=== PATIENT | female | born 1965 | race African-American/Black ===

== ENCOUNTER 2016-10-31 18:08 | Emergency (ER) | payer MEDICARE, MEDICAID ==
[~2016-10-31 18:08] MED LIST: ACET325 PO; AMLO5 PO; ATOR20TA42 PO; CLON.2 PO; COLA100C PO; DOXA4 PO; IPRAAER INH; LEVEMIR SQ; METO50TA PO; NOVOLOGSS SQ; OMEG100037 PO; PROM25TA5 PO; RENATAB5 PO; SENS30TA PO; SEVEL800 PO; VITA100018 PO; ZOLO100T PO; [UNRECOGNIZED DRUG - CODE] TOP
[2016-10-31 18:12] VITALS: BP 231/102; PULSE 105; RESP 22; TEMP 100.4; O2SAT 98
[2016-10-31] MEDS ORDERED: LEVEMIR SQ (19:00)
[2016-10-31] MEDS ORDERED: CLON0.2T PO (19:00)
[2016-10-31] MEDS ORDERED: DOCU240C PO (19:00)
[2016-10-31] MEDS ORDERED: LACT10SO27 PO (19:00)
[2016-10-31] MEDS ORDERED: SEVEL800 PO (19:00)
[2016-10-31] MEDS ORDERED: RENATAB5 PO (19:00)
[2016-10-31] MEDS ORDERED: DOXA1TAB34 PO (19:00)
[2016-10-31] MEDS ORDERED: [UNRECOGNIZED DRUG - OTHER] LEFT EYE (19:00)
[2016-10-31] MEDS ORDERED: NOVOLOGP2 SQ (19:00)
[2016-10-31] MEDS ORDERED: ATOR20TA15 PO (19:00)
[2016-10-31] MEDS ORDERED: SODIUM CHLORIDE 0.9% FLUSH 10 ML FLUSH IVF PRN (19:15)
--- NOTE | 2016-10-31 19:34 | PD ---
HPI Chief Complaint: Psychiatric Symptoms Time Seen by Provider: 18:56 Travel History International Travel<30 days: No Contact w/Intl Traveler<30days: No Traveled to known affect area: No History of Present Illness HPI The patient is 51 years old. She has end-stage renal disease and lives at [facility]. In summary she is here because she does not want stay at [facility]. At the time of interview she offers various complaints including swelling in her feet with the sensation of feeling titer. She states "I want any well-being check for the health of myself." She states when here because him unhappy with my facility." She states to have called the [address] [place] [address] hotline evidently with a grievance regarding the facility in which she lives. She undergoes dialysis Saturdays and was dialyzed yesterday as per normal. I was called back to the room by the nurse and the patient refused IV blood work. Initially she had agreed to undergo blood work as part of a "well-being check." Upon reassessment the patient explained that her reason for coming to the ER is to see the test case developer and to get placement in a different facility. We spoke with case management who will evaluate the patient and see about placement which we may not be able to do as since 7:30pm on a Wednesday night. Since the patient is tachycardic and febrile here we'll initiate blood work. Upon reassessing the patient at about 7:40 PM she agreed to undergo blood work and a chest x-ray and then refused. Ultimately after talking with her a third time she agreed to allow blood work to be performed however refused CXR when it arrived. PFSH Past Medical History Arthritis: No Asthma: No Autoimmune Disease: No Blood Disorders: No Anxiety: Yes Depression: Yes Heart Rhythm Problems: Yes Cancer: No Cardiac Catheterization: Yes (2008) Cardiovascular Problems: Yes High Cholesterol: Yes Chemotherapy: No Chest Pain: Yes Congestive Heart Failure: Yes COPD: No Cerebrovascular Accident: Yes (RIGHT SIDED WEAKNESS) Coronary Artery Disease: Yes Diabetes: Yes Patient Takes Glucophage: No Dialysis: Yes (WEDNESDAY,WEDNESDAY, WEDNESDAY) Diminished Hearing: No Endocrine: Yes Gastrointestinal Disorders: Yes GERD: No Glaucoma: No Genitourinary: Yes Headaches: No Hepatitis: No Hiatal Hernia: No Hypertension: Yes Immune Disorder: No Implanted Vascular Access Dvce: Yes Kidney Stones: No Medical other: Yes (RT SIDED WEAKNESS) Musculoskeletal: Yes Neurologic: Yes (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) Psychiatric: Yes Reproductive: No Respiratory: Yes (PNEUMONIA) Migraines: No Myocardial Infarction: No Radiation Therapy: No Renal Failure: Yes Seizures: No Sickle Cell Disease: No Thyroid Disease: No Ulcer: No Tetanus Vaccination: < 5 Years Influenza Vaccination: Yes ?: Not Menopausal: Yes : 3 Para: 3 Tubal Ligation: Yes (1991) Past Surgical History Abdominal Surgery: Yes (UMBILICAL HERNIA SURGERY) AICD: No Appendectomy: No Arteriovenous Shunt: No Body Medical Devices: AV FISTULA - LEFT upper inner ARM Cardiac Surgery: Yes (CABG X 4, CARDIAC CATHS) Section: Yes (X 3) Cholecystectomy: No Coronary Artery Bypass Graft: Yes (2009 4 VESSEL) Ear Surgery: No Endocrine Surgery: No Eye Surgery: Yes (RIGHT EYE TEAR DUCT) Genitourinary Surgery: No Gynecologic Surgery: Yes ( SECTION X 3) Insulin Pump: No Joint Replacement: No Oral Surgery: No Pacemaker: No Thoracic Surgery: No Other Surgery: Yes (LEFT ARM AV FISTLA) Social History Alcohol Use: No Tobacco Use: No Substance Use: No Allergies-Medications (Allergen,Severity, Reaction): Coded Allergies: *MDRO Multi-Drug Resistant Organism (Verified Allergy, Unknown, 10/31/16) MRSA PCR (nares) negative - 11/19/15 & 11/21/15 Cleared per Infection Control MRSA 2013 Reported Meds & Prescriptions Reported Meds & Active Scripts Active Azithromycin 250 Mg Tab 250 Mg PO DIRECTED Take 2 tabs (500 mg) on day 1 then 1 tab daily x 4 days. Reported Zymaxid Opth Drops (Gatifloxacin) 0.5% Soln 1 Drop LEFT EYE DIRECTED Day 1: 1 drop into affected eye(s) every 2 hours while awake (max: 8 times/day). Days 2-7: 1 drop into affected eye(s) 2 to 4 times/day while awake. Renvela (Sevelamer Carbonate) 800 Mg Tab 1,600 Mg PO TID Rhonda-Estefania (B-Complex W/ C & Folic Acid) 1 Tab 1 Tab PO DAILY Novolog Inj (Insulin Aspart) 1,000 Unit/10 Ml Vial 0 SQ BID Sliding Scale as directed. Levemir Inj (Insulin Detemir) 1,000 unit/ 10 ML Vial 15 Units SQ Do not mix with any other Insulin. Lactulose Liq (Lactulose (Encephalopathy) Liq) 19 Gm/15 Ml Soln 15 Ml PO DAILY Doxazosin (Doxazosin Mesylate) 4 Mg Tab 4 Mg PO DAILY Docusate Calcium 240 Mg Cap 240 Mg PO DAILY Clonidine (Clonidine HCl) 0.2 Mg Tab 0.2 Mg PO DAILY Atorvastatin (Atorvastatin Calcium) 20 Mg Tab 20 Mg PO HS Review of Systems Except as stated in HPI: all other systems reviewed are Neg General / Constitutional: Positive: Fever (pt denies) Physical Exam Narrative GENERAL: 51 yo F, NAD, speaking if he sentences without difficulty SKIN: Warm and dry. HEAD: Atraumatic. Normocephalic. EYES: Pupils equal and round. No scleral icterus. No injection or drainage. ENT: No nasal bleeding or discharge. Mucous membranes pink and moist. NECK: Trachea midline. No JVD. CARDIOVASCULAR: Regular rate and rhythm. RESPIRATORY: The lung sounds are clear. There is no accessory muscle use or tachypnea. GASTROINTESTINAL: Abdomen soft, non-tender, nondistended. Hepatic and splenic margins not palpable. MUSCULOSKELETAL: Extremities without clubbing, cyanosis, or edema. No obvious deformities. There is a left antecubital AV fistula. NEUROLOGICAL: Awake and alert. No obvious cranial nerve deficits. Motor grossly within normal limits. Some contraction deformities are present in the right arm and the right leg. She has right-sided hemiparesis. There is minimal edema on the right greater than left sides which the patient states is chronic. Normal speech. PSYCHIATRIC: Appropriate mood and affect; insight and judgment normal. Data Data Last Documented VS Vital Signs Date Time Temp Pulse Resp B/P Pulse Ox O2 Delivery O2 Flow Rate FiO2 10/31/16 18:12 100.4 105 22 231/102 98 Vital signs reviewed Orders Sodium Chloride 0.9% Flush (Ns Flush) (10/31/16 19:15) Basic Metabolic Panel (Bmp) (10/31/16 19:37) Complete Blood Count With Diff (10/31/16 19:37) Iv Access Insert/Monitor (10/31/16 19:37) Ecg Monitoring (10/31/16 19:37) Oximetry (10/31/16 19:37) Sodium Chloride 0.9% Flush (Ns Flush) (10/31/16 19:45) Chest, Single Ap (10/31/16 ) Azithromycin (Zithromax) (10/31/16 22:45) Labs Laboratory Tests Test 10/31/16 20:10 White Blood Count 8.9 TH/MM3 Red Blood Count 4.12 MIL/MM3 Hemoglobin 11.7 GM/DL Hematocrit 35.8 % Mean Corpuscular Volume 86.9 FL Mean Corpuscular Hemoglobin 28.4 PG Mean Corpuscular Hemoglobin 32.7 % Concent Red Cell Distribution Width 13.2 % Platelet Count 97 TH/MM3 Mean Platelet Volume 11.7 FL Neutrophils (%) (Auto) 76.7 % Lymphocytes (%) (Auto) 15.7 % Monocytes (%) (Auto) 6.9 % Eosinophils (%) (Auto) 0.3 % Basophils (%) (Auto) 0.4 % Neutrophils # (Auto) 6.8 TH/MM3 Lymphocytes # (Auto) 1.4 TH/MM3 Monocytes # (Auto) 0.6 TH/MM3 Eosinophils # (Auto) 0.0 TH/MM3 Basophils # (Auto) 0.0 TH/MM3 CBC Comment AUTO DIFF Differential Comment AUTO DIFF CONFIRMED Platelet Estimate LOW Platelet Morphology Comment NORMAL Sodium Level 142 MEQ/L Potassium Level 3.5 MEQ/L Chloride Level 98 MEQ/L Carbon Dioxide Level 31.7 MEQ/L Anion Gap 12 MEQ/L Blood Urea Nitrogen 26 MG/DL Creatinine 7.12 MG/DL Estimat Glomerular Filtration 7 ML/MIN Rate Random Glucose 150 MG/DL Calcium Level 9.8 MG/DL MDM Medical Decision Making Medical Screen Exam Complete: Yes Emergency Medical Condition: Yes Medical Record Reviewed: Yes Differential Diagnosis Infection, electrolyte imbalance, anemia, HTN Narrative Course The patient's and 51 years old. She came to the ER because she wants to be placed in a different care facility. It so happens that she is slightly febrile and tachycardic and may have an infection. As part of the workup routine blood work will be drawn. After several minutes of discussion the patient refused blood work and stated that she was only here to get placement to a different facility. Repeat temperature was in the normal range. Repeat blood pressure was about 180/90. The pulse 94 with an O2 sat of 99 to her percent on room air. Workup reveals the following: CBC & BMP Diagram 10/31/16 20:10 The abdomen was reexamined at about 9:45 PM and there is no tenderness. It was soft. The patient denied any abdominal pain. She also denies pulmonary symptoms as well as a subjective fever. Plain film of the chest was added on the patient agreed to do so. Case management consultation appreciated. We'll prescribe Azithromycin for LLL consolidation. Last 24 hours Impressions Chest X-Ray 10/31/16 0000 Signed Impressions: Service Date/Time: Monday, October 31, 2016 21:59 - CONCLUSION: Left lower lobe consolidation with air bronchograms. Aditya Caba MD Diagnosis Primary Impression: Social problem Additional Impression: Pneumonia Qualified Code: J18.1 - Pneumonia of left lower lobe due to infectious organism Referrals: Trino Abdullahi DO [address] LEDESMA 2 days Additional Instructions: You have a choice when it comes to health care, and we are glad that you chose [facility]. Hopefully, we have met your expectations on today's visit. You are welcome to return to [facility] at any time, as we are committed to meeting the health care needs of our community. Med/Other Pt SpecificInfo: Prescription(s) given Scripts Azithromycin 250 Mg [id number] Mg PO DIRECTED #6 TAB Ref 0 Take 2 tabs (500 mg) on day 1 then 1 tab daily x 4 days. Prov:Surjit Ramos MD 10/31/16 Disposition: 07 AGAINST MEDICAL ADVICE Condition: Stable Surijt Ramos MD Oct 31, 2016 19:33 Surjit Ramos MD Oct 31, 2016 19:33
[2016-10-31] MEDS ORDERED: SODIUM CHLORIDE 0.9% FLUSH 10 ML FLUSH IV FLUSH PRN (19:45)
[2016-10-31 20:53] LABS: AUTOMATED NEUTROPHIL # 6.8 TH/MM3 (1.8-7.7); BASOPHIL % 0.4 % (0.0-2.0); EOSINOPHIL % 0.3 % (0.0-4.0); HEMATOCRIT 35.8 % (35.0-46.0); LYMPH % 15.7 % (9.0-44.0); LYMPHOCYTE # 1.4 TH/MM3 (1.0-4.8); MEAN CELL VOLUME 86.9 FL (80.0-100.0); MEAN CORPUSCULAR HEMOGLOBIN 28.4 PG (27.0-34.0); MEAN CORPUSCULAR HGB CONC 32.7 % (32.0-36.0); MONO % 6.9 % (0.0-8.0); NEUT % 76.7 % (16.0-70.0); PLATELET COUNT 97 TH/MM3 (150-450); RED BLOOD COUNT 4.12 MIL/MM3 (4.00-5.30); RED CELL DISTRIBUTION WIDTH 13.2 % (11.6-17.2); WHITE BLOOD COUNT 8.9 TH/MM3 (4.0-11.0)
[2016-10-31 20:59] LABS: HEMO FLAGS AUTO DIFF
[2016-10-31 21:12] LABS: BICARBONATE 31.7 MEQ/L (21.0-32.0); POTASSIUM 3.5 MEQ/L (3.5-5.1)
[2016-10-31 21:33] LABS: PLATELET ESTIMATE SMEAR LOW (NORMAL); PLATELET MORPHOLOGY NORMAL (NORMAL); SCAN/DIFF AUTO DIFF CONFIRMED
--- NOTE | 2016-10-31 22:23 | RADRPT ---
EXAM DATE/TIME: 10/31/2016 21:59 [facility] COMPARISON: CHEST PA & LAT, November 22, 2015, 13:43. CHEST SINGLE AP, April 26, 2016, 15:55. INDICATIONS : Shortness of breath and fever. MEDICAL HISTORY : Hypercholesterolemia. Congestive heart failure. Hypertension. Coronary artery disease. Diabetes. Depr ession. Anxiety. SURGICAL HISTORY : section. Umbilical hernia repair. CABG. Left arm AV fistula. ENCOUNTER: Initial ACUITY: 1 day PAIN SCORE: 0/10 LOCATION: Bilateral chest FINDINGS: Frontal view of the chest demonstrates a triangular-shaped opacity with some air bronchograms in the retrocardiac region and loss of delineation of the midportion of the left hemidiaphragm. The right l sheng is clear. No evidence of mediastinal shift. The heart is normal size. Evidence of prior median sternotomy with 4 intact sternal wire sutures. CONCLUSION: Left lower lobe consolidation with air bronchograms. Aditya Caba MD on October 31, 2016 at 22:20 Board Certified Radiologist. This report was verified electronically.
[2016-10-31] MEDS ORDERED: AZIT250T3 PO (22:44)
[2016-10-31] MEDS ORDERED: AZITHROMYCIN 250 MG TAB PO ONE (22:45)
== END 2016-11-01 01:50 | disposition left against medical advice (07) ==
LOC: NEPC 18:08
DX: J18.1 Lobar pneumonia, unspecified organism (principal); I12.0 Hypertensive chronic kidney disease with stage 5 chronic kidney disease or end stage renal disease; N18.6 End stage renal disease; R00.0 Tachycardia, unspecified; R50.9 Fever, unspecified; E78.00 Pure hypercholesterolemia, unspecified; I50.9 Heart failure, unspecified; I25.10 Atherosclerotic heart disease of native coronary artery without angina pectoris; E11.9 Type 2 diabetes mellitus without complications; I69.359 Hemiplegia and hemiparesis following cerebral infarction affecting unspecified side; Z99.2 Dependence on renal dialysis; Z95.1 Presence of aortocoronary bypass graft
CPT/HCPCS: 71010; 80048; 85025; 99283

== ENCOUNTER 2016-11-03 16:33 | Observation (INO) | payer MEDICARE, MEDICAID ==
[~2016-11-03] VITALS: Ht 167.6 cm; Wt 117.7 kg
[~2016-11-03 16:33] MED LIST changes: -ACET325 PO; -AMLO5 PO; +ATOR20TA15 PO; -ATOR20TA42 PO; +AZIT250T3 PO; -CLON.2 PO; +CLON0.2T PO; -COLA100C PO; +DOCU240C PO; +DOXA1TAB34 PO; -DOXA4 PO; -IPRAAER INH; +LACT10SO27 PO; -METO50TA PO; +NOVOLOGP2 SQ; -NOVOLOGSS SQ; -OMEG100037 PO; -PROM25TA5 PO; -SENS30TA PO; -VITA100018 PO; -ZOLO100T PO; -[UNRECOGNIZED DRUG - CODE] TOP; +[UNRECOGNIZED DRUG - OTHER] LEFT EYE
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
[2016-11-03 16:49] VITALS: BP 204/107; PULSE 102; RESP 16; TEMP 98.2; O2SAT 99
[2016-11-03] MEDS ORDERED: cloNIDine HCL 0.1 MG TAB PO ONE (17:30)
--- NOTE | 2016-11-03 18:07 | PD ---
HPI Chief Complaint: Medical Clearance Time Seen by Provider: 18:07 Travel History International Travel<30 days: No Contact w/Intl Traveler<30days: No Traveled to known affect area: No History of Present Illness HPI 51 year-old female history of end-stage renal disease, dialysis dependent on Wednesday, , Wednesday, hypertension, diabetes, currently residing at [facility] following a CVA with right sided deficit, presents to the emergency department today stating that she does not like the care at [facility] and wants case management to help her get out of there. She states that their documents are all fake and nothing they do there is real. She states they do not let her make her own decisions. She was seen and evaluated here in the emergency department 3 days ago for similar complaint, diagnosed with pneumonia, and left back to [facility]. She was seen and evaluated 2 days ago at [facility] and was diagnosed with a UTI. She was discharged from there back to [facility]. Patient states today that she does not believe either of her workups were real. Her daughter accompanies her and states that she has been having very bizarre behavior worsening of the last 2-3 days. She has skipped her last 2 dialysis treatments. Patient states that she has not been dialysis this week because she does not trust the place that she attends. She is concerned that something else may be seriously wrong with her mother. The patient states that she does not need anything. She is stating that she can make her own decisions and "nothing that is going on here is real." He was discharged from [facility] with a peripheral IV left in her right forearm. The patient states that this "has a tube that goes into her heart and if we let it out, her spirit will escape." PFSH Past Medical History Arthritis: No Asthma: No Autoimmune Disease: No Blood Disorders: No Anxiety: Yes Depression: Yes Heart Rhythm Problems: Yes Cancer: No Cardiac Catheterization: Yes (2008) Cardiovascular Problems: Yes (CHF) High Cholesterol: Yes Chemotherapy: No Chest Pain: Yes Congestive Heart Failure: Yes COPD: No Cerebrovascular Accident: Yes (RIGHT SIDED WEAKNESS) Coronary Artery Disease: Yes Diabetes: Yes Dialysis: Yes (WEDNESDAY,WEDNESDAY, WEDNESDAY) Diminished Hearing: No Endocrine: Yes Gastrointestinal Disorders: Yes GERD: No Glaucoma: No Genitourinary: Yes Headaches: No Hepatitis: No Hiatal Hernia: No Hypertension: Yes Immune Disorder: No Implanted Vascular Access Dvce: Yes Kidney Stones: No Musculoskeletal: Yes Neurologic: Yes (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) Psychiatric: Yes Reproductive: No Respiratory: Yes (PNEUMONIA) Migraines: No Myocardial Infarction: No Radiation Therapy: No Renal Failure: Yes Seizures: No Sickle Cell Disease: No Thyroid Disease: No Ulcer: No ?: Unknown Menopausal: Yes : 3 Para: 3 Tubal Ligation: Yes (1991) Past Surgical History Abdominal Surgery: Yes (UMBILICAL HERNIA SURGERY) AICD: No Appendectomy: No Arteriovenous Shunt: No Body Medical Devices: AV FISTULA - LEFT upper inner ARM Cardiac Surgery: Yes (CABG X 4, CARDIAC CATHS) Section: Yes (X 3) Cholecystectomy: No Coronary Artery Bypass Graft: Yes (2009 4 VESSEL) Ear Surgery: No Endocrine Surgery: No Eye Surgery: Yes (RIGHT EYE TEAR DUCT) Genitourinary Surgery: No Gynecologic Surgery: Yes ( SECTION X 3) Insulin Pump: No Joint Replacement: No Oral Surgery: No Pacemaker: No Thoracic Surgery: No Other Surgery: Yes (LEFT ARM AV FISTLA) Social History Alcohol Use: No Tobacco Use: No Substance Use: No Allergies-Medications (Allergen,Severity, Reaction): Coded Allergies: *MDRO Multi-Drug Resistant Organism (Verified Allergy, Unknown, 11/03/16) MRSA PCR (nares) negative - 11/19/15 & 11/21/15 Cleared per Infection Control MRSA 2013 Reported Meds & Prescriptions Reported Meds & Active Scripts Active Azithromycin 250 Mg Tab 250 Mg PO DIRECTED Take 2 tabs (500 mg) on day 1 then 1 tab daily x 4 days. Reported Zymaxid Opth Drops (Gatifloxacin) 0.5% Soln 1 Drop LEFT EYE DIRECTED Day 1: 1 drop into affected eye(s) every 2 hours while awake (max: 8 times/day). Days 2-7: 1 drop into affected eye(s) 2 to 4 times/day while awake. Renvela (Sevelamer Carbonate) 800 Mg Tab 1,600 Mg PO TID Rhonda-Estefania (B-Complex W/ C & Folic Acid) 1 Tab 1 Tab PO DAILY Novolog Inj (Insulin Aspart) 1,000 Unit/10 Ml Vial 0 SQ BID Sliding Scale as directed. Levemir Inj (Insulin Detemir) 1,000 unit/ 10 ML Vial 15 Units SQ Do not mix with any other Insulin. Lactulose Liq (Lactulose (Encephalopathy) Liq) 19 Gm/15 Ml Soln 15 Ml PO DAILY Doxazosin (Doxazosin Mesylate) 4 Mg Tab 4 Mg PO DAILY Docusate Calcium 240 Mg Cap 240 Mg PO DAILY Clonidine (Clonidine HCl) 0.2 Mg Tab 0.2 Mg PO DAILY Atorvastatin (Atorvastatin Calcium) 20 Mg Tab 20 Mg PO HS Review of Systems ROS Limitations: Altered Mental Status, Poor Historian Except as stated in HPI: all other systems reviewed are Neg Physical Exam Exam Limitations: Altered Mental Status Narrative GENERAL: Well-nourished female patient, sitting up in a chair in no acute distress SKIN: Focused skin assessment warm/dry. HEAD: Atraumatic. Normocephalic. EYES: Pupils equal and round. No scleral icterus. No injection or drainage. ENT: No nasal bleeding or discharge. Mucous membranes pink and moist. NECK: Trachea midline. No JVD. CARDIOVASCULAR: Regular rate and rhythm. RESPIRATORY: No accessory muscle use. Clear to auscultation. Diminished sounds equal bilaterally. GASTROINTESTINAL: Abdomen soft, non-tender, nondistended. Hepatic and splenic margins not palpable. MUSCULOSKELETAL: No obvious deformities. No clubbing. No cyanosis. No edema. Right upper extremity paralysis with mild contracture of the right hand. Distal pulses are palpable. Cap refills within normal limits. Left upper extremity fistula. Positive bruit and thrill. NEUROLOGICAL: Awake and alert. No obvious cranial nerve deficits. Motor grossly within normal limits. Normal speech. PSYCHIATRIC: Her affect. Poor judgment. Data Data Last Documented VS Vital Signs Date Time Temp Pulse Resp B/P Pulse Ox O2 Delivery O2 Flow Rate FiO2 11/03/16 18:46 90 16 174/96 99 Room Air 11/03/16 16:49 98.2 Orders Clonidine (Catapres) (11/03/16 17:30) Complete Blood Count With Diff (11/03/16 17:39) Comprehensive Metabolic Panel (11/03/16 17:39) Urinalysis - C+S If Indicated (11/03/16 17:39) Electrocardiogram (11/03/16 17:39) Iv Access Insert/Monitor (11/03/16 17:39) Drug Screen, Random Urine (11/03/16 17:39) Alcohol (Ethanol) (4/25/17 17:39) Ct Brain W/O Iv Contrast(Rout) (11/03/16 ) Cath For Specimen (11/03/16 18:06) Consult Psychiatry (11/03/16 ) (Hub Use Only)Inp Phy Cons/Ref (11/03/16 ) Hydralazine Inj (Apresoline Inj) (11/03/16 19:30) Hydralazine Inj (Apresoline Inj) (11/03/16 20:30) Labs Laboratory Tests Test 11/03/16 18:00 White Blood Count 10.3 TH/MM3 Red Blood Count 4.16 MIL/MM3 Hemoglobin 11.3 GM/DL Hematocrit 36.4 % Mean Corpuscular Volume 87.5 FL Mean Corpuscular Hemoglobin 27.2 PG Mean Corpuscular Hemoglobin 31.1 % Concent Red Cell Distribution Width 13.3 % Platelet Count 108 TH/MM3 Mean Platelet Volume 11.2 FL Neutrophils (%) (Auto) 68.1 % Lymphocytes (%) (Auto) 21.2 % Monocytes (%) (Auto) 8.6 % Eosinophils (%) (Auto) 1.6 % Basophils (%) (Auto) 0.5 % Neutrophils # (Auto) 7.0 TH/MM3 Lymphocytes # (Auto) 2.2 TH/MM3 Monocytes # (Auto) 0.9 TH/MM3 Eosinophils # (Auto) 0.2 TH/MM3 Basophils # (Auto) 0.1 TH/MM3 CBC Comment DIFF FINAL Differential Comment Sodium Level 142 MEQ/L Potassium Level 3.8 MEQ/L Chloride Level 99 MEQ/L Carbon Dioxide Level 32.2 MEQ/L Anion Gap 11 MEQ/L Blood Urea Nitrogen 63 MG/DL Creatinine 13.54 MG/DL Estimat Glomerular Filtration 4 ML/MIN Rate Random Glucose 162 MG/DL Calcium Level 10.0 MG/DL Total Bilirubin 0.5 MG/DL Aspartate Amino Transf 13 U/L (AST/SGOT) Alanine Aminotransferase 16 U/L (ALT/SGPT) Alkaline Phosphatase 296 U/L Total Protein 7.9 GM/DL Albumin 3.8 GM/DL Ethyl Alcohol Level LESS THAN 3 MG/DL MDM Medical Decision Making Medical Screen Exam Complete: Yes Emergency Medical Condition: Yes Medical Record Reviewed: Yes Differential Diagnosis Uremia versus acute psychosis versus lymphoid abnormality versus mood disorder versus personality disorder Narrative Course 51 year-old female presents to emergency department for evaluation. Patient has had a very bizarre behavior and is not making any sense with what she is talking about. Without care the patient is likely to refuse to care for herself and this could result in substantial self harm. She is placed under BA. She does have previous CVA with right sided deficit. She is hypertensive which she does have a history of. She is currently under treatment for pneumonia after being diagnosed here 3 days ago. She has voluntarily skipped her last 2 dialysis treatments. Gutters very concerned. CT imaging of the brain is without acute intracranial normality. CBC is without leukocytosis. CMP is with BUN is 63 and a creatinine of 13.54. . This is doubled since her visit 3 days ago. Potassium is 3.8. Discussed the patient with my attending physician Dr. Pavon. [facility] consult has been placed. Nephrology will also be placed. Pt is followed by Dr. Ward 2039 spoke with Trino Flores. Patient will be admitted observation to [facility] Diagnosis Primary Impression: Altered mental status, unspecified Additional Impressions: Hypertension Qualified Code: I15.1 - Hypertension secondary to other renal disorders Uremia due to inadequate renal perfusion ESRD (end stage renal disease) on dialysis Hx of psychosis History of CVA with residual deficit Admitting Information Admitting Physician Requests: Observation Condition: Stable Paulina Cortes Nov 03, 2016 18:07
[2016-11-03 18:18] LABS: BASOPHIL # 0.1 TH/MM3 (0-0.2); BASOPHIL % 0.5 % (0.0-2.0); EOSINOPHIL # 0.2 TH/MM3 (0-0.4); EOSINOPHIL % 1.6 % (0.0-4.0); HEMATOCRIT 36.4 % (35.0-46.0); HEMO FLAGS DIFF FINAL; LYMPH % 21.2 % (9.0-44.0); LYMPHOCYTE # 2.2 TH/MM3 (1.0-4.8); MEAN CELL VOLUME 87.5 FL (80.0-100.0); MEAN CORPUSCULAR HEMOGLOBIN 27.2 PG (27.0-34.0); MEAN CORPUSCULAR HGB CONC 31.1 % (32.0-36.0); MONO % 8.6 % (0.0-8.0); NEUT % 68.1 % (16.0-70.0); PLATELET COUNT 108 TH/MM3 (150-450); RED BLOOD COUNT 4.16 MIL/MM3 (4.00-5.30); RED CELL DISTRIBUTION WIDTH 13.3 % (11.6-17.2); WHITE BLOOD COUNT 10.3 TH/MM3 (4.0-11.0)
--- NOTE | 2016-11-03 18:24 | RADRPT ---
EXAM DATE/TIME: 11/03/2016 18:13 [facility] COMPARISON: CT BRAIN W/O CONTRAST, November 17, 2015, 18:44. INDICATIONS : Altered mental status. RADIATION DOSE: 47.07 CTDIvol (mGy) MEDICAL HISTORY : Cerebrovascular disease. Cardiovascular disease Hypertension.Diabetes Renal failure SURGICAL HISTORY : CABG Umbilical hernia repair.Tubal ligation. ENCOUNTER: Initial ACUITY: 1 day PAIN SCALE: 0/10 LOCATION: cranial TECHNIQUE: Multiple contiguous axial images were obtained of the head. Using automated exposure control and adj ustment of the mA and/or kV according to patient size, radiation dose was kept as low as reasonably a chievable to obtain optimal diagnostic quality images. FINDINGS: CEREBRUM: The ventricles are normal for age. No evidence of midline shift, mass lesion, hemorrhage or acute in farction. No extra-axial fluid collections are seen. POSTERIOR FOSSA: The cerebellum and brainstem are intact. The 4th ventricle is midline. The cerebellopontine angle i s unremarkable. EXTRACRANIAL: The visualized portion of the orbits is intact. SKULL: The calvaria is intact. No evidence of skull fracture. CONCLUSION: No acute intracranial disease. Jason Gill MD on November 03, 2016 at 18:21 Board Certified Radiologist. This report was verified electronically.
[2016-11-03 18:45] LABS: ALKALINE PHOSPHATASE 296 U/L (45-117); ALT (GPT) 16 U/L (10-53); ANION GAP 11 MEQ/L (5-15); AST (GOT) 13 U/L (15-37); BICARBONATE 32.2 MEQ/L (21.0-32.0); BLOOD UREA NITROGEN 63 MG/DL (7-18); CHLORIDE 99 MEQ/L (98-107); GLOMERULAR FILTRATION RATE 4 ML/MIN (>89); POTASSIUM 3.8 MEQ/L (3.5-5.1); SODIUM (NA) 142 MEQ/L (136-145); TOTAL BILIRUBIN ADULT 0.5 MG/DL (0.2-1.0)
[2016-11-03 18:46] VITALS: BP 174/96; PULSE 90; RESP 16; O2SAT 99
[2016-11-03] MEDS ORDERED: hydrALAZINE HCL 20 MG/ML VIAL IV PUSH ONE ×2 (19:30→20:30)
[2016-11-03] MEDS ORDERED: AZITHROMYCIN INJ 500 MG in SODIUM CHLOR 0.9% 250 ML INJ 250 ML IV ONE (20:45)
[2016-11-03 21:00] VITALS: BP 176/83; PULSE 87; RESP 19; O2SAT 100
--- NOTE | 2016-11-03 21:06 | RADRPT ---
EXAM DATE/TIME: 11/03/2016 20:52 [facility] COMPARISON: CHEST SINGLE AP, October 31, 2016, 21:59. INDICATIONS : Chest pain. MEDICAL HISTORY : None. SURGICAL HISTORY : None. ENCOUNTER: Initial ACUITY: 1 day PAIN SCORE: 0/10 LOCATION: Bilateral chest FINDINGS: A single view of the chest demonstrates cardiomegaly and previous CABG. Left basilar density again se en. Right lung is clear. Osseous structures are intact. CONCLUSION: Left basilar density again noted could be combination of atelectasis, infiltrate and/or effusion. Jason Gill MD on November 03, 2016 at 21:03 Board Certified Radiologist. This report was verified electronically.
[2016-11-03] MEDS ORDERED: LORazepam 2 MG/ML VIAL IV PUSH ONE (21:15)
[2016-11-03] MEDS ORDERED: ACETAMINOPHEN 325 MG TAB PO PRN (23:00)
[2016-11-03] MEDS ORDERED: SODIUM CHLORIDE 0.9% FLUSH 10 ML FLUSH IV FLUSH PRN (23:00)
[2016-11-03] MEDS ORDERED: SENNOSIDES 8.6 MG TAB PO PRN (23:00)
[2016-11-03] MEDS ORDERED: NALOXONE HCL 0.4 MG/ML AMP IV PRN (23:00)
[2016-11-03] MEDS ORDERED: ONDANSETRON HCL 4 MG/2 ML VIAL IVP PRN (23:00)
[2016-11-03] MEDS ORDERED: BISACODYL 10 MG SUPP RECTAL PRN (23:00)
[2016-11-04] VITALS (8 sets, daily range): BP systolic 137–182; BP diastolic 73–100; PULSE 95–105; RESP 18–20; TEMP 98–98.3; O2SAT 97–100
[2016-11-04] MEDS ORDERED: cloNIDine HCL 0.1 MG TAB PO PRN ×2 (00:45→11:30)
[2016-11-04] MEDS: cefTRIAXone INJ 1,000 MG in SODIUM CHLORIDE 0.9% INJ 100 ML IV SCH ×3 (01:00→07:06)
[2016-11-04] MEDS ORDERED: DEXTROSE 50% IN WATER 50 ML VIAL(D50) IV PUSH PRN (01:00)
[2016-11-04] MEDS ORDERED: GLUCAGON 1 MG/ML VIAL OTHER PRN (01:00)
[2016-11-04] MEDS: INSULIN NovoLIN REGULAR SUPPLEMENTAL SCALE SQ SCH ×4 (07:00→22:00)
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
--- NOTE | 2016-11-04 07:53 | MH ---
cc: PORFIRIO OTT MD DATE OF ADMISSION 11/03/2016 ADDENDUM PAST SURGICAL HISTORY Laparoscopic cholecystectomy in 2015 MD AIDAN Patel/JESSICA /1:47 AM /7:47 AM
[2016-11-04] MEDS: SODIUM CHLORIDE 0.9% FLUSH 10 ML FLUSH IV FLUSH SCH ×2 (09:00→14:53)
[2016-11-04] MEDS: HEPARIN SODIUM - SQ 10,000 UNITS/ML VIAL SQ SCH ×2 (09:00→21:59)
[2016-11-04] MEDS: FAMOTIDINE 20 MG TAB PO SCH ×2 (09:00→22:02)
--- NOTE | 2016-11-04 11:05 | EKG ---
Date Performed: 11/03/2016 Time Performed: 18:37:01 PTAGE: 51 years EKG: SINUS TACHYCARDIA LEFT ATRIAL ENLARGEMENT POSSIBLE INFERIOR MYOCARDIAL INFARCTION ABNORMAL ECG PREVIOUS TRACING : 04/26/2016 16.19 Compared to prior tracing no significant change DOCTOR: Carol Bates Interpretating Date/Time 11/04/2016 11:04:31
[2016-11-04] MEDS ORDERED: SODIUM CHLOR 0.9% 1000 ML INJ 1,000 ML IV PRN ×3 (11:23)
[2016-11-04] MEDS ORDERED: diphenhydrAMINE HCL 25 MG CAP PO PRN (11:30)
[2016-11-04] MEDS ORDERED: GENTAMICIN SULFATE (DIALYSIS USE ONLY) 20 MG/2 ML VIAL IV PRN (11:30)
[2016-11-04] MEDS ORDERED: GELATIN 12 MM/7 MM FOAM TOP PRN (11:30)
[2016-11-04] MEDS ORDERED: ONDANSETRON HCL 4 MG/2 ML VIAL IV PRN (11:30)
[2016-11-04] MEDS ORDERED: MANNITOL 12.5 GM/50 ML VIAL IV PRN (11:30)
[2016-11-04] MEDS ORDERED: ALBUMIN HUMAN 25% 25 GM/100 ML BAGP IV PRN (11:30)
[2016-11-04] MEDS ORDERED: HEPARIN SODIUM - IV 10,000 UNITS/10 ML VIAL IVF PRN (11:30)
[2016-11-04] MEDS ORDERED: HEPARIN SODIUM - IV 10,000 UNITS/10 ML VIAL PRN (11:30)
[2016-11-04] MEDS ORDERED: NITROGLYCERIN 0.4 MG SL 25 TABS/BTL SL PRN (11:30)
[2016-11-04] MEDS ORDERED: ACETAMINOPHEN 325 MG TAB PO PRN (11:30)
[2016-11-04] MEDS ORDERED: SODIUM CHLORIDE 0.9% FLUSH 10 ML FLUSH IV FLUSH PRN (11:30)
--- NOTE | 2016-11-04 12:27 | MB ---
cc: JOSH SANTOS MD DATE OF CONSULTATION: 11/04/2016 REASON FOR CONSULTATION End-stage renal disease on hemodialysis for management. HISTORY OF PRESENT ILLNESS This is a 51-year-old female with a past medical history of diabetes mellitus, hypertension, anxiety, depression, ischemic heart disease, congestive heart failure, hyperlipidemia, history of cerebrovascular accident, end-stage renal disease on hemodialysis, who was admitted because of altered mental status. I was called to see the patient for management of hemodialysis. She has been on hemodialysis Wednesday, and Wednesday. She went for her hemodialysis during last week Wednesday at [facility] and after one hour of dialysis she started having some behavior problem and she started accusing the nurses of not treating her well and she wanted to get off the machine. I was there and I talked to her and she was complaining about the helicopter technician and the nurses and she said that she did not want to get dialysis on that day, she wanted to go back to her nursing place. She was saying that she will file some complaint about the helicopter technician and the nurses. She went for dialysis yesterday to [facility] and I was called from there that the patient was refusing to go on dialysis and she wanted to go to the hospital and she ended up coming here. Here it was found that she has been complaining about the way she was treated in the emergency department and she is thinking that nobody is treating her the right way. She was Schulte Act'd here after she was given Ativan to help her relax more. She is more awake and alert now. She is on dialysis and there is a sudden change in her mentation and her mood as compared to what she has been in the last 5-6 years that I have known her. She denies any headache or dizziness. There is no nausea or vomiting. She is saying that she was told that she has pneumonia and UTI and she thinks she does not have pneumonia and a UTI. She is currently getting ceftriaxone possibly for urinary tract infection. PAST MEDICAL HISTORY 1. Hypertension. 2. Ischemic heart disease. 3. Congestive heart failure. 4. Cerebrovascular accident. 5. Diabetes mellitus. 6. End-stage renal disease on hemodialysis. 7. Hyperlipidemia. 8. Chronic anemia. PAST SURGICAL HISTORY 1. Left arm AV fistula surgery. 2. Coronary artery bypass grafting. 3. Cardiac catheterization. 4. . 5. Recent history of cholecystectomy. 6. Umbilical hernia repair. REVIEW OF SYSTEMS The patient has generalized weakness, feeling tired, still complaining and she has not been getting the right treatment, wants to get out of here soon, and asking me to change her dialysis unit and send her somewhere else. Denies any nausea or vomiting. No shortness of breath. No chest pain. No palpitations. No abdominal pain. SOCIAL HISTORY The patient is single. She lives in a nursing facility. There is no history of smoking or alcoholism. FAMILY HISTORY Noncontributory. ALLERGIES She has no known drug allergies. MEDICATIONS Currently she is on: 1. Pepcid 10 mg b.i.d. 2. Ceftriaxone one gram q.24h. PHYSICAL EXAMINATION GENERAL: On examination the patient is awake and alert, not in acute distress. VITAL SIGNS: Last blood pressure 146/87, temperature 98.2, oxygen saturation 97-98%. HEENT: Pupils equally reacting to light. Non-icteric sclera. Conjunctiva normal. NECK: Supple. JVD is not elevated. LUNGS: The patient has bilateral good air entry with occasional wheezing. HEART: S1, S2, regular rhythm. ABDOMEN: Soft, lax. There is no tenderness. Bowel sounds positive. EXTREMITIES: There is mild edema in the legs. INVESTIGATIONS WBC count 10.3, hemoglobin 11.3, platelet count 108. Sodium 142, potassium 3.8, chloride 99, bicarb 32.2, BUN 63, creatinine 13.5, glucose 162, AST 13, ALT 16, alkaline phosphatase 296. Ethyl alcohol level was less than 3. Chest x-ray was done and showed that she has left basilar atelectasis with possible infiltrate or effusion. CT scan of the brain was done without IV contrast and it shows no acute intracranial disease. ASSESSMENT 1. Altered mental status with possible schizophrenia. 2. Hypertension uncontrolled. 3. End-stage renal disease on hemodialysis. 4. Diabetes mellitus. 5. History of CVA. 6. Possibility of uremia with high creatinine. PLAN The patient has been on dialysis for the last five or six years. Her creatinine is higher today but it could be just because she missed her full dialysis. Will follow the creatinine level and if there is an indication of uremia will try to investigate this further. At present psychiatry has been consulted and she is Schulte Act'd. She is getting ceftriaxone for possible UTI and she is not able to give any urine. Blood pressure is better with hemodialysis and will continue hemodialysis Wednesday, and Wednesday by putting her back on her dialysis tomorrow. Thank you for the consultation and I will follow the patient while she is in the hospital. Josh Santos MD AQJ/BT /11:21 AM /12:01 PM
--- NOTE | 2016-11-04 13:00 | PD.CONS ---
Provisional Diagnosis Admission Date Nov 03, 2016 at 20:43 History of Present Illness Service Psychiatry Consult Requested By Primary Care Physician No Primary Care Physician Past Family Social History Coded Allergies: *MDRO Multi-Drug Resistant Organism (Verified Allergy, Unknown, 11/03/16) MRSA PCR (nares) negative - 11/19/15 & 11/21/15 Cleared per Infection Control MRSA 2013 Active Scripts Azithromycin 250 Mg [id number] Mg PO DIRECTED #6 TAB Ref 0 Take 2 tabs (500 mg) on day 1 then 1 tab daily x 4 days. Prov:Surjit Ramos MD 10/31/16 Reported Medications Gatifloxacin Opth Drops (Zymaxid Opth Drops)0.5% Soln1 Drop LEFT EYE DIRECTED #1 BOTTLE Ref 0 Day 1: 1 drop into affected eye(s) every 2 hours while awake (max: 8 times/day). Days 2-7: 1 drop into affected eye(s) 2 to 4 times/day while awake. 10/31/16 Sevelamer Carbonate (Renvela)800 Mg Tab1,600 Mg PO TID #180 TAB Ref 0 10/31/16 B-Complex W/ C & Folic Acid (Rhonda-Estefania)1 Tab1 Tab PO DAILY 10/31/16 Insulin Aspart Inj (Novolog Inj)1,000 Unit/10 Ml Vial SQ BID #10 ML Ref 0 Sliding Scale as directed. 10/31/16 Insulin Detemir Inj (Levemir Inj)1,000 unit/ 10 ML Vial15 Units SQ Ref 0 Do not mix with any other Insulin. 10/31/16 Lactulose (Encephalopathy) Liq (Lactulose Liq)19 Gm/15 Ml Soln15 Ml PO DAILY 10/31/16 Doxazosin 4 Mg Tab4 Mg PO DAILY #30 TAB Ref 0 10/31/16 Docusate Calcium 240 Mg Kmh487 Mg PO DAILY #30 CAP Ref 0 10/31/16 Clonidine 0.2 Mg Tab0.2 Mg PO DAILY #60 TAB Ref 0 10/31/16 Atorvastatin 20 Mg Tab20 Mg PO HS #30 TAB Ref 0 10/31/16 Current Medications Medications (Trade) Dose Ordered Sig/Afshan Route Start Time Stop Time Status Last Admin (NS Flush) 2 ml UNSCH PRN IV FLUSH 11/03/16 23:00 (NS Flush) 2 ml BID IV FLUSH 11/04/16 09:00 (Tylenol) 650 mg Q4H PRN PO 11/03/16 23:00 (Zofran Inj) 4 mg Q6H PRN IVP 11/03/16 23:00 (Dulcolax Supp) 10 mg DAILY PRN RECTAL 11/03/16 23:00 (Senokot) 17.2 mg Q12H PRN PO 11/03/16 23:00 (Heparin Inj) 5,000 units Q12H SQ 11/04/16 09:00 (Narcan Inj) 0.4 mg UNSCH PRN IV 11/03/16 23:00 (Catapres) 0.1 mg Q6H PRN PO 11/04/16 00:45 Famotidine 10 mg 10 mg BID PO 11/04/16 09:00 (Rocephin Inj/NS Inj) 100 ml @ 200 mls/hr Q24H IV 11/04/16 01:00 11/04/16 07:06 (D50w (Vial) Inj) 25 ml UNSCH PRN IV PUSH 11/04/16 01:00 Glucagon 1 mg 1 mg UNSCH PRN OTHER 11/04/16 01:00 (NS 1000 ml Inj) 1,000 ml @ 0 mls/hr Q0M PRN IV 11/04/16 11:23 Heparin Sodium (Porcine) 8000 units 8,000 units UNSCH PRN IVF 11/04/16 11:30 Sodium Chloride 1,000 ml @ 200 mls/hr Q5H PRN IV 11/04/16 11:23 (NS 1000 ml Inj) 1,000 ml @ 0 mls/hr Q0M PRN IV 11/04/16 11:23 (Mannitol Inj) 12.5 gm UNSCH PRN IV 11/04/16 11:30 (Albumin 25% Inj) 25 gm UNSCH PRN IV 11/04/16 11:30 (NS Flush) 5 ml UNSCH PRN IV FLUSH 11/04/16 11:30 (Heparin Inj) UNSCH PRN .XX 11/04/16 11:30 (Gentamicin (Dialysis) Inj) 20 mg UNSCH PRN IV 11/04/16 11:30 (Zofran Inj) 4 mg UNSCH PRN IV 11/04/16 11:30 (Tylenol) 650 mg UNSCH PRN PO 11/04/16 11:30 (Benadryl) 25 mg UNSCH PRN PO 11/04/16 11:30 (Nitrostat Sl) 0.4 mg UNSCH PRN SL 11/04/16 11:30 (Catapres) 0.1 mg UNSCH PRN PO 11/04/16 11:30 (Gelfoam 12 Mm/7 Mm Top) 1 foam UNSCH PRN TOP 11/04/16 11:30 Physical Exam Vital Signs Vital Signs Date Time Temp Pulse Resp B/P Pulse Ox O2 Delivery O2 Flow Rate FiO2 11/04/16 12:28 98.2 105 18 182/98 99 Room Air 11/04/16 01:51 21 Assessment & Plan Problem List: (1) ESRD (end stage renal disease) on dialysis Assessment & Plan: Patient was visited for psychiatric evaluation, but she was absent of her room in the ER having hemodialysis. We'll see the patient once admitted in the medical floor. ICD Code: N18.6 Assessment & Plan Estimated LOS: days Marc Ward MD Nov 04, 2016 13:00
--- NOTE | 2016-11-04 16:24 | HHI.PR ---
Objective Objective Results - Vital Signs Date Time Temp Pulse Resp B/P Pulse Ox O2 Delivery O2 Flow Rate FiO2 11/04/16 16:11 98.2 95 20 137/77 99 Room Air 11/04/16 13:10 98.3 99 18 174/100 98 11/04/16 12:28 98.2 105 18 182/98 99 Room Air 11/04/16 08:00 105 18 146/87 97 Room Air 11/04/16 01:51 98 21 11/03/16 21:00 87 19 176/83 100 Room Air 11/03/16 18:46 90 16 174/96 99 Room Air 11/03/16 16:49 98.2 102 16 204/107 99 I/O 11/03/16 11/03/16 11/03/16 11/04/16 11/04/16 11/04/16 07:00 15:00 23:00 07:00 15:00 23:00 Output Total 3000 ml Balance -3000 ml Output Hemodialysis 3000 ml Result Diagram: 11/03/16 1800 11/03/16 1800 Other Results Laboratory Tests Test 11/03/16 11/04/16 18:00 03:55 White Blood Count 10.3 Red Blood Count 4.16 Hemoglobin 11.3 Hematocrit 36.4 Mean Corpuscular Volume 87.5 Mean Corpuscular Hemoglobin 27.2 Mean Corpuscular Hemoglobin 31.1 Concent Red Cell Distribution Width 13.3 Platelet Count 108 Mean Platelet Volume 11.2 Neutrophils (%) (Auto) 68.1 Lymphocytes (%) (Auto) 21.2 Monocytes (%) (Auto) 8.6 Eosinophils (%) (Auto) 1.6 Basophils (%) (Auto) 0.5 Neutrophils # (Auto) 7.0 Lymphocytes # (Auto) 2.2 Monocytes # (Auto) 0.9 Eosinophils # (Auto) 0.2 Basophils # (Auto) 0.1 CBC Comment DIFF FINAL Differential Comment Sodium Level 142 Potassium Level 3.8 Chloride Level 99 Carbon Dioxide Level 32.2 Anion Gap 11 Blood Urea Nitrogen 63 Creatinine 13.54 Estimat Glomerular Filtration 4 Rate Random Glucose 162 Calcium Level 10.0 Total Bilirubin 0.5 Aspartate Amino Transf 13 (AST/SGOT) Alanine Aminotransferase 16 (ALT/SGPT) Alkaline Phosphatase 296 Total Protein 7.9 Albumin 3.8 Ethyl Alcohol Level LESS THAN 3 Procalcitonin 0.40 Physical Exam Physical Exam pt IS SEEN & EXAMINED D/W PT D/W YVES SEE H&P SEE ORDERS WILL F/U Estrella Antony MD Nov 04, 2016 16:24
[2016-11-05] MEDS: INSULIN NovoLIN REGULAR SUPPLEMENTAL SCALE SQ SCH (06:20)
[2016-11-05 07:12] VITALS: BP 183/88; PULSE 112; RESP 18; TEMP 97.7; O2SAT 99
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
[2016-11-05] MEDS: HEPARIN SODIUM - SQ 10,000 UNITS/ML VIAL SQ SCH (09:00)
[2016-11-05] MEDS: FAMOTIDINE 20 MG TAB PO SCH (09:00)
[2016-11-05] MEDS: SODIUM CHLORIDE 0.9% FLUSH 10 ML FLUSH IV FLUSH SCH (09:00)
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
--- NOTE | 2016-11-05 15:52 | HHI.NPPN ---
Subjective History of Present Illness 51-year-old female with a past medical history of diabetes mellitus, hypertension, anxiety, depression, ischemic heart disease, congestive heart failure, hyperlipidemia, history of cerebrovascular accident, end-stage renal disease on hemodialysis, who was admitted because of altered mental status. I was called to see the patient for management of hemodialysis. She has been on hemodialysis Wednesday, and Wednesday. Objective Data Data 11/04/16 11/05/16 19:00 07:00 Output Total 3000 ml Balance -3000 ml Output Hemodialysis 3000 ml Vital Signs Date Time Temp Pulse Resp B/P Pulse Ox O2 Delivery O2 Flow Rate FiO2 11/05/16 07:12 97.7 112 18 183/88 99 11/04/16 23:40 98.0 100 18 148/85 100 11/04/16 20:13 98.0 98 18 137/73 99 11/04/16 17:22 98.2 95 20 140/80 99 Room Air 11/04/16 16:11 98.2 95 20 137/77 99 Room Air -: 11/03/16 1800 11/03/16 1800 Physical Exam General Appearance: Well Developed, No Acute Distress, Anxious Eyes Eye Exam: Pupils Equal, Pupils Reactive Ears & Nose Ears & Nose Exam: Nasal Mucosa Whiteface Throat Throat Exam: Oral Mucosa Whiteface & Moist Neck Neck Exam: Neck Supple, Trachea Midline Pulmonary Resp Exam: Clear Bilaterally Cardiology CV Exam: Regular Gastrointestinal/Abdomen GI Exam: Soft, Non-Tender, Bowel Sounds Present, Non-Distended Musculoskeletal MS Exam: Joints Intact, Atrophy Integumentary Skin Exam: Warm, Intact Extremeties Extremities Exam: Pedal Pulses Palpable, Trace Edema Neurologic Neuro Exam: Alert, Awake, Speech Clear VTE Prophylaxis Device: Ivonne Caba MD Nov 05, 2016 15:52
[2016-11-05] MEDS ORDERED: METO25TA3 PO (16:11)
== END 2016-11-05 18:07 | disposition short-term general hospital (02) ==
LOC: NEPD 16:33 → NEDA 20:43 → NEDH 11-04 11:59 → NEPGCP 11-04 19:35
PROVIDERS: ADMIT Specialist; ATTEND Specialist
DX: N18.6 End stage renal disease (principal); F43.20 Adjustment disorder, unspecified; I15.1 Hypertension secondary to other renal disorders; D64.9 Anemia, unspecified; J18.9 Pneumonia, unspecified organism; N39.0 Urinary tract infection, site not specified; I69.351 Hemiplegia and hemiparesis following cerebral infarction affecting right dominant side; E11.22 Type 2 diabetes mellitus with diabetic chronic kidney disease; E78.5 Hyperlipidemia, unspecified; I25.10 Atherosclerotic heart disease of native coronary artery without angina pectoris; D69.6 Thrombocytopenia, unspecified; E78.00 Pure hypercholesterolemia, unspecified; Z87.01 Personal history of pneumonia (recurrent); Z95.1 Presence of aortocoronary bypass graft; Z99.2 Dependence on renal dialysis; Z90.49 Acquired absence of other specified parts of digestive tract
CPT/HCPCS: 70450; 71010; 80053; 80307; 82948; 84145; 85025; 90935; 93005; 96374; 99285; G0378; J0360; J0456; J0696; J1644; J2060; J7050; G0257

== ENCOUNTER 2017-09-22 13:50 | Inpatient (IN) | payer MEDICARE, MEDICAID ==
[~2017-09-22] VITALS: Ht 167.6 cm; Wt 106.1 kg
[~2017-09-22 13:50] MED LIST changes: -AZIT250T3 PO; +METO25TA3 PO
[2017-09-22 14:27] VITALS: BP 134/67; PULSE 73; RESP 17; TEMP 98.3; O2SAT 99
--- NOTE | 2017-09-22 14:56 | PD ---
HPI Chief Complaint: Wound/Suture/Staple Re-Check Time Seen by Provider: 14:33 Travel History International Travel<30 days: No Contact w/Intl Traveler<30days: No Traveled to known affect area: No History of Present Illness HPI 52-year-old female complaints of painful ulcer on her left heel. Patient states that she started having left heel ulcer for the past 2 months. Patient has been seen by personal physician and emergency vehicle operations instructor. Patient has been taking antibiotics. The latest was Bactrim DS. Patient was last seen by emergency vehicle operations instructor a week ago. Patient is doing local wound care. Patient states that she has increasing pain and increasing foul odor from the left heel ulcer. Patient denies any fever chills. Patient states the pain is sharp pain localized to left heel. Patient denies any pain radiation. On a scale of 1-10 the pain is a 3. Patient has history of diabetes, hypertension, anxiety, depression, CHF, ischemic heart disease, hyperlipidemia, status post CVA, end-stage renal disease on dialysis. Patient has dialysis Wednesday and Wednesday weekly. PFSH Past Medical History Hx Anticoagulant Therapy: Yes (ASA) Arthritis: No Asthma: No Autoimmune Disease: No Blood Disorders: No Anxiety: No Depression: No Heart Rhythm Problems: Yes Cancer: No Cardiac Catheterization: Yes (2008) Cardiovascular Problems: Yes (CHF) High Cholesterol: Yes Chemotherapy: No Chest Pain: Yes Congestive Heart Failure: Yes COPD: No Cerebrovascular Accident: Yes (RIGHT SIDED WEAKNESS) Coronary Artery Disease: Yes Diabetes: Yes Dialysis: Yes (WEDNESDAY,WEDNESDAY, WEDNESDAY) Diminished Hearing: No Endocrine: Yes Gastrointestinal Disorders: Yes GERD: No Glaucoma: No Genitourinary: Yes Headaches: No Hepatitis: No Hiatal Hernia: No Hypertension: Yes Immune Disorder: No Implanted Vascular Access Dvce: Yes Kidney Stones: No Musculoskeletal: Yes Neurologic: Yes (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) Psychiatric: No Reproductive: No Respiratory: Yes (PNEUMONIA) Migraines: No Myocardial Infarction: No Radiation Therapy: No Renal Failure: Yes Seizures: No Sickle Cell Disease: No Thyroid Disease: No Ulcer: No Menopausal: Yes : 3 Para: 3 Tubal Ligation: Yes (1991) Past Surgical History Abdominal Surgery: Yes (UMBILICAL HERNIA SURGERY) AICD: No Appendectomy: No Arteriovenous Shunt: No Body Medical Devices: AV FISTULA - LEFT upper inner ARM Cardiac Surgery: Yes (CABG X 4, CARDIAC CATHS) Section: Yes (X 3) Cholecystectomy: No Coronary Artery Bypass Graft: Yes (2009 4 VESSEL) Ear Surgery: No Endocrine Surgery: No Eye Surgery: Yes (RIGHT EYE TEAR DUCT) Genitourinary Surgery: No Gynecologic Surgery: Yes ( SECTION X 3) Insulin Pump: No Joint Replacement: No Oral Surgery: No Pacemaker: No Thoracic Surgery: No Other Surgery: Yes (LEFT ARM AV FISTLA) Social History Alcohol Use: No Tobacco Use: No Substance Use: No Allergies-Medications (Allergen,Severity, Reaction): Coded Allergies: *MDRO Multi-Drug Resistant Organism (Verified Allergy, Unknown, 09/22/17) MRSA PCR (nares) negative - 11/19/15 & 11/21/15 Cleared per Infection Control MRSA 2013 Reported Meds & Prescriptions Reported Meds & Active Scripts Active Metoprolol Tartrate 25 Mg Tab 25 Mg PO BID Reported Renvela (Sevelamer Carbonate) 800 Mg Tab 1,600 Mg PO TID Rhonda-Estefania (B-Complex W/ C & Folic Acid) 1 Tab 1 Tab PO DAILY Novolog Inj (Insulin Aspart) 1,000 Unit/10 Ml Vial 0 SQ BID Sliding Scale as directed. Levemir Inj (Insulin Detemir) 1,000 unit/ 10 ML Vial 15 Units SQ BID Do not mix with any other Insulin. Clonidine (Clonidine HCl) 0.2 Mg Tab 0.2 Mg PO BID Atorvastatin (Atorvastatin Calcium) 20 Mg Tab 20 Mg PO HS Review of Systems General / Constitutional: No: Fever Eyes: No: Visual changes HENT: No: Headaches Cardiovascular: No: Chest Pain or Discomfort Respiratory: No: Shortness of Breath Gastrointestinal: No: Abdominal Pain Genitourinary: No: Dysuria Musculoskeletal: Positive: Pain Skin: No Rash Neurologic: No: Weakness Psychiatric: No: Depression Endocrine: No: Polydipsia Hematologic/Lymphatic: No: Easy Bruising Physical Exam Narrative GENERAL: Well-nourished, well-developed patient. SKIN: Focused skin assessment warm/dry. HEAD: Normocephalic. EYES: No scleral icterus. No injection or drainage. NECK: Supple, trachea midline. No JVD or lymphadenopathy. CARDIOVASCULAR: Regular rate and rhythm without murmurs, gallops, or rubs. RESPIRATORY: Breath sounds equal bilaterally. No accessory muscle use. GASTROINTESTINAL: Abdomen soft, non-tender, nondistended. MUSCULOSKELETAL: No cyanosis, or edema. BACK: Nontender without obvious deformity. No CVA tenderness. Patient has a large ulcer lesion on the left heel with macerated soft tissue surrounding the ulcer. Minimal discharge noted. Foul-smelling noted. Data Data Last Documented VS Vital Signs Date Time Temp Pulse Resp B/P (MAP) Pulse Ox O2 Delivery O2 Flow Rate FiO2 09/22/17 14:27 98.3 73 17 134/67 (89) 99 Orders Orders Complete Blood Count With Diff (09/22/17 14:44) Comprehensive Metabolic Panel (09/22/17 14:44) Prothrombin Time / Inr (Pt) (09/22/17 14:44) Act Partial Throm Time (Ptt) (09/22/17 14:44) Blood Culture (09/22/17 14:44) Magnesium (Mg) (09/22/17 14:44) Wound Culture And Gram Stain (09/22/17 14:44) Phosphorus (Po4) (09/22/17 14:44) Iv Access Insert/Monitor (09/22/17 14:44) Ecg Monitoring (09/22/17 14:44) Oximetry (09/22/17 14:44) Foot, Complete ([id number]) (09/22/17 14:44) Admit Order (Ed Use Only) (09/22/17 16:36) Piperacil-Tazo 2.25 Gm Premix (Zosyn 2.2 (09/22/17 16:45) Labs Laboratory Tests Test 09/22/17 15:10 White Blood Count 12.3 TH/MM3 Red Blood Count 3.68 MIL/MM3 Hemoglobin 10.3 GM/DL Hematocrit 32.8 % Mean Corpuscular Volume 89.2 FL Mean Corpuscular Hemoglobin 28.0 PG Mean Corpuscular Hemoglobin Concent 31.4 % Red Cell Distribution Width 14.6 % Platelet Count 206 TH/MM3 Mean Platelet Volume 10.7 FL Neutrophils (%) (Auto) 65.6 % Lymphocytes (%) (Auto) 21.2 % Monocytes (%) (Auto) 9.9 % Eosinophils (%) (Auto) 2.3 % Basophils (%) (Auto) 1.0 % Neutrophils # (Auto) 8.1 TH/MM3 Lymphocytes # (Auto) 2.6 TH/MM3 Monocytes # (Auto) 1.2 TH/MM3 Eosinophils # (Auto) 0.3 TH/MM3 Basophils # (Auto) 0.1 TH/MM3 CBC Comment DIFF FINAL Differential Comment Prothrombin Time 11.2 SEC Prothromb Time International Ratio 1.1 RATIO Activated Partial Thromboplast Time 26.6 SEC Blood Urea Nitrogen 51 MG/DL Creatinine 9.24 MG/DL Random Glucose 346 MG/DL Total Protein 8.2 GM/DL Albumin 3.3 GM/DL Calcium Level 7.7 MG/DL Phosphorus Level 3.6 MG/DL Magnesium Level 2.3 MG/DL Alkaline Phosphatase 191 U/L Aspartate Amino Transf (AST/SGOT) 25 U/L Alanine Aminotransferase (ALT/SGPT) 17 U/L Total Bilirubin 0.3 MG/DL Sodium Level 132 MEQ/L Potassium Level 5.2 MEQ/L Chloride Level 90 MEQ/L Carbon Dioxide Level 28.7 MEQ/L Anion Gap 13 MEQ/L Estimat Glomerular Filtration Rate 5 ML/MIN MDM Medical Decision Making Medical Screen Exam Complete: Yes Emergency Medical Condition: Yes Interpretation(s) Last Impressions Foot X-Ray 09/22/17 1444 Signed Impressions: Service Date/Time: Friday, September 22, 2017 15:14 - CONCLUSION: 1. Soft tissue ulceration in the left heel without associated erosive bony change to suggest osteomyelitis. Hugo Nova MD 1619 p.m. CBC WBC 12.3. Hemoglobin 10.3 hematocrit 32.8. Normal differential. Sodium 132. Potassium 5.2. Chloride 90. Bicarb 28.7. BUN 51. Creatinine 9.24. GFR 5. Glucose 3246. Alkaline phosphatase 191. Differential Diagnosis Differential diagnosis including ulcer, cellulitis, osteomyelitis. Narrative Course 52-year-old female with increasing pain and discharge from left heel ulcer. The ulcer started 2 months ago. Patient has been seen by emergency vehicle operations instructor. Patient is on Bactrim DS. Patient has history of diabetes and end-stage renal disease on dialysis. Zosyn 2.25 g IV given. Diagnosis Primary Impression: Diabetic foot ulcer Qualified Codes: E13.621 - Other specified diabetes mellitus with foot ulcer; L97.422 - Non-pressure chronic ulcer of left heel and midfoot with fat layer exposed Additional Impression: End stage renal disease on dialysis Tommie Wallace MD Sep 22, 2017 14:56
[2017-09-22 15:28] LABS: AUTOMATED NEUTROPHIL # 8.1 TH/MM3 (1.8-7.7); BASOPHIL # 0.1 TH/MM3 (0-0.2); EOSINOPHIL # 0.3 TH/MM3 (0-0.4); EOSINOPHIL % 2.3 % (0.0-4.0); HEMATOCRIT 32.8 % (35.0-46.0); HEMOGLOBIN 10.3 GM/DL (11.6-15.3); LYMPH % 21.2 % (9.0-44.0); LYMPHOCYTE # 2.6 TH/MM3 (1.0-4.8); MEAN CELL VOLUME 89.2 FL (80.0-100.0); MEAN CORPUSCULAR HGB CONC 31.4 % (32.0-36.0); MEAN PLATELET VOLUME 10.7 FL (7.0-11.0); MONO % 9.9 % (0.0-8.0); MONOCYTE # 1.2 TH/MM3 (0-0.9); NEUT % 65.6 % (16.0-70.0); PLATELET COUNT 206 TH/MM3 (150-450); RED BLOOD COUNT 3.68 MIL/MM3 (4.00-5.30); RED CELL DISTRIBUTION WIDTH 14.6 % (11.6-17.2); WHITE BLOOD COUNT 12.3 TH/MM3 (4.0-11.0)
[2017-09-22 15:39] LABS: INTERNATIONAL NORMALIZED RATIO 1.1 RATIO; PROTHROMBIN TIME - PATIENT 11.2 SEC (9.8-11.6)
--- NOTE | 2017-09-22 15:54 | RADRPT ---
EXAM DATE/TIME: 09/22/2017 15:14 [facility] COMPARISON: No previous studies available for comparison. INDICATIONS : Left foot pain. Sore on bottom of left heel. MEDICAL HISTORY : None. SURGICAL HISTORY : None. ENCOUNTER: Initial ACUITY: 1 day PAIN SCORE: 2/10 LOCATION: Left foot. FINDINGS: Three view examination of the left foot demonstrates soft tissue defect in the heel of the foot. Over lying osseous structures appear intact without evidence of significant bony erosion or acute fracture . Specifically, the calcaneus appears intact. The tarsal bones appear intact. The interphalangeal an d metatarsophalangeal joints are intact. Bony mineralization is normal. CONCLUSION: 1. Soft tissue ulceration in the left heel without associated erosive bony change to suggest osteomye litis. Hugo Nova MD on September 22, 2017 at 15:51 Board Certified Radiologist. This report was verified electronically.
[2017-09-22 16:03] LABS: ALKALINE PHOSPHATASE 191 U/L (45-117); ALT (GPT) 17 U/L (10-53); PHOSPHORUS 3.6 MG/DL (2.5-4.9); TOTAL BILIRUBIN ADULT 0.3 MG/DL (0.2-1.0); TOTAL PROTEIN 8.2 GM/DL (6.4-8.2)
[2017-09-22 16:08] LABS: ALBUMIN 3.3 GM/DL (3.4-5.0); AST (GOT) 25 U/L (15-37); BICARBONATE 28.7 MEQ/L (21.0-32.0); BLOOD UREA NITROGEN 51 MG/DL (7-18); CALCIUM 7.7 MG/DL (8.5-10.1); CHLORIDE 90 MEQ/L (98-107); CREATININE 9.24 MG/DL (0.50-1.00); GLOMERULAR FILTRATION RATE 5 ML/MIN (>89); GLUCOSE,RANDOM 346 MG/DL (74-106); MAGNESIUM 2.3 MG/DL (1.5-2.5); SODIUM (NA) 132 MEQ/L (136-145)
[2017-09-22] MEDS ORDERED: PIPERACIL-TAZO 2.25 GM PREMIX 50 ML IV ONE (16:45)
[2017-09-22] MEDS ORDERED: ACETAMINOPHEN 325 MG TAB PO PRN (17:30)
[2017-09-22] MEDS ORDERED: ONDANSETRON HCL 4 MG/2 ML VIAL IVP PRN (17:30)
[2017-09-22] MEDS ORDERED: SODIUM CHLORIDE 0.9% FLUSH 10 ML FLUSH IV FLUSH PRN (17:30)
[2017-09-22] MEDS ORDERED: ACETAMINOPHEN/HYDROcodone 325 MG/5 MG TAB PO PRN (17:30)
[2017-09-22] MEDS ORDERED: DEXTROSE 50% IN WATER 50 ML VIAL(D50) IV PUSH PRN (17:30)
[2017-09-22] MEDS ORDERED: GLUCAGON 1 MG/ML VIAL OTHER PRN (17:30)
--- NOTE | 2017-09-22 17:39 | HHI.HP ---
[facility] [place] [facility] Unknown Admission Diagnosis Diabetic foot ulcer. End-stage renal disease on dialysis. Diagnoses: (1) Diabetic foot ulcer (2) End stage renal disease on dialysis (3) History of CVA with residual deficit Chief Complaint: Painful left heel ulcer Travel History International Travel<30 Days: No Contact w/Intl Traveler <30 Da: No Traveled to Known Affected Are: No History of Present Illness 52 year-old -[place] female with a history of diabetes type 2, CVA with residual deficit presented to the ED from a local nursing facility [facility], for evaluation of a painful and bad smelling left heel ulcer over the past several days duration. patient states she noticed a skin abrasion/tear few weeks ago and then over the past few day she has noted increasing foul smell from the wound. She reports being treated at the local SNf with concentrated silver along with dressing. Denies any febrile episode and reported the pain to be aching 3 out of 10 in intensity. Review of Systems Except as stated in HPI: all other systems reviewed are Neg Past Family Social History Past Medical History Cardiovascular Problems: Yes (CHF) High Cholesterol: Yes Chemotherapy: No Chest Pain: Yes Congestive Heart Failure: Yes COPD: No Cerebrovascular Accident: Yes (RIGHT SIDED WEAKNESS) Coronary Artery Disease: Yes Diabetes: Yes Dialysis: Yes (WEDNESDAY,WEDNESDAY, WEDNESDAY) Diminished Hearing: No Endocrine: Yes Gastrointestinal Disorders: Yes GERD: No Glaucoma: No Genitourinary: Yes Headaches: No Hepatitis: No Hiatal Hernia: No Hypertension: Yes Implanted Vascular Access Dvce: Yes Musculoskeletal: Yes Neurologic: Yes (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) Respiratory: Yes (PNEUMONIA) Renal Failure: Yes Tubal Ligation: Yes (1991) Past Surgical History Abdominal Surgery: Yes (UMBILICAL HERNIA SURGERY)o Body Medical Devices: AV FISTULA - LEFT upper inner ARM Cardiac Surgery: Yes (CABG X 4, CARDIAC CATHS) Section: Yes (X 3) Coronary Artery Bypass Graft: Yes (2008 4 VESSEL) Eye Surgery: Yes (RIGHT EYE TEAR DUCT) Gynecologic Surgery: Yes ( SECTION X 3) Other Surgery: Yes (LEFT ARM AV FISTLA) Reported Medications Metoprolol Tartrate 25 Mg Tab 25 Mg PO BID Reported Renvela (Sevelamer Carbonate) 800 Mg Tab 1,600 Mg PO TID Rhonda-Estefania (B-Complex W/ C & Folic Acid) 1 Tab 1 Tab PO DAILY Novolog Inj (Insulin Aspart) 1,000 Unit/10 Ml Vial 0 SQ BID Sliding Scale as directed. Levemir Inj (Insulin Detemir) 1,000 unit/ 10 ML Vial 15 Units SQ BID Do not mix with any other Insulin. Clonidine (Clonidine HCl) 0.2 Mg Tab 0.2 Mg PO BID Atorvastatin (Atorvastatin Calcium) 20 Mg Tab 20 Mg PO HS Allergies: Coded Allergies: *MDRO Multi-Drug Resistant Organism (Verified Allergy, Unknown, 09/22/17) MRSA PCR (nares) negative - 11/19/15 & 11/21/15 Cleared per Infection Control MRSA 2013 Family History Positive for diabetes type 2 Social History Alcohol Use: No Tobacco Use: No Substance Use: No Physical Exam Vital Signs Vital Signs Date Time Temp Pulse Resp B/P (MAP) Pulse Ox O2 Delivery O2 Flow Rate FiO2 09/22/17 14:27 98.3 73 17 134/67 (89) 99 Physical Exam GENERAL: This is a well-nourished, well-developed patient, in no apparent distress. SKIN: Left heel ulcer with a bad smell HEAD: Atraumatic. Normocephalic. No temporal or scalp tenderness. EYES: Pupils equal round and reactive. Extraocular motions intact. No scleral icterus. No injection or drainage. ENT: Nose without bleeding, purulent drainage or septal hematoma. Throat without erythema, tonsillar hypertrophy or exudate. Uvula midline. Airway patent. NECK: Trachea midline. No JVD or lymphadenopathy. Supple, nontender, no meningeal signs. CARDIOVASCULAR: Regular rate and rhythm without murmurs, gallops, or rubs. RESPIRATORY: Clear to auscultation. Breath sounds equal bilaterally. No wheezes , rales, or rhonchi. GASTROINTESTINAL: Abdomen soft, non-tender, nondistended. No hepato-splenomegaly , or palpable masses. No guarding. MUSCULOSKELETAL: Extremities without clubbing, cyanosis, or edema. No joint tenderness, effusion, or edema noted. No calf tenderness. Negative Homans sign bilaterally. NEUROLOGICAL: Awake and alert. Cranial nerves II through XII intact. Motor and sensory grossly within normal limits. Five out of 5 muscle strength in all muscle groups. Normal speech. Laboratory Laboratory Tests Test 09/22/17 15:10 White Blood Count 12.3 Red Blood Count 3.68 Hemoglobin 10.3 Hematocrit 32.8 Mean Corpuscular Volume 89.2 Mean Corpuscular Hemoglobin 28.0 Mean Corpuscular Hemoglobin Concent 31.4 Red Cell Distribution Width 14.6 Platelet Count 206 Mean Platelet Volume 10.7 Neutrophils (%) (Auto) 65.6 Lymphocytes (%) (Auto) 21.2 Monocytes (%) (Auto) 9.9 Eosinophils (%) (Auto) 2.3 Basophils (%) (Auto) 1.0 Neutrophils # (Auto) 8.1 Lymphocytes # (Auto) 2.6 Monocytes # (Auto) 1.2 Eosinophils # (Auto) 0.3 Basophils # (Auto) 0.1 CBC Comment DIFF FINAL Differential Comment Prothrombin Time 11.2 Prothromb Time International Ratio 1.1 Activated Partial Thromboplast Time 26.6 Blood Urea Nitrogen 51 Creatinine 9.24 Random Glucose 346 Total Protein 8.2 Albumin 3.3 Calcium Level 7.7 Phosphorus Level 3.6 Magnesium Level 2.3 Alkaline Phosphatase 191 Aspartate Amino Transf (AST/SGOT) 25 Alanine Aminotransferase (ALT/SGPT) 17 Total Bilirubin 0.3 Sodium Level 132 Potassium Level 5.2 Chloride Level 90 Carbon Dioxide Level 28.7 Anion Gap 13 Estimat Glomerular Filtration Rate 5 Date/Time Source Procedure Growth Status 09/22/17 15:10 Blood Peripheral Aerobic Blood Culture Pending Received 09/22/17 15:10 Blood Peripheral Anaerobic Blood Culture Pending Received 09/22/17 15:05 Wound Heel Gram Stain Pending Received 09/22/17 15:05 Wound Heel Wound Culture Pending Received Result Diagram: 09/22/17 1510 09/22/17 1510 Imaging Last Impressions Foot X-Ray 09/22/17 1444 Signed Impressions: Service Date/Time: Friday, September 22, 2017 15:14 - CONCLUSION: 1. Soft tissue ulceration in the left heel without associated erosive bony change to suggest osteomyelitis. Hugo Nova MD Septic Shock Reassessment Septic shock perfusion: reassessment completed Caprini VTE Risk Assessment Caprini VTE Risk Assessment: No/Low Risk (score <= 1) Caprini Risk Assessment Model Point Value = 1 Point Value = 2 Point Value = 3 Point Value = 5 Age 41-60 Minor surgery BMI > 25 kg/m2 Swollen legs Varicose veins or History of unexplained or recurrent spontaneous Oral contraceptives or hormone replacement Sepsis (< 1 month) Serious lung disease, including pneumonia (< 1 month) Abnormal pulmonary function Acute myocardial infarction Congestive heart failure (< 1 month) History of inflammatory bowel disease Medical patient at bed rest Age 61-74 Arthroscopic surgery Major open surgery (> 45 min) Laparoscopic surgery (> 45 min) Malignancy Confined to bed (> 72 hours) Immobilizing plaster cast Central venous access Age >= 75 History of VTE Family history of VTE Factor V Leiden Prothrombin [id number] Lupus anticoagulant Anticardiolipin antibodies Elevated serum homocysteine Heparin-induced thrombocytopenia Other congenital or acquired thrombophilia Stroke (< 1 month) Elective arthroplasty Hip, pelvis, or leg fracture Acute spinal cord injury (< 1 month) Prophylaxis Regimen Total Risk Factor Score Risk Level Prophylaxis Regimen 0-1 Low Early ambulation 2 Moderate Order ONE of the following: *Sequential Compression Device (SCD) *Heparin 5000 units SQ BID 3-4 Higher Order ONE of the following medications: *Heparin 5000 units SQ TID *Enoxaparin/Lovenox 40 mg SQ daily (WT < 150 kg, CrCl > 30 mL/min) *Enoxaparin/Lovenox 30 mg SQ daily (WT < 150 kg, CrCl > 10-29 mL/min) *Enoxaparin/Lovenox 30 mg SQ BID (WT < 150 kg, CrCl > 30 mL/min) AND/OR *Sequential Compression Device (SCD) 5 or more Highest Order ONE of the following medications: *Heparin 5000 units SQ TID (Preferred with Epidurals) *Enoxaparin/Lovenox 40 mg SQ daily (WT < 150 kg, CrCl > 30 mL/min) *Enoxaparin/Lovenox 30 mg SQ daily (WT < 150 kg, CrCl > 10-29 mL/min) *Enoxaparin/Lovenox 30 mg SQ BID (WT < 150 kg, CrCl > 30 mL/min) AND *Sequential Compression Device (SCD) Assessment and Plan Problem List: (1) Diabetic foot ulcer ICD Code: E11.621 - Type 2 diabetes mellitus with foot ulcer; L97.509 - Non- pressure chronic ulcer of other part of unspecified foot with unspecified severity Status: Acute (2) End stage renal disease on dialysis ICD Code: N18.6 - End stage renal disease; Z99.2 - Dependence on renal dialysis Status: Acute (3) History of CVA with residual deficit ICD Code: I69.30 - Unspecified sequelae of cerebral infarction Status: Acute Assessment and Plan 52-year-old female with Diabetic foot infection Left heel ulcer X-ray noted without any evidence of osteomyelitis Will check for MRI of foot to rule out osteomyelitis Check DICK and consider CTA runoff Status post Zosyn IV 1, in ED and continue with antibiotics pending culture report Consult ID, podiatry, wound care Monitor for sign of infection End-stage renal disease on hemodialysis Consult nephrology for in-house HD Wednesday Resume Renvela Diabetes type 2 Labile blood glucose Check hemoglobin A1c Start medium insulin sliding scale and resume basal insulin, adjust accordingly Anemia of chronic disease Check iron study and treat accordingly Other chronic Medical conditions Stable, resume outpatient medications DVT prophylaxis: Bilateral SCDs Code Status Full code Discussed Condition With Patient Physician Certification 2 Midnight Certification Type: Admission for Inpatient Services Order for Inpatient Services The services are ordered in accordance with Medicare regulations or non- Medicare payer requirements, as applicable. In the case of services not specified as inpatient-only, they are appropriately provided as inpatient services in accordance with the 2-midnight benchmark. Estimated LOS (days): 2 days is the estimated time the patient will need to remain in the hospital, assuming treatment plan goals are met and no additional complications. Post-Hospital Plan: Not yet determined Problem Qualifiers (1) Diabetic foot ulcer: Qualified Codes: E13.621 - Other specified diabetes mellitus with foot ulcer; L97.422 - Non-pressure chronic ulcer of left heel and midfoot with fat layer exposed Jason Valero MD Sep 22, 2017 17:39
[2017-09-22 17:57] VITALS: O2SAT 100
[2017-09-22 17:58] VITALS: BP 150/72; PULSE 77; RESP 14; O2SAT 100
[2017-09-22] MEDS: SEVELAMER CARBONATE 800 MG TAB PO SCH (19:08)
[2017-09-22 19:10] VITALS: BP 156/91; PULSE 80; RESP 18; O2SAT 100
[2017-09-22] MEDS ORDERED: SENS60TA PO (19:17)
[2017-09-22] MEDS ORDERED: CIPR250T2 PO (19:17)
[2017-09-22] MEDS ORDERED: ASPI81CH6 CHEW (19:17)
[2017-09-22] MEDS ORDERED: GABA100C4 PO (19:17)
[2017-09-22] MEDS ORDERED: BISC10SU RECTAL (19:17)
[2017-09-22] MEDS ORDERED: CLON0.1T PO (19:17)
[2017-09-22] MEDS ORDERED: MILKSUS PO (19:17)
[2017-09-22] MEDS ORDERED: TYLE325T PO (19:17)
[2017-09-22] MEDS ORDERED: COLA100C5 PO (19:17)
[2017-09-22] MEDS ORDERED: VITA100018 PO (19:17)
[2017-09-22 20:00] VITALS: BP 143/81; PULSE 82; RESP 20; TEMP 96.9; O2SAT 100
[2017-09-22 20:09] LABS: % SATURATION IRON PROFILE 25.2 % (20-50); TOTAL IRON BINDING CAPACITY 234 MCG/DL (250-450)
[2017-09-22 20:12] LABS: IRON (FE) 59 MCG/DL (50-170)
--- NOTE | 2017-09-22 20:50 | MB ---
cc: Felix Tolliver DPMFelix Cadena DPM DATE OF CONSULT: 09/22/2017 REASON FOR CONSULTATION: Left heel ulcer, likely infection. HISTORY OF PRESENT ILLNESS: This is a 52-year-old female with a worsening left heel ulcer over the past 3-4 days. Apparently, she has been treated at a half-way facility with silver dressing. There has been a slight increase in pain and an odor coming from the left heel. The patient is not the best historian. She has a history of a stroke with a right side deficit. In short, her left good foot is being compromised at this point. She denies much feeling to her foot. She mainly gets around in a wheelchair. I believe she can transfer. PAST MEDICAL HISTORY: Positive for type 2 diabetes, history of CVA with residual deficit, history of CHF, coronary artery disease, dialysis Wednesday, and Wednesday, 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 She has a history of a multidrug resistant organism. PAST SURGICAL HISTORY: Umbilical hernia repair; AV fistula, left arm ;cardiac surgery CABG x4; cardiac catheterizations; history of section x3; coronary artery bypass 2008, 4-vessel; eye surgery, right tear duct. MEDICATIONS: Outpatient medications reviewed. No mention of antibiotics. Inpatient medications reviewed. She is receiving Zosyn. PHYSICAL EXAMINATION VITAL SIGNS: Temperature 98.3, respiratory rate 18, pulse rate is 80, temperature is 98.3, blood pressure 156/91. She is satting 100% on room air. This is an alert and oriented female seen bedside. She is pleasant. She has an obvious right-sided deficit. Left lower extremity is examined. There is a boggy miramontes fibrotic posterior heel wound without any signs of soft tissue emphysema. There is mild swelling of the foot. The wound encompasses the posterolateral portion of the calcaneus. No bone is exposed, but there is an odor. Pulses are hard to palpate, but the foot is warm. Sensation is significantly decreased to light touch. There appears to be a mild equinus contracture. LABORATORY DATA: White blood cells 12.3, hemoglobin and hematocrit 10 and 32, platelet count is 206. Chem 7 is 132, potassium 5.2, chloride 90, CO2 of 28.7, BUN 51, creatinine 9.24, random glucose 346. Coagulation profile - PT 11.2, INR 1.1. Microbial findings - Gram stain ordered and pending. Blood culture ordered and pending. IMAGING STUDIES: Foot x-ray appears to be negative for any obvious signs of bony erosive process, osteomyelitis or foreign body. MRI ordered at the time of consultation. ASSESSMENT AND PLAN: Left heel ulceration, rule out abscess versus early osteomyelitis. Erythrocyte sedimentation rate also ordered. Recommendation is to offload the left heel. My recommendation is also to dry out the area with a Betadine wet to dry segmental arterial Doppler order. The patient will likely need soft tissue debridement with application of wound VAC, possible bone biopsy is indicated as well. I am recommending admission. The patient will be followed per Dr. Wells who I will sign out to. Anticipate surgery in the next 1 to 2 days. BÁRBARA Emmanuel//regis , 08:07 PM , 08:40 PM
--- NOTE | 2017-09-22 23:03 | RADRPT ---
EXAM DATE/TIME: 09/22/2017 21:55 [facility] COMPARISON: No previous studies available for comparison. INDICATIONS : Osteomyelitis. Left heel pain for two months. MEDICAL HISTORY : Renal failure, chronic. Hypertension. Diabetes mellitus type 2. Stroke in 2011 SURGICAL HISTORY : CABG Cholecystectomy. section. Hernia repair, AV Fistula, Knee sx. ENCOUNTER: Initial ACUITY: 2 months PAIN SCORE: 2/10 LOCATION: Left heel TECHNIQUE: Multiplanar, multisequence MRI examination was performed without contrast. FINDINGS: Deep soft tissue ulceration seen overlying the posterior/plantar aspect of the calcaneus and not invo lving the distal Achilles where the plantar fascia. There is an associated approximately 2.4 x 2.0 cm area of cortical indistinctness and marrow edema of the calcaneus. There is associated faint T1 sign al abnormality extending into the medullary space to a depth of approximately 7 mm. No soft tissue or bone abscess. Mild inferiorly generalized subcutaneous edema. No ligamentous or tendon tear. No fracture or subluxa tion. CONCLUSION: Focal soft tissue ulceration of the heel pad and with associated localized cortical and subcortical o steomyelitis of the posterior calcaneus. The region of osteomyelitis is estimated at approximately 24 x 20 x 7 mm. No abscess. Trino Sam MD on September 22, 2017 at 22:57 Board Certified Radiologist. This report was verified electronically.
[2017-09-22] MEDS: METOPROLOL TARTRATE 25 MG TAB PO SCH (23:12)
[2017-09-22] MEDS: LACTOBACILLUS ACIDOPHILUS TAB PO SCH (23:12)
[2017-09-22] MEDS: ATORVASTATIN 20 MG TAB PO SCH (23:12)
[2017-09-22] MEDS: cloNIDine HCL 0.2 MG TAB PO SCH (23:12)
[2017-09-22] MEDS: SODIUM CHLORIDE 0.9% FLUSH 10 ML FLUSH IV FLUSH SCH (23:13)
[2017-09-22] MEDS: INSULIN DETEMIR 100 UNITS/ML VIAL SQ SCH (23:13)
[2017-09-22] MEDS: INSULIN ASPART SUPPLEMENTAL SCALE SQ SCH (23:13)
[2017-09-23] VITALS: BP 133/59; PULSE 84; RESP 20; TEMP 97; O2SAT 100
[2017-09-23] MEDS: PIPERACIL-TAZO 2.25 GM PREMIX 50 ML IV SCH ×3 (01:47→17:00)
[2017-09-23 02:19] VITALS: BP 133/59; PULSE 84; RESP 20; TEMP 97; O2SAT 100
[2017-09-23 07:04] LABS: AUTOMATED NEUTROPHIL # 7.6 TH/MM3 (1.8-7.7); BASOPHIL # 0.1 TH/MM3 (0-0.2); BASOPHIL % 0.8 % (0.0-2.0); EOSINOPHIL # 0.4 TH/MM3 (0-0.4); EOSINOPHIL % 3.3 % (0.0-4.0); HEMATOCRIT 30.6 % (35.0-46.0); HEMOGLOBIN 9.9 GM/DL (11.6-15.3); LYMPH % 20.1 % (9.0-44.0); LYMPHOCYTE # 2.3 TH/MM3 (1.0-4.8); MEAN CORPUSCULAR HEMOGLOBIN 28.1 PG (27.0-34.0); MEAN CORPUSCULAR HGB CONC 32.3 % (32.0-36.0); MONO % 9.2 % (0.0-8.0); MONOCYTE # 1.1 TH/MM3 (0-0.9); NEUT % 66.6 % (16.0-70.0); PLATELET COUNT 183 TH/MM3 (150-450); RED BLOOD COUNT 3.52 MIL/MM3 (4.00-5.30); RED CELL DISTRIBUTION WIDTH 14.5 % (11.6-17.2); WHITE BLOOD COUNT 11.5 TH/MM3 (4.0-11.0)
[2017-09-23 07:48] LABS: ALBUMIN 2.9 GM/DL (3.4-5.0); ALKALINE PHOSPHATASE 161 U/L (45-117); ALT (GPT) 12 U/L (10-53); AST (GOT) 6 U/L (15-37); BICARBONATE 27.3 MEQ/L (21.0-32.0); BLOOD UREA NITROGEN 65 MG/DL (7-18); CALCIUM 7.6 MG/DL (8.5-10.1); CHLORIDE 96 MEQ/L (98-107); GLOMERULAR FILTRATION RATE 5 ML/MIN (>89); GLUCOSE,RANDOM 155 MG/DL (74-106); SODIUM (NA) 136 MEQ/L (136-145); TOTAL BILIRUBIN ADULT 0.3 MG/DL (0.2-1.0); TOTAL PROTEIN 7.2 GM/DL (6.4-8.2)
[2017-09-23 08:00] VITALS: BP 115/58; PULSE 74; RESP 20; TEMP 97.2; O2SAT 98
[2017-09-23] MEDS: INSULIN ASPART SUPPLEMENTAL SCALE SQ SCH ×4 (08:00→21:00)
[2017-09-23] MEDS: SODIUM CHLORIDE 0.9% FLUSH 10 ML FLUSH IV FLUSH SCH ×2 (08:20→21:00)
[2017-09-23] MEDS: ASPIRIN 81 MG CHEW TAB CHEW SCH (08:20)
[2017-09-23] MEDS: cloNIDine HCL 0.2 MG TAB PO SCH ×3 (08:20→21:58)
[2017-09-23] MEDS: LACTOBACILLUS ACIDOPHILUS TAB PO SCH ×2 (08:21→21:58)
[2017-09-23] MEDS: VITAMIN B CMPLX/VITC/FOLIC AC CAP PO SCH (08:21)
[2017-09-23] MEDS: METOPROLOL TARTRATE 25 MG TAB PO SCH ×3 (08:21→21:58)
[2017-09-23] MEDS: INSULIN DETEMIR 100 UNITS/ML VIAL SQ SCH ×2 (08:23→21:59)
[2017-09-23] MEDS: SEVELAMER CARBONATE 800 MG TAB PO SCH ×3 (08:23→17:20)
[2017-09-23] MEDS ORDERED: SODIUM CHLOR 0.9% 1000 ML INJ 1,000 ML IV PRN (08:59)
[2017-09-23] MEDS ORDERED: SODIUM CHLOR 0.9% 1000 ML INJ 1,000 ML OTHER PRN ×2 (08:59)
[2017-09-23] MEDS ORDERED: SODIUM CHLORIDE 0.9% FLUSH 10 ML FLUSH IV FLUSH PRN (09:00)
[2017-09-23] MEDS ORDERED: ACETAMINOPHEN 325 MG TAB PO PRN (09:00)
[2017-09-23] MEDS ORDERED: MANNITOL 12.5 GM/50 ML VIAL IV PRN (09:00)
[2017-09-23] MEDS ORDERED: GELATIN 12 MM/7 MM FOAM TOP PRN (09:00)
[2017-09-23] MEDS ORDERED: ALBUMIN 25% INJ 100 ML IV PRN (09:00)
[2017-09-23] MEDS ORDERED: HEPARIN SODIUM - IV 10,000 UNITS/10 ML VIAL IV FLUSH PRN (09:00)
[2017-09-23] MEDS ORDERED: diphenhydrAMINE HCL 25 MG CAP PO PRN (09:00)
[2017-09-23] MEDS ORDERED: HEPARIN SODIUM - IV 10,000 UNITS/10 ML VIAL PRN (09:00)
[2017-09-23] MEDS ORDERED: ONDANSETRON HCL 4 MG/2 ML VIAL IV PUSH PRN (09:00)
[2017-09-23] MEDS ORDERED: NITROGLYCERIN 0.4 MG SL 25 TABS/BTL SL PRN (09:00)
[2017-09-23] MEDS ORDERED: GENTAMICIN SULFATE 20 MG/2 ML VIAL OTHER PRN (09:00)
[2017-09-23] MEDS ORDERED: EPOETIN ALFA 10,000 UNITS/ML VIAL IV PUSH PRN (09:00)
[2017-09-23] MEDS ORDERED: cloNIDine HCL 0.1 MG TAB PO PRN (09:00)
--- NOTE | 2017-09-23 09:51 | PD.CONS ---
HPI Service Nephrology Consult Requested By Dr. Valero Reason for Consult ESRD and management of HD Primary Care Physician Unknown History of Present Illness Patient is a 52 year-old -[place] female with a history of diabetes type 2, CVA with residual deficit, CAD, ESRD on HD /, and history of CHF. Presented to the ED from a local nursing facility [facility], for evaluation of a painful and bad smelling left heel ulcer over the past several days duration. patient states she noticed a skin abrasion/tear few weeks ago and then over the past few day she has noted increasing foul smell from the wound. Nephrology is consulted for management of ESRD and HD. Patient is known to Dr. Coffey however currently is receiving dialysis in [facility] with Dr. Khanna. (Felicitas Galo) Review of Systems Respiratory: DENIES: Cough, Sputum production, Shortness of breath Cardiovascular: DENIES: Chest pain, Palpitations, Lower Extremity Edema Gastrointestinal: DENIES: Abdominal pain, Constipation, Diarrhea, Nausea, Vomiting (Felicitas Galo) Past Family Social History Allergies: Coded Allergies: *MDRO Multi-Drug Resistant Organism (Verified Allergy, Unknown, 09/22/17) MRSA PCR (nares) negative - 11/19/15 & 11/21/15 Cleared per Infection Control MRSA 2013 Past Medical History Positive for type 2 diabetes, history of CVA with residual deficit, history of CHF, coronary artery disease, dialysis Wednesday, and Wednesday, 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 She has a history of a multidrug resistant organism. Past Surgical History Umbilical hernia repair; AV fistula, left arm ;cardiac surgery CABG x4; cardiac catheterizations; history of section x3; coronary artery bypass 2009, 4-vessel; eye surgery, right tear duct. Active Ordered Medications Current Medications Medications (Trade) Dose Ordered Sig/Afshan Route Start Time Stop Time Status Last Admin (Lipitor) 20 mg HS PO 09/22/17 21:00 09/22/17 23:12 (Catapres) 0.2 mg BID PO 09/22/17 21:00 09/23/17 08:20 (Levemir Inj) 15 units BID SQ 09/22/17 21:00 09/23/17 08:23 (Lopressor) 25 mg BID PO 09/22/17 21:00 09/23/17 08:21 (Renvela) 1,600 mg TID PO 09/22/17 18:00 09/23/17 08:23 (Nephrocaps) 1 cap DAILY PO 09/23/17 09:00 09/23/17 08:21 (NS Flush) 2 ml UNSCH PRN IV FLUSH 09/22/17 17:30 (NS Flush) 2 ml BID IV FLUSH 09/22/17 21:00 09/23/17 08:20 (Tylenol) 650 mg Q4H PRN PO 09/22/17 17:30 (Zofran Inj) 4 mg Q6H PRN IVP 09/22/17 17:30 (Restoril) 15 mg HS PRN PO 09/22/17 17:30 ([place]injock 5-325 Mg) 1 tab Q4H PRN PO 09/22/17 17:30 (Milk Of Magnesia Liq) 30 ml Q12H PRN PO 09/22/17 17:30 (D50w (Vial) Inj) 50 ml UNSCH PRN IV PUSH 09/22/17 17:30 (Glucagon Inj) 1 mg UNSCH PRN OTHER 09/22/17 17:30 (NovoLOG SUPPLEMENTAL SCALE) 1 ACHS SLIDING SCALE SQ 09/22/17 21:00 09/23/17 08:00 (Lactinex) 1 tab Q12HR PO 09/22/17 21:00 09/23/17 08:21 Piperacillin Sod/ Tazobactam Sod 50 ml @ 100 mls/hr Q8H IV 09/23/17 01:00 09/23/17 01:47 (Aspirin Chew) 81 mg DAILY CHEW 09/23/17 09:00 09/23/17 08:20 Sodium Chloride 1,000 ml @ 0 mls/hr Q0M PRN OTHER 09/23/17 08:59 (Heparin Inj) 8,000 units UNSCH PRN IV FLUSH 09/23/17 09:00 Sodium Chloride 1,000 ml @ 200 mls/hr Q5H PRN IV 09/23/17 08:59 Sodium Chloride 1,000 ml @ 0 mls/hr Q0M PRN OTHER 09/23/17 08:59 (Mannitol Inj) 12.5 gm UNSCH PRN IV 09/23/17 09:00 Albumin Human 100 ml @ 60 mls/hr UNSCH PRN IV 09/23/17 09:00 (NS Flush) 5 ml UNSCH PRN IV FLUSH 09/23/17 09:00 (Heparin Inj) UNSCH PRN .XX 09/23/17 09:00 (Gentamicin Inj) 20 mg UNSCH PRN OTHER 09/23/17 09:00 (Zofran Inj) 4 mg UNSCH PRN IV PUSH 09/23/17 09:00 (Tylenol) 650 mg UNSCH PRN PO 09/23/17 09:00 (Benadryl) 25 mg UNSCH PRN PO 09/23/17 09:00 (Nitrostat Sl) 0.4 mg UNSCH PRN SL 09/23/17 09:00 (Catapres) 0.1 mg UNSCH PRN PO 09/23/17 09:00 (Gelfoam 12 Mm/7 Mm Top) 1 foam UNSCH PRN TOP 09/23/17 09:00 (Epogen Inj) 2,000 units UNSCH PRN IV PUSH 09/23/17 09:30 (Epogen Inj) 4,000 units UNSCH PRN IV PUSH 09/23/17 09:30 Family History diabetes Social History Residing at [facility] Denies any tobacco, ETOH, or illicit drug use (Felicitas Galo) Physical Exam Vital Signs Vital Signs Date Time Temp Pulse Resp B/P (MAP) Pulse Ox O2 Delivery O2 Flow Rate FiO2 09/23/17 08:00 97.2 74 20 115/58 (77) 98 09/23/17 00:00 97.0 84 20 133/59 (83) 100 09/22/17 20:37 09/22/17 20:00 96.9 82 20 143/81 (101) 100 09/22/17 19:10 80 18 156/91 (112) 100 Room Air 09/22/17 17:58 77 14 150/72 (98) 100 Room Air 09/22/17 17:57 100 Room Air 09/22/17 14:27 98.3 73 17 134/67 (89) 99 Physical Exam GENERAL: Alert, oriented, and pleasant SKIN: Warm and dry. Dressing on left foot HEAD: Normocephalic. EYES: No scleral icterus. No injection or drainage. NECK: Supple, trachea midline. No JVD or lymphadenopathy. CARDIOVASCULAR: Regular rate and rhythm without murmurs, gallops, or rubs. RESPIRATORY: Breath sounds equal bilaterally. No accessory muscle use. GASTROINTESTINAL: Abdomen soft, non-tender, nondistended. MUSCULOSKELETAL: No cyanosis, or edema. Right sided weakness BACK: Nontender without obvious deformity. No CVA tenderness. Laboratory Laboratory Tests Test 09/22/17 15:10 09/23/17 06:15 White Blood Count 12.3 11.5 Red Blood Count 3.68 3.52 Hemoglobin 10.3 9.9 Hematocrit 32.8 30.6 Mean Corpuscular Volume 89.2 87.0 Mean Corpuscular Hemoglobin 28.0 28.1 Mean Corpuscular Hemoglobin Concent 31.4 32.3 Red Cell Distribution Width 14.6 14.5 Platelet Count 206 183 Mean Platelet Volume 10.7 10.0 Neutrophils (%) (Auto) 65.6 66.6 Lymphocytes (%) (Auto) 21.2 20.1 Monocytes (%) (Auto) 9.9 9.2 Eosinophils (%) (Auto) 2.3 3.3 Basophils (%) (Auto) 1.0 0.8 Neutrophils # (Auto) 8.1 7.6 Lymphocytes # (Auto) 2.6 2.3 Monocytes # (Auto) 1.2 1.1 Eosinophils # (Auto) 0.3 0.4 Basophils # (Auto) 0.1 0.1 CBC Comment DIFF FINAL DIFF FINAL Differential Comment Erythrocyte Sedimentation Rate 65 Prothrombin Time 11.2 Prothromb Time International Ratio 1.1 Activated Partial Thromboplast Time 26.6 Blood Urea Nitrogen 51 65 Creatinine 9.24 10.70 Random Glucose 346 155 Total Protein 8.2 7.2 Albumin 3.3 2.9 Calcium Level 7.7 7.6 Phosphorus Level 3.6 Magnesium Level 2.3 Alkaline Phosphatase 191 161 Aspartate Amino Transf (AST/SGOT) 25 6 Alanine Aminotransferase (ALT/SGPT) 17 12 Total Bilirubin 0.3 0.3 Sodium Level 132 136 Potassium Level 5.2 4.5 Chloride Level 90 96 Carbon Dioxide Level 28.7 27.3 Anion Gap 13 13 Estimat Glomerular Filtration Rate 5 5 Iron Level 59 Total Iron Binding Capacity 234 Percent Iron Saturation 25.2 Date/Time Source Procedure Growth Status 09/22/17 15:10 Blood Peripheral Aerobic Blood Culture Pending Received 09/22/17 15:10 Blood Peripheral Anaerobic Blood Culture Pending Received 09/22/17 15:05 Wound Heel Gram Stain - Final Resulted 09/22/17 15:05 Wound Heel Wound Culture Pending Resulted (Felicitas Galo) Result Diagram: 09/23/17 0615 09/23/17 0615 Imaging Last Impressions Foot X-Ray 09/22/17 1444 Signed Impressions: Service Date/Time: Friday, September 22, 2017 15:14 - CONCLUSION: 1. Soft tissue ulceration in the left heel without associated erosive bony change to suggest osteomyelitis. Hugo Nova MD Foot MRI 09/22/17 0000 Signed Impressions: Service Date/Time: Friday, September 22, 2017 21:55 - CONCLUSION: Focal soft tissue ulceration of the heel pad and with associated localized cortical and subcortical osteomyelitis of the posterior calcaneus. The region of osteomyelitis is estimated at approximately 24 x 20 x 7 mm. No abscess. Trino Sam MD (Felicitas Galo) Assessment and Plan Problem List: (1) End stage renal disease on dialysis ICD Codes: N18.6 - End stage renal disease; Z99.2 - Dependence on renal dialysis Status: Acute Plan: ESRD done T//WED Continue Renvela Potassium and PO4 WNL Epogen with dialysis for anemia Left upper arm AVF with positive thrill and bruit Dialysis scheduled for today. (2) Diabetic foot ulcer ICD Codes: E11.621 - Type 2 diabetes mellitus with foot ulcer; L97.509 - Non- pressure chronic ulcer of other part of unspecified foot with unspecified severity Status: Acute Plan: Podiatry and wound care consulted. Expect surgery in next 1-2 days (3) Diabetes 1.5, managed as type 2 ICD Codes: E13.9 - Other specified diabetes mellitus without complications Status: Acute Plan: BS is elevated continue insulin. Adjust according. (4) Hypertension ICD Codes: I10 - Essential (primary) hypertension Status: Acute Plan: Well controlled. Continue current treatment (Felicitas Galo) Problem List: (1) End stage renal disease on dialysis ICD Codes: N18.6 - End stage renal disease; Z99.2 - Dependence on renal dialysis Status: Acute Plan: ESRD done T//WED Continue Renvela Potassium and PO4 WNL Epogen with dialysis for anemia Left upper arm AVF with positive thrill and bruit Dialysis scheduled for today. Patient seen and examined, agree with above. Continue antibiotics, podiatry and ID consulted. (2) Diabetic foot ulcer ICD Codes: E11.621 - Type 2 diabetes mellitus with foot ulcer; L97.509 - Non- pressure chronic ulcer of other part of unspecified foot with unspecified severity Status: Acute Plan: Podiatry and wound care consulted. Expect surgery in next 1-2 days (3) Diabetes 1.5, managed as type 2 ICD Codes: E13.9 - Other specified diabetes mellitus without complications Status: Acute Plan: BS is elevated continue insulin. Adjust according. (4) Hypertension ICD Codes: I10 - Essential (primary) hypertension Status: Acute Plan: Well controlled. Continue current treatment (Ivonne Coffey MD) Problem Qualifiers (1) Diabetic foot ulcer: Qualified Codes: E13.621 - Other specified diabetes mellitus with foot ulcer; L97.422 - Non-pressure chronic ulcer of left heel and midfoot with fat layer exposed Felicitas Galo Sep 23, 2017 09:51 Ivonne Coffey MD Sep 23, 2017 14:09
[2017-09-23 12:00] VITALS: BP 133/68; PULSE 69; RESP 17; TEMP 98; O2SAT 96
--- NOTE | 2017-09-23 12:12 | RADRPT ---
EXAM DATE/TIME: 09/22/2017 00:00 [place] COMPARISON: No previous studies available for comparison. INDICATIONS : Diabetic foot ulcer, end stage renal disease TECHNIQUE: Five-station segmental examination of the lower extremities was performed. Pulsed-cuff waveform tracings and pressures were recorded. Ankle-brachial indices and toe-brachial indices were calculated. PRESSURES (mmHg): Brachial (arm): Right 105 Left No stick/BP Lower Thigh: Right 167 Left 140 Calf: Right 95 Left 96 Ankle: Right 81 Left 84 Toe: Right 44 Left 50 DICK: Right 0.77 Left 0.80 TBI: Right 0.42 Left 0.48 PULSED CUFF WAVEFORMS: Decreased amplitude bilaterally most prominently in the right ankle and toe. CONCLUSION: 1. Findings consistent with bilateral SFA and runoff disease, right greater then left. Consider CTA e xamination for better evaluation. Hugo Nova MD on September 23, 2017 at 11:32 Board Certified Radiologist. This report was verified electronically.
[2017-09-23 16:07] LABS: HEMOGLOBIN A1C 8.1 % (4.3-6.0)
--- NOTE | 2017-09-23 17:04 | HHI.PR ---
Subjective Remarks Patient denied pain in his foot he stated the discomfort eased up, she is an obese patient afebrile overnight Objective Vitals Vital Signs Date Time Temp Pulse Resp B/P (MAP) Pulse Ox O2 Delivery O2 Flow Rate FiO2 09/23/17 12:00 98.0 69 17 133/68 (89) 96 09/23/17 08:00 97.2 74 20 115/58 (77) 98 09/23/17 00:00 97.0 84 20 133/59 (83) 100 09/22/17 20:37 09/22/17 20:00 96.9 82 20 143/81 (101) 100 09/22/17 19:10 80 18 156/91 (112) 100 Room Air 09/22/17 17:58 77 14 150/72 (98) 100 Room Air 09/22/17 17:57 100 Room Air I/O 09/22/17 09/22/17 09/22/17 09/23/17 09/23/17 09/23/17 07:00 15:00 23:00 07:00 15:00 23:00 Intake Total 50 ml 0 ml Balance 50 ml 0 ml Intake IV Total 50 ml 0 ml # Voids 0 Result Diagram: 09/23/17 0615 09/23/17 0615 Objective Remarks GENERAL: This is a obese female well-developed patient, in no apparent distress. SKIN: No rashes, warm and dry HEAD: Atraumatic. Normocephalic. EYES: Pupils equal round and reactive. Extraocular motions intact. No scleral icterus. ENT: Nose without bleeding, or drainage, Airway patent. NECK: Trachea midline. Supple CARDIOVASCULAR: Regular rate and rhythm without murmurs, gallops, or rubs. RESPIRATORY: Fair air entry bilaterally. No wheezes, rales, or rhonchi. GASTROINTESTINAL: Abdomen soft, non-tender, nondistended. Positive bowel sounds , left foot in gauze MUSCULOSKELETAL: Extremities without clubbing, cyanosis, or edema. Pedal pulses appreciated NEUROLOGICAL: Awake and alert. Moves all extremity. Normal speech.no focal neurological deficit A/P Problem List: (1) Diabetic foot ulcer ICD Code: E11.621 - Type 2 diabetes mellitus with foot ulcer; L97.509 - Non- pressure chronic ulcer of other part of unspecified foot with unspecified severity Status: Acute (2) End stage renal disease on dialysis ICD Code: N18.6 - End stage renal disease; Z99.2 - Dependence on renal dialysis Status: Acute (3) History of CVA with residual deficit ICD Code: I69.30 - Unspecified sequelae of cerebral infarction Status: Acute Assessment and Plan 09/23: Appreciate podiatry and nephrology consultation, plan for dressing management and possible soft tissue debridement by podiatry later on, DICK consistent with bilateral SFA and runoff disease, right greater then left. Consider CTA examination for better evaluation, A1c pending 09/23: 52-year-old female with Diabetic foot infection Left heel ulcer X-ray noted without any evidence of osteomyelitis Will check for MRI of foot to rule out osteomyelitis DICK and consider CTA runoff Status post Zosyn IV 1, in ED and continue with antibiotics pending culture report Appreciate ID, podiatry, wound care consultation End-stage renal disease on hemodialysis Consult nephrology for in-house HD Wednesday Resume Renvela Diabetes type 2 Labile blood glucose hemoglobin A1c pending Start medium insulin sliding scale and resume basal insulin, adjust accordingly Anemia of chronic disease iron study and treat accordingly Other chronic Medical conditions Stable, resume outpatient medications Problem Qualifiers (1) Diabetic foot ulcer: Qualified Codes: E13.621 - Other specified diabetes mellitus with foot ulcer; L97.422 - Non-pressure chronic ulcer of left heel and midfoot with fat layer exposed James Tuttle MD Sep 23, 2017 17:04
[2017-09-23] MEDS: EPOETIN ALFA 4,000 UNITS/ML VIAL IV PUSH PRN (17:24)
[2017-09-23] MEDS: EPOETIN ALFA 2,000 UNITS/ML VIAL IV PUSH PRN (17:24)
[2017-09-23 20:00] VITALS: BP 123/59; PULSE 93; RESP 18; TEMP 98.3; O2SAT 98
--- NOTE | 2017-09-23 20:36 | HHI.PR ---
Addendum to Inpatient Note Additional Information Pt examined full note to follow 52 yo F with DM, stroke ESRD Few mos of L heel wound, pain , drainage Presented with worsening smx, odor X 3 wks + chills non contrasted MRI with calcaneous osteo BC neg, wound clx P Arterial study consistent with bilateral SFA and runoff disease, right greater then left. Consider CTA examination for better evaluation. On exam: obese NAD Dense R sided hemiplegia BLE edema L heel wound with gangrenous changes and strong anaerobic odor + ipsilateral inguinal LN PLAN: vascular w/u debridement eric guzman Alexandra A. MD Sep 23, 2017 20:36
--- NOTE | 2017-09-23 20:38 | PD.ID.CON ---
History of Present Illness Service ID Consult Requested By Dr Valero Reason for Consult L heel DFI Primary Care Physician Unknown Diagnoses: History of Present Illness 52 yo female with DM, stroke ESRD presents with few mos of L heel wound, pain , drainage Presented with worsening smx, abnd developped odor X 3 wks She endorses chills She had non contrasted MRI which shows h calcaneous osteo BC neg, wound clx P Podiatry flllows, plans for surgery tomorrow Arterial study consistent with bilateral SFA and runoff disease, right greater then left. Consider CTA examination for better evaluation. Pt is afebrile, mildly elevated WBC 11-12 K, ESR 65 Review of Systems Constitutional: COMPLAINS OF: Chills Neurologic: COMPLAINS OF: Abnormal gait, Localized weakness, Paresthesias Except as stated in HPI: all other systems reviewed are Neg Past Family Social History Allergies: Coded Allergies: *MDRO Multi-Drug Resistant Organism (Verified Allergy, Unknown, 09/22/17) MRSA PCR (nares) negative - 11/19/15 & 11/21/15 Cleared per Infection Control MRSA 2013 Past Medical History type 2 diabetes, history of CVA with residual deficit, history of CHF, coronary artery disease, ESRD, dialysis Wednesday, and Wednesday, Past Surgical History Umbilical hernia repair; AV fistula, left arm ;cardiac surgery CABG x4; cardiac catheterizations; history of section x3; coronary artery bypass 2009, 4-vessel; eye surgery, right tear duct. Active Ordered Medications Medications where reviewed in EMR Antibiotics Include: zosyn Family History reviewed Non-Contributory. Social History No Tobacco. No ETOH. No Illicit Drugs. Physical Exam Vital Signs Vital Signs Date Time Temp Pulse Resp B/P (MAP) Pulse Ox O2 Delivery O2 Flow Rate FiO2 09/23/17 12:00 98.0 69 17 133/68 (89) 96 09/23/17 08:00 97.2 74 20 115/58 (77) 98 09/23/17 00:00 97.0 84 20 133/59 (83) 100 Physical Exam CONSTITUTIONAL/GENERAL: This is an obese d patient, in no apparent distress. TUBES/LINES/DRAINS: SKIN: No jaundice, rashes, or lesions. Ecchymoses on upper extremities. No wounds seen anteriorly. Skin temperature appropriate. Not diaphoretic. HEAD: Atraumatic. Normocephalic. EYES: Pupils equal and round and reactive. Extraocular motions intact. No scleral icterus. No injection or drainage. Fundi not examined. ENT: Hearing grossly normal. Nose without bleeding or purulent drainage. Throat without visible erythema, exudates, masses, or lesions. NECK: Trachea midline. Supple, nontender. No palpable thyroid enlargement or nodularity. CARDIOVASCULAR: Regular rate and rhythm without murmurs, gallops, or rubs. No JVD. Peripheral pulses symmetric. RESPIRATORY/CHEST: Symmetric, unlabored respirations. Clear to auscultation. Breath sounds equal bilaterally. No wheezes, rales, or rhonchi. GASTROINTESTINAL: Abdomen soft, non-tender, nondistended. No hepato-splenomegaly , or palpable masses. No guarding. Bowel sounds present. GENITOURINARY: Without palpable bladder distension. MUSCULOSKELETAL: Extremities without clubbing, cyanosis, or edema. No joint tenderness or effusion noted. No calf tenderness. No mottling or clubbing. BLE edema L heel wound with gangrenous changes and strong anaerobic odor + ipsilateral inguinal LN LYMPHATICS: No palpable cervical or supraclavicular adenopathy . + L inguinale enlarged lymph node. NEUROLOGICAL: Awake and alert. Dense R sided hemiplegia Follows commands with R side . Clear speech. PSYCHIATRIC: No obvious anxiety/depression. no apparent hallucinations or other psychotic thought process. Laboratory Laboratory Tests Test 09/23/17 06:15 White Blood Count 11.5 Red Blood Count 3.52 Hemoglobin 9.9 Hematocrit 30.6 Mean Corpuscular Volume 87.0 Mean Corpuscular Hemoglobin 28.1 Mean Corpuscular Hemoglobin Concent 32.3 Red Cell Distribution Width 14.5 Platelet Count 183 Mean Platelet Volume 10.0 Neutrophils (%) (Auto) 66.6 Lymphocytes (%) (Auto) 20.1 Monocytes (%) (Auto) 9.2 Eosinophils (%) (Auto) 3.3 Basophils (%) (Auto) 0.8 Neutrophils # (Auto) 7.6 Lymphocytes # (Auto) 2.3 Monocytes # (Auto) 1.1 Eosinophils # (Auto) 0.4 Basophils # (Auto) 0.1 CBC Comment DIFF FINAL Differential Comment Blood Urea Nitrogen 65 Creatinine 10.70 Random Glucose 155 Total Protein 7.2 Albumin 2.9 Calcium Level 7.6 Alkaline Phosphatase 161 Aspartate Amino Transf (AST/SGOT) 6 Alanine Aminotransferase (ALT/SGPT) 12 Total Bilirubin 0.3 Sodium Level 136 Potassium Level 4.5 Chloride Level 96 Carbon Dioxide Level 27.3 Anion Gap 13 Estimat Glomerular Filtration Rate 5 Hemoglobin A1c 8.1 Date/Time Source Procedure Growth Status 09/22/17 15:10 Blood Peripheral Aerobic Blood Culture - Preliminary NO GROWTH IN 1 DAY Resulted 09/22/17 15:10 Blood Peripheral Anaerobic Blood Culture - Preliminary NO GROWTH IN 1 DAY Resulted 09/22/17 15:05 Wound Heel Gram Stain - Final Resulted 09/22/17 15:05 Wound Heel Wound Culture - Preliminary Resulted Result Diagram: 09/23/17 0615 09/23/17 0615 Imaging Last Impressions Foot X-Ray 09/22/17 1444 Signed Impressions: Service Date/Time: Friday, September 22, 2017 15:14 - CONCLUSION: 1. Soft tissue ulceration in the left heel without associated erosive bony change to suggest osteomyelitis. Hugo Nova MD Foot MRI 09/22/17 0000 Signed Impressions: Service Date/Time: Friday, September 22, 2017 21:55 - CONCLUSION: Focal soft tissue ulceration of the heel pad and with associated localized cortical and subcortical osteomyelitis of the posterior calcaneus. The region of osteomyelitis is estimated at approximately 24 x 20 x 7 mm. No abscess. Trino Sam MD Assessment and Plan Assessment and Plan DFI L heel, L calcaneous osteo [place] mixed aerobic/anaerobic infection DM ESRD, on HD Multiple med problems PLAN: vascular w/u debridement cont zosyn, add Marzena Gr MD Sep 23, 2017 20:38
[2017-09-23] MEDS ORDERED: Vancomycin Consult Pharmacy 1 EA IV SCH (20:45)
[2017-09-23] MEDS ORDERED: VANCOMYCIN INJ 1,000 MG in SODIUM CHLOR 0.9% 250 ML INJ 250 ML IV SCH (20:45)
[2017-09-23] MEDS ORDERED: VANCOMYCIN INJ 1,000 MG in SODIUM CHLOR 0.9% 250 ML INJ 250 ML IV ONE (20:45)
--- NOTE | 2017-09-23 21:36 | PD.POD ---
Subjective Podiatric Problems Osteomyelitis left calcaneus Past Med/Surg/Social History Social History Smoking Status: Never Smoker Objective Vital Signs Vital Signs Date Time Temp Pulse Resp B/P (MAP) Pulse Ox O2 Delivery O2 Flow Rate FiO2 09/23/17 12:00 98.0 69 17 133/68 (89) 96 09/23/17 08:00 97.2 74 20 115/58 (77) 98 09/23/17 00:00 97.0 84 20 133/59 (83) 100 Coded Allergies: *MDRO Multi-Drug Resistant Organism (Verified Allergy, Unknown, 09/22/17) MRSA PCR (nares) negative - 11/19/15 & 11/21/15 Cleared per Infection Control MRSA 2013 Other Results Last 72 hours Impressions Foot X-Ray 09/22/17 1444 Signed Impressions: Service Date/Time: Friday, September 22, 2017 15:14 - CONCLUSION: 1. Soft tissue ulceration in the left heel without associated erosive bony change to suggest osteomyelitis. Hugo Nova MD Foot MRI 09/22/17 0000 Signed Impressions: Service Date/Time: Friday, September 22, 2017 21:55 - CONCLUSION: Focal soft tissue ulceration of the heel pad and with associated localized cortical and subcortical osteomyelitis of the posterior calcaneus. The region of osteomyelitis is estimated at approximately 24 x 20 x 7 mm. No abscess. Trino Sam MD Assessment & Plan A/P Osteomyelitis left calcaneus To OR tomorrow for debridement of ulcer with possible partial calcanectomy with bone biopsy left calcaneus and possible wound vac NPO after breakfast tomorrow Elizabeth Wells DPM Sep 23, 2017 21:36
[2017-09-23] MEDS: ATORVASTATIN 20 MG TAB PO SCH (21:58)
[2017-09-23] MEDS: MAGNESIUM HYDROXIDE SUSP 30 ML CUP PO PRN (22:06)
[2017-09-23] MEDS ORDERED: SODIUM CHLORID 0.9% 500 ML IV PRN (23:15)
[2017-09-23] MEDS ORDERED: CHLORHEXIDINE GLUCONATE 2 % 1 PACK (2 CLOTHS) TOPICAL PRN (23:15)
[2017-09-23] MEDS ORDERED: LACTATED RINGER'S 1000 ML IV PRN (23:15)
[2017-09-23] MEDS ORDERED: POVIDONE IODINE 5% (ANTISEPSIS KIT) 4 APPLICATIONS EACH NARE PRN (23:15)
[2017-09-24] VITALS: BP 114/55; PULSE 85; RESP 18; TEMP 99.3; O2SAT 97
[2017-09-24] MEDS: PIPERACIL-TAZO 2.25 GM PREMIX 50 ML IV SCH ×3 (01:04→17:09)
[2017-09-24 04:35] VITALS: BP 142/65; PULSE 80; RESP 18; TEMP 99.5; O2SAT 100
[2017-09-24 08:00] VITALS: BP 129/60; PULSE 71; RESP 19; TEMP 98.8; O2SAT 98
[2017-09-24] MEDS: SODIUM CHLORIDE 0.9% FLUSH 10 ML FLUSH IV FLUSH SCH ×2 (08:10→21:29)
[2017-09-24] MEDS: SEVELAMER CARBONATE 800 MG TAB PO SCH ×4 (08:12→18:00)
[2017-09-24] MEDS: ASPIRIN 81 MG CHEW TAB CHEW SCH (08:13)
[2017-09-24] MEDS: cloNIDine HCL 0.2 MG TAB PO SCH (08:13)
[2017-09-24] MEDS: METOPROLOL TARTRATE 25 MG TAB PO SCH ×2 (08:13→21:00)
[2017-09-24] MEDS: LACTOBACILLUS ACIDOPHILUS TAB PO SCH ×2 (08:13→21:29)
[2017-09-24] MEDS: VITAMIN B CMPLX/VITC/FOLIC AC CAP PO SCH (08:13)
[2017-09-24] MEDS: INSULIN DETEMIR 100 UNITS/ML VIAL SQ SCH ×2 (08:55→21:51)
[2017-09-24] MEDS: INSULIN ASPART SUPPLEMENTAL SCALE SQ SCH ×4 (08:55→21:00)
--- NOTE | 2017-09-24 11:15 | HHI.PR ---
Subjective Remarks no pain , no cp afebrile Objective Vitals Vital Signs Date Time Temp Pulse Resp B/P (MAP) Pulse Ox O2 Delivery O2 Flow Rate FiO2 09/24/17 08:00 98.8 71 19 129/60 (83) 98 09/24/17 04:35 99.5 80 18 142/65 (90) 100 09/24/17 00:00 99.3 85 18 114/55 (74) 97 09/23/17 20:00 98.3 93 18 123/59 (80) 98 09/23/17 12:00 98.0 69 17 133/68 (89) 96 I/O 09/23/17 09/23/17 09/23/17 09/24/17 09/24/17 09/24/17 07:00 15:00 23:00 07:00 15:00 23:00 Intake Total 50 ml 0 ml 490 ml 50 ml 0 ml Output Total 3000 ml Balance 50 ml 0 ml -2510 ml 50 ml 0 ml Intake Oral 240 ml 0 ml IV Total 50 ml 0 ml 250 ml 50 ml Output Urine Total 0 ml Hemodialysis 3000 ml # Voids 0 0 # Bowel Movements 0 1 Result Diagram: 09/23/1715 09/23/17 0615 Objective Remarks GENERAL: This is a obese female well-developed patient, in no apparent distress. SKIN: No rashes, warm and dry HEAD: Atraumatic. Normocephalic. EYES: Pupils equal round and reactive. Extraocular motions intact. No scleral icterus. ENT: Nose without bleeding, or drainage, Airway patent. NECK: Trachea midline. Supple CARDIOVASCULAR: Regular rate and rhythm without murmurs, gallops, or rubs. RESPIRATORY: Fair air entry bilaterally. No wheezes, rales, or rhonchi. GASTROINTESTINAL: Abdomen soft, non-tender, nondistended. Positive bowel sounds , left foot in gauze MUSCULOSKELETAL: Extremities without clubbing, cyanosis, or edema. Pedal pulses appreciated NEUROLOGICAL: Awake and alert. Moves all extremity. Normal speech.no focal neurological deficit A/P Problem List: (1) Diabetic foot ulcer ICD Code: E11.621 - Type 2 diabetes mellitus with foot ulcer; L97.509 - Non- pressure chronic ulcer of other part of unspecified foot with unspecified severity Status: Acute (2) End stage renal disease on dialysis ICD Code: N18.6 - End stage renal disease; Z99.2 - Dependence on renal dialysis Status: Acute (3) History of CVA with residual deficit ICD Code: I69.30 - Unspecified sequelae of cerebral infarction Status: Acute Assessment and Plan 09/23: 09/23: 52-year-old female with Diabetic foot infection Left heel ulcer X-ray noted without any evidence of osteomyelitis Will check for MRI of foot to rule out osteomyelitis DICK and consider CTA runoff Status post Zosyn IV 1, in ED and continue with antibiotics pending culture report Appreciate ID, wound care consultation Appreciate podiatry and nephrology consultation, plan for dressing management and possible soft tissue debridement by podiatry later on, DICK consistent with bilateral SFA and runoff disease, right greater then left. Consider CTA examination for better evaluation consider CVS consult once foot lesion is addressed End-stage renal disease on hemodialysis Consult nephrology for in-house HD Wednesday Resume Renvela Diabetes type 2 Labile blood glucose hemoglobin A1c 8.1 Start medium insulin sliding scale and resume basal insulin, adjust accordingly Anemia of chronic disease iron study and treat accordingly Other chronic Medical conditions Stable, resume outpatient medications Problem Qualifiers (1) Diabetic foot ulcer: Qualified Codes: E13.621 - Other specified diabetes mellitus with foot ulcer; L97.422 - Non-pressure chronic ulcer of left heel and midfoot with fat layer exposed James Tuttle MD Sep 24, 2017 11:15
[2017-09-24 11:59] VITALS: BP 92/64
[2017-09-24 12:00] VITALS: BP 92/64; PULSE 64; RESP 19; TEMP 97.8; O2SAT 99
[2017-09-24] MEDS ORDERED: ePHEDrine/NS 25 MG/5 ML SYRINGE IV ONE (12:00)
[2017-09-24] MEDS ORDERED: PHENYLEPH/NS 1000 MCG/10 ML SYR IV ONE (12:00)
[2017-09-24] MEDS ORDERED: LIDOCAINE HCL 1% PF 5 ML SYRINGE OTHER ONE (12:00)
[2017-09-24] MEDS ORDERED: NEOSTIGMINE 5 MG/5 ML SYRINGE IV PUSH ONE (12:00)
[2017-09-24] MEDS ORDERED: GLYCOPYRROLATE 1 MG/5 ML SYRINGE IV PUSH ONE (12:00)
[2017-09-24] MEDS ORDERED: ROCURONIUM INJ 50 MG/5 ML SYRINGE IV PUSH ONE (12:00)
[2017-09-24] MEDS ORDERED: PROPOFOL 200 MG/20 ML AMP IV ONE (12:00)
[2017-09-24] MEDS ORDERED: SUCCINYLCHOLINE CHLORIDE 200 MG/10 ML VIAL IV ONE (12:00)
[2017-09-24 15:02] LABS: BICARBONATE 31.7 MEQ/L (21.0-32.0); CALCIUM 8.4 MG/DL (8.5-10.1); CREATININE 8.47 MG/DL (0.50-1.00)
--- NOTE | 2017-09-24 15:51 | HHI.NPPN ---
Subjective General Problems: Anemia, Diabetes, Edema, Hypertension Renal Failure: End Stage Renal Disease History of Present Illness 52 year-old -Chinese female with a history of diabetes type 2, CVA with residual deficit, CAD, ESRD on HD //WED, and history of CHF. Presented to the ED from a local nursing facility [facility], [place], for evaluation of a painful and bad smelling left heel ulcer over the past several days duration. patient states she noticed a skin abrasion/tear few weeks ago and then over the past few day she has noted increasing foul smell from the wound. Nephrology is consulted for management of ESRD and HD. Patient is known to me, was moved 1 year ago, and currently is receiving dialysis in [facility] with Dr. Khanna. Additional Remarks Patient is alert, no SOB, no leg pain, now NPO for the surgery. Review of Systems General Constitutional: Fatigue Cardiovascular Cardiac: Edema, MITTAL Objective Data Data 09/24/17 09/25/17 18:59 06:59 Intake Total 0 ml Balance 0 ml Intake Oral 0 ml # Bowel Movements 1 Vital Signs Date Time Temp Pulse Resp B/P (MAP) Pulse Ox O2 Delivery O2 Flow Rate FiO2 09/24/17 12:00 97.8 64 19 92/64 (73) 99 09/24/17 11:59 92/64 (73) 09/24/17 08:00 98.8 71 19 129/60 (83) 98 09/24/17 04:35 99.5 80 18 142/65 (90) 100 09/24/17 00:00 99.3 85 18 114/55 (74) 97 09/23/17 20:00 98.3 93 18 123/59 (80) 98 -: 09/23/17 0615 09/24/17 1411 Physical Exam General Appearance: Well Nourished, No Acute Distress, Comfortable Eyes Eye Exam: Pupils Equal Throat Throat Exam: Oral Mucosa [place] & Moist Neck Neck Exam: Neck Supple Pulmonary Resp Exam: Clear Bilaterally, Breath Sounds Equal, No Distress, Decreased Bases Cardiology CV Exam: Regular, Normal Sinus Rhythm Gastrointestinal/Abdomen GI Exam: Soft, Non-Tender, Bowel Sounds Present, Distended Extremeties Extremities Exam: Trace Edema (Left heel with dressing.) Assessment/Plan Problem List: (1) End stage renal disease on dialysis ICD Codes: N18.6 - End stage renal disease; Z99.2 - Dependence on renal dialysis Status: Acute Plan: ESRD done T//WED Continue Renvela Potassium and PO4 WNL Epogen with dialysis for anemia Left upper arm AVF with positive thrill and bruit Dialysis done yesterday and tolerated well. Continue antibiotics, podiatry and ID following. For Calcanectomy and bone Biopsy. HD will be in AM. (2) Diabetic foot ulcer ICD Codes: E11.621 - Type 2 diabetes mellitus with foot ulcer; L97.509 - Non- pressure chronic ulcer of other part of unspecified foot with unspecified severity Status: Acute Plan: Podiatry and wound care consulted. Expect surgery in next 1-2 days (3) Diabetes 1.5, managed as type 2 ICD Codes: E13.9 - Other specified diabetes mellitus without complications Status: Acute Plan: BS is elevated continue insulin. Adjust according. (4) Hypertension ICD Codes: I10 - Essential (primary) hypertension Status: Acute Plan: Well controlled. Continue current treatment Problem Qualifiers (1) Diabetic foot ulcer: Qualified Codes: E13.621 - Other specified diabetes mellitus with foot ulcer; L97.422 - Non-pressure chronic ulcer of left heel and midfoot with fat layer exposed Ivonne Coffey MD Sep 24, 2017 15:51
[2017-09-24] MEDS ORDERED: ACETAMINOPHEN 1000 MG/100 ML 100 ML IV ONE (17:29)
[2017-09-24] MEDS ORDERED: CISATRACURIUM BESYLATE 20 MG/10 ML VIAL ONE (17:59)
[2017-09-24] MEDS ORDERED: BUPIVACAINE HCL PF 0.5% 30 ML VIAL ONE (18:04)
[2017-09-24] MEDS ORDERED: VANCOMYCIN HCL 1000 MG VIAL ONE (18:20)
--- NOTE | 2017-09-24 19:24 | HHI.PR ---
Immediate Post Op Note Procedure Date: Sep 24, 2017 Pre Op Diagnosis: Left heel chronic decubitus ulceration, possible osteomyelitis left calcaneus Post Op Diagnosis: Same Surgeon: Elizabeth Wells DPM [employer] Teacher(s): Staff Procedure: 1. Debridement of heel ulcer left 2. Bone biopsy left calcaneus Findings: Consistent with diagnosis. Foul odor with significant necrotic tissue to plantar left heel measuring approximately 4cm x 3cm x 2cm depth with liquefactive necrosis of fat pad noted. Culture taken left heel. All necrotic tissue excisionally debrided with #15 blade and rongeur, followed by irrigation with 3L normal saline. Bone was not visible in base of wound and healthy bleeding tissue noted in wound base down to level of plantar fascia. Separate Incision made just proximal to wound and jamshidi needle utilized to extract bone biopsy from calcaneus and sent to pathology. Incision closure with 3-0 nylon, followed by dressing with xeroform, 4x4, abd, cast padding, trini left foot. Nonweightbearing left foot Await culture and bone biopsy Plan to apply wound vac on floor tomorrow and orders to follow. Float left heel at all times Complications: None Specimen(s) removed: 1. bone biopsy left calcaneus 2. culture left heel Estimated blood loss: 20mL Anesthesia: General Drains: None Tourniquet time (min at mmHg) n/a Patient to: PACU Patient Condition: Good Date/Time of Procedure: SEE SURGICAL CARE RECORD Elizabeth Wells DPM Sep 24, 2017 19:24
[2017-09-24] MEDS ORDERED: DO NOT ADM ANY ANTICOAGULANT DRUGS PRN (19:30)
[2017-09-24 20:00] VITALS: BP 90/55; PULSE 78; RESP 19; TEMP 97.6; O2SAT 97
[2017-09-24] MEDS: cloNIDine HCL 0.1 MG TAB PO SCH (21:00)
[2017-09-24] MEDS: ATORVASTATIN 20 MG TAB PO SCH (21:29)
[2017-09-25 00:28] VITALS: BP 115/56; PULSE 79; RESP 19; TEMP 97.5; O2SAT 96
[2017-09-25] MEDS: PIPERACIL-TAZO 2.25 GM PREMIX 50 ML IV SCH ×3 (00:41→18:28)
[2017-09-25 02:34] VITALS: O2SAT 97
[2017-09-25 08:00] VITALS: BP 124/60; PULSE 85; RESP 17; TEMP 99.1; O2SAT 94
[2017-09-25] MEDS: INSULIN ASPART SUPPLEMENTAL SCALE SQ SCH ×4 (08:00→20:57)
[2017-09-25] MEDS: INSULIN DETEMIR 100 UNITS/ML VIAL SQ SCH ×2 (08:24→20:57)
[2017-09-25] MEDS: LACTOBACILLUS ACIDOPHILUS TAB PO SCH ×2 (08:25→20:57)
[2017-09-25] MEDS: ASPIRIN 81 MG CHEW TAB CHEW SCH (08:25)
[2017-09-25] MEDS: SEVELAMER CARBONATE 800 MG TAB PO SCH ×3 (08:25→18:28)
[2017-09-25] MEDS: VITAMIN B CMPLX/VITC/FOLIC AC CAP PO SCH (08:26)
[2017-09-25] MEDS: cloNIDine HCL 0.1 MG TAB PO SCH ×2 (08:26→20:56)
[2017-09-25] MEDS: METOPROLOL TARTRATE 25 MG TAB PO SCH ×2 (08:27→20:57)
[2017-09-25] MEDS: SODIUM CHLORIDE 0.9% FLUSH 10 ML FLUSH IV FLUSH SCH ×2 (08:27→20:58)
[2017-09-25 12:00] VITALS: BP 141/62; PULSE 87; RESP 18; TEMP 100.2; O2SAT 93
--- NOTE | 2017-09-25 14:39 | HHI.PR ---
Subjective Remarks Follow-up diabetic foot infection. Patient requesting Sensipar and vitamin D. Discussed with nursing, need to touch base with podiatry regarding DVT prophylaxis and vascular workup. Objective Vitals Vital Signs Date Time Temp Pulse Resp B/P (MAP) Pulse Ox O2 Delivery O2 Flow Rate FiO2 09/25/17 12:00 100.2 87 18 141/62 (88) 93 09/25/17 08:00 99.1 85 17 124/60 (81) 94 09/25/17 02:34 97 09/25/17 00:28 97.5 79 19 115/56 (75) 96 09/24/17 20:00 97.6 78 19 90/55 (67) 97 09/24/17 19:45 73 16 91/57 (68) 100 Room Air 09/24/17 19:30 79 16 92/55 (67) 96 Room Air 09/24/17 19:20 98.8 88 16 101/65 (77) 100 Room Air I/O 09/24/17 09/24/17 09/24/17 09/25/17 09/25/17 09/25/17 07:00 15:00 23:00 07:00 15:00 23:00 Intake Total 50 ml 0 ml 350 ml 530 ml Output Total 20 ml 0 ml Balance 50 ml 0 ml 330 ml 530 ml Intake Oral 0 ml 0 ml 480 ml IV Total 50 ml 350 ml 50 ml Output Urine Total 0 ml 0 ml Estimated Blood Loss 20 ml # Voids 0 # Bowel Movements 1 2 Result Diagram: 09/23/17 0615 09/24/17 1411 Imaging Last Impressions Foot X-Ray 09/22/17 1444 Signed Impressions: Service Date/Time: Friday, September 22, 2017 15:14 - CONCLUSION: 1. Soft tissue ulceration in the left heel without associated erosive bony change to suggest osteomyelitis. Hugo Nova MD Foot MRI 09/22/17 0000 Signed Impressions: Service Date/Time: Friday, September 22, 2017 21:55 - CONCLUSION: Focal soft tissue ulceration of the heel pad and with associated localized cortical and subcortical osteomyelitis of the posterior calcaneus. The region of osteomyelitis is estimated at approximately 24 x 20 x 7 mm. No abscess. Trino Sam MD Objective Remarks GENERAL: This is a obese female well-developed patient, in no apparent distress. SKIN: No rashes, warm and dry CARDIOVASCULAR: Regular rate and rhythm without murmurs, gallops, or rubs. RESPIRATORY: Fair air entry bilaterally. No wheezes, rales, or rhonchi. GASTROINTESTINAL: Abdomen soft, non-tender, nondistended. Positive bowel sounds , left foot with dry dressing MUSCULOSKELETAL: Extremities without clubbing, cyanosis, or edema. Pedal pulses appreciated NEUROLOGICAL: Awake and alert. Moves all extremity. Normal speech.no focal neurological deficit Procedures Debridement of left heel ulcer A/P Problem List: (1) Diabetic foot ulcer ICD Code: E11.621 - Type 2 diabetes mellitus with foot ulcer; L97.509 - Non- pressure chronic ulcer of other part of unspecified foot with unspecified severity Status: Acute (2) End stage renal disease on dialysis ICD Code: N18.6 - End stage renal disease; Z99.2 - Dependence on renal dialysis Status: Acute (3) History of CVA with residual deficit ICD Code: I69.30 - Unspecified sequelae of cerebral infarction Status: Acute Assessment and Plan 52-year-old female with Diabetic foot infection, calcaneal osteomyelitis. Continue IV vancomycin and Zosyn follow cultures. Pain management with Lortab counseled regarding narcotics Left heel ulcer status post debridement. Podiatry to place wound VAC PAD. Consider CTA will discuss with podiatry likely will need vascular consult End-stage renal disease on hemodialysis Consult nephrology for in-house HD Wednesday Resume Renvela, Sensipar and vitamin D Diabetes type 2 Labile blood glucose hemoglobin A1c 8.1 Continue medium insulin sliding scale and resume basal insulin, adjust accordingly Anemia of chronic disease Other chronic Medical conditions Stable, resume outpatient medications Problem Qualifiers (1) Diabetic foot ulcer: Qualified Codes: E13.621 - Other specified diabetes mellitus with foot ulcer; L97.422 - Non-pressure chronic ulcer of left heel and midfoot with fat layer exposed Travis Montero MD Sep 25, 2017 14:39
[2017-09-25] MEDS: CHOLECALCIFEROL (VIT D3) 1000 UNIT TAB PO SCH (14:45)
--- NOTE | 2017-09-25 14:52 | HHI.NPPN ---
Subjective General Problems: Anemia, Diabetes, Edema, Hypertension Renal Failure: End Stage Renal Disease History of Present Illness 52 year-old -E[place]ian female with a history of diabetes type 2, CVA with residual deficit, CAD, ESRD on HD //WED, and history of CHF. Presented to the ED from a local nursing facility [facility], [place], for evaluation of a painful and bad smelling left heel ulcer over the past several days duration. patient states she noticed a skin abrasion/tear few weeks ago and then over the past few day she has noted increasing foul smell from the wound. Nephrology is consulted for management of ESRD and HD. Patient is known to me, was moved 1 year ago, and currently is receiving dialysis in [facility] with Dr. Khanna. Additional Remarks No acute complaints, tolerating HD today. Review of Systems General Constitutional: Fatigue Cardiovascular Cardiac: Edema, MITTAL Objective Data Data Vital Signs Date Time Temp Pulse Resp B/P (MAP) Pulse Ox O2 Delivery O2 Flow Rate FiO2 09/25/17 12:00 100.2 87 18 141/62 (88) 93 09/25/17 08:00 99.1 85 17 124/60 (81) 94 09/25/17 02:34 97 09/25/17 00:28 97.5 79 19 115/56 (75) 96 09/24/17 20:00 97.6 78 19 90/55 (67) 97 09/24/17 19:45 73 16 91/57 (68) 100 Room Air 09/24/17 19:30 79 16 92/55 (67) 96 Room Air 09/24/17 19:20 98.8 88 16 101/65 (77) 100 Room Air -: 09/23/17 0615 09/24/17 1411 Microbiology 09/24/17 Fungal Smear - Final, Resulted NO FUNGAL ELEMENTS SEEN. 09/24/17 Fungal Culture, Resulted Pending 09/24/17 Acid Fast Stain, Received Pending 09/24/17 Mycobacterial Culture, Received Pending 09/24/17 Gram Stain - Final, Resulted 09/24/17 Wound Culture - Preliminary, Resulted No growth. Physical Exam General Appearance: Well Nourished, No Acute Distress, Comfortable Eyes Eye Exam: Pupils Equal Throat Throat Exam: Oral Mucosa [place] & Moist Neck Neck Exam: Neck Supple Pulmonary Resp Exam: Clear Bilaterally, Breath Sounds Equal, No Distress, Decreased Bases Cardiology CV Exam: Regular, Normal Sinus Rhythm Gastrointestinal/Abdomen GI Exam: Soft, Non-Tender, Bowel Sounds Present, Distended Extremeties Extremities Exam: Trace Edema (Left heel with dressing.) Assessment/Plan Problem List: (1) End stage renal disease on dialysis ICD Codes: N18.6 - End stage renal disease; Z99.2 - Dependence on renal dialysis Status: Acute Plan: ESRD done T//WED Continue Renvela Potassium and PO4 WNL Epogen with dialysis for anemia Left upper arm AVF with positive thrill and bruit Post calcenectomy - continue to monitor. HD today, next HD Wednesday. (2) Diabetic foot ulcer ICD Codes: E11.621 - Type 2 diabetes mellitus with foot ulcer; L97.509 - Non- pressure chronic ulcer of other part of unspecified foot with unspecified severity Status: Acute Plan: Podiatry and wound care consulted. Post surgery yesterday. (3) Diabetes 1.5, managed as type 2 ICD Codes: E13.9 - Other specified diabetes mellitus without complications Status: Acute Plan: Continue insulin (4) Hypertension ICD Codes: I10 - Essential (primary) hypertension Status: Acute Plan: Well controlled. Continue current treatment Problem Qualifiers (1) Diabetic foot ulcer: Qualified Codes: E13.621 - Other specified diabetes mellitus with foot ulcer; L97.422 - Non-pressure chronic ulcer of left heel and midfoot with fat layer exposed Surjit Phlilip MD Sep 25, 2017 14:52
--- NOTE | 2017-09-25 14:53 | HHI.IDPN ---
Subjective Subjective Remarks sp calcanectomy yday Having low grade fevers today no new c/o Antibiotics zosyn vanco Allergies: Coded Allergies: *MDRO Multi-Drug Resistant Organism (Verified Allergy, Unknown, 09/22/17) MRSA PCR (nares) negative - 11/19/15 & 11/21/15 Cleared per Infection Control MRSA 2013 Objective . Vital Signs Date Time Temp Pulse Resp B/P (MAP) Pulse Ox O2 Delivery O2 Flow Rate FiO2 09/25/17 12:00 100.2 87 18 141/62 (88) 93 09/25/17 08:00 99.1 85 17 124/60 (81) 94 09/25/17 02:34 97 09/25/17 00:28 97.5 79 19 115/56 (75) 96 09/24/17 20:00 97.6 78 19 90/55 (67) 97 09/24/17 19:45 73 16 91/57 (68) 100 Room Air 09/24/17 19:30 79 16 92/55 (67) 96 Room Air 09/24/17 19:20 98.8 88 16 101/65 (77) 100 Room Air . Laboratory Tests Test 09/24/17 14:11 Blood Urea Nitrogen 46 MG/DL Creatinine 8.47 MG/DL Random Glucose 146 MG/DL Calcium Level 8.4 MG/DL Sodium Level 139 MEQ/L Potassium Level 5.1 MEQ/L Chloride Level 97 MEQ/L Carbon Dioxide Level 31.7 MEQ/L Anion Gap 10 MEQ/L Estimat Glomerular Filtration Rate 6 ML/MIN Microbiology Date/Time Source Procedure Growth Status 09/22/17 15:10 Blood Peripheral Aerobic Blood Culture - Preliminary NO GROWTH IN 3 DAYS Resulted 09/22/17 15:10 Blood Peripheral Anaerobic Blood Culture - Preliminary NO GROWTH IN 3 DAYS Resulted 09/22/17 15:05 Blood Peripheral Aerobic Blood Culture - Preliminary NO GROWTH IN 3 DAYS Resulted 09/22/17 15:05 Blood Peripheral Anaerobic Blood Culture - Preliminary NO GROWTH IN 3 DAYS Resulted 09/24/17 19:07 Wound Heel Fungal Smear - Final NO FUNGAL ELEMENTS SEEN. Resulted 09/24/17 19:07 Wound Heel Fungal Culture Pending Resulted 09/24/17 19:07 Wound Heel Acid Fast Stain Pending Received 09/24/17 19:07 Wound Heel Mycobacterial Culture Pending Received 09/24/17 19:07 Wound Heel Gram Stain - Final Resulted 09/24/17 19:07 Wound Heel Wound Culture - Preliminary No growth. Resulted 09/22/17 15:05 Wound Heel Gram Stain - Final Resulted 09/22/17 15:05 Wound Heel Wound Culture - Preliminary Resulted Imaging Last Impressions Foot X-Ray 09/22/17 1444 Signed Impressions: Service Date/Time: Friday, September 22, 2017 15:14 - CONCLUSION: 1. Soft tissue ulceration in the left heel without associated erosive bony change to suggest osteomyelitis. Hugo Nova MD Foot MRI 09/22/17 0000 Signed Impressions: Service Date/Time: Friday, September 22, 2017 21:55 - CONCLUSION: Focal soft tissue ulceration of the heel pad and with associated localized cortical and subcortical osteomyelitis of the posterior calcaneus. The region of osteomyelitis is estimated at approximately 24 x 20 x 7 mm. No abscess. Trino Sam MD Physical Exam CONSTITUTIONAL/GENERAL: This is an obese d patient, in no apparent distress. TUBES/LINES/DRAINS: SKIN: No jaundice, rashes, or lesions. CARDIOVASCULAR: Regular rate and rhythm without murmurs, gallops, or rubs. No JVD. Peripheral pulses symmetric. RESPIRATORY/CHEST: Symmetric, unlabored respirations. Clear to auscultation. Breath sounds equal bilaterally. No wheezes, rales, or rhonchi. GASTROINTESTINAL: Abdomen soft, non-tender, nondistended. No hepato-splenomegaly , or palpable masses. No guarding. Bowel sounds present. MUSCULOSKELETAL: BLE edema L heel wound with surg dressing in place NEUROLOGICAL: Awake and alert. Dense R sided hemiplegia Follows commands with R side . Clear speech. PSYCHIATRIC: No obvious anxiety/depression. no apparent hallucinations or other psychotic thought process. Assessment & Plan Remarks DFI L heel, L calcaneous osteo sp calcanectomy [place] mixed aerobic/anaerobic infection DM ESRD, on HD Multiple med problems New issue : low grade fever ? post -op PLAN: pt needs further vascular w/u based on arterial study finding cont zosyn, cont vanco w HD Marzena Moreau MD Sep 25, 2017 14:53
[2017-09-25] MEDS: EPOETIN ALFA 2,000 UNITS/ML VIAL IV PUSH PRN (15:14)
[2017-09-25] MEDS: EPOETIN ALFA 4,000 UNITS/ML VIAL IV PUSH PRN (15:17)
--- NOTE | 2017-09-25 15:52 | PD.POD ---
Subjective Podiatric Problems Osteomyelitis left calcaneus s/p bone biopsy left calcaneus with debridement of heel ulcer 09/24/17 Dr Wells Past Med/Surg/Social History Social History Smoking Status: Never Smoker Objective Vital Signs Vital Signs Date Time Temp Pulse Resp B/P (MAP) Pulse Ox O2 Delivery O2 Flow Rate FiO2 09/25/17 12:00 100.2 87 18 141/62 (88) 93 09/25/17 08:00 99.1 85 17 124/60 (81) 94 09/25/17 02:34 97 09/25/17 00:28 97.5 79 19 115/56 (75) 96 09/24/17 20:00 97.6 78 19 90/55 (67) 97 09/24/17 19:45 73 16 91/57 (68) 100 Room Air 09/24/17 19:30 79 16 92/55 (67) 96 Room Air 09/24/17 19:20 98.8 88 16 101/65 (77) 100 Room Air Coded Allergies: *MDRO Multi-Drug Resistant Organism (Verified Allergy, Unknown, 09/22/17) MRSA PCR (nares) negative - 11/19/15 & 11/21/15 Cleared per Infection Control MRSA 2013 Assessment & Plan A/P Osteomyelitis left calcaneus s/p bone biopsy left calcaneus with debridement of heel ulcer 09/24/17 Dr Wells Patient in dialysis. Plan to apply wound vac to left heel tomorrow Elizabeth Wells DPM Sep 25, 2017 15:52
[2017-09-25 20:00] VITALS: BP 173/79; PULSE 94; RESP 20; TEMP 100.4; O2SAT 98
[2017-09-25] MEDS: CINACALCET HYDROCHLORIDE 30 MG TAB PO SCH (20:55)
[2017-09-25] MEDS: ATORVASTATIN 20 MG TAB PO SCH (20:56)
[2017-09-25] MEDS: MAGNESIUM HYDROXIDE SUSP 30 ML CUP PO PRN (21:03)
[2017-09-26] VITALS: BP 132/60; PULSE 100; RESP 20; TEMP 100.3; O2SAT 99
[2017-09-26] MEDS: PIPERACIL-TAZO 2.25 GM PREMIX 50 ML IV SCH ×3 (00:11→17:23)
[2017-09-26 03:58] VITALS: BP 167/70; PULSE 75; RESP 20; TEMP 97.6; O2SAT 96
[2017-09-26] MEDS ORDERED: Vancomycin Consult Pharmacy 1 EA OTHER SCH (06:15)
[2017-09-26 08:00] VITALS: BP 111/59; PULSE 77; RESP 16; TEMP 97.4; O2SAT 93
[2017-09-26] MEDS ORDERED: VANCOMYCIN 0 MG/NS 500 ML IV SCH ×2 (08:00)
[2017-09-26] MEDS: INSULIN ASPART SUPPLEMENTAL SCALE SQ SCH ×4 (08:00→22:24)
[2017-09-26] MEDS: VITAMIN B CMPLX/VITC/FOLIC AC CAP PO SCH (08:25)
[2017-09-26] MEDS: INSULIN DETEMIR 100 UNITS/ML VIAL SQ SCH ×2 (08:26→22:24)
[2017-09-26] MEDS: ASPIRIN 81 MG CHEW TAB CHEW SCH (08:27)
[2017-09-26] MEDS: SEVELAMER CARBONATE 800 MG TAB PO SCH ×3 (08:27→17:21)
[2017-09-26] MEDS: CHOLECALCIFEROL (VIT D3) 1000 UNIT TAB PO SCH (08:27)
[2017-09-26] MEDS: LACTOBACILLUS ACIDOPHILUS TAB PO SCH ×2 (08:27→22:16)
[2017-09-26] MEDS: METOPROLOL TARTRATE 25 MG TAB PO SCH ×2 (08:28→22:16)
[2017-09-26] MEDS: cloNIDine HCL 0.1 MG TAB PO SCH ×2 (08:28→22:16)
--- NOTE | 2017-09-26 10:24 | PD.POD ---
Subjective Podiatric Problems Osteomyelitis left calcaneus s/p bone biopsy left calcaneus with debridement of heel ulcer 09/24/17 Dr Wells Past Med/Surg/Social History Social History Smoking Status: Never Smoker Objective Vital Signs Vital Signs Date Time Temp Pulse Resp B/P (MAP) Pulse Ox O2 Delivery O2 Flow Rate FiO2 09/26/17 08:00 97.4 77 16 111/59 (76) 93 09/26/17 03:58 97.6 75 20 167/70 (102) 96 09/26/17 00:00 100.3 100 20 132/60 (84) 99 09/25/17 20:00 100.4 94 20 173/79 (110) 98 09/25/17 12:00 100.2 87 18 141/62 (88) 93 Coded Allergies: *MDRO Multi-Drug Resistant Organism (Verified Allergy, Unknown, 09/22/17) MRSA PCR (nares) negative - 11/19/15 & 11/21/15 Cleared per Infection Control MRSA 2013 Assessment & Plan A/P Osteomyelitis left calcaneus s/p bone biopsy left calcaneus with debridement of heel ulcer 09/24/17 Dr Wells Wound vac applied today to L heel. Continue at 125mmHg medium continuous and begin Wednesday//Wednesday vac changes Await results of bone biopsy to determine if long-term antibiotics required. Elizabeth Wells DPM Sep 26, 2017 10:24
[2017-09-26] MEDS: SODIUM CHLORIDE 0.9% FLUSH 10 ML FLUSH IV FLUSH SCH ×2 (11:21→22:24)
[2017-09-26] MEDS: HEPARIN SODIUM - SQ 10,000 UNITS/ML VIAL SQ SCH (11:21)
--- NOTE | 2017-09-26 11:35 | PD.VS.CON ---
History of Present Illness Chief Complaint: L heel wound, PAD Consult Requested by: medical service History of Present Illness 52 yo female with several months of L heel wound, being treated as inpatient by podiatry and according to Dr. Wells this morning, on most recent debridement had decent intraop bleeding. The patient lives in a NH and doesn't want but does use her leg for transfers. She is nonambulatory because of a profound R sided deficit from a CVA. Past/Family/Social History Past Medical History HTN CVA ESRD DM XOL CHF CAD Past Surgical History CABG L UE AVF L heel debridement [facility] eye surgery Social History lives in a custodial Family History MS Home Medications Active Scripts Metoprolol Tartrate (Metoprolol Tartrate) 25 Mg Tab, 25 MG PO BID for htn, #60 TAB 0 Refills Prov:Estrella Antony MD 11/05/16 Reported Medications Cholecalciferol (Vitamin D3) 1,000 Unit Tab, 1000 UNITS PO DAILY for Nutritional Supplement, #1 BOTTLE 0 Refills 09/22/17 Acetaminophen (Tylenol) 325 Mg Tab, 325 MG PO Q6H Y for PAIN SCALE 1 TO 4, TAB 0 Refills 09/22/17 Cinacalcet (Sensipar) 60 Mg Tab, 60 MG PO HS, #30 TAB 0 Refills 09/22/17 Magnesium Hydroxide Liq (Milk of Magnesia Liq) 400 Mg/5 Ml Susp, 30 ML PO DAILY Y for INDIGESTION OR UPSET STOMACH, #1 BOTTLE 0 Refills 09/22/17 Gabapentin (Gabapentin) 100 Mg Cap, 100 MG PO BID, #60 CAP 0 Refills 09/22/17 Docusate Sodium (Colace) 100 Mg Capsule, 100 MG PO BID for Prevent Constipation , #60 CAP 0 Refills 09/22/17 Clonidine (Clonidine) 0.1 Mg Tab, 0.1 MG PO DAILY for Blood Pressure Management , #60 TAB 0 Refills 09/22/17 Ciprofloxacin (Ciprofloxacin) 250 Mg Tab, 250 MG PO BID for Infection, TAB 0 Refills 09/22/17 Bisacodyl Supp (Biscolax Supp) 10 Mg Supp, 10 MG RECTAL DAILY Y for CONSTIPATION , SUPP 0 Refills 09/22/17 Aspirin (Aspirin Low Dose) 81 Mg Chew, 81 MG CHEW DAILY, TAB 0 Refills 09/22/17 Sevelamer Carbonate (Renvela) 800 Mg Tab, 1600 MG PO TID for Control phosphorous levels, #180 TAB 0 Refills 10/31/16 B-Complex W/ C & Folic Acid (Rhonda-Estefania) 1 Tab, 1 TAB PO DAILY, TAB 10/31/16 Insulin Aspart Inj (Novolog Inj) 1,000 Unit/10 Ml Vial, 0 SQ BID for Blood Sugar Management, #10 ML 0 Refills Sliding Scale as directed. 10/31/16 Insulin Detemir Inj (Levemir Inj) 1,000 unit/ 10 ML Vial, 15 UNITS SQ BID for Blood Sugar Management, VIAL 0 Refills Do not mix with any other Insulin. 10/31/16 Clonidine (Clonidine) 0.2 Mg Tab, 0.2 MG PO BID for Blood Pressure Management, # 60 TAB 0 Refills 10/31/16 Atorvastatin (Atorvastatin) 20 Mg Tab, 20 MG PO HS for Cholesterol Management, # 30 TAB 0 Refills 10/31/16 Discontinued Reported Medications Gatifloxacin Opth Drops (Zymaxid Opth Drops) 0.5% Soln, 1 DROP LEFT EYE DIRECTED for Infection, #1 BOTTLE 0 Refills Day 1: 1 drop into affected eye(s) every 2 hours while awake (max: 8 times/day). Days 2-7: 1 drop into affected eye(s) 2 to 4 times/day while awake. 10/31/16 Lactulose (Encephalopathy) Liq (Lactulose Liq) 19 Gm/15 Ml Soln, 15 ML PO DAILY 10/31/16 Doxazosin (Doxazosin) 4 Mg Tab, 4 MG PO DAILY, #30 TAB 0 Refills 10/31/16 Coded Allergies: *MDRO Multi-Drug Resistant Organism (Verified Allergy, Unknown, 09/22/17) MRSA PCR (nares) negative - 11/19/15 & 11/21/15 Cleared per Infection Control MRSA 2013 Review of Systems Constitutional: DENIES: Fever, Chills Physical Exam Vitals/I&O Date Time Temp Pulse Resp B/P (MAP) Pulse Ox O2 Delivery O2 Flow Rate FiO2 09/26/17 08:00 97.4 77 16 111/59 (76) 93 09/26/17 03:58 97.6 75 20 167/70 (102) 96 3/18/18 00:00 100.3 100 20 132/60 (84) 99 09/25/17 20:00 100.4 94 20 173/79 (110) 98 09/25/17 12:00 100.2 87 18 141/62 (88) 93 09/26/17 09/26/17 09/26/17 07:00 15:00 23:00 Intake Total 50 ml Balance 50 ml Neuro: alert, conversant HEENT: NC/AT Neck: no JVD Heart: reg rate Lungs: clear B Vascular: nonpalpable pedal pulses L foot Extremities: L heel wound with surgical dressing in place, no streaking erythema around foot or calf R sided deficit Date/Time Source Procedure Growth Status 09/22/17 15:10 Blood Peripheral Aerobic Blood Culture - Preliminary NO GROWTH IN 4 DAYS Resulted 09/22/17 15:10 Blood Peripheral Anaerobic Blood Culture - Preliminary NO GROWTH IN 4 DAYS Resulted 09/24/17 19:07 Wound Heel Fungal Smear - Final NO FUNGAL ELEMENTS SEEN. Resulted 09/24/17 19:07 Wound Heel Fungal Culture Pending Resulted PVRs reviewed - pressures are mildly depressed in foot with likely fem-pop disease Assessment and Plan Plan PAD and L heel wound. No additional imaging required for diagnosis. 1. The next step would be a L LE angiogram. I will arrange this if the wound healing stalls. After discussion with Dr. Wells this morning, the wound bled nicely in the OR. Based on this and her noninvasive studies (specifically toe pressure of 50), she is likely to heal without intervention. At any point if the wound healing stalls or the wound regresses, I will schedule an angiogram. 2. In absence of clinical deterioration of the wound, I'll arrange f/u in my clinic for surveillance ABIs. Thank you for the consult. Prince Henao MD FACS RPVI supervisor record press [facility] - Heart and Vascular Surgery at [facility] [phone] Prince Henao MD Sep 26, 2017 11:35
[2017-09-26 12:00] VITALS: BP 133/61; PULSE 77; RESP 16; TEMP 98.2; O2SAT 95
--- NOTE | 2017-09-26 14:47 | HHI.PR ---
Subjective Remarks Follow-up calcaneal osteomyelitis. Patient has no complaints discussed with RN and podiatry Objective Vitals Vital Signs Date Time Temp Pulse Resp B/P (MAP) Pulse Ox O2 Delivery O2 Flow Rate FiO2 09/26/17 12:00 98.2 77 16 133/61 (85) 95 09/26/17 08:00 97.4 77 16 111/59 (76) 93 09/26/17 03:58 97.6 75 20 167/70 (102) 96 09/26/17 00:00 100.3 100 20 132/60 (84) 99 09/25/17 20:00 100.4 94 20 173/79 (110) 98 I/O 09/25/17 09/25/17 09/25/17 09/26/17 09/26/17 09/26/17 07:00 15:00 23:00 07:00 15:00 23:00 Intake Total 530 ml 720 ml 50 ml Output Total 0 ml 2500 ml Balance 530 ml -1780 ml 50 ml Intake Oral 480 ml 720 ml IV Total 50 ml 50 ml Output Urine Total 0 ml 0 ml Hemodialysis 2500 ml # Bowel Movements 0 1 Result Diagram: 09/23/17 0615 09/24/17 1411 Imaging Last Impressions Foot X-Ray 09/22/17 1444 Signed Impressions: Service Date/Time: Friday, September 22, 2017 15:14 - CONCLUSION: 1. Soft tissue ulceration in the left heel without associated erosive bony change to suggest osteomyelitis. Hugo Nova MD Foot MRI 09/22/17 0000 Signed Impressions: Service Date/Time: Friday, September 22, 2017 21:55 - CONCLUSION: Focal soft tissue ulceration of the heel pad and with associated localized cortical and subcortical osteomyelitis of the posterior calcaneus. The region of osteomyelitis is estimated at approximately 24 x 20 x 7 mm. No abscess. Trino Sam MD Objective Remarks GENERAL: This is a obese female well-developed patient, in no apparent distress. SKIN: No rashes, warm and dry CARDIOVASCULAR: Regular rate and rhythm without murmurs, gallops, or rubs. RESPIRATORY: Fair air entry bilaterally. No wheezes, rales, or rhonchi. GASTROINTESTINAL: Abdomen soft, non-tender, nondistended. Positive bowel sounds , left foot with dry dressing MUSCULOSKELETAL: Extremities without clubbing, cyanosis, or edema. Pedal pulses appreciated NEUROLOGICAL: Awake and alert. Moves all extremity. Normal speech.no focal neurological deficit Procedures Debridement of left heel ulcer A/P Problem List: (1) Diabetic foot ulcer ICD Code: E11.621 - Type 2 diabetes mellitus with foot ulcer; L97.509 - Non- pressure chronic ulcer of other part of unspecified foot with unspecified severity Status: Acute (2) End stage renal disease on dialysis ICD Code: N18.6 - End stage renal disease; Z99.2 - Dependence on renal dialysis Status: Acute (3) History of CVA with residual deficit ICD Code: I69.30 - Unspecified sequelae of cerebral infarction Status: Acute Assessment and Plan 52-year-old female with Diabetic foot infection, calcaneal osteomyelitis status post biopsy. Continue IV vancomycin and Zosyn follow cultures and pathology to determine need for long -term antibiotic. Infectious disease dosing vancomycin. Pain management with Lortab counseled regarding narcotics Left heel ulcer status post debridement. Continue wound VAC PAD. Vascular surgery will consider angiogram if wound healing stalls End-stage renal disease on hemodialysis Consult nephrology for in-house HD Wednesday Resume Renvela, Sensipar and vitamin D Diabetes type 2 Labile blood glucose hemoglobin A1c 8.1 Continue medium insulin sliding scale and resume basal insulin, adjust accordingly Anemia of chronic disease Discharge Planning Discharge when pathology is resulted Problem Qualifiers (1) Diabetic foot ulcer: Qualified Codes: E13.621 - Other specified diabetes mellitus with foot ulcer; L97.422 - Non-pressure chronic ulcer of left heel and midfoot with fat layer exposed Travis Montero MD Sep 26, 2017 14:47
--- NOTE | 2017-09-26 15:52 | HHI.NPPN ---
Subjective General Problems: Anemia, Diabetes, Edema, Hypertension Renal Failure: End Stage Renal Disease History of Present Illness 52 year-old -[place] female with a history of diabetes type 2, CVA with residual deficit, CAD, ESRD on HD T//WED, and history of CHF. Presented to the ED from a local nursing facility [facility], operated by [facility], for evaluation of a painful and bad smelling left heel ulcer over the past several days duration. patient states she noticed a skin abrasion/tear few weeks ago and then over the past few day she has noted increasing foul smell from the wound. Nephrology is consulted for management of ESRD and HD. Patient is known to me, was moved 1 year ago, and currently is receiving dialysis in [facility] with Dr. Khanna. Additional Remarks No acute complaints, had HD yesterday Review of Systems General Constitutional: Fatigue Cardiovascular Cardiac: Edema, MITTAL Objective Data Data Vital Signs Date Time Temp Pulse Resp B/P (MAP) Pulse Ox O2 Delivery O2 Flow Rate FiO2 09/26/17 12:00 98.2 77 16 133/61 (85) 95 09/26/17 08:00 97.4 77 16 111/59 (76) 93 09/26/17 03:58 97.6 75 20 167/70 (102) 96 09/26/17 00:00 100.3 100 20 132/60 (84) 99 09/25/17 20:00 100.4 94 20 173/79 (110) 98 -: 09/23/17 0615 09/24/17 1411 Physical Exam General Appearance: Well Nourished, No Acute Distress, Comfortable Eyes Eye Exam: Pupils Equal Throat Throat Exam: Oral Mucosa [place] & Moist Neck Neck Exam: Neck Supple Pulmonary Resp Exam: Clear Bilaterally, Breath Sounds Equal, No Distress, Decreased Bases Cardiology CV Exam: Regular, Normal Sinus Rhythm Gastrointestinal/Abdomen GI Exam: Soft, Non-Tender, Bowel Sounds Present, Distended Extremeties Extremities Exam: Trace Edema (Left heel with dressing.) Assessment/Plan Problem List: (1) End stage renal disease on dialysis ICD Codes: N18.6 - End stage renal disease; Z99.2 - Dependence on renal dialysis Status: Acute Plan: ESRD done T/TH/SAT Continue Renvela Potassium and PO4 WNL Epogen with dialysis for anemia Left upper arm AVF with positive thrill and bruit Post calcenectomy - continue to monitor. . HD done yesterday, next HD Wednesday. (2) Diabetic foot ulcer ICD Codes: E11.621 - Type 2 diabetes mellitus with foot ulcer; L97.509 - Non- pressure chronic ulcer of other part of unspecified foot with unspecified severity Status: Acute Plan: Podiatry and wound care consulted. Post surgery Wednesday. Seen with vascular - no plan for arteriogram at this point. Continue to monitor. (3) Diabetes 1.5, managed as type 2 ICD Codes: E13.9 - Other specified diabetes mellitus without complications Status: Acute Plan: Continue insulin (4) Hypertension ICD Codes: I10 - Essential (primary) hypertension Status: Acute Plan: Well controlled. Continue current treatment Problem Qualifiers (1) Diabetic foot ulcer: Qualified Codes: E13.621 - Other specified diabetes mellitus with foot ulcer; L97.422 - Non-pressure chronic ulcer of left heel and midfoot with fat layer exposed Surjit Phillip MD Sep 26, 2017 15:52
[2017-09-26 16:00] VITALS: BP 157/70; PULSE 84; RESP 17; TEMP 99.4; O2SAT 95
[2017-09-26 20:00] VITALS: BP 171/76; PULSE 85; RESP 18; TEMP 98.8; O2SAT 100
[2017-09-26] MEDS: ATORVASTATIN 20 MG TAB PO SCH (22:16)
[2017-09-26] MEDS: CINACALCET HYDROCHLORIDE 30 MG TAB PO SCH (22:16)
[2017-09-26] MEDS: GABAPENTIN 100 MG CAP PO SCH (22:23)
[2017-09-27] VITALS: BP_SYST 113; BP_SYST 148; BP_DIAS 57; BP_DIAS 66; PULSE 83; PULSE 98; RESP 18; TEMP 96.9; TEMP 98.8; O2SAT 94; O2SAT 95
[2017-09-27] MEDS: PIPERACIL-TAZO 2.25 GM PREMIX 50 ML IV SCH ×3 (02:02→17:28)
[2017-09-27 05:48] LABS: AUTOMATED NEUTROPHIL # 7.2 TH/MM3 (1.8-7.7); BASOPHIL # 0.2 TH/MM3 (0-0.2); BASOPHIL % 1.3 % (0.0-2.0); EOSINOPHIL # 0.4 TH/MM3 (0-0.4); EOSINOPHIL % 3.3 % (0.0-4.0); HEMATOCRIT 30.9 % (35.0-46.0); HEMOGLOBIN 9.7 GM/DL (11.6-15.3); LYMPH % 26.5 % (9.0-44.0); LYMPHOCYTE # 3.2 TH/MM3 (1.0-4.8); MEAN CELL VOLUME 88.3 FL (80.0-100.0); MEAN CORPUSCULAR HEMOGLOBIN 27.8 PG (27.0-34.0); MEAN CORPUSCULAR HGB CONC 31.5 % (32.0-36.0); MEAN PLATELET VOLUME 9.9 FL (7.0-11.0); MONO % 9.1 % (0.0-8.0); MONOCYTE # 1.1 TH/MM3 (0-0.9); NEUT % 59.8 % (16.0-70.0); PLATELET COUNT 194 TH/MM3 (150-450); RED BLOOD COUNT 3.49 MIL/MM3 (4.00-5.30); RED CELL DISTRIBUTION WIDTH 15.2 % (11.6-17.2)
[2017-09-27 06:31] LABS: BICARBONATE 28.9 MEQ/L (21.0-32.0); CREATININE 9.6 MG/DL (0.50-1.00)
[2017-09-27 08:00] VITALS: BP 106/64; PULSE 71; RESP 16; TEMP 97.1; O2SAT 95
[2017-09-27] MEDS: INSULIN ASPART SUPPLEMENTAL SCALE SQ SCH ×4 (08:00→21:00)
[2017-09-27] MEDS: GABAPENTIN 100 MG CAP PO SCH ×2 (08:53→21:28)
[2017-09-27] MEDS: CHOLECALCIFEROL (VIT D3) 1000 UNIT TAB PO SCH (08:53)
[2017-09-27] MEDS: LACTOBACILLUS ACIDOPHILUS TAB PO SCH ×2 (08:53→21:28)
[2017-09-27] MEDS: cloNIDine HCL 0.1 MG TAB PO SCH ×2 (08:53→21:28)
[2017-09-27] MEDS: VITAMIN B CMPLX/VITC/FOLIC AC CAP PO SCH (08:54)
[2017-09-27] MEDS: METOPROLOL TARTRATE 25 MG TAB PO SCH ×2 (08:54→21:28)
[2017-09-27] MEDS: ASPIRIN 81 MG CHEW TAB CHEW SCH (08:54)
[2017-09-27] MEDS: SEVELAMER CARBONATE 800 MG TAB PO SCH ×3 (08:59→17:24)
[2017-09-27] MEDS: SODIUM CHLORIDE 0.9% FLUSH 10 ML FLUSH IV FLUSH SCH ×2 (09:00→21:28)
[2017-09-27] MEDS: INSULIN DETEMIR 100 UNITS/ML VIAL SQ SCH ×2 (09:02→22:49)
--- NOTE | 2017-09-27 10:05 | HHI.NPPN ---
Subjective General Problems: Anemia, Diabetes, Edema, Hypertension Renal Failure: End Stage Renal Disease History of Present Illness 52 year-old -[place]ames[place] female with a history of diabetes type 2, CVA with residual deficit, CAD, ESRD on HD //WED, and history of CHF. Presented to the ED from a local nursing facility [facility], for evaluation of a painful and bad smelling left heel ulcer over the past several days duration. patient states she noticed a skin abrasion/tear few weeks ago and then over the past few day she has noted increasing foul smell from the wound. Nephrology is consulted for management of ESRD and HD. Patient is known to me, was moved 1 year ago, and currently is receiving dialysis in [facility] with Dr. Khanna. Additional Remarks No acute complaints, pain well controlled. No SOB (Felicitas Galo) Review of Systems General Constitutional: Fatigue (Felicitas Galo) Respiratory Respiratory Remarks Denies SOB (Felicitas Galo) Cardiovascular Cardiac: Edema Cardiac Remarks Denies CP (Felicitas Galo) Gastrointestinal GI Remarks Denies abdominal pain (Felicitas Galo) Objective Data Data Vital Signs Date Time Temp Pulse Resp B/P (MAP) Pulse Ox O2 Delivery O2 Flow Rate FiO2 09/27/17 08:00 97.1 71 16 106/64 (78) 95 09/27/17 00:00 98.8 83 18 148/66 (93) 95 09/26/17 20:00 98.8 85 18 171/76 (107) 100 09/26/17 16:00 99.4 84 17 157/70 (99) 95 09/26/17 12:00 98.2 77 16 133/61 (85) 95 (Felicitas Galo) -: 09/27/17 0415 09/27/17 0415 Physical Exam General Appearance: Well Nourished, No Acute Distress, Comfortable (Felicitas Galo) Eyes Eye Exam: Pupils Equal (Felicitas Galo) Throat Throat Exam: Oral Mucosa [place] & Moist (Felicitas Galo) Neck Neck Exam: Neck Supple (Felicitas Galo) Pulmonary Resp Exam: Clear Bilaterally, Breath Sounds Equal, No Distress, Decreased Bases (Felicitas Galo) Cardiology CV Exam: Regular, Normal Sinus Rhythm (Felicitas Galo) Gastrointestinal/Abdomen GI Exam: Soft, Non-Tender, Bowel Sounds Present GI Remarks large (Felicitas Galo) Extremeties Extremities Exam: Trace Edema (Left heel with dressing.) (Felicitas Galo) Assessment/Plan Problem List: (1) End stage renal disease on dialysis ICD Codes: N18.6 - End stage renal disease; Z99.2 - Dependence on renal dialysis Status: Acute Plan: ESRD done T/TH/SAT Continue Renvela Continue Sensipar Epogen with dialysis for anemia HGB 9.7 Left upper arm AVF with positive thrill and bruit Post calcanectomy - continue to monitor. . HD scheduled for tomorrow. (2) Diabetic foot ulcer ICD Codes: E11.621 - Type 2 diabetes mellitus with foot ulcer; L97.509 - Non- pressure chronic ulcer of other part of unspecified foot with unspecified severity Status: Acute Plan: Podiatry and wound care consulted. Post surgery Wednesday. Seen with vascular - no plan for arteriogram at this point. Continue to monitor. (3) Diabetes 1.5, managed as type 2 ICD Codes: E13.9 - Other specified diabetes mellitus without complications Status: Acute Plan: Continue insulin (4) Hypertension ICD Codes: I10 - Essential (primary) hypertension Status: Acute Plan: Well controlled. Continue current treatment (Felicitas Galo) Problem List: (1) End stage renal disease on dialysis ICD Codes: N18.6 - End stage renal disease; Z99.2 - Dependence on renal dialysis Status: Acute Plan: ESRD done T/TH/SAT Continue Renvela Continue Sensipar Epogen with dialysis for anemia HGB 9.7 Left upper arm AVF with positive thrill and bruit Post calcanectomy - continue to monitor. . HD scheduled for tomorrow. Patient seen and examined, agree with above. Hgb. is stable. (2) Diabetic foot ulcer ICD Codes: E11.621 - Type 2 diabetes mellitus with foot ulcer; L97.509 - Non- pressure chronic ulcer of other part of unspecified foot with unspecified severity Status: Acute Plan: Podiatry and wound care consulted. Post surgery Wednesday. Seen with vascular - no plan for arteriogram at this point. Continue to monitor. (3) Diabetes 1.5, managed as type 2 ICD Codes: E13.9 - Other specified diabetes mellitus without complications Status: Acute Plan: Continue insulin (4) Hypertension ICD Codes: I10 - Essential (primary) hypertension Status: Acute Plan: Well controlled. Continue current treatment (Ivonne Coffey MD) Problem Qualifiers (1) Diabetic foot ulcer: Qualified Codes: E13.621 - Other specified diabetes mellitus with foot ulcer; L97.422 - Non-pressure chronic ulcer of left heel and midfoot with fat layer exposed Felicitas Galo Sep 27, 2017 10:05 Ivonne Coffey MD Sep 27, 2017 19:02
--- NOTE | 2017-09-27 11:20 | HHI.PR ---
Subjective Remarks Follow-up foot osteomyelitis. She is doing okay no new complaints discussed with nursing Objective Vitals Vital Signs Date Time Temp Pulse Resp B/P (MAP) Pulse Ox O2 Delivery O2 Flow Rate FiO2 09/27/17 08:00 97.1 71 16 106/64 (78) 95 09/27/17 00:00 98.8 83 18 148/66 (93) 95 09/26/17 20:00 98.8 85 18 171/76 (107) 100 09/26/17 16:00 99.4 84 17 157/70 (99) 95 09/26/17 12:00 98.2 77 16 133/61 (85) 95 I/O 09/26/17 09/26/17 09/26/17 09/27/17 09/27/17 09/27/17 07:00 15:00 23:00 07:00 15:00 23:00 Intake Total 50 ml 570 ml 50 ml Output Total 0 ml Balance 50 ml 570 ml 50 ml Intake Oral 570 ml 0 ml IV Total 50 ml 50 ml Output Urine Total 0 ml # Voids 0 # Bowel Movements 1 1 1 Result Diagram: 09/27/17 0415 09/27/17 0415 Imaging Last Impressions Foot X-Ray 09/22/17 1444 Signed Impressions: Service Date/Time: Friday, September 22, 2017 15:14 - CONCLUSION: 1. Soft tissue ulceration in the left heel without associated erosive bony change to suggest osteomyelitis. Hugo Nova MD Foot MRI 09/22/17 0000 Signed Impressions: Service Date/Time: Friday, September 22, 2017 21:55 - CONCLUSION: Focal soft tissue ulceration of the heel pad and with associated localized cortical and subcortical osteomyelitis of the posterior calcaneus. The region of osteomyelitis is estimated at approximately 24 x 20 x 7 mm. No abscess. Trino Sam MD Objective Remarks GENERAL: This is a obese female well-developed patient, in no apparent distress. SKIN: No rashes, warm and dry CARDIOVASCULAR: Regular rate and rhythm without murmurs, gallops, or rubs. RESPIRATORY: Fair air entry bilaterally. No wheezes, rales, or rhonchi. GASTROINTESTINAL: Abdomen soft, non-tender, nondistended. Positive bowel sounds , left foot with wound VAC MUSCULOSKELETAL: Extremities without clubbing, cyanosis, or edema. Pedal pulses appreciated NEUROLOGICAL: Awake and alert. Moves all extremity. Normal speech.no focal neurological deficit Procedures Debridement of left heel ulcer A/P Problem List: (1) Diabetic foot ulcer ICD Code: E11.621 - Type 2 diabetes mellitus with foot ulcer; L97.509 - Non- pressure chronic ulcer of other part of unspecified foot with unspecified severity Status: Acute (2) End stage renal disease on dialysis ICD Code: N18.6 - End stage renal disease; Z99.2 - Dependence on renal dialysis Status: Acute (3) History of CVA with residual deficit ICD Code: I69.30 - Unspecified sequelae of cerebral infarction Status: Acute Assessment and Plan 52-year-old female with Diabetic foot infection, calcaneal osteomyelitis status post biopsy. Continue IV vancomycin and Zosyn follow cultures and pathology to determine need for long -term antibiotic. Infectious disease dosing vancomycin. Pain management with Lortab counseled regarding narcotics Left heel ulcer status post debridement. Continue wound VAC PAD. Vascular surgery will consider angiogram if wound healing stalls End-stage renal disease on hemodialysis Consult nephrology for in-house HD Wednesday Resume Renvela, Sensipar and vitamin D Diabetes type 2 Labile blood glucose hemoglobin A1c 8.1 Continue medium insulin sliding scale and resume basal insulin, adjust accordingly Anemia of chronic disease Discharge Planning Awaiting pathology Problem Qualifiers (1) Diabetic foot ulcer: Qualified Codes: E13.621 - Other specified diabetes mellitus with foot ulcer; L97.422 - Non-pressure chronic ulcer of left heel and midfoot with fat layer exposed Travis Montero MD Sep 27, 2017 11:20
[2017-09-27 12:00] VITALS: BP 133/64; PULSE 76; RESP 16; TEMP 98.3; O2SAT 98
--- NOTE | 2017-09-27 14:24 | HHI.IDPN ---
Subjective Subjective Remarks sp calcanectomy clx with nl skin jr no fevers no new c/o Antibiotics zosyn vanco Allergies: Coded Allergies: *MDRO Multi-Drug Resistant Organism (Verified Allergy, Unknown, 09/22/17) MRSA PCR (nares) negative - 11/19/15 & 11/21/15 Cleared per Infection Control MRSA 2013 Objective . Vital Signs Date Time Temp Pulse Resp B/P (MAP) Pulse Ox O2 Delivery O2 Flow Rate FiO2 09/27/17 12:00 98.3 76 16 133/64 (87) 98 09/27/17 08:00 97.1 71 16 106/64 (78) 95 09/27/17 00:00 98.8 83 18 148/66 (93) 95 09/26/17 20:00 98.8 85 18 171/76 (107) 100 09/26/17 16:00 99.4 84 17 157/70 (99) 95 . Laboratory Tests Test 09/27/17 04:15 White Blood Count 12.0 TH/MM3 Red Blood Count 3.49 MIL/MM3 Hemoglobin 9.7 GM/DL Hematocrit 30.9 % Mean Corpuscular Volume 88.3 FL Mean Corpuscular Hemoglobin 27.8 PG Mean Corpuscular Hemoglobin Concent 31.5 % Red Cell Distribution Width 15.2 % Platelet Count 194 TH/MM3 Mean Platelet Volume 9.9 FL Neutrophils (%) (Auto) 59.8 % Lymphocytes (%) (Auto) 26.5 % Monocytes (%) (Auto) 9.1 % Eosinophils (%) (Auto) 3.3 % Basophils (%) (Auto) 1.3 % Neutrophils # (Auto) 7.2 TH/MM3 Lymphocytes # (Auto) 3.2 TH/MM3 Monocytes # (Auto) 1.1 TH/MM3 Eosinophils # (Auto) 0.4 TH/MM3 Basophils # (Auto) 0.2 TH/MM3 CBC Comment DIFF FINAL Differential Comment Laboratory Tests Test 09/27/17 04:15 Blood Urea Nitrogen 52 MG/DL Creatinine 9.60 MG/DL Random Glucose 145 MG/DL Calcium Level 8.0 MG/DL Sodium Level 139 MEQ/L Potassium Level 4.2 MEQ/L Chloride Level 97 MEQ/L Carbon Dioxide Level 28.9 MEQ/L Anion Gap 13 MEQ/L Estimat Glomerular Filtration Rate 5 ML/MIN Microbiology Date/Time Source Procedure Growth Status 3/16/18 19:07 Wound Heel Fungal Smear - Final NO FUNGAL ELEMENTS SEEN. Resulted 09/24/17 19:07 Wound Heel Fungal Culture Pending Resulted 09/24/17 19:07 Wound Heel Acid Fast Stain - Final NO ACID FAST BACILLI SEEN Resulted 09/24/17 19:07 Wound Heel Mycobacterial Culture Pending Resulted 09/24/17 19:07 Wound Heel Gram Stain - Final Complete 09/24/17 19:07 Wound Heel Wound Culture - Final HEAVY GROWTH NORMAL SKIN JR... Complete Imaging Last Impressions Foot X-Ray 09/22/17 1444 Signed Impressions: Service Date/Time: Friday, September 22, 2017 15:14 - CONCLUSION: 1. Soft tissue ulceration in the left heel without associated erosive bony change to suggest osteomyelitis. Hugo Nova MD Foot MRI 09/22/17 0000 Signed Impressions: Service Date/Time: Friday, September 22, 2017 21:55 - CONCLUSION: Focal soft tissue ulceration of the heel pad and with associated localized cortical and subcortical osteomyelitis of the posterior calcaneus. The region of osteomyelitis is estimated at approximately 24 x 20 x 7 mm. No abscess. Trino Sam MD Physical Exam CONSTITUTIONAL/GENERAL: This is an obese d patient, in no apparent distress. TUBES/LINES/DRAINS: SKIN: No jaundice, rashes, or lesions. CARDIOVASCULAR: Regular rate and rhythm without murmurs, gallops, or rubs. No JVD. Peripheral pulses symmetric. RESPIRATORY/CHEST: Symmetric, unlabored respirations. Clear to auscultation. Breath sounds equal bilaterally. No wheezes, rales, or rhonchi. GASTROINTESTINAL: Abdomen soft, non-tender, nondistended. No hepato-splenomegaly , or palpable masses. No guarding. Bowel sounds present. MUSCULOSKELETAL: BLE edema L heel wound with VAV in place; edema , dusky discoloration around it noted + anaerobic odor NEUROLOGICAL: Awake and alert. Dense R sided hemiplegia Follows commands with R side . Clear speech. PSYCHIATRIC: No obvious anxiety/depression. no apparent hallucinations or other psychotic thought process. Assessment & Plan Remarks DFI L heel, L calcaneous osteo sp calcanectomy - concern for vascular insufficiency to allow healing Likelu mixed aerobic/anaerobic infection DM ESRD, on HD Multiple med problems Low grade fever ? post -op - resolved PLAN: pt needs further vascular w/u based on arterial study finding - healing is already a concern (dusiness, strong odor) cont megan, cont eric w HD will reeval pt again tomorrwo during VAC change Marzena Moreau MD Sep 27, 2017 14:24
[2017-09-27 15:00] VITALS: BP 110/52; PULSE 75; RESP 16; TEMP 97.5; O2SAT 97
[2017-09-27 20:00] VITALS: BP 131/60; PULSE 77; RESP 17; TEMP 98.1; O2SAT 100
[2017-09-27] MEDS: ATORVASTATIN 20 MG TAB PO SCH (21:28)
[2017-09-27] MEDS: CINACALCET HYDROCHLORIDE 30 MG TAB PO SCH (21:29)
[2017-09-28] VITALS: BP 128/60; PULSE 77; RESP 17; TEMP 97.8; O2SAT 97
[2017-09-28] MEDS: PIPERACIL-TAZO 2.25 GM PREMIX 50 ML IV SCH ×4 (00:32→23:32)
[2017-09-28] MEDS: TEMAZEPAM 15 MG CAP PO PRN ×2 (01:32→23:32)
[2017-09-28] MEDS: LACTOBACILLUS ACIDOPHILUS TAB PO SCH ×3 (07:57→20:50)
[2017-09-28] MEDS: cloNIDine HCL 0.1 MG TAB PO SCH ×3 (07:57→20:50)
[2017-09-28] MEDS: INSULIN ASPART SUPPLEMENTAL SCALE SQ SCH ×4 (07:57→20:51)
[2017-09-28] MEDS: CHOLECALCIFEROL (VIT D3) 1000 UNIT TAB PO SCH ×2 (07:57→15:29)
[2017-09-28] MEDS: METOPROLOL TARTRATE 25 MG TAB PO SCH ×3 (07:58→21:00)
[2017-09-28] MEDS: SODIUM CHLORIDE 0.9% FLUSH 10 ML FLUSH IV FLUSH SCH ×2 (07:58→20:50)
[2017-09-28] MEDS: SEVELAMER CARBONATE 800 MG TAB PO SCH ×3 (07:58→17:10)
[2017-09-28] MEDS: VITAMIN B CMPLX/VITC/FOLIC AC CAP PO SCH ×2 (07:58→15:29)
[2017-09-28] MEDS: INSULIN DETEMIR 100 UNITS/ML VIAL SQ SCH ×2 (07:58→23:32)
[2017-09-28] MEDS: GABAPENTIN 100 MG CAP PO SCH ×3 (07:58→20:50)
[2017-09-28] MEDS: ASPIRIN 81 MG CHEW TAB CHEW SCH ×3 (07:58→15:29)
[2017-09-28 08:00] VITALS: BP 132/70; PULSE 68; RESP 17; TEMP 96.5; O2SAT 97
[2017-09-28] MEDS: EPOETIN ALFA 4,000 UNITS/ML VIAL IV PUSH PRN (11:33)
--- NOTE | 2017-09-28 13:37 | HHI.NPPN ---
Subjective General Problems: Anemia, Diabetes, Edema, Hypertension Renal Failure: End Stage Renal Disease History of Present Illness 52 year-old -[place] female with a history of diabetes type 2, CVA with residual deficit, CAD, ESRD on HD //WED, and history of CHF. Presented to the ED from a local nursing facility [facility], for evaluation of a painful and bad smelling left heel ulcer over the past several days duration. patient states she noticed a skin abrasion/tear few weeks ago and then over the past few day she has noted increasing foul smell from the wound. Nephrology is consulted for management of ESRD and HD. Patient is known to me, was moved 1 year ago, and currently is receiving dialysis in [facility] with Dr. Khanna. Additional Remarks Patient seen during dialysis. No complaints reported in good spirits. (Felicitas Galo) Review of Systems General Constitutional: Fatigue (Felicitas Galo) Respiratory Respiratory Remarks Denies SOB (Felicitas Galo) Cardiovascular Cardiac: Edema Cardiac Remarks Denies CP (Felicitas Galo) Gastrointestinal GI Remarks Denies abdominal pain (Felicitas Galo) Objective Data Data 09/28/17 09/29/17 19:00 07:00 Intake Total 50 ml Output Total 2500 ml Balance -2450 ml IV Total 50 ml Hemodialysis 2500 ml Vital Signs Date Time Temp Pulse Resp B/P (MAP) Pulse Ox O2 Delivery O2 Flow Rate FiO2 09/28/17 08:00 96.5 68 17 132/70 (90) 97 09/28/17 00:00 97.8 77 17 128/60 (82) 97 09/27/17 21:00 21 09/27/17 20:00 98.1 77 17 131/60 (83) 100 09/27/17 15:00 97.5 75 16 110/52 (71) 97 (Felicitas Galo) -: 09/27/17 0415 09/27/17 0415 Physical Exam General Appearance: Well Nourished, No Acute Distress, Comfortable (Felicitas Galo) Eyes Eye Exam: Pupils Equal (Felicitas Galo) Throat Throat Exam: Oral Mucosa Sobieski & Moist (Felicitas Galo) Neck Neck Exam: Neck Supple (Felicitas Galo) Pulmonary Resp Exam: Clear Bilaterally, Breath Sounds Equal, No Distress, Decreased Bases (Felicitas Galo) Cardiology CV Exam: Regular, Normal Sinus Rhythm (Felicitas Galo) Gastrointestinal/Abdomen GI Exam: Soft, Non-Tender, Bowel Sounds Present GI Remarks large (Felicitas Galo) Extremeties Extremities Exam: Trace Edema (Left heel with dressing.) (Felicitas Galo) Assessment/Plan Problem List: (1) End stage renal disease on dialysis ICD Codes: N18.6 - End stage renal disease; Z99.2 - Dependence on renal dialysis Status: Acute Plan: ESRD done T/TH/SAT with AVF Left upper arm AVF with positive thrill and bruit Post calcanectomy - continue to monitor. Plan Antibiotics per ID, vancomycin with dialysis Continue Renvela Continue Sensipar Epogen with dialysis Seen during dialysis 2.5 liters removed tolerated well (2) Diabetic foot ulcer ICD Codes: E11.621 - Type 2 diabetes mellitus with foot ulcer; L97.509 - Non- pressure chronic ulcer of other part of unspecified foot with unspecified severity Status: Acute Plan: Podiatry and wound care consulted. Post surgery Wednesday. Seen with vascular - no plan for arteriogram at this point. Continue to monitor. (3) Diabetes 1.5, managed as type 2 ICD Codes: E13.9 - Other specified diabetes mellitus without complications Status: Acute Plan: Continue insulin (4) Hypertension ICD Codes: I10 - Essential (primary) hypertension Status: Acute Plan: Well controlled. Continue current treatment (Felicitas Galo) Problem List: (1) End stage renal disease on dialysis ICD Codes: N18.6 - End stage renal disease; Z99.2 - Dependence on renal dialysis Status: Acute Plan: ESRD done T/TH/SAT with AVF Left upper arm AVF with positive thrill and bruit Post calcanectomy - continue to monitor. Plan Antibiotics per ID, vancomycin with dialysis Continue Renvela Continue Sensipar Epogen with dialysis Seen during dialysis 2.5 liters removed tolerated well. Patient seen and examined, agree with above. Awaiting Bone Biopsy report. (2) Diabetic foot ulcer ICD Codes: E11.621 - Type 2 diabetes mellitus with foot ulcer; L97.509 - Non- pressure chronic ulcer of other part of unspecified foot with unspecified severity Status: Acute Plan: Podiatry and wound care consulted. Post surgery Wednesday. Seen with vascular - no plan for arteriogram at this point. Continue to monitor. (3) Diabetes 1.5, managed as type 2 ICD Codes: E13.9 - Other specified diabetes mellitus without complications Status: Acute Plan: Continue insulin (4) Hypertension ICD Codes: I10 - Essential (primary) hypertension Status: Acute Plan: Well controlled. Continue current treatment (Ivonne Coffey MD) Problem Qualifiers (1) Diabetic foot ulcer: Qualified Codes: E13.621 - Other specified diabetes mellitus with foot ulcer; L97.422 - Non-pressure chronic ulcer of left heel and midfoot with fat layer exposed Felicitas Gaol Sep 28, 2017 13:37 Ivonne Coffey MD Sep 28, 2017 18:15
--- NOTE | 2017-09-28 13:40 | HHI.PR ---
Subjective Remarks Follow-up diabetic foot infection. Patient just returned from hemodialysis. She has no new complaints. States she does not urinate anymore. Discussed with nursing Objective Vitals Vital Signs Date Time Temp Pulse Resp B/P (MAP) Pulse Ox O2 Delivery O2 Flow Rate FiO2 09/28/17 08:00 96.5 68 17 132/70 (90) 97 09/28/17 00:00 97.8 77 17 128/60 (82) 97 09/27/17 21:00 21 09/27/17 20:00 98.1 77 17 131/60 (83) 100 09/27/17 15:00 97.5 75 16 110/52 (71) 97 I/O 09/27/17 09/27/17 09/27/17 09/28/17 09/28/17 09/28/17 07:00 15:00 23:00 07:00 15:00 23:00 Intake Total 50 ml 800 ml 240 ml 50 ml Output Total 0 ml 0 ml 0 ml 2500 ml Balance 50 ml 800 ml 240 ml -2450 ml Intake Oral 0 ml 800 ml 240 ml IV Total 50 ml 50 ml Output Urine Total 0 ml Drainage Total 0 ml 0 ml Hemodialysis 2500 ml # Voids 1 1 # Bowel Movements 1 1 Result Diagram: 09/27/17 0415 09/27/17 0415 Imaging Last Impressions Foot X-Ray 09/22/17 1444 Signed Impressions: Service Date/Time: Friday, September 22, 2017 15:14 - CONCLUSION: 1. Soft tissue ulceration in the left heel without associated erosive bony change to suggest osteomyelitis. Hugo Nova MD Foot MRI 09/22/17 0000 Signed Impressions: Service Date/Time: Friday, September 22, 2017 21:55 - CONCLUSION: Focal soft tissue ulceration of the heel pad and with associated localized cortical and subcortical osteomyelitis of the posterior calcaneus. The region of osteomyelitis is estimated at approximately 24 x 20 x 7 mm. No abscess. Trino Sam MD Objective Remarks GENERAL: This is a obese female well-developed patient, in no apparent distress. SKIN: No rashes, warm and dry CARDIOVASCULAR: Regular rate and rhythm without murmurs, gallops, or rubs. RESPIRATORY: Fair air entry bilaterally. No wheezes, rales, or rhonchi. GASTROINTESTINAL: Abdomen soft, non-tender, nondistended. Positive bowel sounds , left foot with wound VAC MUSCULOSKELETAL: Extremities without clubbing, cyanosis, or edema. Pedal pulses appreciated NEUROLOGICAL: Awake and alert. Chronic right-sided weakness. Normal speech Procedures Debridement of left heel ulcer A/P Problem List: (1) Diabetic foot ulcer ICD Code: E11.621 - Type 2 diabetes mellitus with foot ulcer; L97.509 - Non- pressure chronic ulcer of other part of unspecified foot with unspecified severity Status: Acute (2) End stage renal disease on dialysis ICD Code: N18.6 - End stage renal disease; Z99.2 - Dependence on renal dialysis Status: Acute (3) History of CVA with residual deficit ICD Code: I69.30 - Unspecified sequelae of cerebral infarction Status: Acute Assessment and Plan 52-year-old female with Diabetic foot infection, calcaneal osteomyelitis status post biopsy. Continue IV vancomycin and Zosyn follow cultures and pathology to determine need for long -term antibiotic. Infectious disease dosing vancomycin. Pain management with Lortab counseled regarding narcotics Left heel ulcer status post debridement. Continue wound VAC PAD. Vascular surgery will consider angiogram if wound healing stalls End-stage renal disease on hemodialysis Consult nephrology for in-house HD Wednesday Resume Renvela, Sensipar and vitamin D Diabetes type 2 Labile blood glucose hemoglobin A1c 8.1 Continue medium insulin sliding scale and resume basal insulin, adjust accordingly Anemia of chronic disease Discharge Planning Awaiting pathology then [place] [facility] [place] [facility] Problem Qualifiers (1) Diabetic foot ulcer: Qualified Codes: E13.621 - Other specified diabetes mellitus with foot ulcer; L97.422 - Non-pressure chronic ulcer of left heel and midfoot with fat layer exposed Travis Montero MD Sep 28, 2017 13:40
[2017-09-28 16:00] VITALS: BP 181/83; PULSE 88; RESP 18; TEMP 98.5; O2SAT 97
--- NOTE | 2017-09-28 16:16 | HHI.IDPN ---
Subjective Subjective Remarks sp calcanectomy clx with nl skin jr no fevers no new c/o seen during VAC change Antibiotics zosyn vanco Allergies: Coded Allergies: *MDRO Multi-Drug Resistant Organism (Verified Allergy, Unknown, 09/22/17) MRSA PCR (nares) negative - 11/19/15 & 11/21/15 Cleared per Infection Control MRSA 2013 Objective . Vital Signs Date Time Temp Pulse Resp B/P (MAP) Pulse Ox O2 Delivery O2 Flow Rate FiO2 09/28/17 16:00 98.5 88 18 181/83 (115) 97 09/28/17 08:00 96.5 68 17 132/70 (90) 97 09/28/17 00:00 97.8 77 17 128/60 (82) 97 09/27/17 21:00 21 09/27/17 20:00 98.1 77 17 131/60 (83) 100 09/28/17 09/28/17 09/29/17 15:00 23:00 07:00 Intake Total 50 ml Output Total 2500 ml Balance -2450 ml IV Total 50 ml Hemodialysis 2500 ml . Laboratory Tests Test 09/27/17 04:15 White Blood Count 12.0 TH/MM3 Red Blood Count 3.49 MIL/MM3 Hemoglobin 9.7 GM/DL Hematocrit 30.9 % Mean Corpuscular Volume 88.3 FL Mean Corpuscular Hemoglobin 27.8 PG Mean Corpuscular Hemoglobin Concent 31.5 % Red Cell Distribution Width 15.2 % Platelet Count 194 TH/MM3 Mean Platelet Volume 9.9 FL Neutrophils (%) (Auto) 59.8 % Lymphocytes (%) (Auto) 26.5 % Monocytes (%) (Auto) 9.1 % Eosinophils (%) (Auto) 3.3 % Basophils (%) (Auto) 1.3 % Neutrophils # (Auto) 7.2 TH/MM3 Lymphocytes # (Auto) 3.2 TH/MM3 Monocytes # (Auto) 1.1 TH/MM3 Eosinophils # (Auto) 0.4 TH/MM3 Basophils # (Auto) 0.2 TH/MM3 CBC Comment DIFF FINAL Differential Comment Laboratory Tests Test 09/27/17 04:15 Blood Urea Nitrogen 52 MG/DL Creatinine 9.60 MG/DL Random Glucose 145 MG/DL Calcium Level 8.0 MG/DL Sodium Level 139 MEQ/L Potassium Level 4.2 MEQ/L Chloride Level 97 MEQ/L Carbon Dioxide Level 28.9 MEQ/L Anion Gap 13 MEQ/L Estimat Glomerular Filtration Rate 5 ML/MIN Imaging Last Impressions Foot X-Ray 09/22/17 1444 Signed Impressions: Service Date/Time: Friday, September 22, 2017 15:14 - CONCLUSION: 1. Soft tissue ulceration in the left heel without associated erosive bony change to suggest osteomyelitis. Hugo Nova MD Foot MRI 09/22/17 0000 Signed Impressions: Service Date/Time: Friday, September 22, 2017 21:55 - CONCLUSION: Focal soft tissue ulceration of the heel pad and with associated localized cortical and subcortical osteomyelitis of the posterior calcaneus. The region of osteomyelitis is estimated at approximately 24 x 20 x 7 mm. No abscess. Trino Sam MD Physical Exam CONSTITUTIONAL/GENERAL: This is an obese d patient, in no apparent distress. TUBES/LINES/DRAINS: SKIN: No jaundice, rashes, or lesions. MUSCULOSKELETAL: BLE edema L heel wound w/o any anaerobic odor minimal edema , fairly good red granulations about 50%, no purulence wound bed wlooks failrly healthy NEUROLOGICAL: Awake and alert. Dense R sided hemiplegia Follows commands with R side . Clear speech. PSYCHIATRIC: No obvious anxiety/depression. no apparent hallucinations or other psychotic thought process. Assessment & Plan Remarks DFI L heel, L calcaneous osteo sp calcanectomy - concern for vascular insufficiency to allow healing Likelu mixed aerobic/anaerobic infection DM ESRD, on HD Multiple med problems Low grade fever ? post -op - resolved PLAN: pt needs further vascular w/u based on arterial study finding - cont zosyn, cont vanco w HD Marzena Moreau MD Sep 28, 2017 16:16
[2017-09-28] MEDS ORDERED: CLON.1 PO (17:53)
[2017-09-28] MEDS ORDERED: LACT PO (17:53)
[2017-09-28] MEDS ORDERED: Heparin Inj SQ (17:53)
--- NOTE | 2017-09-28 17:54 | HHI.DCPOC ---
Discharge Care Plan Diagnosis: (1) Diabetic foot ulcer Your Health Problems Are: Difficulty with ADL Exercise Tolerance Goals to Promote Your Health * To prevent worsening of your condition and complications * To maintain your health at the optimal level Directions to Meet Your Goals Take your medications as prescribed Follow your dietary instruction Follow activity as directed Keep your appointments as scheduled Take your immunizations and boosters as scheduled If your symptoms worsen call your PCP, if no PCP go to Urgent Care Center or Emergency Room Smoking is Dangerous to Your Health. Avoid second hand smoke Call the 24-hour hour crisis hotline for domestic abuse at Travis Montero MD Sep 28, 2017 17:54
[2017-09-28 20:00] VITALS: BP 95/52; PULSE 84; RESP 16; TEMP 99.2; O2SAT 92
[2017-09-28] MEDS: ATORVASTATIN 20 MG TAB PO SCH (20:50)
[2017-09-28] MEDS: CINACALCET HYDROCHLORIDE 30 MG TAB PO SCH (20:51)
[2017-09-28] MEDS: HEPARIN SODIUM - SQ 10,000 UNITS/ML VIAL SQ SCH (21:00)
[2017-09-29] VITALS: BP 126/57; PULSE 89; RESP 16; TEMP 98.6; O2SAT 99
[2017-09-29 08:00] VITALS: BP 139/72; PULSE 84; RESP 15; TEMP 97; O2SAT 97
[2017-09-29] MEDS: INSULIN DETEMIR 100 UNITS/ML VIAL SQ SCH (09:55)
[2017-09-29] MEDS: INSULIN ASPART SUPPLEMENTAL SCALE SQ SCH ×3 (09:56→17:12)
[2017-09-29] MEDS: HEPARIN SODIUM - SQ 10,000 UNITS/ML VIAL SQ SCH (09:56)
[2017-09-29] MEDS: PIPERACIL-TAZO 2.25 GM PREMIX 50 ML IV SCH (09:57)
[2017-09-29] MEDS: METOPROLOL TARTRATE 25 MG TAB PO SCH (09:57)
[2017-09-29] MEDS: ASPIRIN 81 MG CHEW TAB CHEW SCH (09:57)
[2017-09-29] MEDS: cloNIDine HCL 0.1 MG TAB PO SCH (09:57)
[2017-09-29] MEDS: SEVELAMER CARBONATE 800 MG TAB PO SCH ×3 (09:57→17:09)
[2017-09-29] MEDS: GABAPENTIN 100 MG CAP PO SCH (09:57)
[2017-09-29] MEDS: CHOLECALCIFEROL (VIT D3) 1000 UNIT TAB PO SCH (09:57)
[2017-09-29] MEDS: LACTOBACILLUS ACIDOPHILUS TAB PO SCH (09:57)
[2017-09-29] MEDS: VITAMIN B CMPLX/VITC/FOLIC AC CAP PO SCH (09:58)
[2017-09-29] MEDS: SODIUM CHLORIDE 0.9% FLUSH 10 ML FLUSH IV FLUSH SCH (09:58)
--- NOTE | 2017-09-29 11:08 | HHI.PR ---
Subjective Remarks Follow-up calcaneal osteomyelitis. She is doing okay happy to hear that pathology negative for osteomyelitis. Discussed with infectious disease, will discharge patient on Augmentin for 4 weeks and IV vancomycin to be given during hemodialysis for 4 weeks Objective Vitals Vital Signs Date Time Temp Pulse Resp B/P (MAP) Pulse Ox O2 Delivery O2 Flow Rate FiO2 09/29/17 08:00 97.0 84 15 139/72 (94) 97 09/29/17 00:00 98.6 89 16 126/57 (80) 99 09/28/17 20:00 99.2 84 16 95/52 (66) 92 09/28/17 16:00 98.5 88 18 181/83 (115) 97 I/O 09/28/17 09/28/17 09/28/17 09/29/17 09/29/17 09/29/17 07:00 15:00 23:00 07:00 15:00 23:00 Intake Total 240 ml 50 ml 900 ml 120 ml Output Total 0 ml 2500 ml 0 ml 0 ml Balance 240 ml -2450 ml 900 ml 120 ml Intake Oral 240 ml 900 ml 120 ml IV Total 50 ml Output Urine Total 0 ml 0 ml Drainage Total 0 ml Hemodialysis 2500 ml # Voids 1 # Bowel Movements 0 Result Diagram: 09/27/17 0415 09/27/17 0415 Imaging Last Impressions Foot X-Ray 09/22/17 1444 Signed Impressions: Service Date/Time: Friday, September 22, 2017 15:14 - CONCLUSION: 1. Soft tissue ulceration in the left heel without associated erosive bony change to suggest osteomyelitis. Hugo Nova MD Foot MRI 09/22/17 0000 Signed Impressions: Service Date/Time: Friday, September 22, 2017 21:55 - CONCLUSION: Focal soft tissue ulceration of the heel pad and with associated localized cortical and subcortical osteomyelitis of the posterior calcaneus. The region of osteomyelitis is estimated at approximately 24 x 20 x 7 mm. No abscess. Trino Sam MD Objective Remarks GENERAL: This is a obese female well-developed patient, in no apparent distress. SKIN: No rashes, warm and dry CARDIOVASCULAR: Regular rate and rhythm without murmurs, gallops, or rubs. RESPIRATORY: Fair air entry bilaterally. No wheezes, rales, or rhonchi. GASTROINTESTINAL: Abdomen soft, non-tender, nondistended. Positive bowel sounds , left foot with wound VAC MUSCULOSKELETAL: Extremities without clubbing, cyanosis, or edema. Pedal pulses appreciated NEUROLOGICAL: Awake and alert. Chronic right-sided weakness. Normal speech Procedures Debridement of left heel ulcer A/P Problem List: (1) Diabetic foot ulcer ICD Code: E11.621 - Type 2 diabetes mellitus with foot ulcer; L97.509 - Non- pressure chronic ulcer of other part of unspecified foot with unspecified severity Status: Acute (2) End stage renal disease on dialysis ICD Code: N18.6 - End stage renal disease; Z99.2 - Dependence on renal dialysis Status: Acute (3) History of CVA with residual deficit ICD Code: I69.30 - Unspecified sequelae of cerebral infarction Status: Acute Assessment and Plan 52-year-old female with Diabetic foot infection, calcaneal osteomyelitis status post biopsy. Pathology negative for osteomyelitis however discussion with infectious disease will treat patient with IV vancomycin to be given during hemodialysis and p.o. Augmentin for a total of 4 weeks. Pain management with Lortab counseled regarding narcotics Left heel ulcer status post debridement. Continue wound VAC per podiatry PAD. Vascular surgery will consider angiogram if wound healing stalls End-stage renal disease on hemodialysis Consult nephrology for in-house HD Wednesday Resume Renvela, Sensipar and vitamin D Diabetes type 2 Labile blood glucose hemoglobin A1c 8.1 Continue medium insulin sliding scale and resume basal insulin, adjust accordingly Anemia of chronic disease and CVA with residual right-sided weakness. Continue to monitor Problem Qualifiers (1) Diabetic foot ulcer: Qualified Codes: E13.621 - Other specified diabetes mellitus with foot ulcer; L97.422 - Non-pressure chronic ulcer of left heel and midfoot with fat layer exposed Travis Montero MD Sep 29, 2017 11:08
--- NOTE | 2017-09-29 11:16 | HHI.NPPN ---
Subjective General Problems: Anemia, Diabetes, Edema, Hypertension Renal Failure: End Stage Renal Disease History of Present Illness 52 year-old -[place] female with a history of diabetes type 2, CVA with residual deficit, CAD, ESRD on HD //WED, and history of CHF. Presented to the ED from a local nursing facility [facility], for evaluation of a painful and bad smelling left heel ulcer over the past several days duration. patient states she noticed a skin abrasion/tear few weeks ago and then over the past few day she has noted increasing foul smell from the wound. Nephrology is consulted for management of ESRD and HD. Patient is known to me, was moved 1 year ago, and currently is receiving dialysis in [facility] with Dr. Khanna. Additional Remarks No complaints reported. (Felicitas Galo) Review of Systems Respiratory Respiratory Remarks Denies SOB (Felicitas Galo) Cardiovascular Cardiac: Edema Cardiac Remarks Denies CP (Felicitas Galo) Gastrointestinal GI Remarks Denies abdominal pain (Felicitas Galo) Objective Data Data Vital Signs Date Time Temp Pulse Resp B/P (MAP) Pulse Ox O2 Delivery O2 Flow Rate FiO2 09/29/17 08:00 97.0 84 15 139/72 (94) 97 09/29/17 00:00 98.6 89 16 126/57 (80) 99 09/28/17 20:00 99.2 84 16 95/52 (66) 92 09/28/17 16:00 98.5 88 18 181/83 (115) 97 (Felicitas Galo) -: 09/27/17 0415 09/27/17 0415 Physical Exam General Appearance: Well Nourished, No Acute Distress, Comfortable (Felicitas Galo) Eyes Eye Exam: Pupils Equal (Felicitas Galo) Throat Throat Exam: Oral Mucosa [place] & Moist (Felicitas Galo) Neck Neck Exam: Neck Supple (Felicitas Galo) Pulmonary Resp Exam: Clear Bilaterally, Breath Sounds Equal, No Distress, Decreased Bases (Felicitas Galo) Cardiology CV Exam: Regular, Normal Sinus Rhythm (Felicitas Galo) Gastrointestinal/Abdomen GI Exam: Soft, Non-Tender, Bowel Sounds Present GI Remarks large (Felicitas Galo) Extremeties Extremities Exam: Trace Edema (Left heel with dressing.) (Felicitas Galo) Assessment/Plan Problem List: (1) End stage renal disease on dialysis ICD Codes: N18.6 - End stage renal disease; Z99.2 - Dependence on renal dialysis Status: Acute Plan: ESRD done T/TH/SAT with AVF Left upper arm AVF with positive thrill and bruit Post calcanectomy - continue to monitor. Plan Antibiotics per ID, vancomycin with dialysis Continue Renvela Continue Sensipar Epogen with dialysis Dialysis planned for tomorrow (2) Diabetic foot ulcer ICD Codes: E11.621 - Type 2 diabetes mellitus with foot ulcer; L97.509 - Non- pressure chronic ulcer of other part of unspecified foot with unspecified severity Status: Acute Plan: Podiatry and wound care consulted. Post surgery Wednesday. Seen with vascular - no plan for arteriogram at this point. Continue to monitor. (3) Diabetes 1.5, managed as type 2 ICD Codes: E13.9 - Other specified diabetes mellitus without complications Status: Acute Plan: Continue insulin (4) Hypertension ICD Codes: I10 - Essential (primary) hypertension Status: Acute Plan: Well controlled. Continue current treatment (Felicitas Galo) Problem List: (1) End stage renal disease on dialysis ICD Codes: N18.6 - End stage renal disease; Z99.2 - Dependence on renal dialysis Status: Acute Plan: ESRD done T/TH/SAT with AVF Left upper arm AVF with positive thrill and bruit Post calcanectomy - continue to monitor. Plan Antibiotics per ID, vancomycin with dialysis Continue Renvela Continue Sensipar Epogen with dialysis Patient seen and examined, agree with above. For D/C, to continue HD as out patient. (2) Diabetic foot ulcer ICD Codes: E11.621 - Type 2 diabetes mellitus with foot ulcer; L97.509 - Non- pressure chronic ulcer of other part of unspecified foot with unspecified severity Status: Acute Plan: Podiatry and wound care consulted. Post surgery Wednesday. Seen with vascular - no plan for arteriogram at this point. Continue to monitor. (3) Diabetes 1.5, managed as type 2 ICD Codes: E13.9 - Other specified diabetes mellitus without complications Status: Acute Plan: Continue insulin (4) Hypertension ICD Codes: I10 - Essential (primary) hypertension Status: Acute Plan: Well controlled. Continue current treatment (Ivonne Coffey MD) Problem Qualifiers (1) Diabetic foot ulcer: Qualified Codes: E13.621 - Other specified diabetes mellitus with foot ulcer; L97.422 - Non-pressure chronic ulcer of left heel and midfoot with fat layer exposed Felicitas Galo Sep 29, 2017 11:16 Ivonne Coffey MD Sep 29, 2017 22:59
[2017-09-29 12:00] VITALS: BP 130/67; PULSE 82; RESP 16; TEMP 98.7; O2SAT 97
--- NOTE | 2017-09-29 14:11 | HHI.FF ---
Infusion Therapy Location of Infusion Therapy: Dialysis Center Patient Information Patient Weight 106.1 kg Diagnosis: Coded Allergies: *MDRO Multi-Drug Resistant Organism (Verified Allergy, Unknown, 09/22/17) MRSA PCR (nares) negative - 11/19/15 & 11/21/15 Cleared per Infection Control MRSA 2013 Administer Medication Vancomycin 1 gram IV q 24 hours Start Treatment: Sep 29, 2017 Stop Treatment: Oct 30, 2017 Additional Information Venous access: Other (HD access) Additional Instructions [x] Peripheral flush and dressing changes per protocol [x] Implanted port and central production line: * Implanted port: 10 ml Normal Saline followed by 5 ml Heparin 100 units/ml Heparin flush after each use and monthly to maintain. [] May leave port accessed during therapy. [] May leave peripheral site accessed for duration of therapy. [x] If patient has SOB or respiratory distress, check oxygen saturation. If less than 90% or clinical signs of respiratory distress, administer oxygen at 2 L/min. via nasal cannula and notify physician. [x] Anaphylaxis/Reaction orders: * Stop infusion. * Keep IV line open with saline flush. * Notify physician. * Monitor vital signs every 15 minutes until symptoms resolve. * Check Oxygen saturation; Oxygen at 2 L/min. via nasal cannula if less than 90% or clinical signs of respiratory distress. * Administer diphenhydramine (Benadryl) 25 mg IV STAT, (unless patient has received as pre-med). May repeat once, if necessary. * Solu-Cortef 250 mg IVP over 30-60 seconds, use 100 mg vials for each dissolution. * Epinephrine (1mg/1 ml) 0.3 mg subcutaneously or IVP now with any signs of respiratory distress. * Check with physician for new additional pre-med orders if patient is re- challenged or re-treated. [x] May remove PICC line when treatment complete, after confirming with Physician. [x] If the patient is admitted to the hospital, the ED, or transferred via [facility] , complete transfer form including medication reconciliation order sheet. Laboratory Tests Weekly Labs: CBC w/diff, Vancomycin Trough Marzena Moreau MD Sep 29, 2017 14:11
--- NOTE | 2017-09-29 14:17 | HHI.PR ---
Addendum to Inpatient Note Additional Information PT OK to be discharged: give VAncomycin with HD and oral AUgmentin 500 daily x 4 weeks dw Marzena Howell MD Sep 29, 2017 14:17
[2017-09-29 16:00] VITALS: BP 139/69; PULSE 75; RESP 16; TEMP 98.3; O2SAT 95
[2017-09-29] MEDS ORDERED: AMOX500T2 PO (16:22)
--- NOTE | 2017-09-29 16:29 | HHI.DS ---
Discharge Summary Admission Date Sep 22, 2017 at 16:38 Discharge Date: Sep 29, 2017 Admitting Diagnosis Diabetic foot ulcer. End-stage renal disease on dialysis. (1) Diabetic foot ulcer ICD Code: E11.621 - Type 2 diabetes mellitus with foot ulcer; L97.509 - Non- pressure chronic ulcer of other part of unspecified foot with unspecified severity Diagnosis: Principal Status: Acute (2) End stage renal disease on dialysis ICD Code: N18.6 - End stage renal disease; Z99.2 - Dependence on renal dialysis Diagnosis: Principal Status: Acute (3) History of CVA with residual deficit ICD Code: I69.30 - Unspecified sequelae of cerebral infarction Diagnosis: Principal Status: Acute Procedures Debridement of left heel ulcer Brief History - From Admission 52 year-old -[place] female with a history of diabetes type 2, CVA with residual deficit presented to the ED from a local nursing facility [facility], for evaluation of a painful and bad smelling left heel ulcer over the past several days duration. patient states she noticed a skin abrasion/tear few weeks ago and then over the past few day she has noted increasing foul smell from the wound. She reports being treated at the local SNf with concentrated silver along with dressing. Denies any febrile episode and reported the pain to be aching 3 out of 10 in intensity. CBC/BMP: 09/27/17 0415 09/27/17 0415 Significant Findings Laboratory Tests Test 09/27/17 04:15 White Blood Count 12.0 TH/MM3 (4.0-11.0) Red Blood Count 3.49 MIL/MM3 (4.00-5.30) Hemoglobin 9.7 GM/DL (11.6-15.3) Hematocrit 30.9 % (35.0-46.0) Mean Corpuscular Hemoglobin Concent 31.5 % (32.0-36.0) Monocytes (%) (Auto) 9.1 % (0.0-8.0) Monocytes # (Auto) 1.1 TH/MM3 (0-0.9) Blood Urea Nitrogen 52 MG/DL (7-18) Creatinine 9.60 MG/DL (0.50-1.00) Random Glucose 145 MG/DL (74-106) Calcium Level 8.0 MG/DL (8.5-10.1) Chloride Level 97 MEQ/L (98-107) Estimat Glomerular Filtration Rate 5 ML/MIN (>89) Imaging Last Impressions Foot X-Ray 09/22/17 1444 Signed Impressions: Service Date/Time: Friday, September 22, 2017 15:14 - CONCLUSION: 1. Soft tissue ulceration in the left heel without associated erosive bony change to suggest osteomyelitis. Hugo Nova MD Foot MRI 09/22/17 0000 Signed Impressions: Service Date/Time: Friday, September 22, 2017 21:55 - CONCLUSION: Focal soft tissue ulceration of the heel pad and with associated localized cortical and subcortical osteomyelitis of the posterior calcaneus. The region of osteomyelitis is estimated at approximately 24 x 20 x 7 mm. No abscess. Trino Sam MD PE at Discharge GENERAL: This is a obese female well-developed patient, in no apparent distress. SKIN: No rashes, warm and dry CARDIOVASCULAR: Regular rate and rhythm without murmurs, gallops, or rubs. RESPIRATORY: Fair air entry bilaterally. No wheezes, rales, or rhonchi. GASTROINTESTINAL: Abdomen soft, non-tender, nondistended. Positive bowel sounds , left foot with wound VAC MUSCULOSKELETAL: Extremities without clubbing, cyanosis, or edema. Pedal pulses appreciated NEUROLOGICAL: Awake and alert. Chronic right-sided weakness. Normal speech Hospital Course 52-year-old female with Diabetic foot infection, calcaneal osteomyelitis status post biopsy. Pathology negative for osteomyelitis however discussion with infectious disease will treat patient with IV vancomycin to be given during hemodialysis and p.o. Augmentin for a total of 4 weeks. Pain management with Lortab counseled regarding narcotics Left heel ulcer status post debridement. Continue wound VAC per podiatry PAD. Vascular surgery will consider angiogram if wound healing stalls End-stage renal disease on hemodialysis Consult nephrology for in-house HD Wednesday Resume Renvela, Sensipar and vitamin D Diabetes type 2 Labile blood glucose hemoglobin A1c 8.1 Continue medium insulin sliding scale and resume basal insulin, adjust accordingly Anemia of chronic disease and CVA with residual right-sided weakness. Continue to monitor Pt Condition on Discharge: Stable Discharge Disposition: Discharge to SNF Discharge Time: > 30 minutes Discharge Instructions DIET: Follow Instructions for: Heart Healthy Diet, Diabetic Diet, Renal Failure Diet Activities you can perform: Regular-No Restrictions Activities to Avoid: Driving Follow up Referrals: Infectious Disease - 1 Week Nephrology - 1 Week PCP Follow-up - 1 Week Podiatry - 1 Week Vascular Surgery - 1 Month @ Vascular Surgery with Prince Henao MD Your surveillance DICK is on 10/26/17 at 10:00 New Medications: Amoxicillin-Clavulanate (Amoxicillin-Clavulanate) 500-125 mg Tab 500 MG PO QD for Infection, #28 TAB 0 Refills Clonidine (Catapres) 0.1 Mg Tab 0.1 MG PO BID for Blood Pressure Management, #60 TAB Lactobacillus Acidophilus (Acidophilus/l-Sporogenes) 35 Million Cell-25 Million Cell Tab 1 TAB PO Q12HR for Bowel Management, #30 TAB [Heparin Inj] () 54894 UNITS/ML INJ 5000 UNITS SQ Q12HR for Prevent Blood Clot, #60 INJECTION Continued Medications: Acetaminophen (Tylenol) 325 Mg Tab 325 MG PO Q6H PRN for PAIN SCALE 1 TO 4, TAB 0 Refills Aspirin (Aspirin Low Dose) 81 Mg Chew 81 MG CHEW DAILY, TAB 0 Refills Atorvastatin (Atorvastatin) 20 Mg Tab 20 MG PO HS for Cholesterol Management, #30 TAB 0 Refills B-Complex W/ C & Folic Acid (Rhonda-Estefania) 1 Tab 1 TAB PO DAILY, TAB Cholecalciferol (Vitamin D3) 1,000 Unit Tab 1000 UNITS PO DAILY for Nutritional Supplement, #1 BOTTLE 0 Refills Cinacalcet (Sensipar) 60 Mg Tab 60 MG PO HS, #30 TAB 0 Refills Gabapentin (Gabapentin) 100 Mg Cap 100 MG PO BID, #60 CAP 0 Refills Insulin Aspart Inj (Novolog Inj) 1,000 Unit/10 Ml Vial 0 SQ BID for Blood Sugar Management, #10 ML 0 Refills Sliding Scale as directed. Insulin Detemir Inj (Levemir Inj) 1,000 unit/ 10 ML Vial 15 UNITS SQ BID for Blood Sugar Management, VIAL 0 Refills Do not mix with any other Insulin. Metoprolol Tartrate (Metoprolol Tartrate) 25 Mg Tab 25 MG PO BID for htn, #60 TAB 0 Refills Sevelamer Carbonate (Renvela) 800 Mg Tab 1600 MG PO TID for Control phosphorous levels, #180 TAB 0 Refills Travis Montero MD Sep 29, 2017 16:29
[2017-09-29 20:00] VITALS: BP 122/66; PULSE 75; RESP 20; TEMP 98.6; O2SAT 100
--- NOTE | 2017-09-30 07:39 | MP ---
cc: Elizabeth Wells DPM DATE OF OPERATION: 09/24/2017 DATE OF SURGERY: 09/24/2017 INDICATION FOR PROCEDURE: This patient presented with a chronic decubitus ulceration of the left heel with possible osteomyelitis of the left calcaneus per MRI with contrast. I discussed with the patient that we needed to find out if she had an infection and treated accordingly. She agreed to undergo debridement of heel ulceration left with bone biopsy left calcaneus. S DESCRIPTION OF PROCEDURE: She was seen in preop holding by myself, nursing staff and anesthesia where the correct patient, side, and site were all confirmed to be correct and the left foot at the heel. She was then taken to the surgical suite in supine position. Left heel was addressed and prepped in normal sterile fashion in the lateral position. She was placed with a beanbag to gain better access to the left heel. Following this and after timeouts were performed per facility protocol, she was noted to have significant foul odor with necrotic tissue to the plantar left heel with the wound that measured approximately 4 x 3 cm with 2 cm in depth with liquefactive necrosis of the fat pad. A culture was taken of the left heel. All necrotic tissue was excisionally debrided with a #15 blade as well as rongeur and curet, followed by irrigation copiously with 3 liters normal saline. The bone was actually not visible in the base of the wound and there was noted to be healthy bleeding tissue in the wound base down to the level of plantar fascia. A separate incision was made just proximal to the wound and a Jamshidi needle was utilized to extract a bone biopsy from the plantar aspect of the calcaneus just proximal to the wound in order to determine if there is osteomyelitis present within this portion of the bone near the wound. Followed by this, specimen sent to pathology, incision closure was accomplished with 3-0 nylon suture, followed by dressing consisting of Xeroform packed to the wound, 4 x 4, ABD, cast padding and Kevin bandage to the left foot. She will be nonweightbearing to the left foot. We will await culture and bone biopsy and we will plan to apply wound VAC on the floor. She will need her heel floated at all times to avoid pressure to the area. SHORT OPERATIVE NOTE SURGEON: Elizabeth Wells DPM JUICE STANDARDIZER: Staff. PREOPERATIVE DIAGNOSIS: Left chronic heel decubitus ulceration with possible osteomyelitis, left calcaneus. POSTOPERATIVE DIAGNOSIS: Left chronic heel decubitus ulceration with possible osteomyelitis, left calcaneus. DETAILS OF PROCEDURE: 1. Debridement of heel ulcer, left. 2. Bone biopsy, left calcaneus. PATHOLOGY: 1. Bone biopsy, left calcaneus. 2. Culture,left heel. ESTIMATED BLOOD LOSS: 20 mL. ANESTHESIA: General endotracheal anesthesia. TOURNIQUET TIME: No tourniquet utilized. CONDITION: Stable to PACU. COMPLICATIONS: None. DISPOSITION: Nonweightbearing left foot. Await culture and bone biopsy and plan to apply wound VAC in the coming days. BÁRBARA Nino/ERUM , 07:02 AM , 07:38 AM
[2017-09-30] MEDS ORDERED: AMOXICILLIN/CLAVULANATE K 500 MG TAB PO SCH (09:00)
== END 2017-09-29 20:47 | DRG 623 ==
LOC: NEPE 13:50 → NEDA 16:38 → N07A 20:43
PROVIDERS: ADMIT Internal Medicine; ATTEND Internal Medicine
PROC: 5A1D70Z Performance of Urinary Filtration, Intermittent, Less than 6 Hours Per Day (ICD-10-PCS; 2017-09-23)
PROC: 0QBM0ZX Excision of Left Tarsal, Open Approach, Diagnostic (ICD-10-PCS; 2017-09-24)
PROC: 0JBR0ZZ Excision of Left Foot Subcutaneous Tissue and Fascia, Open Approach (ICD-10-PCS; principal; 2017-09-24 17:54)
DX: E11.621 Type 2 diabetes mellitus with foot ulcer (principal); I13.2 Hypertensive heart and chronic kidney disease with heart failure and with stage 5 chronic kidney disease, or end stage renal disease; L97.422 Non-pressure chronic ulcer of left heel and midfoot with fat layer exposed; E11.52 Type 2 diabetes mellitus with diabetic peripheral angiopathy with gangrene; N18.6 End stage renal disease; I69.351 Hemiplegia and hemiparesis following cerebral infarction affecting right dominant side; Z99.2 Dependence on renal dialysis; I50.9 Heart failure, unspecified; I25.10 Atherosclerotic heart disease of native coronary artery without angina pectoris; E78.5 Hyperlipidemia, unspecified; E11.22 Type 2 diabetes mellitus with diabetic chronic kidney disease; D63.1 Anemia in chronic kidney disease; E66.9 Obesity, unspecified; F32.9 Major depressive disorder, single episode, unspecified; F41.9 Anxiety disorder, unspecified; Z68.37 Body mass index [BMI] 37.0-37.9, adult; Z79.4 Long term (current) use of insulin; Z95.1 Presence of aortocoronary bypass graft
CPT/HCPCS: 73630; 73718; 80048; 80053; 80202; 82948; 83036; 83540; 83550; 83735; 84100; 85025; 85610; 85652; 85730; 87015; 87040; 87070; 87102; 87116; 87205; 87206; 88307; 88311; 90935; 93923; 96374; 99285; J0131; J0330; J1644; J1815; J2370; J2543; J2710; J3010; J3370; J7050; J7120; Q4081

== ENCOUNTER 2017-12-05 14:05 | Inpatient (IN) | payer MEDICARE, MEDICAID ==
[~2017-12-05] VITALS: Ht 167.6 cm; Wt 100.1 kg
[~2017-12-05 14:05] MED LIST changes: +AMOX500T2 PO; +ASPI81CH6 PO; +BISC10SU RECTAL; +CIPR250T2 PO; +CLON.1 PO; +CLON0.1T PO; +COLA100C5 PO; -DOCU240C PO; -DOXA1TAB34 PO; +GABA100C4 PO; +Heparin Inj SQ; +LACT PO; -LACT10SO27 PO; +MILKSUS PO; +SENS60TA PO; +TYLE325T PO; +VITA100018 PO; -[UNRECOGNIZED DRUG - OTHER] LEFT EYE
[2017-12-05 14:37] VITALS: BP 149/76; PULSE 74; RESP 20; TEMP 98.5; O2SAT 98
[2017-12-05 15:30] VITALS: BP 140/87; PULSE 78; RESP 25; O2SAT 98
[2017-12-05] MEDS ORDERED: VANCOMYCIN INJ 1,000 MG in SODIUM CHLOR 0.9% 250 ML INJ 250 ML IV ONE (16:00)
[2017-12-05] MEDS ORDERED: PIPERACIL-TAZO 3.375 GM PREMIX 50 ML IV ONE (16:00)
--- NOTE | 2017-12-05 16:45 | RADRPT ---
EXAM DATE: 12/05/2017 4:18 PM EDT AGE/SEX: 52 years / Female INDICATIONS: Pain. CLINICAL DATA: This is the patient's initial encounter. Patient reports that signs and symptoms have been present for 1 day and indicates a pain score of Nonresponsive. MEDICAL/SURGICAL HISTORY: . Renal failure. Hypertension. Diabetes mellitus type 2. Stroke. Oste omyelitis. CABG. Cholecystectomy. section. Hernia repair. AV Fistula. Knee SX. COMPARISON: Left foot x-ray 09/22/2017 . FINDINGS: Bony structures are intact and in normal alignment. Osseous density is normal. Soft tissues lucency involving the heel suggesting ulceration.. No radiopaque foreign bodies seen. CONCLUSION: No radiographic evidence observed to suggest osteomyelitis. Electronically signed by: Aditya Jean MD 12/05/2017 4:43 PM EDT
[2017-12-05 17:16] LABS: BASOPHIL # 0.1 TH/MM3 (0-0.2); EOSINOPHIL # 0.3 TH/MM3 (0-0.4); HEMATOCRIT 35.8 % (35.0-46.0); HEMOGLOBIN 11.1 GM/DL (11.6-15.3); LYMPH % 22.6 % (9.0-44.0); LYMPHOCYTE # 3.2 TH/MM3 (1.0-4.8); MEAN CELL VOLUME 87.7 FL (80.0-100.0); MEAN CORPUSCULAR HEMOGLOBIN 27.2 PG (27.0-34.0); MEAN PLATELET VOLUME 10.6 FL (7.0-11.0); MONO % 10.5 % (0.0-8.0); MONOCYTE # 1.5 TH/MM3 (0-0.9); NEUT % 63.9 % (16.0-70.0); PLATELET COUNT 249 TH/MM3 (150-450); RED BLOOD COUNT 4.08 MIL/MM3 (4.00-5.30); RED CELL DISTRIBUTION WIDTH 16.2 % (11.6-17.2); WHITE BLOOD COUNT 14.1 TH/MM3 (4.0-11.0)
[2017-12-05 18:37] VITALS: BP 150/78; PULSE 80; RESP 18; TEMP 98; O2SAT 98
--- NOTE | 2017-12-05 18:49 | HHI.HP ---
[facility] Service Family Medicine Primary Care Physician Unknown Admission Diagnosis nonhealing ulcer, possible osteomyelitis Diagnoses: International Travel<30 Days: No Contact w/Intl Traveler<30days: No Known Affected Area: No History of Present Illness Patient is a 52 year old -Mal[place]ian female with a past medical history of diabetes, end-stage renal disease, CVA with right hemiparesis, hypertension, hyperlipidemia, CAD status post four-vessel CABG and stents, and CHF that presents to the [place] ED to be evaluated for a left heel diabetic ulcer. Patient was evaluated by Dr. Magallon, who is her scallop dredger and was told specifically to come to the ED today. Patient has had chills but denies fever, chest pain, shortness of breath, nausea, vomiting, diarrhea, abdominal pain. She has been in her normal state of health except for the nonhealing ulcer. She has minimal 1/10 pain in her left foot but describes burning pain in her right foot. Patient currently lives at [facility]. Patient is on hemodialysis on Wednesday, , and Wednesday. Special Event Assistant is Dr. Martinez in [place] but patient requests Dr. Coffey while inpatient. (Yuridia Perez MD R2) Review of Systems Constitutional: COMPLAINS OF: Chills, DENIES: Fever, Dizziness Eyes: DENIES: Eye pain Ears, nose, mouth, throat: DENIES: Hearing loss, Throat pain, Ear Pain, Running Nose Respiratory: DENIES: Cough, Shortness of breath Cardiovascular: DENIES: Chest pain Gastrointestinal: COMPLAINS OF: Constipation, DENIES: Abdominal pain, Diarrhea , Nausea, Vomiting Genitourinary: DENIES: Dysuria Musculoskeletal: DENIES: Joint pain, Muscle aches Integumentary: DENIES: Pruritus, Rash Neurologic: DENIES: Headache, Paresthesias Psychiatric: DENIES: Anxiety, Confusion, Suicidal Ideation, Homicidal Ideation (Yuridia Perez MD R2) Past Family Social History Past Medical History Type 2 diabetes Hypertension ESRD on Wednesday, , and Wednesday Hyperlipidemia CHF status post stents and four-vessel bypass surgery in 2008 CVA in 2011 with right-sided hemiparesis Past Surgical History Four-vessel CABG Left arm AV fistula section 3 Cholecystectomy in 2014 Knee surgery in 1988 Umbilical surgery as a child Reported Medications Reported Meds & Active Scripts Active Metoprolol Tartrate 25 Mg Tab 25 Mg PO BID Reported Vitamin D3 (Cholecalciferol) 1,000 Unit Tab 1,000 Units PO DAILY Tylenol (Acetaminophen) 325 Mg Tab 325 Mg PO Q6H PRN Sensipar (Cinacalcet) 60 Mg Tab 60 Mg PO HS Milk of Enrique Liq (Magnesium Hydroxide) 400 Mg/5 Ml Susp 30 Ml PO DAILY PRN Gabapentin 100 Mg Cap 200 Mg PO BID Colace (Docusate Sodium) 100 Mg Capsule 100 Mg PO BID Biscolax Supp (Bisacodyl) 10 Mg Supp 10 Mg RECTAL DAILY PRN Aspirin Low Dose (Aspirin) 81 Mg Chew 81 Mg PO DAILY Renvela (Sevelamer Carbonate) 800 Mg Tab 1,600 Mg PO TID With meals and snacks Rhonda-Estefania (B-Complex W/ C & Folic Acid) 1 Tab 1 Tab PO DAILY Novolog Inj (Insulin Aspart) 1,000 Unit/10 Ml Vial 0 SQ BID Sliding Scale as directed. Levemir Inj (Insulin Detemir) 1,000 unit/ 10 ML Vial 15 Units SQ BID Do not mix with any other Insulin. Clonidine (Clonidine HCl) 0.2 Mg Tab 0.2 Mg PO BID Atorvastatin (Atorvastatin Calcium) 20 Mg Tab 20 Mg PO HS (Yuridia Perez MD R2) Allergies: Coded Allergies: *MDRO Multi-Drug Resistant Organism (Verified Allergy, Unknown, 12/05/17) MRSA PCR (nares) negative - 11/19/15 & 11/21/15 Cleared per Infection Control MRSA 2013 Family History But parents have diabetes Dad has CAD and HTN Social History Lives in a fci, long-term Legally blind On disability Denies smoking, alcohol, or drugs (Yuridia Perez MD R2) Physical Exam Vital Signs Vital Signs Date Time Temp Pulse Resp B/P (MAP) Pulse Ox O2 Delivery O2 Flow Rate FiO2 12/05/17 18:37 98.0 80 18 150/78 (102) 98 12/05/17 15:30 78 25 140/87 (104) 98 12/05/17 14:37 98.5 74 20 149/76 (100) 98 Physical Exam GENERAL: This is a well-nourished, well-developed patient, in no apparent distress. Legally blind SKIN: Stage I-II sacral decubitus ulcer covered in white powder. See rest of skin exam in MSK below HEAD: Atraumatic. Normocephalic. No temporal or scalp tenderness. EYES: Pupils equal round and reactive. Extraocular motions intact. No scleral icterus. No injection or drainage. ENT: Nose without bleeding, purulent drainage or septal hematoma. Throat without erythema, tonsillar hypertrophy or exudate. Uvula midline. Airway patent. NECK: Trachea midline. No JVD or lymphadenopathy. Supple, nontender, no meningeal signs. CARDIOVASCULAR: Regular rate and rhythm without murmurs, gallops, or rubs. RESPIRATORY: Clear to auscultation. Breath sounds equal bilaterally. No wheezes , rales, or rhonchi. GASTROINTESTINAL: Abdomen soft, non-tender, nondistended, obese. No hepato- splenomegaly, or palpable masses. No guarding. MUSCULOSKELETAL: Nonhealing diabetic foot ulcer in the left heel measuring 9 x 5 cm, foul-smelling with liquefactive necrosis, and draining. DP pulse in LUE 2 +. Sensation intact. Motor intact, patient able to move LUE and wiggle toes. Dry skin noted in RUE, no open ulcers NEUROLOGICAL: Awake and alert. Cranial nerves II through XII intact. Paralysis of the right upper and lower extremities. 5/5 strength in left upper extremity , 4/5 strength in left lower extremity. Laboratory Laboratory Tests Test 12/05/17 16:00 White Blood Count 14.1 Red Blood Count 4.08 Hemoglobin 11.1 Hematocrit 35.8 Mean Corpuscular Volume 87.7 Mean Corpuscular Hemoglobin 27.2 Mean Corpuscular Hemoglobin Concent 31.0 Red Cell Distribution Width 16.2 Platelet Count 249 Mean Platelet Volume 10.6 Neutrophils (%) (Auto) 63.9 Lymphocytes (%) (Auto) 22.6 Monocytes (%) (Auto) 10.5 Eosinophils (%) (Auto) 2.0 Basophils (%) (Auto) 1.0 Neutrophils # (Auto) 9.0 Lymphocytes # (Auto) 3.2 Monocytes # (Auto) 1.5 Eosinophils # (Auto) 0.3 Basophils # (Auto) 0.1 CBC Comment DIFF FINAL Differential Comment Erythrocyte Sedimentation Rate 34 (Eko,Yuridia TARIQ R2) Result Diagram: 12/05/17 1600 Imaging Last Impressions Foot X-Ray 12/05/17 0000 Signed Impressions: CONCLUSION: No radiographic evidence observed to suggest osteomyelitis. Course In the ED, foot x-ray was performed that did not indicate osteomyelitis. MRI was ordered and is pending. Patient was started on vancomycin and Zosyn antibiotics. (Yuridia Perez MD R2) Caprini VTE Risk Assessment Caprini VTE Risk Assessment: Mod/High Risk (score >= 2) Caprini Risk Assessment Model Point Value = 1 Point Value = 2 Point Value = 3 Point Value = 5 Age 41-60 Minor surgery BMI > 25 kg/m2 Swollen legs Varicose veins or History of unexplained or recurrent spontaneous Oral contraceptives or hormone replacement Sepsis (< 1 month) Serious lung disease, including pneumonia (< 1 month) Abnormal pulmonary function Acute myocardial infarction Congestive heart failure (< 1 month) History of inflammatory bowel disease Medical patient at bed rest Age 61-74 Arthroscopic surgery Major open surgery (> 45 min) Laparoscopic surgery (> 45 min) Malignancy Confined to bed (> 72 hours) Immobilizing plaster cast Central venous access Age >= 75 History of VTE Family history of VTE Factor V Leiden Prothrombin [id number] Lupus anticoagulant Anticardiolipin antibodies Elevated serum homocysteine Heparin-induced thrombocytopenia Other congenital or acquired thrombophilia Stroke (< 1 month) Elective arthroplasty Hip, pelvis, or leg fracture Acute spinal cord injury (< 1 month) Prophylaxis Regimen Total Risk Factor Score Risk Level Prophylaxis Regimen 0-1 Low Early ambulation 2 Moderate Order ONE of the following: *Sequential Compression Device (SCD) *Heparin 5000 units SQ BID 3-4 Higher Order ONE of the following medications: *Heparin 5000 units SQ TID *Enoxaparin/Lovenox 40 mg SQ daily (WT < 150 kg, CrCl > 30 mL/min) *Enoxaparin/Lovenox 30 mg SQ daily (WT < 150 kg, CrCl > 10-29 mL/min) *Enoxaparin/Lovenox 30 mg SQ BID (WT < 150 kg, CrCl > 30 mL/min) AND/OR *Sequential Compression Device (SCD) 5 or more Highest Order ONE of the following medications: *Heparin 5000 units SQ TID (Preferred with Epidurals) *Enoxaparin/Lovenox 40 mg SQ daily (WT < 150 kg, CrCl > 30 mL/min) *Enoxaparin/Lovenox 30 mg SQ daily (WT < 150 kg, CrCl > 10-29 mL/min) *Enoxaparin/Lovenox 30 mg SQ BID (WT < 150 kg, CrCl > 30 mL/min) AND *Sequential Compression Device (SCD) (Yuridia Perez MD R2) Assessment and Plan Assessment and Plan 52-year-old female presents with nonhealing diabetic foot ulcer. Code Status Full code Discussed Condition With ED physician (Yuridia Perez MD R2) Attending Attestation THIS CASE WAS DISCUSSED WITH THE RESIDENT PHYSICIANS. I HAVE REVIEWED THE RECORD AND AGREE WITH THE ABOVE NOTE AND PLAN OF CARE WAS DISCUSSED. I HAVE AUTHORIZED THE ORDER FOR ADMISSION TO AN IN-PATIENT STATUS. (Vijay Orellana MD) Problem List: (1) Diabetic foot ulcer associated with type 2 diabetes mellitus ICD Codes: E11.621 - Type 2 diabetes mellitus with foot ulcer; L97.509 - Non- pressure chronic ulcer of other part of unspecified foot with unspecified severity Plan: -Foot x-ray shows soft tissues lucency involving the heel suggesting ulceration, no radiographic evidence to suggest osteomyelitis -MRI of L foot to rule out osteomyelitis pending -ESR mildly elevated at 34 and CRP 3.9 -Blood cultures pending -Podiatry consult -ID consult for assistance with antibiotic management -Check DICK -Consider vascular consult -Continue vancomycin with pharmacy consult -Continue Zosyn 2.275 g IV every 12 hours Notably, patient had debridement and calcaneus biopsy performed in September 2017 for the same left heel ulcer. Cultures were negative and pathology did not show osteomyelitis. She was discharged with a wound vacuum and an order for Vancomycin with HD and Augmentin 500 PO daily x 4 weeks. (2) ESRD (end stage renal disease) on dialysis ICD Codes: N18.6 - End stage renal disease; Z99.2 - Dependence on renal dialysis Status: Acute Plan: -On dialysis Wednesday, , Wednesday -Creatinine 9.51 on admission, at baseline -Nephrology consult for dialysis -Resume home Renvela and Sensipar -Renally dose medications (3) Type 2 diabetes mellitus ICD Codes: E11.9 - Type 2 diabetes mellitus without complications Plan: -A1c 8.1 in September 2017 -Accu-Cheks with sliding scale insulin -Continue Levemir at 10 units subcu twice daily -Titrate to effect -Check A1c, TSH and lipid panel -Diabetic counseling (4) Hypertension ICD Codes: I10 - Essential (primary) hypertension Status: Acute Plan: -Continue home metoprolol and clonidine (5) HLD (hyperlipidemia) ICD Codes: E78.5 - Hyperlipidemia, unspecified Plan: Continue atorvastatin 20 mg p.o. at bedtime (6) Hx of chronic congestive heart failure ICD Codes: Z86.79 - Personal history of other diseases of the circulatory system Plan: -Stable -Monitor for signs of acute exacerbation (7) Hx of coronary artery disease ICD Codes: Z86.79 - Personal history of other diseases of the circulatory system Plan: -Status post four-vessel CABG -Continue aspirin 81 mg p.o. daily (8) FEN/DVT PPX/GI PPX/Nursing Orders Plan: Fluids: Oral fluids only Electrolytes: Will monitor and replace as needed Nutrition: NPO with p.o. meds for possible procedure in the morning, otherwise renal diet DVT Prophylaxis: Unilateral SCD, heparin 5000 units subcu every 8 hours, hold at least 6 hours prior to surgery GI Prophylaxis: Not required Constipation prophylaxis: Pericolace 1 tab PO BID PRN Medications Tylenol 650 mg by mouth every 4 hours when necessary pain temperature greater than 100.4F Zofran 4 mg p.o. every 6 hours when necessary nausea vomiting [place] 325-5 mg as needed pain, Morphine prn breakthrough pain -Vitals Q4h -Monitor I's and O's -Fall precautions -Activity OOB with assistance -PT to assist with ambulation -Case management consult to assist with discharge needs Disposition: Pending podiatry evaluation and recommendations (Yuridia Perez MD R2) Physician Certification 2 Midnight Certification Type: Admission for Inpatient Services Order for Inpatient Services The services are ordered in accordance with Medicare regulations or non- Medicare payer requirements, as applicable. In the case of services not specified as inpatient-only, they are appropriately provided as inpatient services in accordance with the 2-midnight benchmark. Estimated LOS (days): 3 days is the estimated time the patient will need to remain in the hospital, assuming treatment plan goals are met and no additional complications. Post-Hospital Plan: Home (Yuridia Perez MD R2) Problem Qualifiers (1) Diabetic foot ulcer associated with type 2 diabetes mellitus: Yuridia Perez MD R2 December 05, 2017 18:48 Vijay Orellana MD December 06, 2017 10:54
[2017-12-05] MEDS ORDERED: Custom Consult Pharmacy 1 EA OTHER SCH (19:45)
[2017-12-05] MEDS ORDERED: VANCOMYCIN INJ 1,000 MG in SODIUM CHLOR 0.9% 250 ML INJ 250 ML IV SCH (19:45)
[2017-12-05] MEDS ORDERED: DEXTROSE 50% IN WATER 50 ML VIAL(D50) IV PUSH PRN (19:45)
[2017-12-05] MEDS ORDERED: BISACODYL 10 MG SUPP RECTAL PRN (19:45)
[2017-12-05] MEDS ORDERED: GLUCAGON 1 MG/ML VIAL OTHER PRN (19:45)
[2017-12-05] MEDS ORDERED: ACETAMINOPHEN 325 MG TAB PO PRN (19:45)
[2017-12-05] MEDS ORDERED: SODIUM CHLORIDE 0.9% FLUSH 10 ML FLUSH IV FLUSH PRN (19:45)
[2017-12-05] MEDS ORDERED: MAGNESIUM HYDROXIDE SUSP 30 ML CUP PO PRN (19:45)
[2017-12-05] MEDS ORDERED: Vancomycin Consult Pharmacy 1 EA OTHER SCH (19:45)
[2017-12-05] MEDS ORDERED: SENNOSIDES 8.6 MG TAB PO PRN (19:45)
[2017-12-05] MEDS ORDERED: LACTULOSE SYRUP 20 GM/30 ML CUP PO PRN (19:45)
[2017-12-05] MEDS ORDERED: NALOXONE HCL 0.4 MG/ML AMP IV PUSH PRN (19:45)
[2017-12-05] MEDS ORDERED: HEPARIN SODIUM - SQ 10,000 UNITS/ML VIAL SQ SCH (19:45)
[2017-12-05 19:58] LABS: ALBUMIN 3.3 GM/DL (3.4-5.0); AST (GOT) 20 U/L (15-37); BICARBONATE 23.9 MEQ/L (21.0-32.0); BLOOD UREA NITROGEN 53 MG/DL (7-18); CALCIUM 8.5 MG/DL (8.5-10.1); CREATININE 9.51 MG/DL (0.50-1.00); GLOMERULAR FILTRATION RATE 5 ML/MIN (>89); GLUCOSE,RANDOM 142 MG/DL (74-106)
[2017-12-05 19:59] LABS: ALT (GPT) 15 U/L (10-53)
[2017-12-05 20:01] LABS: ALKALINE PHOSPHATASE 178 U/L (45-117); TOTAL BILIRUBIN ADULT 0.3 MG/DL (0.2-1.0); TOTAL PROTEIN 8.3 GM/DL (6.4-8.2)
[2017-12-05 20:03] LABS: CHLORIDE 98 MEQ/L (98-107); SODIUM (NA) 137 MEQ/L (136-145)
[2017-12-05] MEDS: SODIUM CHLORIDE 0.9% FLUSH 10 ML FLUSH IV FLUSH SCH (20:59)
[2017-12-05] MEDS: INSULIN ASPART SUPPLEMENTAL SCALE SQ SCH (21:00)
[2017-12-05 21:04] LABS: MAGNESIUM 2.8 MG/DL (1.5-2.5); PHOSPHORUS 3.7 MG/DL (2.5-4.9)
[2017-12-05] MEDS ORDERED: MORPHINE SULFATE 4 MG/ML INJ IV PUSH PRN (21:30)
[2017-12-05] MEDS ORDERED: ONDANSETRON ODT 4 MG TAB PO PRN (21:30)
[2017-12-05 21:51] VITALS: BP 138/68; PULSE 72; RESP 18; O2SAT 96
[2017-12-05] MEDS: METOPROLOL TARTRATE 25 MG TAB PO SCH (22:24)
[2017-12-05] MEDS: cloNIDine HCL 0.2 MG TAB PO SCH (22:24)
[2017-12-05] MEDS: ATORVASTATIN 20 MG TAB PO SCH (22:24)
[2017-12-05] MEDS: DOCUSATE SODIUM 50 MG/SENNA 8.6 MG TAB PO SCH (22:25)
[2017-12-05] MEDS: INSULIN DETEMIR 100 UNITS/ML VIAL SQ SCH (22:25)
[2017-12-05] MEDS: CINACALCET HYDROCHLORIDE 30 MG TAB PO SCH (22:25)
[2017-12-05] MEDS: GABAPENTIN 100 MG CAP PO SCH (22:25)
[2017-12-05] MEDS: HEPARIN SODIUM - SQ 10,000 UNITS/ML VIAL SQ SCH (22:25)
--- NOTE | 2017-12-05 22:25 | RADRPT ---
EXAM DATE: 12/05/2017 9:19 PM EDT AGE/SEX: 52 years / Female INDICATIONS: Osteomyelitis. CLINICAL DATA: This is the patient's initial encounter. Patient reports that signs and symptoms have been present for 1 day and indicates a pain score of 0/10. MEDICAL/SURGICAL HISTORY: Chronic renal failure. Diabetes mellitus type II. Hypertension. CAB G. Cholecystectomy. Umbilical hernia repair. [place] [facility] [place]/O CONTRAST, 09/22/2017. . TECHNIQUE: Multiplanar, multisequence MRI examination was performed without contrast. FINDINGS: Bones: Increasing cortical erosion with underlying bone marrow edema is identified along the lateral posterior margin of the calcaneus. Bony structures of the hindfoot are otherwise stable. Joint Spaces: No joint effusion or loose bodies are seen. The joint spaces are preserved. Tendons: The flexor tendons are intact. Soft Tissues: A large soft tissue defect is identified along the posterior lateral margin of the calc aneus. The defect extends to the cortical surface of the calcaneus or the cortical erosive changes ar e noted. Other: The plantar fascia is intact. No signal abnormalities are seen in the plantar musculature. CONCLUSION: 1. Increasing cortical erosion and bone marrow edema along the posterolateral margin of the calcaneu s characteristic of osteomyelitis. 2. Large soft tissue defect the posterior lateral margin of the calcaneus characteristic of a large ulceration or area of debridement. 3. Otherwise stable appearing hindfoot. Electronically signed by: Jose A Vidal MD 12/05/2017 10:24 PM EDT
[2017-12-05 22:58] LABS: CHOLESTEROL/ HDL RATIO 2.32 RATIO; HDL CHOLESTEROL 45.5 MG/DL (40.0-60.0)
[2017-12-06] MEDS: PIPERACIL-TAZO 2.25 GM PREMIX 50 ML IV SCH ×2 (02:00→11:43)
[2017-12-06 04:00] VITALS: BP 111/55; PULSE 78; RESP 14; TEMP 97.8; O2SAT 98
[2017-12-06 05:24] LABS: AUTOMATED NEUTROPHIL # 7.6 TH/MM3 (1.8-7.7); BASOPHIL # 0.1 TH/MM3 (0-0.2); EOSINOPHIL # 0.4 TH/MM3 (0-0.4); EOSINOPHIL % 2.9 % (0.0-4.0); HEMATOCRIT 32.5 % (35.0-46.0); HEMOGLOBIN 10.2 GM/DL (11.6-15.3); LYMPH % 23.4 % (9.0-44.0); LYMPHOCYTE # 2.9 TH/MM3 (1.0-4.8); MEAN CELL VOLUME 86.4 FL (80.0-100.0); MEAN CORPUSCULAR HGB CONC 31.3 % (32.0-36.0); MEAN PLATELET VOLUME 10.7 FL (7.0-11.0); MONO % 10.8 % (0.0-8.0); MONOCYTE # 1.3 TH/MM3 (0-0.9); NEUT % 61.9 % (16.0-70.0); PLATELET COUNT 193 TH/MM3 (150-450); RED BLOOD COUNT 3.76 MIL/MM3 (4.00-5.30); RED CELL DISTRIBUTION WIDTH 16.3 % (11.6-17.2); WHITE BLOOD COUNT 12.3 TH/MM3 (4.0-11.0)
[2017-12-06 05:52] LABS: ALBUMIN 2.9 GM/DL (3.4-5.0); ALKALINE PHOSPHATASE 146 U/L (45-117); ALT (GPT) 15 U/L (10-53); AST (GOT) 9 U/L (15-37); BICARBONATE 28.7 MEQ/L (21.0-32.0); BLOOD UREA NITROGEN 63 MG/DL (7-18); CALCIUM 8.2 MG/DL (8.5-10.1); CHLORIDE 98 MEQ/L (98-107); GLOMERULAR FILTRATION RATE 5 ML/MIN (>89); GLUCOSE,RANDOM 163 MG/DL (74-106); SODIUM (NA) 139 MEQ/L (136-145); TOTAL BILIRUBIN ADULT 0.3 MG/DL (0.2-1.0); TOTAL PROTEIN 7.1 GM/DL (6.4-8.2)
[2017-12-06 06:07] LABS: CREATININE 10.55 MG/DL (0.50-1.00)
[2017-12-06] MEDS: HEPARIN SODIUM - SQ 10,000 UNITS/ML VIAL SQ SCH ×3 (06:15→22:42)
[2017-12-06] MEDS: INSULIN ASPART SUPPLEMENTAL SCALE SQ SCH ×4 (08:00→21:00)
[2017-12-06 08:03] VITALS: BP 106/56; PULSE 72; RESP 17; TEMP 97.8; O2SAT 98
[2017-12-06] MEDS: SEVELAMER CARBONATE 800 MG TAB PO SCH ×3 (08:40→18:00)
[2017-12-06] MEDS: DOCUSATE SODIUM 50 MG/SENNA 8.6 MG TAB PO SCH ×2 (09:00→22:36)
[2017-12-06] MEDS: INSULIN DETEMIR 100 UNITS/ML VIAL SQ SCH ×2 (09:00→22:37)
[2017-12-06 09:19] VITALS: O2SAT 98
[2017-12-06] MEDS ORDERED: VANCOMYCIN 1,000 MG/NS 250 ML IV SCH ×2 (10:15)
--- NOTE | 2017-12-06 10:53 | HHI.HP ---
[facility] Service Family Medicine Primary Care Physician Unknown Admission Diagnosis nonhealing ulcer, possible osteomyelitis Diagnoses: (1) Diabetic foot ulcer associated with type 2 diabetes mellitus (2) ESRD (end stage renal disease) on dialysis (3) Type 2 diabetes mellitus (4) Hypertension (5) HLD (hyperlipidemia) (6) Hx of chronic congestive heart failure (7) Hx of coronary artery disease (8) FEN/DVT PPX/GI PPX/Nursing Orders International Travel<30 Days: No Contact w/Intl Traveler<30days: No Known Affected Area: No History of Present Illness 52-year-old -U[place]and[place] female presenting to the emergency department by her addictions counselor with a chief complaint of left heel diabetic foot ulcer. She has been seen by her addictions counselor for a chronic left heel ulceration that has previously been debrided on 09/24/17 with subsequent negative bone biopsy and extended course of antibiotics including vancomycin and oral Augmentin 4 weeks at her nursing facility. The ulceration has never fully healed and has become edematous and draining, and it was recommended that she present to the emergency department for further treatment. X-rays of the heel were negative, however MRI shows calcaneal osteomyelitis and she is admitted for IV antibiotics and surgical debridement of the wound. In the emergency department she was started on vancomycin and Zosyn. Overnight there were no issues and the patient states that she is feeling well. She denies any fevers or chills, she denies any chest pain or palpitations, she denies any nausea or vomiting or abdominal pain. She has a past medical history significant for diabetes, end-stage renal disease on dialysis, right- sided hemiparesis status post CVA, hypertension, hyperlipidemia, and CAD/CHF. Patient is on hemodialysis on Wednesday, , and Wednesday. Dry Cleaning Supervisor is Dr. Martinez in [place] but patient requests Dr. Coffey while inpatient. Past Family Social History Past Medical History Type 2 diabetes Hypertension ESRD on Wednesday, , and Wednesday Hyperlipidemia CHF status post stents and four-vessel bypass surgery in 2008 CVA in 2011 with right-sided hemiparesis Past Surgical History Four-vessel CABG Left arm AV fistula section 3 Cholecystectomy in 2014 Knee surgery in 1988 Umbilical surgery as a child Allergies: Coded Allergies: *MDRO Multi-Drug Resistant Organism (Verified Allergy, Unknown, 12/05/17) MRSA PCR (nares) negative - 11/19/15 & 11/21/15 Cleared per Infection Control MRSA 2013 Family History But parents have diabetes Dad has CAD and HTN Social History Lives in a intermediate, long-term Legally blind On disability Denies smoking, alcohol, or drugs Physical Exam Vital Signs Vital Signs Date Time Temp Pulse Resp B/P (MAP) Pulse Ox O2 Delivery O2 Flow Rate FiO2 12/06/17 09:19 98 12/06/17 08:03 97.8 72 17 106/56 (73) 98 12/06/17 08:00 96 Room Air 21 12/06/17 05:26 Room Air 12/06/17 04:00 97.8 78 14 111/55 (73) 98 12/05/17 23:43 12/05/17 21:51 72 18 138/68 (91) 96 Room Air 12/05/17 20:06 21 12/05/17 18:37 98.0 80 18 150/78 (102) 98 12/05/17 15:30 78 25 140/87 (104) 98 12/05/17 14:37 98.5 74 20 149/76 (100) 98 Physical Exam GENERAL: This is a well-nourished, well-developed patient, in no apparent distress. Legally blind SKIN: Stage I sacral decubitus ulcer with small amount of erythema over the sacrum and superficial ulcerations just right of midline. NECK: Trachea midline. No JVD or lymphadenopathy. Supple, nontender, no meningeal signs. CARDIOVASCULAR: Regular rate and rhythm without murmurs, gallops, or rubs. RESPIRATORY: Clear to auscultation. Breath sounds equal bilaterally. No wheezes , rales, or rhonchi. GASTROINTESTINAL: Abdomen soft, non-tender, nondistended, obese. MUSCULOSKELETAL: Nonhealing diabetic foot ulcer in the left heel measuring 9 x 5 cm, foul-smelling with liquefactive necrosis, and draining. DP pulse in LUE 2 +. Motor intact, patient able to move LUE and wiggle toes. NEUROLOGICAL: Awake and alert. Paralysis of the right upper and lower extremities. Laboratory Laboratory Tests Test 12/05/17 16:00 12/05/17 19:20 12/05/17 22:05 12/06/17 03:50 White Blood Count 14.1 12.3 Red Blood Count 4.08 3.76 Hemoglobin 11.1 10.2 Hematocrit 35.8 32.5 Mean Corpuscular Volume 87.7 86.4 Mean Corpuscular Hemoglobin 27.2 27.0 Mean Corpuscular Hemoglobin Concent 31.0 31.3 Red Cell Distribution Width 16.2 16.3 Platelet Count 249 193 Mean Platelet Volume 10.6 10.7 Neutrophils (%) (Auto) 63.9 61.9 Lymphocytes (%) (Auto) 22.6 23.4 Monocytes (%) (Auto) 10.5 10.8 Eosinophils (%) (Auto) 2.0 2.9 Basophils (%) (Auto) 1.0 1.0 Neutrophils # (Auto) 9.0 7.6 Lymphocytes # (Auto) 3.2 2.9 Monocytes # (Auto) 1.5 1.3 Eosinophils # (Auto) 0.3 0.4 Basophils # (Auto) 0.1 0.1 CBC Comment DIFF FINAL DIFF FINAL Differential Comment Erythrocyte Sedimentation Rate 34 Blood Urea Nitrogen 53 63 Creatinine 9.51 10.55 Random Glucose 142 163 Total Protein 8.3 7.1 Albumin 3.3 2.9 Calcium Level 8.5 8.2 Alkaline Phosphatase 178 146 Aspartate Amino Transf (AST/SGOT) 20 9 Alanine Aminotransferase (ALT/SGPT) 15 15 Total Bilirubin 0.3 0.3 Sodium Level 137 139 Potassium Level 4.8 4.9 Chloride Level 98 98 Carbon Dioxide Level 23.9 28.7 Anion Gap 15 12 Estimat Glomerular Filtration Rate 5 5 Phosphorus Level 3.7 Magnesium Level 2.8 C-Reactive Protein 3.90 Triglycerides Level 118 Cholesterol Level 106 LDL Cholesterol 37 HDL Cholesterol 45.5 Cholesterol/HDL Ratio 2.32 Thyroid Stimulating Hormone 3rd Gen 0.632 Random Vancomycin Level 36.0 Result Diagram: 12/06/17 0350 12/06/17 0350 Imaging Last Impressions Foot X-Ray 12/05/17 0000 Signed Impressions: CONCLUSION: No radiographic evidence observed to suggest osteomyelitis. Caprini VTE Risk Assessment Caprini VTE Risk Assessment: Mod/High Risk (score >= 2) Caprini Risk Assessment Model Point Value = 1 Point Value = 2 Point Value = 3 Point Value = 5 Age 41-60 Minor surgery BMI > 25 kg/m2 Swollen legs Varicose veins or History of unexplained or recurrent spontaneous Oral contraceptives or hormone replacement Sepsis (< 1 month) Serious lung disease, including pneumonia (< 1 month) Abnormal pulmonary function Acute myocardial infarction Congestive heart failure (< 1 month) History of inflammatory bowel disease Medical patient at bed rest Age 61-74 Arthroscopic surgery Major open surgery (> 45 min) Laparoscopic surgery (> 45 min) Malignancy Confined to bed (> 72 hours) Immobilizing plaster cast Central venous access Age >= 75 History of VTE Family history of VTE Factor V Leiden Prothrombin [id number] Lupus anticoagulant Anticardiolipin antibodies Elevated serum homocysteine Heparin-induced thrombocytopenia Other congenital or acquired thrombophilia Stroke (< 1 month) Elective arthroplasty Hip, pelvis, or leg fracture Acute spinal cord injury (< 1 month) Prophylaxis Regimen Total Risk Factor Score Risk Level Prophylaxis Regimen 0-1 Low Early ambulation 2 Moderate Order ONE of the following: *Sequential Compression Device (SCD) *Heparin 5000 units SQ BID 3-4 Higher Order ONE of the following medications: *Heparin 5000 units SQ TID *Enoxaparin/Lovenox 40 mg SQ daily (WT < 150 kg, CrCl > 30 mL/min) *Enoxaparin/Lovenox 30 mg SQ daily (WT < 150 kg, CrCl > 10-29 mL/min) *Enoxaparin/Lovenox 30 mg SQ BID (WT < 150 kg, CrCl > 30 mL/min) AND/OR *Sequential Compression Device (SCD) 5 or more Highest Order ONE of the following medications: *Heparin 5000 units SQ TID (Preferred with Epidurals) *Enoxaparin/Lovenox 40 mg SQ daily (WT < 150 kg, CrCl > 30 mL/min) *Enoxaparin/Lovenox 30 mg SQ daily (WT < 150 kg, CrCl > 10-29 mL/min) *Enoxaparin/Lovenox 30 mg SQ BID (WT < 150 kg, CrCl > 30 mL/min) AND *Sequential Compression Device (SCD) Assessment and Plan Assessment and Plan 52-year-old female presents with nonhealing diabetic foot ulcer. Problem List: (1) Diabetic foot ulcer associated with type 2 diabetes mellitus ICD Codes: E11.621 - Type 2 diabetes mellitus with foot ulcer; L97.509 - Non- pressure chronic ulcer of other part of unspecified foot with unspecified severity Plan: MRI of the right foot shows increasing cortical erosion and bone marrow edema along the posterior lateral margin of the calcaneus characteristic of osteomyelitis. Large soft tissue defect in the posterior lateral margin of the calcaneus characteristic of a large ulceration of area or debridement. -Foot x-ray shows soft tissues lucency involving the heel suggesting ulceration, no radiographic evidence to suggest osteomyelitis Continue IV antibiotics: Zosyn 2.275 g IV every 12 hours Vancomycin 1 g IV given 1 in the emergency department, infectious disease consulted to manage dosing with dialysis Blood cultures were ordered but were not drawn, repeat order placed for blood cultures Podiatry consult for possible surgical debridement Infectious disease consult for long-term antibiotic management ABIs ordered for vascular evaluation -Seen by vascular surgery on 09/22/17 who recommended a left lower extremity angiogram if wound healing stalls -Repeat consult for vascular surgery given nonhealing of heel ulcer (2) ESRD (end stage renal disease) on dialysis ICD Codes: N18.6 - End stage renal disease; Z99.2 - Dependence on renal dialysis Status: Acute Plan: -On dialysis Wednesday, , Wednesday -Creatinine 9.51 on admission and 10.55 today -Nephrology consult for dialysis -Resume home Renvela and Sensipar -Renally dose medications (3) Type 2 diabetes mellitus ICD Codes: E11.9 - Type 2 diabetes mellitus without complications Plan: A1c 8.1 in September 2017 -Accu-Cheks with sliding scale insulin -Continue Levemir at 10 units subcu twice daily -Titrate to effect -Diabetic counseling (4) Hypertension ICD Codes: I10 - Essential (primary) hypertension Status: Acute Plan: -Continue home metoprolol and clonidine (5) HLD (hyperlipidemia) ICD Codes: E78.5 - Hyperlipidemia, unspecified Plan: Continue atorvastatin 20 mg p.o. at bedtime (6) Hx of chronic congestive heart failure ICD Codes: Z86.79 - Personal history of other diseases of the circulatory system Plan: -Stable -Monitor for signs of acute exacerbation (7) Hx of coronary artery disease ICD Codes: Z86.79 - Personal history of other diseases of the circulatory system Plan: -Status post four-vessel CABG -Continue aspirin 81 mg p.o. daily (8) FEN/DVT PPX/GI PPX/Nursing Orders Plan: Fluids: Oral fluids only Electrolytes: Will monitor and replace as needed Nutrition: NPO with p.o. meds for possible procedure in the morning, otherwise renal diet DVT Prophylaxis: Unilateral SCD, heparin 5000 units subcu every 8 hours, hold at least 6 hours prior to surgery GI Prophylaxis: Not required Constipation prophylaxis: Pericolace 1 tab PO BID PRN Medications Tylenol 650 mg by mouth every 4 hours when necessary pain temperature greater than 100.4F Zofran 4 mg p.o. every 6 hours when necessary nausea vomiting [place] 325-5 mg as needed pain, Morphine prn breakthrough pain -Vitals Q4h -Monitor I's and O's -Fall precautions -Activity OOB with assistance -PT to assist with ambulation -Case management consult to assist with discharge needs Disposition: Pending podiatry evaluation and recommendations Physician Certification 2 Midnight Certification Type: Admission for Inpatient Services Order for Inpatient Services The services are ordered in accordance with Medicare regulations or non- Medicare payer requirements, as applicable. In the case of services not specified as inpatient-only, they are appropriately provided as inpatient services in accordance with the 2-midnight benchmark. Estimated LOS (days): 2 2 days is the estimated time the patient will need to remain in the hospital, assuming treatment plan goals are met and no additional complications. Post-Hospital Plan: Not yet determined Problem Qualifiers (1) Diabetic foot ulcer associated with type 2 diabetes mellitus: Vijay Orellana MD December 06, 2017 10:53
--- NOTE | 2017-12-06 11:16 | EKG ---
Date Performed: 12/06/2017 Time Performed: 08:00:56 PTAGE: 52 years EKG: Sinus rhythm NONSPECIFIC ST/T CHANGES BORDERLINE ECG PREVIOUS TRACING : 11/03/2016 18.37 No significant change from previous tracing noted. DOCTOR: John Nuñez Interpretating Date/Time 12/06/2017 11:15:44
[2017-12-06 12:03] VITALS: BP 105/59; PULSE 72; RESP 18; TEMP 98; O2SAT 97
[2017-12-06] MEDS ORDERED: SODIUM CHLOR 0.9% 1000 ML INJ 1,000 ML OTHER PRN ×2 (12:33)
[2017-12-06] MEDS ORDERED: SODIUM CHLOR 0.9% 1000 ML INJ 1,000 ML IV PRN (12:33)
[2017-12-06] MEDS ORDERED: MANNITOL 12.5 GM/50 ML VIAL IV PRN (12:45)
[2017-12-06] MEDS ORDERED: NITROGLYCERIN 0.4 MG SL 25 TABS/BTL SL PRN (12:45)
[2017-12-06] MEDS ORDERED: GENTAMICIN SULFATE 20 MG/2 ML VIAL OTHER PRN (12:45)
[2017-12-06] MEDS ORDERED: cloNIDine HCL 0.1 MG TAB PO PRN (12:45)
[2017-12-06] MEDS ORDERED: ONDANSETRON HCL 4 MG/2 ML VIAL IV PUSH PRN (12:45)
[2017-12-06] MEDS ORDERED: diphenhydrAMINE HCL 25 MG CAP PO PRN (12:45)
[2017-12-06] MEDS ORDERED: ACETAMINOPHEN 325 MG TAB PO PRN (12:45)
[2017-12-06] MEDS ORDERED: ALBUMIN 25% INJ 100 ML IV PRN (12:45)
[2017-12-06] MEDS ORDERED: SODIUM CHLORIDE 0.9% FLUSH 10 ML FLUSH IV FLUSH PRN (12:45)
[2017-12-06] MEDS ORDERED: HEPARIN SODIUM - IV 10,000 UNITS/10 ML VIAL IV FLUSH PRN (12:45)
[2017-12-06] MEDS ORDERED: HEPARIN SODIUM - IV 10,000 UNITS/10 ML VIAL PRN (12:45)
[2017-12-06] MEDS ORDERED: GELATIN 12 MM/7 MM FOAM TOP PRN (12:45)
[2017-12-06] MEDS ORDERED: ONDANSETRON ODT 4 MG TAB PO PRN (13:00)
--- NOTE | 2017-12-06 13:15 | MB ---
cc: Fely Coffey MD DATE: 12/06/2017 REASON FOR CONSULTATION: End-stage renal disease on hemodialysis for management. HISTORY OF PRESENT ILLNESS: This is a 52-year-old female known to me from before with a past medical history of hypertension, diabetes mellitus, history of cerebrovascular accident, hyperlipidemia, ischemic heart disease, congestive heart failure, chronic anemia, end-stage renal disease on hemodialysis 3 times per week who was transferred to the hospital for a left heel ulcer, which is nonhealing. I was called for the management of dialysis. The patient was on hemodialysis here in the [facility] some time ago and then she moved to [place] because her daughter lives there and she has been getting dialysis there. Her beauty director is Dr. Martinez over there. The patient is in a nursing facility and she has this wound on her left heel for which reason she was admitted before and it is not healing and she has been following with podiatry and she is admitted for antibiotic and debridement of the wound. The patient has some pain in the left heel area. She denies any nausea or vomiting. There is no history of fever. No shortness of breath. No chest pain. Her last hemodialysis was done on Wednesday through the left arm arteriovenous fistula. PAST MEDICAL HISTORY: Hypertension, diabetes mellitus, ischemic heart disease, cerebrovascular accident, hyperlipidemia, chronic anemia, end-stage renal disease on hemodialysis 3 times per week. PAST SURGICAL HISTORY: Coronary artery bypass grafting, left arm AV fistula, section, cholecystectomy, knee surgery, umbilical surgery as a child. REVIEW OF SYSTEMS: The patient denies any history of fever. No headache, dizziness or blurring of vision. She denies any shortness of breath. No chest pain. No palpitations. No nausea or vomiting. No abdominal pain. Her appetite is normal. No history of diarrhea. She has some pain in the left heel area, but it is not very severe. SOCIAL HISTORY: The patient is single, currently lives in a nursing facility. She is legally blind and on disability. FAMILY HISTORY: Noncontributory. ALLERGIES: SHE HAS NO KNOWN DRUG ALLERGIES. MEDICATIONS: Currently, she is on the following medications: 1. Clonidine 0.2 mg b.i.d. 2. Neurontin 200 mg b.i.d. 3. Metoprolol 25 mg b.i.d. 4. Joyce-Colace 1 tablet b.i.d. 5. Levemir 10 units subcutaneous b.i.d. 6. Aspirin 81 mg daily. 7. Vitamin D3 1000 units p.o. daily. 8. Nephrocaps 1 capsule daily. 9. Lipitor 20 mg once a day. 10. Sensipar 60 mg at bedtime. 11. Vancomycin 1 gram with dialysis. One dose of vancomycin was given yesterday. 12. Zosyn 2.25 grams IV every 12 hours. 13. Insulin sliding scale. PHYSICAL EXAMINATION: GENERAL: Patient is awake and alert. She is not in acute distress. VITAL SIGNS: Her last blood pressure was 106/56, temperature is 97.8, oxygen saturation on room air is 96%. HEENT: Pupils are mid constricted. Nonicteric sclerae. Conjunctivae pale. NECK: Supple. JVD is not elevated. LUNGS: The patient has bilateral good air entry with occasional wheezing. HEART: S1, S2. Regular rhythm. ABDOMEN: Distended, soft, lax. There is no tenderness. Bowel sounds positive. EXTREMITIES: She has mild edema in the left leg area and the left heel is covered with a dressing. The movement of the left foot is normal. INVESTIGATION DATA: WBC count is 12.3, hemoglobin 10.2 and platelet count of 193, neutrophils 61.9%. Sodium 139, potassium 4.9, chloride 98, bicarbonate 28.7, BUN 63, creatinine 10.5, calcium 8.2. AST is 9, ALT is 15, total protein 7.1, albumin is 2.9. Vancomycin level was 36 yesterday. There is no new culture done. MRI of the foot was done which shows a cortical erosion of the bone marrow, edema in the calcaneum characteristic of osteomyelitis with soft tissue defect, large ulceration. X-ray of the foot was done which shows no evidence of osteomyelitis. Arterial ultrasound was done, the report is still pending. ASSESSMENT AND PLAN: 1. Left heel osteomyelitis. 2. Peripheral vascular disease. 3. Hypertension. 4. Diabetes mellitus. 5. End-stage renal disease on hemodialysis. 6. Chronic anemia. The patient has been on hemodialysis Wednesday, and Wednesday. Her last hemodialysis was done on Wednesday and she is due for dialysis tomorrow. Her hemoglobin is 10.2. The phosphorus was normal at 3.7. She is not on any binders. She is on Sensipar. I will check the PTH level and her calcium is on the lower side. Her albumin is also on the lower side. I will get the corrected calcium in the morning. Hemodialysis will be done tomorrow. Continue the antibiotic. Possibly will need debridement. Further plan is podiatry and also vascular. Thank you for the consultation and I will follow the patient while she is in the hospital. Ivonne Coffey MD AQJ/DL , 12:33 PM , 01:14 PM [email or web address]
--- NOTE | 2017-12-06 14:35 | PD.CONS ---
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 Past Surgical History Four-vessel CABG Left arm AV fistula section 3 Cholecystectomy in 2014 Knee surgery in 1988 Umbilical surgery as a child Active Ordered Medications Current Medications Medications (Trade) Dose Ordered Sig/Afshan Route Start Time Stop Time Status Last Admin (Aspirin Chew) 81 mg DAILY PO 12/06/17 09:00 (Lipitor) 20 mg HS PO 12/05/17 21:00 12/05/17 22:24 (Vitamin D3) 1,000 units DAILY PO 12/06/17 09:00 (Catapres) 0.2 mg BID PO 12/05/17 21:00 12/05/17 22:24 (Neurontin) 200 mg BID PO 12/05/17 21:00 12/05/17 22:25 (Lopressor) 25 mg BID PO 12/05/17 21:00 12/05/17 22:24 (Renvela) 1,600 mg TID PO 12/06/17 09:00 (Nephrocaps) 1 cap DAILY PO 12/06/17 09:00 (Sensipar) 60 mg HS PO 12/05/17 21:00 12/05/17 22:25 (NS Flush) 2 ml UNSCH PRN IV FLUSH 12/05/17 19:45 (NS Flush) 2 ml BID IV FLUSH 12/05/17 21:00 (Tylenol) 650 mg Q4H PRN PO 12/05/17 19:45 (Narcan Inj) 0.4 mg UNSCH PRN IV PUSH 12/05/17 19:45 (Joyce-Colace) 1 tab BID PO 12/05/17 21:00 12/05/17 22:25 (Milk Of Magnesia Liq) 30 ml Q12H PRN PO 12/05/17 19:45 (Senokot) 17.2 mg Q12H PRN PO 12/05/17 19:45 (Dulcolax Supp) 10 mg DAILY PRN RECTAL 12/05/17 19:45 (Lactulose Liq) 30 ml DAILY PRN PO 12/05/17 19:45 (D50w (Vial) Inj) 50 ml UNSCH PRN IV PUSH 12/05/17 19:45 (Glucagon Inj) 1 mg UNSCH PRN OTHER 12/05/17 19:45 (NovoLOG SUPPLEMENTAL SCALE) 1 ACHS SLIDING SCALE SQ 12/05/17 21:00 (Levemir Inj) 10 units BID SQ 12/05/17 21:00 12/05/17 22:25 Pharmacy Profile Note 0 ml @ 0 mls/hr UNSCH OTHER 12/05/17 19:45 (Heparin Inj) 5,000 units Q8H SQ 12/05/17 23:00 12/06/17 06:15 (Burke 5-325 Mg) 1 tab Q4H PRN PO 12/05/17 21:30 (Burke 5-325 Mg) 2 tab Q6H PRN PO 12/05/17 21:30 (Morphine Inj) 2 mg Q3H PRN IV PUSH 12/05/17 21:30 (Zofran Odt) 4 mg Q6H PRN PO 12/05/17 21:30 Vancomycin HCl 1000 mg/Sodium Chloride 250 ml @ 250 mls/hr WITH DIALYSIS IV 12/06/17 10:15 Sodium Chloride 1,000 ml @ 0 mls/hr Q0M PRN OTHER 12/06/17 12:33 (Heparin Inj) 8,000 units UNSCH PRN IV FLUSH 12/06/17 12:45 Sodium Chloride 1,000 ml @ 200 mls/hr Q5H PRN IV 12/06/17 12:33 Sodium Chloride 1,000 ml @ 0 mls/hr Q0M PRN OTHER 12/06/17 12:33 (Mannitol Inj) 12.5 gm UNSCH PRN IV 12/06/17 12:45 Albumin Human 100 ml @ 60 mls/hr UNSCH PRN IV 12/06/17 12:45 (NS Flush) 5 ml UNSCH PRN IV FLUSH 12/06/17 12:45 (Heparin Inj) UNSCH PRN .XX 12/06/17 12:45 (Gentamicin Inj) 20 mg UNSCH PRN OTHER 12/06/17 12:45 (Tylenol) 650 mg UNSCH PRN PO 12/06/17 12:45 (Benadryl) 25 mg UNSCH PRN PO 12/06/17 12:45 (Nitrostat Sl) 0.4 mg UNSCH PRN SL 12/06/17 12:45 (Catapres) 0.1 mg UNSCH PRN PO 12/06/17 12:45 (Epogen Inj) 10,000 units UNSCH PRN IV PUSH 12/06/17 12:45 (Gelfoam 12 Mm/7 Mm Top) 1 foam UNSCH PRN TOP 12/06/17 12:45 (Zofran Odt) 4 mg UNSCH PRN PO 12/06/17 13:00 Family History But parents have diabetes Dad has CAD and HTN Social History Lives in a [facility], long-term Legally blind On disability Denies smoking, alcohol, or drugs Physical Exam Vital Signs Vital Signs Date Time Temp Pulse Resp B/P (MAP) Pulse Ox O2 Delivery O2 Flow Rate FiO2 12/06/17 12:03 98.0 72 18 105/59 (74) 97 12/06/17 09:19 98 12/06/17 08:03 97.8 72 17 106/56 (73) 98 12/06/17 08:00 96 Room Air 21 12/06/17 05:26 Room Air 12/06/17 04:00 97.8 78 14 111/55 (73) 98 12/05/17 23:43 12/05/17 21:51 72 18 138/68 (91) 96 Room Air 12/05/17 20:06 21 12/05/17 18:37 98.0 80 18 150/78 (102) 98 12/05/17 15:30 78 25 140/87 (104) 98 12/05/17 14:37 98.5 74 20 149/76 (100) 98 Physical Exam Left heel with large fibronecrotic ulceration down to level of bone to plantar calcaneal tuber area. Boggy tissue. Foul odor present. No raissa purulence noted. Sensation absent to light touch secondary to neuropathy. Laboratory Laboratory Tests Test 12/05/17 16:00 12/05/17 19:20 12/05/17 22:05 12/06/17 03:50 White Blood Count 14.1 12.3 Red Blood Count 4.08 3.76 Hemoglobin 11.1 10.2 Hematocrit 35.8 32.5 Mean Corpuscular Volume 87.7 86.4 Mean Corpuscular Hemoglobin 27.2 27.0 Mean Corpuscular Hemoglobin Concent 31.0 31.3 Red Cell Distribution Width 16.2 16.3 Platelet Count 249 193 Mean Platelet Volume 10.6 10.7 Neutrophils (%) (Auto) 63.9 61.9 Lymphocytes (%) (Auto) 22.6 23.4 Monocytes (%) (Auto) 10.5 10.8 Eosinophils (%) (Auto) 2.0 2.9 Basophils (%) (Auto) 1.0 1.0 Neutrophils # (Auto) 9.0 7.6 Lymphocytes # (Auto) 3.2 2.9 Monocytes # (Auto) 1.5 1.3 Eosinophils # (Auto) 0.3 0.4 Basophils # (Auto) 0.1 0.1 CBC Comment DIFF FINAL DIFF FINAL Differential Comment Erythrocyte Sedimentation Rate 34 Blood Urea Nitrogen 53 63 Creatinine 9.51 10.55 Random Glucose 142 163 Total Protein 8.3 7.1 Albumin 3.3 2.9 Calcium Level 8.5 8.2 Alkaline Phosphatase 178 146 Aspartate Amino Transf (AST/SGOT) 20 9 Alanine Aminotransferase (ALT/SGPT) 15 15 Total Bilirubin 0.3 0.3 Sodium Level 137 139 Potassium Level 4.8 4.9 Chloride Level 98 98 Carbon Dioxide Level 23.9 28.7 Anion Gap 15 12 Estimat Glomerular Filtration Rate 5 5 Phosphorus Level 3.7 Magnesium Level 2.8 C-Reactive Protein 3.90 Triglycerides Level 118 Cholesterol Level 106 LDL Cholesterol 37 HDL Cholesterol 45.5 Cholesterol/HDL Ratio 2.32 Thyroid Stimulating Hormone 3rd Gen 0.632 Random Vancomycin Level 36.0 Result Diagram: 12/06/17 0350 12/06/17 0350 Imaging Last 72 hours Impressions Foot X-Ray 12/05/17 0000 Signed Impressions: CONCLUSION: No radiographic evidence observed to suggest osteomyelitis. Foot MRI 12/05/17 0000 Signed Impressions: CONCLUSION: 1. Increasing cortical erosion and bone marrow edema along the posterolateral margin of the calcaneus characteristic of osteomyelitis. 2. Large soft tissue defect the posterior lateral margin of the calcaneus jennifer acteristic of a large ulceration or area of debridement. 3. Otherwise stable appearing hindfoot. Assessment and Plan Assessment and Plan Osteomyelitis left calcaneus Plan to OR tomorrow p.m. for partial calcanectomy left heel, possible wound vac. NPO after breakfast tomorrow Elizabeth Wells DPM December 06, 2017 14:35
[2017-12-06] MEDS: GABAPENTIN 100 MG CAP PO SCH ×2 (14:51→22:36)
[2017-12-06] MEDS: CHOLECALCIFEROL (VIT D3) 1000 UNIT TAB PO SCH (14:51)
[2017-12-06] MEDS: METOPROLOL TARTRATE 25 MG TAB PO SCH ×2 (14:52→22:35)
[2017-12-06] MEDS: VITAMIN B CMPLX/VITC/FOLIC AC CAP PO SCH (14:52)
[2017-12-06] MEDS: cloNIDine HCL 0.2 MG TAB PO SCH ×2 (14:53→22:36)
[2017-12-06] MEDS: SODIUM CHLORIDE 0.9% FLUSH 10 ML FLUSH IV FLUSH SCH ×2 (14:54→22:43)
[2017-12-06] MEDS: ASPIRIN 81 MG CHEW TAB PO SCH (14:54)
--- NOTE | 2017-12-06 15:43 | RADRPT ---
EXAM DATE: 12/06/2017 9:48 AM EDT AGE/SEX: 52 years / Female INDICATIONS: Nonhealing ulcer, possible osteomyelitis CLINICAL DATA: This is the patient's initial encounter. Patient reports that signs and symptoms have been present for 2 weeks and indicates a pain score of 1/10. MEDICAL/SURGICAL HISTORY: . Diabetes, end stage renal disease, CVA with right hemiparesis, hype rtension, hyperlipidemia, coronary artery disease s/p CABG x 4 with stents, CHF, left heel diabetic u lcer . CABG x 4, left arm AV fistula, x 3, cholecystectomy, knee surgery, umbilical surger y COMPARISON: No prior [place] exams available for comparison. TECHNIQUE: Four-cuff ankle and brachial pressures were obtained. Pulse cuff waveform tracings of the ankles were recorded, and ankle-brachial indices were calculated. PRESSURES (mmHg): Brachial (arm) : RIGHT: 90, LEFT: No sticks/bp Ankle : RIGHT: 70, LEFT: 67 DICK : RIGHT: 0.78, LEFT: 0.74 TBI : RIGHT: 0.50, LEFT: 0.43 PULSED CUFF WAVEFORMS: Demonstrate decreased amplitude, right greater than left Both ankle brachial index and toe brachial index or below the normal range and most characteristic of mild to moderate peripheral arterial vascular disease. CONCLUSION: 1. Ankle-brachial index and toe brachial index are most characteristic of mild to moderate periphera l arterial disease. Electronically signed by: Jordan Winters MD 12/06/2017 3:42 PM EDT
[2017-12-06 16:03] VITALS: BP 100/51; PULSE 67; RESP 18; TEMP 98.6; O2SAT 100
[2017-12-06 16:53] LABS: HEMOGLOBIN A1C 7.8 % (4.3-6.0)
--- NOTE | 2017-12-06 17:07 | PD.VS.CON ---
History of Present Illness Chief Complaint: L heel wound Consult Requested by: Medical service History of Present Illness 52 yo nonambulatory female with L heel wound for months. I saw her as an inpatient back in September and at that time felt her perfusion was adequate to heal any podiatric procedure. She was seen by Dr. Wells in her clinic and the heel was debrided and according to Dr. Wells, the wound bled well. Past/Family/Social History Past Medical History HTN CVA ESRD DM XOL CHF CAD Past Surgical History CABG L UE AVF heel debridement UHR Social History lives in a retirement Home Medications Active Scripts Metoprolol Tartrate (Metoprolol Tartrate) 25 Mg Tab, 25 MG PO BID for htn, #60 TAB 0 Refills Prov:Estrella Antony MD 11/05/16 Reported Medications Cholecalciferol (Vitamin D3) 1,000 Unit Tab, 1000 UNITS PO DAILY for Nutritional Supplement, #1 BOTTLE 0 Refills 09/22/17 Acetaminophen (Tylenol) 325 Mg Tab, 325 MG PO Q6H Y for PAIN SCALE 1 TO 4, TAB 0 Refills 09/22/17 Cinacalcet (Sensipar) 60 Mg Tab, 60 MG PO HS, #30 TAB 0 Refills 09/22/17 Magnesium Hydroxide Liq (Milk of Magnesia Liq) 400 Mg/5 Ml Susp, 30 ML PO DAILY Y for INDIGESTION OR UPSET STOMACH, #1 BOTTLE 0 Refills 09/22/17 Gabapentin (Gabapentin) 100 Mg Cap, 200 MG PO BID, #60 CAP 0 Refills 09/22/17 Docusate Sodium (Colace) 100 Mg Capsule, 100 MG PO BID for Prevent Constipation , #60 CAP 0 Refills 09/22/17 Bisacodyl Supp (Biscolax Supp) 10 Mg Supp, 10 MG RECTAL DAILY Y for CONSTIPATION , SUPP 0 Refills 09/22/17 Aspirin (Aspirin Low Dose) 81 Mg Chew, 81 MG PO DAILY, TAB 0 Refills 09/22/17 Sevelamer Carbonate (Renvela) 800 Mg Tab, 1600 MG PO TID for Control phosphorous levels, #180 TAB 0 Refills With meals and snacks 10/31/16 B-Complex W/ C & Folic Acid (Rhonda-Estefania) 1 Tab, 1 TAB PO DAILY, TAB 10/31/16 Insulin Aspart Inj (Novolog Inj) 1,000 Unit/10 Ml Vial, 0 SQ BID for Blood Sugar Management, #10 ML 0 Refills Sliding Scale as directed. 10/31/16 Insulin Detemir Inj (Levemir Inj) 1,000 unit/ 10 ML Vial, 15 UNITS SQ BID for Blood Sugar Management, VIAL 0 Refills Do not mix with any other Insulin. 10/31/16 Clonidine (Clonidine) 0.2 Mg Tab, 0.2 MG PO BID for Blood Pressure Management, # 60 TAB 0 Refills 10/31/16 Atorvastatin (Atorvastatin) 20 Mg Tab, 20 MG PO HS for Cholesterol Management, # 30 TAB 0 Refills 10/31/16 Discontinued Reported Medications Ciprofloxacin (Ciprofloxacin) 250 Mg Tab, 250 MG PO BID for Infection, TAB 0 Refills 09/22/17 Discontinued Scripts Amoxicillin-Clavulanate (Amoxicillin-Clavulanate) 500-125 mg Tab, 500 MG PO QD for Infection, #28 TAB 0 Refills Prov:Travis Montero MD 09/29/17 Lactobacillus Acidophilus (Acidophilus/l-Sporogenes) 35 Million Cell-25 Million Cell Tab, 1 TAB PO Q12HR for Bowel Management, #30 TAB Prov:Travis Montero MD 09/28/17 [Heparin Inj] 89252 UNITS/ML INJ No Conflict Check, 5000 UNITS SQ Q12HR for Prevent Blood Clot, #60 INJECTION Prov:Travis Montero MD 09/28/17 Coded Allergies: *MDRO Multi-Drug Resistant Organism (Verified Allergy, Unknown, 12/05/17) MRSA PCR (nares) negative - 11/19/15 & 11/21/15 Cleared per Infection Control MRSA 2014 Review of Systems Constitutional: DENIES: Diaphoretic episodes, Fatigue, Fever, Weight gain, Weight loss, Chills, Dizziness, Change in appetite, Night Sweats Cardiovascular: DENIES: Chest pain, Palpitations, Syncope, Dyspnea on Exertion , PND, Lower Extremity Edema, Orthopnea, Claudication Physical Exam Vitals/I&O Date Time Temp Pulse Resp B/P (MAP) Pulse Ox O2 Delivery O2 Flow Rate FiO2 12/06/17 12:03 98.0 18 105/59 (74) 97 12/06/17 09:19 98 12/06/17 08:03 97.8 106/56 (73) 98 12/06/17 08:00 96 Room Air 21 12/06/17 05:26 Room Air 12/06/17 04:00 97.8 78 14 111/55 (73) 98 12/05/17 23:43 12/05/17 21:51 72 18 138/68 (91) 96 Room Air 12/05/17 20:06 21 12/05/17 18:37 98.0 80 18 150/78 (102) 98 Neuro: slightly somnolent but conversant HEENT: NC/AT Neck: no JVD Heart: reg rate Lungs: nonlabored Vascular: nonpalpable popliteal and pedal pulses Extremities: L heel wound dressed no streaking erythema Laboratory Tests Test 12/05/17 19:20 12/05/17 22:05 12/06/17 03:50 Blood Urea Nitrogen 53 63 Creatinine 9.51 10.55 Random Glucose 142 163 Total Protein 8.3 7.1 Albumin 3.3 2.9 Calcium Level 8.5 8.2 Alkaline Phosphatase 178 146 Aspartate Amino Transf (AST/SGOT) 20 9 Alanine Aminotransferase (ALT/SGPT) 15 15 Total Bilirubin 0.3 0.3 Sodium Level 137 139 Potassium Level 4.8 4.9 Chloride Level 98 98 Carbon Dioxide Level 23.9 28.7 Anion Gap 15 12 Estimat Glomerular Filtration Rate 5 5 Phosphorus Level 3.7 Magnesium Level 2.8 C-Reactive Protein 3.90 Triglycerides Level 118 Cholesterol Level 106 LDL Cholesterol 37 HDL Cholesterol 45.5 Cholesterol/HDL Ratio 2.32 Thyroid Stimulating Hormone 3rd Gen 0.632 Random Vancomycin Level 36.0 White Blood Count 12.3 Red Blood Count 3.76 Hemoglobin 10.2 Hematocrit 32.5 Mean Corpuscular Volume 86.4 Mean Corpuscular Hemoglobin 27.0 Mean Corpuscular Hemoglobin Concent 31.3 Red Cell Distribution Width 16.3 Platelet Count 193 Mean Platelet Volume 10.7 Neutrophils (%) (Auto) 61.9 Lymphocytes (%) (Auto) 23.4 Monocytes (%) (Auto) 10.8 Eosinophils (%) (Auto) 2.9 Basophils (%) (Auto) 1.0 Neutrophils # (Auto) 7.6 Lymphocytes # (Auto) 2.9 Monocytes # (Auto) 1.3 Eosinophils # (Auto) 0.4 Basophils # (Auto) 0.1 CBC Comment DIFF FINAL Differential Comment Date/Time Source Procedure Growth Status 12/06/17 15:55 Blood Peripheral Aerobic Blood Culture Pending Received 12/06/17 15:55 Blood Peripheral Anaerobic Blood Culture Pending Received Last 48 hours Impressions Foot X-Ray 12/05/17 0000 Signed Impressions: CONCLUSION: No radiographic evidence observed to suggest osteomyelitis. Foot MRI 12/05/17 0000 Signed Impressions: CONCLUSION: 1. Increasing cortical erosion and bone marrow edema along the posterolateral margin of the calcaneus characteristic of osteomyelitis. 2. Large soft tissue defect the posterior lateral margin of the calcaneus jennifer acteristic of a large ulceration or area of debridement. 3. Otherwise stable appearing hindfoot. Extremity Arterial Study 12/05/17 0000 Signed Impressions: CONCLUSION: 1. Ankle-brachial index and toe brachial index are most characteristic of mild to moderate peripheral arterial disease. Assessment and Plan Plan L heel wound in a non-ambulatory lady with PAD, ESRD 1. Calcaneal resection tomorrow with Dr. Wells. Discussed with her and if there is any concern for inadequate perfusion, can readdress. 2. PVR suggest mild arterial insufficiency and would indicate that perfusion ok to heal 3. Would only offer angio if poor bleeding in OR tomorrow. Please call with any questions. Prince Henao MD FACS RPVI spray operator [facility] - [facility] and Vascular Surgery at [facility] [phone] Prince Henao MD December 06, 2017 17:07
[2017-12-06 20:00] VITALS: BP 110/59; PULSE 69; RESP 20; TEMP 98.2; O2SAT 98
[2017-12-06] MEDS: CINACALCET HYDROCHLORIDE 30 MG TAB PO SCH (22:37)
[2017-12-06] MEDS: ATORVASTATIN 20 MG TAB PO SCH (22:43)
[2017-12-07] VITALS (7 sets, daily range): BP systolic 100–190; BP diastolic 52–86; PULSE 59–77; RESP 18–20; TEMP 97.2–98.3; O2SAT 97–100
[2017-12-07] MEDS: HEPARIN SODIUM - SQ 10,000 UNITS/ML VIAL SQ SCH ×3 (05:25→23:05)
[2017-12-07] MEDS: INSULIN ASPART SUPPLEMENTAL SCALE SQ SCH ×4 (08:00→21:00)
[2017-12-07] MEDS: METOPROLOL TARTRATE 25 MG TAB PO SCH ×2 (09:00→21:00)
[2017-12-07] MEDS: GABAPENTIN 100 MG CAP PO SCH ×2 (09:00→21:06)
[2017-12-07] MEDS: INSULIN DETEMIR 100 UNITS/ML VIAL SQ SCH ×2 (09:00→21:06)
[2017-12-07] MEDS: VITAMIN B CMPLX/VITC/FOLIC AC CAP PO SCH (09:00)
[2017-12-07] MEDS: CHOLECALCIFEROL (VIT D3) 1000 UNIT TAB PO SCH (09:00)
[2017-12-07] MEDS: SEVELAMER CARBONATE 800 MG TAB PO SCH ×2 (09:00→13:00)
[2017-12-07] MEDS: SODIUM CHLORIDE 0.9% FLUSH 10 ML FLUSH IV FLUSH SCH ×2 (09:00→21:07)
[2017-12-07] MEDS: cloNIDine HCL 0.2 MG TAB PO SCH ×2 (09:00→21:07)
[2017-12-07] MEDS: ASPIRIN 81 MG CHEW TAB PO SCH (09:00)
[2017-12-07 09:08] LABS: HEMATOCRIT 30.7 % (35.0-46.0); HEMOGLOBIN 9.6 GM/DL (11.6-15.3); MEAN CELL VOLUME 85.8 FL (80.0-100.0); MEAN CORPUSCULAR HEMOGLOBIN 26.7 PG (27.0-34.0); MEAN CORPUSCULAR HGB CONC 31.2 % (32.0-36.0); MEAN PLATELET VOLUME 10.6 FL (7.0-11.0); PLATELET COUNT 196 TH/MM3 (150-450); RED BLOOD COUNT 3.58 MIL/MM3 (4.00-5.30); RED CELL DISTRIBUTION WIDTH 16.6 % (11.6-17.2); WHITE BLOOD COUNT 11.8 TH/MM3 (4.0-11.0)
[2017-12-07 09:59] LABS: BICARBONATE 28.5 MEQ/L (21.0-32.0); CALCIUM 8.3 MG/DL (8.5-10.1)
--- NOTE | 2017-12-07 10:15 | HHI.NPPN ---
Subjective Renal Failure: End Stage Renal Disease History of Present Illness This is a 52-year-old female known to me from before with a past medical history of hypertension, diabetes mellitus, history of cerebrovascular accident , hyperlipidemia, ischemic heart disease, congestive heart failure, chronic anemia, end-stage renal disease on hemodialysis 3 times per week who was transferred to the hospital for a left heel ulcer, which is nonhealing.Nephrology was called for the management of dialysis. The patient was on hemodialysis here in the [facility] some time ago and then she moved to [place] because her daughter lives there and she has been getting dialysis there. 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 Martinez over there.The patient is in a nursing facility and she has this wound on her left heel for which reason she was admitted before and it is not healing and she has been following with podiatry and she is admitted for antibiotic and debridement of the wound. The patient has some pain in the left heel area. She denies any nausea or vomiting. There is no history of fever. No shortness of breath. No chest pain. Her last hemodialysis was done on Wednesday through the left arm arteriovenous fistula. Additional Remarks Seen during hemodialysis tolerating well. No acute complaints. (Felicitas Galo) Review of Systems Respiratory Respiratory Remarks Denies shortness of breath (Felicitas Galo) Cardiovascular Cardiac Remarks No chest pain (Felicitas Galo) Gastrointestinal GI Remarks No abdominal pain (Felicitas Galo) Objective Data Data Vital Signs Date Time Temp Pulse Resp B/P (MAP) Pulse Ox O2 Delivery O2 Flow Rate FiO2 12/07/17 08:00 98.2 59 18 106/52 (70) 98 12/07/17 04:00 98.0 61 20 100/55 (70) 99 12/07/17 00:00 98.2 66 20 112/60 (77) 99 12/06/17 20:00 98.2 69 20 110/59 (76) 98 12/06/17 20:00 Room Air 12/06/17 16:03 98.6 67 18 100/51 (67) 100 12/06/17 12:03 98.0 72 18 105/59 (74) 97 (Felicitas Galo) -: 12/07/17 0803 12/07/17 0803 Microbiology 12/06/17 Aerobic Blood Culture, Received Pending 12/06/17 Anaerobic Blood Culture, Received Pending 12/06/17 Aerobic Blood Culture, Received Pending 12/06/17 Anaerobic Blood Culture, Received Pending Imaging Last Impressions Foot X-Ray 12/05/17 0000 Signed Impressions: CONCLUSION: No radiographic evidence observed to suggest osteomyelitis. Foot MRI 12/05/17 0000 Signed Impressions: CONCLUSION: 1. Increasing cortical erosion and bone marrow edema along the posterolateral margin of the calcaneus characteristic of osteomyelitis. 2. Large soft tissue defect the posterior lateral margin of the calcaneus jennifer acteristic of a large ulceration or area of debridement. 3. Otherwise stable appearing hindfoot. Extremity Arterial Study 12/05/17 0000 Signed Impressions: CONCLUSION: 1. Ankle-brachial index and toe brachial index are most characteristic of mild to moderate peripheral arterial disease. (Felicitas Galo) Physical Exam General Appearance: Well Nourished, No Acute Distress, Comfortable (Felicitas Galo) Throat Throat Exam: Oral Mucosa [place] & Moist (Felicitas Galo) Pulmonary Resp Exam: Clear Bilaterally, Breath Sounds Equal, No Distress (Felicitas Galo) Cardiology CV Exam: Normal Sinus Rhythm (Felicitas Galo) Gastrointestinal/Abdomen GI Exam: Soft, Non-Tender, Bowel Sounds Present (Felicitas Galo) Genitourinary Exam: Flank Non-Tender (Felicitas Galo) Integumentary Skin Exam: Clear, Warm, Lesion(s) Skin Remarks Left foot with dressing on (Felicitas Galo) Extremeties Extremities Exam: No Edema, Moderate Edema (Felicitas Galo) Neurologic Neuro Exam: Alert, Awake (Felicitas Galo) Psychiatric Psych Exam: Appropriate Responses (Felicitas Galo) Assessment/Plan Discussed Condition With: Patient Problem List: (1) ESRD (end stage renal disease) on dialysis ICD Codes: N18.6 - End stage renal disease; Z99.2 - Dependence on renal dialysis Status: Acute Plan: Hemodialysis on Wednesday, , and Wednesday. 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 Martinez from [place]. Left arm arteriovenous fistula with positive thrill and bruit Avoid fluid administration Renal diet. Seen during hemodialysis today tolerating well. 2 K bath. (2) Diabetic foot ulcer associated with type 2 diabetes mellitus ICD Codes: E11.621 - Type 2 diabetes mellitus with foot ulcer; L97.509 - Non- pressure chronic ulcer of other part of unspecified foot with unspecified severity Plan: Podiatry and Vascular surgery consulted OR today/ Antibiotics per ID (3) Type 2 diabetes mellitus ICD Codes: E11.9 - Type 2 diabetes mellitus without complications Plan: Maintain blood sugars between 140 mg/dl to 180 mg/dl (4) Hypertension ICD Codes: I10 - Essential (primary) hypertension Status: Acute Plan: Well controlled will monitor (Felicitas Galo) Problem List: (1) ESRD (end stage renal disease) on dialysis ICD Codes: N18.6 - End stage renal disease; Z99.2 - Dependence on renal dialysis Status: Acute Plan: Hemodialysis on Wednesday, , and Wednesday. 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 Martinez from [place]. Left arm arteriovenous fistula with positive thrill and bruit Avoid fluid administration Renal diet. Seen during hemodialysis today tolerating well. 2 K bath. Patient seen and examined, agree with above. HD as per schedule. Continue antibiotics. (2) Diabetic foot ulcer associated with type 2 diabetes mellitus ICD Codes: E11.621 - Type 2 diabetes mellitus with foot ulcer; L97.509 - Non- pressure chronic ulcer of other part of unspecified foot with unspecified severity Plan: Podiatry and Vascular surgery consulted OR today/ Antibiotics per ID (3) Type 2 diabetes mellitus ICD Codes: E11.9 - Type 2 diabetes mellitus without complications Plan: Maintain blood sugars between 140 mg/dl to 180 mg/dl (4) Hypertension ICD Codes: I10 - Essential (primary) hypertension Status: Acute Plan: Well controlled will monitor (Ivonne Coffey MD) Problem Qualifiers (1) Diabetic foot ulcer associated with type 2 diabetes mellitus: Felicitas Galo December 07, 2017 10:14 Ivonne Coffey MD December 08, 2017 21:14
--- NOTE | 2017-12-07 10:44 | HHI.FPPN ---
Subjective Remarks 52 y/o female with nonhealing diabetic ulcer on left calcaneus and osteomyelitis. She is found lying comfortably in bed, receiving dialysis in dialysis unit. No acute events overnight. No fever or chills. Denies musculoskeletal pain, chest pain, or shortness of breath. Denies nausea, vomiting, or diarrhea. Her last BM was 6 days ago. Reports history of chronic constipation. Partial left heel calcanectomy scheduled for later this PM. (Documented by Dinorah Hinds, MS4) Patient seen in dialysis this AM. Doing well. No complaints. She denies CP, SOB, abdominal pain, and swelling. Able to wiggle all toes. Plan for OR this afternoon. (Documented by Dr. Phelps, PGY-1) (Latonia Phelps MD R1) Objective Vitals Vital Signs Date Time Temp Pulse Resp B/P (MAP) Pulse Ox O2 Delivery O2 Flow Rate FiO2 12/07/17 10:15 Nasal Cannula 12/07/17 08:00 98.2 59 18 106/52 (70) 98 12/07/17 04:00 98.0 61 20 100/55 (70) 99 12/07/17 00:00 98.2 66 20 112/60 (77) 99 12/06/17 20:00 98.2 69 20 110/59 (76) 98 12/06/17 20:00 Room Air 12/06/17 16:03 98.6 67 18 100/51 (67) 100 12/06/17 12:03 98.0 72 18 105/59 (74) 97 I/O 12/06/17 12/06/17 12/06/17 12/07/17 12/07/17 12/07/17 07:00 15:00 23:00 07:00 15:00 23:00 Intake Total 0 ml Output Total 0 ml Balance 0 ml Intake Oral 0 ml Output Urine Total 0 ml # Voids 0 0 # Bowel Movements 0 0 (Latonia Phelps MD R1) Result Diagram: 12/07/17 0803 12/07/17 08 Other Results GENERAL: This is a well-nourished, well-developed patient, in no apparent distress. Legally blind. Found lying comfortably in bed in dialysis unit. SKIN: Stage I sacral decubitus ulcer with small amount of erythema over the sacrum and superficial ulcerations just right of midline. NECK: Trachea midline. No JVD or lymphadenopathy. Supple, nontender, no meningeal signs. CARDIOVASCULAR: Regular rate and rhythm without murmurs, gallops, or rubs. RESPIRATORY: Clear to auscultation. Breath sounds equal bilaterally. No wheezes , rales, or rhonchi. GASTROINTESTINAL: Abdomen soft, non-tender, nondistended, obese. MUSCULOSKELETAL: Nonhealing diabetic foot ulcer in the left heel measuring 9 x 5 cm, foul-smelling with liquefactive necrosis, and draining. DP pulse in LUE 2 +. Motor intact, patient able to move LUE and wiggle toes. NEUROLOGICAL: Awake and alert. (Documented by AVA Mcintosh) Cardio: RRR, no/m/r/g Resp:CTAB Abd: soft, NT/ND MSK: nonhealing diabetic foot ulcer in left heel, wrapped in bandage, pedal pulses 2+, able to wiggle toes, sensation intact (Documented by Dr. Phelps, PGY1) (Latonia Phelps MD R1) A/P Assessment and Plan 52-year-old female presents with nonhealing diabetic foot ulcer. Podiatry, Vascular, Nephrology consulted. Patient seen and examined with AVA Mcintosh. Agreed with the plan below: Plan: Dialysis Today Continue Vanc and zosyn NPO Surgery this afternoon for partial calcanectomy left heel, possible wound vac (Documented by Dr. Phelps, PGY1) Discharge Planning Patient receiving dialysis today Plan for OR today for partial calcanectomy left hell, possible wound vac Will need PT at rehab (Latonia Phelps MD R1) Attending Attestation Patient examined independently and case discussed with resident physicians I have read the above note and agree with the assessment/plan as discussed with me I was involved in all medical decision making for this patient Vijay Orellana MD (Vijay Orellana MD) Problem List: (1) Osteomyelitis of left foot ICD Codes: M86.9 - Osteomyelitis, unspecified Plan: MRI of the right foot shows increasing cortical erosion and bone marrow edema along the posterior lateral margin of the calcaneus characteristic of osteomyelitis. Large soft tissue defect in the posterior lateral margin of the calcaneus characteristic of a large ulceration of area or debridement. -Foot x-ray shows soft tissues lucency involving the heel suggesting ulceration, no radiographic evidence to suggest osteomyelitis IV antibiotics: Continue Vancomycin 1 g IV given 1 in the emergency department, infectious disease consulted to manage dosing with dialysis Discontinue Zosyn 2.275 g IV every 12 hours (12/06-12/06) Infectious disease consult for long-term antibiotic management Blood cultures pending Podiatry consulted, recommendations appreciated -plan for OR today for partial calcanectomy left hell, possible wound vac Vascular consulted for possible angiogram -DICK characteristic of mild to moderate PAD -PVR suggest mild arterial insufficiency and would indicate the perfusion okay to heal -Would only offer angio if bleeding in OR today (Documented by Dinorah Hinds, MS4) (2) ESRD (end stage renal disease) on dialysis ICD Codes: N18.6 - End stage renal disease; Z99.2 - Dependence on renal dialysis Status: Acute Plan: -Creatinine 9.51 on admission and 10.55 today -On dialysis Wednesday, , Wednesday, will resume as scheduled. Patient is having dialysis today. -Hand Sander is Dr. Martinez from [place] -Resume home Renvela and Sensipar -Renally dose medications (3) Type 2 diabetes mellitus ICD Codes: E11.9 - Type 2 diabetes mellitus without complications Plan: A1c 8.1 in September 2017 -Accu-Cheks with sliding scale insulin (163, 160, 248, 198, over the past 24 hours, she has required 3 units total) -Continue Levemir at 10 units subcu twice daily -Titrate to effect -Diabetic counseling (4) Hypertension ICD Codes: I10 - Essential (primary) hypertension Status: Acute Plan: -Continue home metoprolol and clonidine (5) HLD (hyperlipidemia) ICD Codes: E78.5 - Hyperlipidemia, unspecified Plan: Continue atorvastatin 20 mg p.o. at bedtime (6) Hx of chronic congestive heart failure ICD Codes: Z86.79 - Personal history of other diseases of the circulatory system Plan: -Stable -Monitor for signs of acute exacerbation (7) Hx of coronary artery disease ICD Codes: Z86.79 - Personal history of other diseases of the circulatory system Plan: -Status post four-vessel CABG -Continue aspirin 81 mg p.o. daily (8) FEN/DVT PPX/GI PPX/Nursing Orders Plan: Fluids: Oral fluids only Electrolytes: Will monitor and replace as needed Nutrition: NPO with p.o. meds, otherwise renal diet DVT Prophylaxis: Unilateral SCD, heparin 5000 units subcu every 8 hours, hold at least 6 hours prior to surgery GI Prophylaxis: Not required Constipation prophylaxis: Pericolace 1 tab PO BID PRN Medications Tylenol 650 mg by mouth every 4 hours when necessary pain temperature greater than 100.4F Zofran 4 mg p.o. every 6 hours when necessary nausea vomiting [place] 325-5 mg as needed pain, Morphine prn breakthrough pain -Vitals Q4h -Monitor I's and O's -Fall precautions -Activity OOB with assistance -PT to assist with ambulation -Case management consult to assist with discharge needs Disposition: Pending podiatry evaluation and recommendations naseem Hinds, MS4 (Latonia Phelps MD R1) Latonia Phelps MD R1 December 07, 2017 10:44 Vijay Orellana MD December 07, 2017 13:57
[2017-12-07 11:12] LABS: CALCIUM-PROTEIN CORRECTED 8.3 MG/DL (8.5-10.1); TOTAL PROTEIN 7.2 GM/DL (6.4-8.2)
[2017-12-07 11:18] LABS: CREATININE 12.73 MG/DL (0.50-1.00)
[2017-12-07] MEDS ORDERED: VANCOMYCIN INJ 1,000 MG in SODIUM CHLOR 0.9% 250 ML INJ 250 ML IV SCH (12:15)
[2017-12-07] MEDS ORDERED: VANCOMYCIN INJ 1,000 MG in SODIUM CHLOR 0.9% 250 ML INJ 250 ML IV ONE (14:00)
--- NOTE | 2017-12-07 14:04 | PD.ID.CON ---
History of Present Illness Service ID Consult Requested By Dr Wolf Reason for Consult L calcaneous Primary Care Physician Unknown Diagnoses: History of Present Illness 52 yo female with DM, stroke ESRD presents with few mos of L heel wound, pain , drainage Pt is a poor historialn Pt is knoen to me She presented in September with L calcaneous osteomyelitis. It was culture negative She was treated with zosyn and vanco and eventually d/c'd she underwent calcanectomy on 09/24 and clx showed normal skin jr Pt was d/c'd on vanco ycin with HD with she completed on 10/30 She presetrnd day with signs of poor healing no fever, no leukocytosis MRI showed osteo again She is going for debridement today Review of Systems Except as stated in HPI: all other systems reviewed are Neg Past Family Social History Allergies: Coded Allergies: *MDRO Multi-Drug Resistant Organism (Verified Allergy, Unknown, 12/05/17) MRSA PCR (nares) negative - 11/19/15 & 11/21/15 Cleared per Infection Control MRSA 2013 Past Medical History type 2 diabetes, history of CVA with residual deficit, history of CHF, coronary artery disease, ESRD, dialysis Wednesday, and Wednesday, Past Surgical History Umbilical hernia repair; AV fistula, left arm ;cardiac surgery CABG x4; cardiac catheterizations; history of section x3; coronary artery bypass 2009, 4-vessel; eye surgery, right tear duct. Active Ordered Medications Medications where reviewed in EMR Antibiotics Include: vancomycin Family History reviewed Non-Contributory. Social History No Tobacco. No ETOH. No Illicit Drugs. Physical Exam Vital Signs Vital Signs Date Time Temp Pulse Resp B/P (MAP) Pulse Ox O2 Delivery O2 Flow Rate FiO2 12/07/17 12:00 97.2 69 18 138/71 (93) 100 12/07/17 10:15 Nasal Cannula 12/07/17 08:00 98.2 59 18 106/52 (70) 98 12/07/17 04:00 98.0 61 20 100/55 (70) 99 12/07/17 00:00 98.2 66 20 112/60 (77) 99 12/06/17 20:00 98.2 69 20 110/59 (76) 98 12/06/17 20:00 Room Air 12/06/17 16:03 98.6 67 18 100/51 (67) 100 Physical Exam CONSTITUTIONAL/GENERAL: This is an obese d patient, in no apparent distress. TUBES/LINES/DRAINS: LUE with AV Fistula in place, good thrill, no e/o infection SKIN: No jaundice, rashes, or lesions. Skin temperature appropriate. Not diaphoretic. HEAD: Atraumatic. Normocephalic. EYES: Pupils equal and round and reactive. Extraocular motions intact. No scleral icterus. No injection or drainage. Fundi not examined. ENT: Hearing grossly normal. Nose without bleeding or purulent drainage. Throat without visible erythema, exudates, masses, or lesions. NECK: Trachea midline. Supple, nontender. No palpable thyroid enlargement or nodularity. CARDIOVASCULAR: Regular rate and rhythm without murmurs, gallops, or rubs. No JVD. Peripheral pulses symmetric. RESPIRATORY/CHEST: Symmetric, unlabored respirations. Clear to auscultation. Breath sounds equal bilaterally. No wheezes, rales, or rhonchi. GASTROINTESTINAL: Abdomen soft, non-tender, nondistended. No hepato-splenomegaly , or palpable masses. No guarding. Bowel sounds present. GENITOURINARY: Without palpable bladder distension. MUSCULOSKELETAL: Extremities without clubbing, cyanosis, or edema. No joint tenderness or effusion noted. No calf tenderness. No mottling or clubbing. BLE edema L heel wound atatge III with poor healing and with gangrenous changes and strong anaerobic odor + ipsilateral inguinal LN Not much drainage LYMPHATICS: No palpable cervical or supraclavicular adenopathy . + L inguinale enlarged lymph node. NEUROLOGICAL: Awake and alert. Dense R sided hemiplegia Follows commands with R side . Clear speech. PSYCHIATRIC: No obvious anxiety/depression. no apparent hallucinations or other psychotic thought process. Laboratory Laboratory Tests Test 12/07/17 08:03 White Blood Count 11.8 Red Blood Count 3.58 Hemoglobin 9.6 Hematocrit 30.7 Mean Corpuscular Volume 85.8 Mean Corpuscular Hemoglobin 26.7 Mean Corpuscular Hemoglobin Concent 31.2 Red Cell Distribution Width 16.6 Platelet Count 196 Mean Platelet Volume 10.6 Blood Urea Nitrogen 83 Creatinine 12.73 Random Glucose 167 Total Protein 7.2 Calcium Level 8.3 Sodium Level 137 Potassium Level 5.4 Chloride Level 96 Carbon Dioxide Level 28.5 Anion Gap 13 Estimat Glomerular Filtration Rate 4 Protein Corrected Calcium 8.3 Parathyroid Hormone (Intact) 248.8 Date/Time Source Procedure Growth Status 12/06/17 15:55 Blood Peripheral Aerobic Blood Culture - Preliminary NO GROWTH IN 1 DAY Resulted 12/06/17 15:55 Blood Peripheral Anaerobic Blood Culture - Preliminary NO GROWTH IN 1 DAY Resulted Result Diagram: 12/07/17 0803 12/07/17 0803 Imaging Last Impressions Foot X-Ray 12/05/17 0000 Signed Impressions: CONCLUSION: No radiographic evidence observed to suggest osteomyelitis. Foot MRI 12/05/17 0000 Signed Impressions: CONCLUSION: 1. Increasing cortical erosion and bone marrow edema along the posterolateral margin of the calcaneus characteristic of osteomyelitis. 2. Large soft tissue defect the posterior lateral margin of the calcaneus jennifer acteristic of a large ulceration or area of debridement. 3. Otherwise stable appearing hindfoot. Extremity Arterial Study 12/05/17 0000 Signed Impressions: CONCLUSION: 1. Ankle-brachial index and toe brachial index are most characteristic of mild to moderate peripheral arterial disease. Assessment and Plan Assessment and Plan DFI L heel, L calcaneous osteo Poor healing DM ESRD, on HD Multiple med problems PLAN: vascular w/u planned for debridement today add modesto guzman Discussed Condition With Marzena Orozco MD December 07, 2017 14:04
[2017-12-07] MEDS: DOCUSATE SODIUM 50 MG/SENNA 8.6 MG TAB PO SCH ×2 (14:49→21:00)
[2017-12-07] MEDS ORDERED: ACETAMINOPHEN 1000 MG/100 ML 0 ML IV ONE (16:09)
[2017-12-07] MEDS ORDERED: KETAMINE HCL 50 MG/5 ML SYRINGE ONE (16:10)
[2017-12-07] MEDS: PIPERACIL-TAZO 2.25 GM PREMIX 50 ML IV SCH ×2 (16:11→23:48)
[2017-12-07] MEDS ORDERED: CISATRACURIUM BESYLATE 20 MG/10 ML VIAL ONE (16:59)
[2017-12-07] MEDS ORDERED: POVIDONE IODINE 5% (ANTISEPSIS KIT) 4 APPLICATIONS EACH NARE PRN (17:00)
[2017-12-07] MEDS ORDERED: LACTATED RINGER'S 1000 ML IV PRN (17:00)
[2017-12-07] MEDS ORDERED: CHLORHEXIDINE GLUCONATE 2 % 1 PACK (2 CLOTHS) TOPICAL PRN (17:00)
[2017-12-07] MEDS ORDERED: SODIUM CHLORID 0.9% 500 ML IV PRN (17:00)
[2017-12-07] MEDS ORDERED: METOPROLOL TARTRATE 25 MG TAB PO PRN (17:00)
--- NOTE | 2017-12-07 17:11 | PD.POD ---
Subjective Podiatric Problems left heel osteomyelitis Past Med/Surg/Social History Social History Smoking Status: Never Smoker Objective Vital Signs Vital Signs Date Time Temp Pulse Resp B/P (MAP) Pulse Ox O2 Delivery O2 Flow Rate FiO2 12/07/17 16:41 97.5 73 16 109/80 (90) 97 12/07/17 16:00 98.0 77 18 190/86 (120) 100 12/07/17 12:00 97.2 69 18 138/71 (93) 100 12/07/17 10:15 Nasal Cannula 12/07/17 08:00 98.2 59 18 106/52 (70) 98 12/07/17 04:00 98.0 61 20 100/55 (70) 99 12/07/17 00:00 98.2 66 20 112/60 (77) 99 12/06/17 20:00 98.2 69 20 110/59 (76) 98 12/06/17 20:00 Room Air Coded Allergies: *MDRO Multi-Drug Resistant Organism (Verified Allergy, Unknown, 12/05/17) MRSA PCR (nares) negative - 11/19/15 & 11/21/15 Cleared per Infection Control MRSA 2013 Assessment & Plan A/P Left heel osteomyelitis Surgery canceled due to nurse feeding patient against NPO order Discussed with Pooja, charge nurse and patient's floor nurse and reviewed the definition of NPO to avoid further treatment delay in patient care in the future. Discussed with nurse that this event will delay patient's surgery until Wednesday, as my surgery schedule is booked solid until then. Will assess for surgery later in the week as my schedule allows. My apologies to primary team, but this is beyond my control Elizabeth Wells DPM December 07, 2017 17:11
--- NOTE | 2017-12-07 17:14 | PD.WCN.NOT ---
Wound Consult Additional Information: Attempted to see patient at 1705, patient in surgery, will attempt to see patient tomorrow for wound care consult of sacrum. Laquita Herbert [facility] December 07, 2017 17:14
[2017-12-07] MEDS: CINACALCET HYDROCHLORIDE 30 MG TAB PO SCH (21:06)
[2017-12-07] MEDS: ATORVASTATIN 20 MG TAB PO SCH (21:07)
[2017-12-08] VITALS (8 sets, daily range): BP systolic 91–117; BP diastolic 50–58; PULSE 62–71; RESP 16–18; TEMP 98–99.2; O2SAT 96–100
[2017-12-08] MEDS: HEPARIN SODIUM - SQ 10,000 UNITS/ML VIAL SQ SCH ×3 (07:00→22:20)
[2017-12-08] MEDS: PIPERACIL-TAZO 2.25 GM PREMIX 50 ML IV SCH ×2 (08:00→16:26)
[2017-12-08] MEDS: INSULIN ASPART SUPPLEMENTAL SCALE SQ SCH ×4 (08:00→22:22)
[2017-12-08] MEDS: DOCUSATE SODIUM 50 MG/SENNA 8.6 MG TAB PO SCH ×2 (09:00→22:20)
[2017-12-08] MEDS: CHOLECALCIFEROL (VIT D3) 1000 UNIT TAB PO SCH (09:00)
[2017-12-08] MEDS: INSULIN DETEMIR 100 UNITS/ML VIAL SQ SCH ×2 (09:00→22:21)
[2017-12-08] MEDS: VITAMIN B CMPLX/VITC/FOLIC AC CAP PO SCH (09:00)
[2017-12-08] MEDS: METOPROLOL TARTRATE 25 MG TAB PO SCH ×3 (09:00→22:20)
[2017-12-08] MEDS: GABAPENTIN 100 MG CAP PO SCH ×2 (09:00→22:21)
[2017-12-08] MEDS: cloNIDine HCL 0.2 MG TAB PO SCH (09:00)
[2017-12-08] MEDS: SODIUM CHLORIDE 0.9% FLUSH 10 ML FLUSH IV FLUSH SCH ×2 (09:00→22:19)
[2017-12-08] MEDS: SEVELAMER CARBONATE 800 MG TAB PO SCH ×3 (09:00→19:03)
[2017-12-08] MEDS: ASPIRIN 81 MG CHEW TAB PO SCH (09:00)
--- NOTE | 2017-12-08 09:56 | HHI.FPPN ---
Subjective Remarks 52 y/o female with nonhealing diabetic ulcer on left calcaneus and osteomyelitis. She is found sitting comfortably in bed, having breakfast. No acute events overnight. Doing well with no complaints. Her last BM was 7 days ago. Reports some flatulence. She denies fevers, chills, chest pain, shortness of breath, nausea or vomiting. Left heel calcanectomy canceled because patient received 2 spoonfuls of applesauce with medications. Plan for rescheduled surgery as soon as Podiatry team's schedule allows. Documented by Dinorah Hinds, MS4 Patient doing well this morning, no complaints except disappointed that she did not have surgery yesterday. Information Delivery Analyst will try to schedule surgery for WednesdayDecember 10 if her schedule permits. Documented by Yuridia Perez, PGY-2 (Yuridia Perez MD R2) Objective Vitals Vital Signs Date Time Temp Pulse Resp B/P (MAP) Pulse Ox O2 Delivery O2 Flow Rate FiO2 12/08/17 04:00 98.0 65 16 105/58 (74) 100 12/08/17 04:00 Room Air 12/08/17 00:00 99.2 71 17 117/58 (77) 97 12/08/17 00:00 Room Air 12/07/17 20:00 98.3 70 18 117/57 (77) 100 12/07/17 20:00 Room Air 12/07/17 18:45 Nasal Cannula 21 12/07/17 17:23 97 21 12/07/17 16:41 97.5 73 16 109/80 (90) 97 12/07/17 16:00 98.0 77 18 190/86 (120) 100 12/07/17 12:00 97.2 69 18 138/71 (93) 100 12/07/17 10:15 Nasal Cannula I/O 12/07/17 12/07/17 12/07/17 12/08/17 12/08/17 12/08/17 07:00 15:00 23:00 07:00 15:00 23:00 Intake Total 0 ml 0 ml 500 ml Output Total 0 ml 3000 ml Balance 0 ml -3000 ml 0 ml 500 ml Intake Oral 0 ml 0 ml 400 ml IV Total 100 ml Output Urine Total 0 ml Hemodialysis 3000 ml # Voids 0 0 # Bowel Movements 0 0 (Yuridia Perez MD R2) Result Diagram: 12/07/17 0803 12/07/17 0803 Other Results GENERAL: This is a well-nourished, well-developed patient, in no apparent distress. Legally blind. SKIN: Stage I sacral decubitus ulcer with small amount of erythema over the sacrum and superficial ulcerations just right of midline. NECK: Trachea midline. No JVD or lymphadenopathy. Supple, nontender, no meningeal signs. CARDIOVASCULAR: Regular rate and rhythm without murmurs, gallops, or rubs. RESPIRATORY: Clear to auscultation bilaterally. Breath sounds equal bilaterally. No wheezes, rales, or rhonchi. GASTROINTESTINAL: Abdomen soft, non-tender, nondistended, obese. MUSCULOSKELETAL: Nonhealing diabetic foot ulcer in the left heel measuring 9 x 5 cm. Motor intact, patient able to move LUE and wiggle toes. NEUROLOGICAL: Awake and alert. Oriented x3. (Documented by Dinorah Hinds, MS4) GENERAL: Patient sitting up in bed, cheerful NECK: Supple, nontender, no meningeal signs. CARDIOVASCULAR: Regular rate and rhythm without murmurs, gallops, or rubs. RESPIRATORY: Clear to auscultation bilaterally. Breath sounds equal bilaterally. GASTROINTESTINAL: Abdomen soft, non-tender, nondistended, obese. MUSCULOSKELETAL: Nonhealing diabetic foot ulcer in the left heel wrapped in gauze NEUROLOGICAL: Awake and alert. Oriented x3. Documented by Yuridia Perez, PGY-2 (Yuridia Perez MD R2) A/P Assessment and Plan 52-year-old female presents with nonhealing diabetic foot ulcer. Plan: Continue Vanc and zosyn Plan for rescheduled surgery as Podiatry schedule allows. Documented by Dinorah Hinds, MS4 Discharge Planning Plan for rescheduled surgery, partial calcanectomy with possible wound vac Will need PT at rehab (Yuridia Perez MD R2) Attending Attestation Patient examined independently and case discussed with resident physicians I have read the above note and agree with the assessment/plan as discussed with me I was involved in all medical decision making for this patient Vijay Orellana MD (Vijay Orellana MD) Problem List: (1) Osteomyelitis of left foot ICD Codes: M86.9 - Osteomyelitis, unspecified Plan: MRI of the right foot shows increasing cortical erosion and bone marrow edema along the posterior lateral margin of the calcaneus characteristic of osteomyelitis. Large soft tissue defect in the posterior lateral margin of the calcaneus characteristic of a large ulceration of area or debridement. -Foot x-ray shows soft tissues lucency involving the heel suggesting ulceration, no radiographic evidence to suggest osteomyelitis IV antibiotics: Continue Vancomycin 1 g IV given 1 in the emergency department, infectious disease consulted to manage dosing with dialysis Continue Zosyn 2.275 g IV every 12 hours (12/06-12/06) Infectious disease consult for long-term antibiotic management Blood cultures showed no growth x 1 day Podiatry consulted -Plan for partial left heel calcanectomy with possible wound vac, as schedule allows Vascular consulted for possible angiogram -DICK characteristic of mild to moderate PAD -PVR suggest mild arterial insufficiency and would indicate the perfusion okay to heal -Would only offer angio if bleeding in OR (Documented by Dinorah Hinds, MS4) (2) ESRD (end stage renal disease) on dialysis ICD Codes: N18.6 - End stage renal disease; Z99.2 - Dependence on renal dialysis Status: Acute Plan: -Creatinine 9.51 on admission and 12.73 on 12/07 -Morning labs still pending -On dialysis Wednesday, , Wednesday, will continue as scheduled -Roll Bucker is Dr. Martinez from [place] -Continue home Renvela and Sensipar -Renally dose medications (3) Type 2 diabetes mellitus ICD Codes: E11.9 - Type 2 diabetes mellitus without complications Plan: A1c 8.1 in September 2017 -Accu-Cheks with sliding scale insulin (179, 122, 122, 173, 115 over the past 24 hours. She has not required insulin) -Continue Levemir at 10 units subcu twice daily -Titrate to effect -Diabetic counseling (4) Hypertension ICD Codes: I10 - Essential (primary) hypertension Status: Acute Plan: -Well-controlled -Continue home metoprolol and clonidine (5) HLD (hyperlipidemia) ICD Codes: E78.5 - Hyperlipidemia, unspecified Plan: Continue atorvastatin 20 mg p.o. at bedtime (6) Hx of chronic congestive heart failure ICD Codes: Z86.79 - Personal history of other diseases of the circulatory system Plan: -Stable -Monitor for signs of acute exacerbation (7) Hx of coronary artery disease ICD Codes: Z86.79 - Personal history of other diseases of the circulatory system Plan: -Status post four-vessel CABG -Continue aspirin 81 mg p.o. daily (8) FEN/DVT PPX/GI PPX/Nursing Orders Plan: Fluids: Oral fluids only Electrolytes: Will monitor and replace as needed Nutrition: Renal diet as tolerated. Will return to NPO before surgery. DVT Prophylaxis: Unilateral SCD, heparin 5000 units subcu every 8 hours GI Prophylaxis: Not required Constipation prophylaxis: Pericolace 1 tab PO BID PRN Medications Tylenol 650 mg by mouth every 4 hours when necessary pain temperature greater than 100.4F Zofran 4 mg p.o. every 6 hours when necessary nausea vomiting [place] 325-5 mg as needed pain, Morphine prn breakthrough pain -Vitals Q4h -Monitor I's and O's -Fall precautions -Activity OOB with assistance -PT to assist with ambulation -Case management consult to assist with discharge needs Disposition: Pending podiatry evaluation and recommendations Documented by Dinorah Hinds MS4 Documented by Yuridia Perez, PGY-2 (Yuridia Perez MD R2) Yuridia Perez MD R2 December 08, 2017 09:56 Vijay Orellana MD December 09, 2017 10:35
--- NOTE | 2017-12-08 10:15 | HHI.NPPN ---
Subjective Renal Failure: End Stage Renal Disease History of Present Illness This is a 52-year-old female known to me from before with a past medical history of hypertension, diabetes mellitus, history of cerebrovascular accident , hyperlipidemia, ischemic heart disease, congestive heart failure, chronic anemia, end-stage renal disease on hemodialysis 3 times per week who was transferred to the hospital for a left heel ulcer, which is nonhealing.Nephrology was called for the management of dialysis. The patient was on hemodialysis here in the [facility] some time ago and then she moved to [place] because her daughter lives there and she has been getting dialysis there. Her hand inserter operator is Dr. Martinez over there.The patient is in a nursing facility and she has this wound on her left heel for which reason she was admitted before and it is not healing and she has been following with podiatry and she is admitted for antibiotic and debridement of the wound. The patient has some pain in the left heel area. She denies any nausea or vomiting. There is no history of fever. No shortness of breath. No chest pain. Her last hemodialysis was done on Wednesday through the left arm arteriovenous fistula. Additional Remarks Patient somewhat anxious about surgery being cancelled yesterday. No shortness of breath. (Felicitas Galo) Review of Systems Respiratory Respiratory Remarks Denies shortness of breath (Felicitas Galo) Cardiovascular Cardiac Remarks No chest pain (Felicitas Galo) Gastrointestinal GI Remarks No abdominal pain (Felicitas Galo) Objective Data Data Vital Signs Date Time Temp Pulse Resp B/P (MAP) Pulse Ox O2 Delivery O2 Flow Rate FiO2 12/08/17 04:00 98.0 65 16 105/58 (74) 100 12/08/17 04:00 Room Air 12/08/17 00:00 99.2 71 17 117/58 (77) 97 12/08/17 00:00 Room Air 12/07/17 20:00 98.3 70 18 117/57 (77) 100 12/07/17 20:00 Room Air 12/07/17 18:45 Nasal Cannula 21 12/07/17 17:23 97 21 12/07/17 16:41 97.5 73 16 109/80 (90) 97 12/07/17 16:00 98.0 77 18 190/86 (120) 100 12/07/17 12:00 97.2 69 18 138/71 (93) 100 12/07/17 10:15 Nasal Cannula (Felicitas Galo) -: 12/07/17 0803 12/07/17 0803 Imaging Last Impressions Foot X-Ray 12/05/17 0000 Signed Impressions: CONCLUSION: No radiographic evidence observed to suggest osteomyelitis. Foot MRI 12/05/17 0000 Signed Impressions: CONCLUSION: 1. Increasing cortical erosion and bone marrow edema along the posterolateral margin of the calcaneus characteristic of osteomyelitis. 2. Large soft tissue defect the posterior lateral margin of the calcaneus jennifer acteristic of a large ulceration or area of debridement. 3. Otherwise stable appearing hindfoot. Extremity Arterial Study 12/05/17 0000 Signed Impressions: CONCLUSION: 1. Ankle-brachial index and toe brachial index are most characteristic of mild to moderate peripheral arterial disease. (Felicitas Galo) Physical Exam General Appearance: Well Nourished, No Acute Distress, Comfortable (Felicitas Galo) Throat Throat Exam: Oral Mucosa [place] & Moist (Felicitas Galo) Pulmonary Resp Exam: Clear Bilaterally, Breath Sounds Equal, No Distress (Felicitas Galo) Cardiology CV Exam: Normal Sinus Rhythm (Felicitas Galo) Gastrointestinal/Abdomen GI Exam: Soft, Non-Tender, Bowel Sounds Present (Felicitas Galo) Genitourinary Exam: Flank Non-Tender (Felicitas Galo) Integumentary Skin Exam: Clear, Warm, Lesion(s) Skin Remarks Left foot with dressing on (Felicitas Galo) Extremeties Extremities Exam: No Edema, Moderate Edema (Felicitas Galo) Neurologic Neuro Exam: Alert, Awake (Felicitas Galo) Psychiatric Psych Exam: Appropriate Responses (Felicitas Galo) Assessment/Plan Discussed Condition With: Patient Problem List: (1) ESRD (end stage renal disease) on dialysis ICD Codes: N18.6 - End stage renal disease; Z99.2 - Dependence on renal dialysis Status: Acute Plan: Hemodialysis on Wednesday, , and Wednesday. Her hand inserter operator is Dr. Martinez from [place]. Left arm arteriovenous fistula with positive thrill and bruit Avoid fluid administration Renal diet. Hemodialysis yesterday for a UF of 3 liters. Labs pending today NPO after breakfast tomorrow, surgery planned for evening. Dialysis in AM, notified dialysis Blood pressure on lower side will decrease clonidine and hold this morning. (2) Diabetic foot ulcer associated with type 2 diabetes mellitus ICD Codes: E11.621 - Type 2 diabetes mellitus with foot ulcer; L97.509 - Non- pressure chronic ulcer of other part of unspecified foot with unspecified severity Plan: Podiatry and Vascular surgery consulted OR today/ Antibiotics per ID (3) Type 2 diabetes mellitus ICD Codes: E11.9 - Type 2 diabetes mellitus without complications Plan: Maintain blood sugars between 140 mg/dl to 180 mg/dl (4) Hypertension ICD Codes: I10 - Essential (primary) hypertension Status: Acute Plan: Well controlled will monitor (Felicitas Galo) Problem List: (1) ESRD (end stage renal disease) on dialysis ICD Codes: N18.6 - End stage renal disease; Z99.2 - Dependence on renal dialysis Status: Acute Plan: Hemodialysis on Wednesday, , and Wednesday. Her hand inserter operator is Dr. Martinez from [place]. Left arm arteriovenous fistula with positive thrill and bruit Avoid fluid administration Renal diet. Hemodialysis yesterday for a UF of 3 liters. Labs pending today NPO after breakfast tomorrow, surgery planned for evening. Dialysis in AM, notified dialysis Blood pressure on lower side will decrease clonidine and hold this morning. Patient seen and examined, agree with above. Continue antibiotics. (2) Diabetic foot ulcer associated with type 2 diabetes mellitus ICD Codes: E11.621 - Type 2 diabetes mellitus with foot ulcer; L97.509 - Non- pressure chronic ulcer of other part of unspecified foot with unspecified severity Plan: Podiatry and Vascular surgery consulted OR today/ Antibiotics per ID (3) Type 2 diabetes mellitus ICD Codes: E11.9 - Type 2 diabetes mellitus without complications Plan: Maintain blood sugars between 140 mg/dl to 180 mg/dl (4) Hypertension ICD Codes: I10 - Essential (primary) hypertension Status: Acute Plan: Well controlled will monitor (Ivonne Coffey MD) Problem Qualifiers (1) Diabetic foot ulcer associated with type 2 diabetes mellitus: Felicitas Galo December 08, 2017 10:15 Ivonne Coffey MD December 08, 2017 21:22
--- NOTE | 2017-12-08 10:34 | PD.WCN.NOT ---
Wound Consult Description: Received consult for wound management of sacrum from Doctor Perez Communicated with: Rn Echo servin and Doctor Ana Recommendation: 1.Please keep encourage and assist patient with turning repositioning every 2 hours for offloading of pressure from maximo prominences. 2. Encourage patient to not wear briefs in bed and use ultra sorb pads for moisture management. Briefs are moisture trapping devices 3.Cleanse skin to buttock, gluteal cleft and perianal area with remedy barrier wipes. Please apply Calazime skin protectant paste to gluteal cleft and bilateral buttocks covering area with denuded scar tissue BID and PRN and leave open to air Additional Information: Patient seen on for evaluation of wound management of sacral area around 0830. Patient is able to turn with minimal assistance to R side. Briefs were pulled down to reveal denuded peeling skin and scar tissue to to L inner buttock and gluteal cleft that are moisture related. No open wound or pressure injury to buttock, sacral and coccyx areas noted at this time. Removed two moist cloth pads, two moist ultra sorb pads and fitted bed sheet from under patient. Patient did not want brief removed at this time and requested pad for repositioning purposes be placed under her. Explained to patient that briefs are a moisture trapping device and are used with walking patient's only in hospital. Patient insisted on wearing brief. Placed one clean cloth pad under patient, no ultra sorb pads are available at this time.Calazime skin protectant paste was applied to bilateral inner buttocks and gluteal cleft, before brief was pulled up per patient's request. Laquita Herbert [facility] December 08, 2017 10:34
[2017-12-08 11:59] LABS: HEMATOCRIT 34.1 % (35.0-46.0); HEMOGLOBIN 10.7 GM/DL (11.6-15.3); MEAN CELL VOLUME 86.2 FL (80.0-100.0); MEAN CORPUSCULAR HGB CONC 31.4 % (32.0-36.0); MEAN PLATELET VOLUME 10.2 FL (7.0-11.0); PLATELET COUNT 221 TH/MM3 (150-450); RED BLOOD COUNT 3.96 MIL/MM3 (4.00-5.30); RED CELL DISTRIBUTION WIDTH 16.6 % (11.6-17.2); WHITE BLOOD COUNT 11.5 TH/MM3 (4.0-11.0)
[2017-12-08 12:24] LABS: BICARBONATE 27.5 MEQ/L (21.0-32.0); CREATININE 9.66 MG/DL (0.50-1.00)
--- NOTE | 2017-12-08 19:34 | HHI.IDPN ---
Subjective Subjective Remarks pt ate and did not go to the surgery she is afebrile no new problems Antibiotics zosyn vanco Allergies: Coded Allergies: *MDRO Multi-Drug Resistant Organism (Verified Allergy, Unknown, 12/05/17) MRSA PCR (nares) negative - 11/19/15 & 11/21/15 Cleared per Infection Control MRSA 2013 Objective . Vital Signs Date Time Temp Pulse Resp B/P (MAP) Pulse Ox O2 Delivery O2 Flow Rate FiO2 12/08/17 16:00 98.4 66 18 107/57 (74) 100 12/08/17 13:49 97 21 12/08/17 12:00 98.2 68 16 91/50 (64) 97 12/08/17 08:00 98.0 62 18 95/51 (66) 96 12/08/17 07:00 Room Air 12/08/17 04:00 98.0 65 16 105/58 (74) 100 12/08/17 04:00 Room Air 12/08/17 00:00 99.2 71 17 117/58 (77) 97 12/08/17 00:00 Room Air 12/07/17 20:00 98.3 70 18 117/57 (77) 100 12/07/17 20:00 Room Air 12/08/17 12/08/17 12/09/17 15:00 23:00 07:00 Intake Total 740 ml Balance 740 ml Intake Oral 740 ml # Voids 0 # Bowel Movements 1 . Laboratory Tests Test 12/07/17 08:03 12/08/17 11:31 White Blood Count 11.8 TH/MM3 11.5 TH/MM3 Red Blood Count 3.58 MIL/MM3 3.96 MIL/MM3 Hemoglobin 9.6 GM/DL 10.7 GM/DL Hematocrit 30.7 % 34.1 % Mean Corpuscular Volume 85.8 FL 86.2 FL Mean Corpuscular Hemoglobin 26.7 PG 27.0 PG Mean Corpuscular Hemoglobin Concent 31.2 % 31.4 % Red Cell Distribution Width 16.6 % 16.6 % Platelet Count 196 TH/MM3 221 TH/MM3 Mean Platelet Volume 10.6 FL 10.2 FL Laboratory Tests Test 12/07/17 08:03 12/08/17 11:31 Blood Urea Nitrogen 83 MG/DL 54 MG/DL Creatinine 12.73 MG/DL 9.66 MG/DL Random Glucose 167 MG/DL 206 MG/DL Total Protein 7.2 GM/DL Calcium Level 8.3 MG/DL 8.0 MG/DL Sodium Level 137 MEQ/L 138 MEQ/L Potassium Level 5.4 MEQ/L 4.7 MEQ/L Chloride Level 96 MEQ/L 96 MEQ/L Carbon Dioxide Level 28.5 MEQ/L 27.5 MEQ/L Anion Gap 13 MEQ/L 15 MEQ/L Estimat Glomerular Filtration Rate 4 ML/MIN 5 ML/MIN Protein Corrected Calcium 8.3 MG/DL Parathyroid Hormone (Intact) 248.8 PG/ML Microbiology Date/Time Source Procedure Growth Status 12/06/17 15:55 Blood Peripheral Aerobic Blood Culture - Preliminary NO GROWTH IN 2 DAYS Resulted 12/06/17 15:55 Blood Peripheral Anaerobic Blood Culture - Preliminary NO GROWTH IN 2 DAYS Resulted 12/06/17 15:47 Blood Peripheral Aerobic Blood Culture - Preliminary NO GROWTH IN 2 DAYS Resulted 12/06/17 15:47 Blood Peripheral Anaerobic Blood Culture - Preliminary NO GROWTH IN 2 DAYS Resulted Imaging Last Impressions Foot X-Ray 12/05/17 Signed Impressions: CONCLUSION: No radiographic evidence observed to suggest osteomyelitis. Foot MRI 12/05/17 Signed Impressions: CONCLUSION: 1. Increasing cortical erosion and bone marrow edema along the posterolateral margin of the calcaneus characteristic of osteomyelitis. 2. Large soft tissue defect the posterior lateral margin of the calcaneus jennifer acteristic of a large ulceration or area of debridement. 3. Otherwise stable appearing hindfoot. Extremity Arterial Study 12/05/17 Signed Impressions: CONCLUSION: 1. Ankle-brachial index and toe brachial index are most characteristic of mild to moderate peripheral arterial disease. Physical Exam CONSTITUTIONAL/GENERAL: This is an obese d patient, in no apparent distress. TUBES/LINES/DRAINS: LUE with AV Fistula in place, good thrill, no e/o infection SKIN: No jaundice, rashes, or lesions. CARDIOVASCULAR: Regular rate and rhythm without murmurs, gallops, or rubs. RESPIRATORY/CHEST: Symmetric, unlabored respirations. Clear to auscultation. GASTROINTESTINAL: Abdomen soft, non-tender, nondistended. No hepato-splenomegaly , or palpable masses. No guarding. Bowel sounds present. GENITOURINARY: Without palpable bladder distension. MUSCULOSKELETAL: Extremities without clubbing, cyanosis, or edema. No joint tenderness or effusion noted. No calf tenderness. No mottling or clubbing. BLE edema L heel wound stage III-IV with poor healing and with gangrenous changes and strong anaerobic odor + ipsilateral inguinal LN cont to have very strong anaerobic smell Not much drainage NEUROLOGICAL: Awake and alert. Dense R sided hemiplegia Follows commands with R side . Clear speech. PSYCHIATRIC: No obvious anxiety/depression. no apparent hallucinations or other psychotic thought process. Assessment & Plan Remarks DFI L heel, L calcaneous osteo - previously culture negative Poor healing Mild to mod arterial diseas [per arterial studies DM ESRD, on HD ( T-T -S) Multiple med problems PLAN: vascular w/u planned for debridement tomorrow awaiting op bone culture cont zosyn, cont vanco w Marzena Tovar MD December 08, 2017 19:34
[2017-12-08] MEDS: cloNIDine HCL 0.1 MG TAB PO SCH (21:00)
--- NOTE | 2017-12-08 21:09 | PD.POD ---
Subjective Podiatric Problems left heel osteomyelitis Past Med/Surg/Social History Social History Smoking Status: Never Smoker Objective Vital Signs Vital Signs Date Time Temp Pulse Resp B/P (MAP) Pulse Ox O2 Delivery O2 Flow Rate FiO2 12/08/17 20:03 98.2 69 16 105/58 (74) 100 12/08/17 16:00 98.4 66 18 107/57 (74) 100 12/08/17 13:49 97 21 12/08/17 12:00 98.2 68 16 91/50 (64) 97 12/08/17 08:00 98.0 62 18 95/51 (66) 96 12/08/17 07:00 Room Air 12/08/17 04:00 98.0 65 16 105/58 (74) 100 12/08/17 04:00 Room Air 12/08/17 00:00 99.2 71 17 117/58 (77) 97 12/08/17 00:00 Room Air Coded Allergies: *MDRO Multi-Drug Resistant Organism (Verified Allergy, Unknown, 12/05/17) MRSA PCR (nares) negative - 11/19/15 & 11/21/15 Cleared per Infection Control MRSA 2013 Assessment & Plan A/P Left heel osteomyelitis Will attempt to perform patient's surgery tomorrow p.m. NPO after breakfast Elizabeth Wells DPM December 08, 2017 21:09
[2017-12-08] MEDS: CINACALCET HYDROCHLORIDE 30 MG TAB PO SCH (22:20)
[2017-12-08] MEDS: ATORVASTATIN 20 MG TAB PO SCH (22:21)
[2017-12-09] VITALS: BP 156/93; PULSE 73; RESP 16; TEMP 97.4; O2SAT 96
[2017-12-09] MEDS: PIPERACIL-TAZO 2.25 GM PREMIX 50 ML IV SCH ×3 (01:37→17:10)
[2017-12-09 04:00] VITALS: BP 121/69; PULSE 68; RESP 20; TEMP 97.8; O2SAT 100
[2017-12-09] MEDS: HEPARIN SODIUM - SQ 10,000 UNITS/ML VIAL SQ SCH ×3 (05:41→21:46)
[2017-12-09 06:21] LABS: HEMATOCRIT 31.5 % (35.0-46.0); HEMOGLOBIN 9.7 GM/DL (11.6-15.3); MEAN CELL VOLUME 86.4 FL (80.0-100.0); MEAN CORPUSCULAR HEMOGLOBIN 26.7 PG (27.0-34.0); MEAN CORPUSCULAR HGB CONC 30.9 % (32.0-36.0); MEAN PLATELET VOLUME 10.4 FL (7.0-11.0); PLATELET COUNT 191 TH/MM3 (150-450); RED BLOOD COUNT 3.64 MIL/MM3 (4.00-5.30); RED CELL DISTRIBUTION WIDTH 16.7 % (11.6-17.2)
[2017-12-09 06:39] LABS: BICARBONATE 26.6 MEQ/L (21.0-32.0); CALCIUM 8.1 MG/DL (8.5-10.1)
[2017-12-09 06:43] LABS: CREATININE 11.08 MG/DL (0.50-1.00)
[2017-12-09 08:00] VITALS: BP 123/58; PULSE 70; RESP 16; TEMP 98.4; O2SAT 100
[2017-12-09] MEDS: INSULIN ASPART SUPPLEMENTAL SCALE SQ SCH ×4 (08:00→21:46)
--- NOTE | 2017-12-09 08:17 | HHI.FPPN ---
Subjective Remarks Patient is doing well this morning. She has no concerns. She understands that she can eat breakfast this morning but she will be NPO after breakfast for surgery in the evening. She reports minimal pain in her left foot and the sacral skin irritation is doing much better. She denies fever or chills. She had a bowel movement yesterday and felt much better. (Yuridia Perez MD R2) Objective Vitals Vital Signs Date Time Temp Pulse Resp B/P (MAP) Pulse Ox O2 Delivery O2 Flow Rate FiO2 12/09/17 04:00 Room Air 12/09/17 04:00 97.8 68 20 121/69 (86) 100 12/09/17 00:00 Room Air 12/09/17 00:00 97.4 73 16 156/93 (114) 96 12/08/17 21:56 100 21 12/08/17 20:03 98.2 69 16 105/58 (74) 100 12/08/17 20:00 Room Air 12/08/17 16:00 98.4 66 18 107/57 (74) 100 12/08/17 13:49 97 21 12/08/17 12:00 98.2 68 16 91/50 (64) 97 I/O 12/08/17 12/08/17 12/08/17 12/09/17 12/09/17 12/09/17 07:00 15:00 23:00 07:00 15:00 23:00 Intake Total 500 ml 740 ml Balance 500 ml 740 ml Intake Oral 400 ml 740 ml IV Total 100 ml # Voids 0 # Bowel Movements 1 (Yuridia Perez MD R2) Result Diagram: 12/09/17 0539 12/09/17 0539 Imaging Last Impressions Foot X-Ray 12/05/17 0000 Signed Impressions: CONCLUSION: No radiographic evidence observed to suggest osteomyelitis. Foot MRI 12/05/17 0000 Signed Impressions: CONCLUSION: 1. Increasing cortical erosion and bone marrow edema along the posterolateral margin of the calcaneus characteristic of osteomyelitis. 2. Large soft tissue defect the posterior lateral margin of the calcaneus jennifer acteristic of a large ulceration or area of debridement. 3. Otherwise stable appearing hindfoot. Extremity Arterial Study 12/05/17 Signed Impressions: CONCLUSION: 1. Ankle-brachial index and toe brachial index are most characteristic of mild to moderate peripheral arterial disease. Objective Remarks GENERAL: Patient sitting up in bed, no distress NECK: Supple, nontender, no meningeal signs CARDIOVASCULAR: Regular rate and rhythm without murmurs, gallops, or rubs. RESPIRATORY: Clear to auscultation bilaterally. Breath sounds equal bilaterally. GASTROINTESTINAL: Abdomen soft, non-tender, nondistended, obese. MUSCULOSKELETAL: Nonhealing diabetic foot ulcer in the left heel wrapped in gauze, 2+ DP pulse NEUROLOGICAL: Awake and alert. Oriented x3. (Yuridia Perez MD R2) A/P Assessment and Plan 52-year-old female presents with nonhealing diabetic foot ulcer. Discharge Planning Plan for rescheduled surgery today, partial calcanectomy with possible wound vac Will need PT at rehab (Yuridia Perez MD R2) Attending Attestation Patient examined independently and case discussed with resident physician I have read the above note and agree with the assessment/plan as discussed with me I was involved in all medical decision making for this patient Vijay Orellana MD (Vijay Orellana MD) Problem List: (1) Osteomyelitis of left foot ICD Codes: M86.9 - Osteomyelitis, unspecified Plan: MRI of the right foot shows increasing cortical erosion and bone marrow edema along the posterior lateral margin of the calcaneus characteristic of osteomyelitis. Large soft tissue defect in the posterior lateral margin of the calcaneus characteristic of a large ulceration of area or debridement. -Foot x-ray shows soft tissues lucency involving the heel suggesting ulceration, no radiographic evidence to suggest osteomyelitis IV antibiotics: Continue Vancomycin 1 g IV given 1 in the emergency department, infectious disease consulted to manage dosing with dialysis Continue Zosyn 2.275 g IV every 12 hours (12/06-12/06) Infectious disease consult for long-term antibiotic management Blood cultures show no growth x 2 days Podiatry consulted -Plan for partial left heel calcanectomy with possible wound vac Vascular consulted for possible angiogram -DICK characteristic of mild to moderate PAD -PVR suggest mild arterial insufficiency and would indicate the perfusion okay to heal -Would only offer angio if bleeding in OR (2) ESRD (end stage renal disease) on dialysis ICD Codes: N18.6 - End stage renal disease; Z99.2 - Dependence on renal dialysis Status: Acute Plan: -Creatinine 9.51 on admission and 11.08 today -On dialysis Wednesday, , Wednesday, will continue as scheduled -Motor Coach Bus Driver is Dr. Martinez from [place] -Continue home Renvela and Sensipar -Renally dose medications (3) Type 2 diabetes mellitus ICD Codes: E11.9 - Type 2 diabetes mellitus without complications Plan: A1c 8.1 in September 2017 -Accu-Cheks with sliding scale insulin -Continue Levemir at 10 units subcu twice daily -Titrate to effect -Diabetic counseling (4) Hypertension ICD Codes: I10 - Essential (primary) hypertension Status: Acute Plan: -Well-controlled -Continue home metoprolol and clonidine (5) HLD (hyperlipidemia) ICD Codes: E78.5 - Hyperlipidemia, unspecified Plan: Continue atorvastatin 20 mg p.o. at bedtime (6) Hx of chronic congestive heart failure ICD Codes: Z86.79 - Personal history of other diseases of the circulatory system Plan: -Stable -Monitor for signs of acute exacerbation (7) Hx of coronary artery disease ICD Codes: Z86.79 - Personal history of other diseases of the circulatory system Plan: -Status post four-vessel CABG -Continue aspirin 81 mg p.o. daily (8) FEN/DVT PPX/GI PPX/Nursing Orders Plan: Fluids: Oral fluids only Electrolytes: Will monitor and replace as needed Nutrition: Renal diet as tolerated. NPO after breakfast today DVT Prophylaxis: heparin 5000 units subcu every 8 hours GI Prophylaxis: Not required Constipation prophylaxis: Pericolace 1 tab PO BID PRN Medications Tylenol 650 mg by mouth every 4 hours when necessary pain temperature greater than 100.4F Zofran 4 mg p.o. every 6 hours when necessary nausea vomiting Strunk 325-5 mg as needed pain, Morphine prn breakthrough pain -Vitals Q4h -Monitor I's and O's -Fall precautions -Activity OOB with assistance -Case management consult to assist with discharge needs (Yuridia Perez MD R2) Yuridia Perez MD R2 December 09, 2017 08:17 Vijay Orellana MD December 09, 2017 13:51
[2017-12-09] MEDS: cloNIDine HCL 0.1 MG TAB PO SCH ×2 (08:19→21:45)
[2017-12-09] MEDS: ASPIRIN 81 MG CHEW TAB PO SCH (08:19)
[2017-12-09] MEDS: VITAMIN B CMPLX/VITC/FOLIC AC CAP PO SCH (08:19)
[2017-12-09] MEDS: METOPROLOL TARTRATE 25 MG TAB PO SCH ×2 (08:19→21:45)
[2017-12-09] MEDS: DOCUSATE SODIUM 50 MG/SENNA 8.6 MG TAB PO SCH ×2 (08:20→21:45)
[2017-12-09] MEDS: GABAPENTIN 100 MG CAP PO SCH ×2 (08:20→21:45)
[2017-12-09] MEDS: SEVELAMER CARBONATE 800 MG TAB PO SCH ×3 (08:20→18:07)
[2017-12-09] MEDS: CHOLECALCIFEROL (VIT D3) 1000 UNIT TAB PO SCH (08:20)
[2017-12-09] MEDS: INSULIN DETEMIR 100 UNITS/ML VIAL SQ SCH ×2 (09:00→21:45)
--- NOTE | 2017-12-09 09:44 | HHI.NPPN ---
Subjective Renal Failure: End Stage Renal Disease History of Present Illness This is a 52-year-old female known to me from before with a past medical history of hypertension, diabetes mellitus, history of cerebrovascular accident , hyperlipidemia, ischemic heart disease, congestive heart failure, chronic anemia, end-stage renal disease on hemodialysis 3 times per week who was transferred to the hospital for a left heel ulcer, which is nonhealing.Nephrology was called for the management of dialysis. The patient was on hemodialysis here in the [facility] some time ago and then she moved to [facility] because her daughter lives there and she has been getting dialysis there. Her senior regulatory affairs specialist is Dr. Martinez over there.The patient is in a nursing facility and she has this wound on her left heel for which reason she was admitted before and it is not healing and she has been following with podiatry and she is admitted for antibiotic and debridement of the wound. The patient has some pain in the left heel area. She denies any nausea or vomiting. There is no history of fever. No shortness of breath. No chest pain. Her last hemodialysis was done on Wednesday through the left arm arteriovenous fistula. Additional Remarks Seen during hemodialysis tolerating well. NPO for planned partial calcanectomy left heel, possible wound vac. (Felicitas Galo) Review of Systems Respiratory Respiratory Remarks Denies shortness of breath (Felicitas Galo) Cardiovascular Cardiac Remarks No chest pain (Felicitas Galo) Gastrointestinal GI Remarks No abdominal pain (Felicitas Galo) Objective Data Data Vital Signs Date Time Temp Pulse Resp B/P (MAP) Pulse Ox O2 Delivery O2 Flow Rate FiO2 12/09/17 04:00 Room Air 12/09/17 04:00 97.8 68 20 121/69 (86) 100 12/09/17 00:00 Room Air 12/09/17 00:00 97.4 73 16 156/93 (114) 96 12/08/17 21:56 100 21 12/08/17 20:03 98.2 69 16 105/58 (74) 100 12/08/17 20:00 Room Air 12/08/17 16:00 98.4 66 18 107/57 (74) 100 12/08/17 13:49 97 21 12/08/17 12:00 98.2 68 16 91/50 (42) 97 (Felicitas Galo) -: 12/09/17 0539 12/09/17 0539 Imaging Last Impressions Foot X-Ray 12/05/17 0000 Signed Impressions: CONCLUSION: No radiographic evidence observed to suggest osteomyelitis. Foot MRI 12/05/17 0000 Signed Impressions: CONCLUSION: 1. Increasing cortical erosion and bone marrow edema along the posterolateral margin of the calcaneus characteristic of osteomyelitis. 2. Large soft tissue defect the posterior lateral margin of the calcaneus jennifer acteristic of a large ulceration or area of debridement. 3. Otherwise stable appearing hindfoot. Extremity Arterial Study 12/05/17 0000 Signed Impressions: CONCLUSION: 1. Ankle-brachial index and toe brachial index are most characteristic of mild to moderate peripheral arterial disease. (Felicitas Galo) Physical Exam General Appearance: Well Nourished, No Acute Distress, Comfortable (Felicitas Galo) Throat Throat Exam: Oral Mucosa [place] & Moist (Felicitas Galo) Pulmonary Resp Exam: Clear Bilaterally, Breath Sounds Equal, No Distress (Felicitas Galo) Cardiology CV Exam: Normal Sinus Rhythm (Felicitas Galo) Gastrointestinal/Abdomen GI Exam: Soft, Non-Tender, Bowel Sounds Present (Felicitas Galo) Genitourinary Exam: Flank Non-Tender (Felicitas Galo) Integumentary Skin Exam: Clear, Warm, Lesion(s) Skin Remarks Left foot with dressing on (Felicitas Galo) Extremeties Extremities Exam: No Edema, Moderate Edema (Felicitas Galo) Neurologic Neuro Exam: Alert, Awake (Felicitas Galo) Psychiatric Psych Exam: Appropriate Responses (Felicitas Galo) Assessment/Plan Discussed Condition With: Patient Problem List: (1) ESRD (end stage renal disease) on dialysis ICD Codes: N18.6 - End stage renal disease; Z99.2 - Dependence on renal dialysis Status: Acute Plan: Hemodialysis on Wednesday, , and Wednesday. Her senior regulatory affairs specialist is Dr. Martinez from [facility]. Left arm arteriovenous fistula with positive thrill and bruit Avoid fluid administration Renal diet. Continue Sensipar Seen during hemodialysis tolerating well Continue vancomycin with dialysis NPO for partial calcanectomy left heel, possible wound vac (2) Diabetic foot ulcer associated with type 2 diabetes mellitus ICD Codes: E11.621 - Type 2 diabetes mellitus with foot ulcer; L97.509 - Non- pressure chronic ulcer of other part of unspecified foot with unspecified severity Plan: Podiatry and Vascular surgery consulted OR today/ Antibiotics per ID (3) Type 2 diabetes mellitus ICD Codes: E11.9 - Type 2 diabetes mellitus without complications Plan: Maintain blood sugars between 140 mg/dl to 180 mg/dl (4) Hypertension ICD Codes: I10 - Essential (primary) hypertension Status: Acute Plan: Well controlled will monitor (Felicitas Galo) Problem List: (1) ESRD (end stage renal disease) on dialysis ICD Codes: N18.6 - End stage renal disease; Z99.2 - Dependence on renal dialysis Status: Acute Plan: Hemodialysis on Wednesday, , and Wednesday. Her senior regulatory affairs specialist is Dr. Martinez from [facility]. Left arm arteriovenous fistula with positive thrill and bruit Avoid fluid administration Renal diet. Continue Sensipar Seen during hemodialysis tolerating well Continue vancomycin with dialysis NPO for partial calcanectomy left heel, possible wound vac. Patient seen and examined, agree with above. For debridement today, HD done, tolerated well. (2) Diabetic foot ulcer associated with type 2 diabetes mellitus ICD Codes: E11.621 - Type 2 diabetes mellitus with foot ulcer; L97.509 - Non- pressure chronic ulcer of other part of unspecified foot with unspecified severity Plan: Podiatry and Vascular surgery consulted OR today/ Antibiotics per ID (3) Type 2 diabetes mellitus ICD Codes: E11.9 - Type 2 diabetes mellitus without complications Plan: Maintain blood sugars between 140 mg/dl to 180 mg/dl (4) Hypertension ICD Codes: I10 - Essential (primary) hypertension Status: Acute Plan: Well controlled will monitor (Ivonne Coffey MD) Problem Qualifiers (1) Diabetic foot ulcer associated with type 2 diabetes mellitus: Felciitas Galo December 09, 2017 09:44 Ivonne Coffey MD December 09, 2017 12:30
[2017-12-09] MEDS: EPOETIN ALFA 10,000 UNITS/ML VIAL IV PUSH PRN (11:33)
[2017-12-09 12:00] VITALS: BP 155/73; PULSE 63; PULSE 82; RESP 16; RESP 18; TEMP 98.1; TEMP 98.4; O2SAT 97; O2SAT 98
[2017-12-09] MEDS ORDERED: ePHEDrine/NS 25 MG/5 ML SYRINGE IV ONE (12:00)
[2017-12-09] MEDS ORDERED: PROPOFOL 200 MG/20 ML AMP IV ONE (12:00)
[2017-12-09] MEDS ORDERED: PHENYLEPH/NS 1000 MCG/10 ML SYR IV ONE (12:00)
[2017-12-09] MEDS ORDERED: ROCURONIUM INJ 50 MG/5 ML SYRINGE IV PUSH ONE (12:00)
[2017-12-09] MEDS ORDERED: ONDANSETRON HCL 4 MG/2 ML VIAL IV PUSH ONE (12:00)
[2017-12-09] MEDS: SODIUM CHLORIDE 0.9% FLUSH 10 ML FLUSH IV FLUSH SCH ×2 (13:20→21:45)
[2017-12-09] MEDS ORDERED: BUPIVACAINE HCL PF 0.5% 30 ML VIAL ONE (14:28)
[2017-12-09] MEDS ORDERED: SUGAMMADEX SODIUM 200 MG/2 ML VIAL IV PUSH ONE (15:16)
--- NOTE | 2017-12-09 16:30 | HHI.PR ---
Immediate Post Op Note Procedure Date: December 09, 2017 Pre Op Diagnosis: Osteomyelitis left calcaneus Post Op Diagnosis: Same Surgeon: Elizabeth Wells DPM Director Professional Services(s): Staff Procedure: partial calcanectomy left with bone biopsy Findings: Consistent with diagnosis. Plantar lateral ulceration down to bone noted with fibronecrotic tissue. No active purulence noted. Foul odor present. Approximately 6cm x 4cm x 1.5cm depth. Wound excised and fibronecrotic tissue debrided down to bone. Plantar calcaneus excised, followed by irrigation and primary closure with 2-0 nylon suture. Dressing with xeroform, 4x4, abd x 2, cast padding, trini left foot. Nonweightbearing left foot Additional Information: No tourniquet utilized. Healthy appearance to residual bone in foot. Complications: None Specimen(s) removed: 1. bone plantar calcaneus for biopsy 2. culture left heel Anesthesia: General Drains: None IVF Tourniquet time (min at mmHg) n/a Patient to: PACU Patient Condition: Good Date/Time of Procedure: SEE SURGICAL CARE RECORD Elizabeth Wells DPM December 09, 2017 16:30
[2017-12-09] MEDS ORDERED: DO NOT ADM ANY ANTICOAGULANT DRUGS PRN (16:33)
[2017-12-09] MEDS ORDERED: MIDAZOLAM HCL 2 MG/2 ML VIAL ONE (16:38)
--- NOTE | 2017-12-09 17:34 | RADRPT ---
EXAM DATE: 12/09/2017 5:28 PM EDT AGE/SEX: 52 years / Female INDICATIONS: Post op left foot. CLINICAL DATA: This is the patient's subsequent encounter. Patient reports that signs and symptoms h ave been present for 4 - 6 days and indicates a pain score of Nonresponsive. MEDICAL/SURGICAL HISTORY: . Renal failure. Hypertension. Diabetes mellitus type 2. Stroke. Oste omyelitis. . CABG. Cholecystectomy. section. Hernia repair. [place] [facility] [place][id number] 12/05/2017. . FINDINGS: The examination demonstrates partial amputation of the calcaneus. The remainder the visualized bony s tructures are grossly intact. No retained foreign body is identified. CONCLUSION: Partial amputation of the calcaneus. Electronically signed by: Surjit Alan MD 12/09/2017 5:33 PM EDT
[2017-12-09 17:49] VITALS: O2SAT 98
[2017-12-09 20:00] VITALS: BP 128/59; PULSE 89; RESP 18; TEMP 98.3; O2SAT 95
[2017-12-09] MEDS: CINACALCET HYDROCHLORIDE 30 MG TAB PO SCH (21:45)
[2017-12-09] MEDS: ATORVASTATIN 20 MG TAB PO SCH (21:45)
[2017-12-10] VITALS: BP 125/59; PULSE 88; RESP 18; TEMP 99.4; O2SAT 97
[2017-12-10] MEDS: PIPERACIL-TAZO 2.25 GM PREMIX 50 ML IV SCH ×3 (00:03→17:24)
[2017-12-10 04:00] VITALS: BP 110/56; PULSE 75; RESP 18; TEMP 98.9; O2SAT 99
[2017-12-10] MEDS: ACETAMINOPHEN/HYDROcodone 325 MG/5 MG TAB PO PRN ×3 (05:27→23:53)
[2017-12-10] MEDS: HEPARIN SODIUM - SQ 10,000 UNITS/ML VIAL SQ SCH ×3 (05:28→23:04)
[2017-12-10 08:35] VITALS: BP 98/56; PULSE 75; RESP 20; TEMP 98; O2SAT 99
[2017-12-10] MEDS: cloNIDine HCL 0.1 MG TAB PO SCH ×2 (09:00→21:00)
[2017-12-10 10:04] LABS: HEMATOCRIT 32.2 % (35.0-46.0); MEAN CELL VOLUME 86.7 FL (80.0-100.0); MEAN CORPUSCULAR HEMOGLOBIN 26.9 PG (27.0-34.0); MEAN PLATELET VOLUME 10.4 FL (7.0-11.0); PLATELET COUNT 222 TH/MM3 (150-450); RED BLOOD COUNT 3.71 MIL/MM3 (4.00-5.30); RED CELL DISTRIBUTION WIDTH 17.1 % (11.6-17.2); WHITE BLOOD COUNT 14.3 TH/MM3 (4.0-11.0)
[2017-12-10] MEDS: INSULIN ASPART SUPPLEMENTAL SCALE SQ SCH ×4 (10:17→23:04)
[2017-12-10] MEDS: SODIUM CHLORIDE 0.9% FLUSH 10 ML FLUSH IV FLUSH SCH ×2 (10:17→21:20)
[2017-12-10] MEDS: SEVELAMER CARBONATE 800 MG TAB PO SCH ×3 (10:18→18:48)
[2017-12-10] MEDS: GABAPENTIN 100 MG CAP PO SCH ×2 (10:19→21:22)
[2017-12-10] MEDS: CHOLECALCIFEROL (VIT D3) 1000 UNIT TAB PO SCH (10:19)
[2017-12-10] MEDS: DOCUSATE SODIUM 50 MG/SENNA 8.6 MG TAB PO SCH ×2 (10:19→21:21)
[2017-12-10] MEDS: ASPIRIN 81 MG CHEW TAB PO SCH (10:19)
[2017-12-10] MEDS: VITAMIN B CMPLX/VITC/FOLIC AC CAP PO SCH (10:19)
[2017-12-10] MEDS: INSULIN DETEMIR 100 UNITS/ML VIAL SQ SCH ×2 (10:20→23:05)
[2017-12-10] MEDS: METOPROLOL TARTRATE 25 MG TAB PO SCH ×2 (10:20→21:22)
[2017-12-10 10:42] LABS: BICARBONATE 28.5 MEQ/L (21.0-32.0); CALCIUM 8.3 MG/DL (8.5-10.1); CREATININE 9.02 MG/DL (0.50-1.00)
--- NOTE | 2017-12-10 10:57 | HHI.FPPN ---
Subjective Remarks No acute issues overnight. Vitals are stable, patient remains afebrile. She remains optimistic this morning and denies any pain, chest pain, fever, chills, shortness of breath, nausea or vomiting. She was able to use the bedpan to void and stool. She is tolerating PO. (Rebeca Darling MD R3) Objective Vitals Vital Signs Date Time Temp Pulse Resp B/P (MAP) Pulse Ox O2 Delivery O2 Flow Rate FiO2 12/10/17 08:35 98.0 75 20 98/56 (70) 99 12/10/17 04:00 98.9 75 18 110/56 (74) 99 12/10/17 03:21 Room Air 12/10/17 00:00 Room Air 12/10/17 00:00 99.4 88 18 125/59 (81) 97 12/09/17 20:00 Room Air 12/09/17 20:00 98.3 89 18 128/59 (82) 95 12/09/17 17:49 98 21 12/09/17 17:30 Room Air 12/09/17 17:15 88 16 110/51 (70) 95 Room Air 12/09/17 17:00 88 16 97/50 (66) 95 Room Air 12/09/17 16:45 88 16 112/56 (74) 98 Room Air 12/09/17 16:30 98.6 88 16 118/58 (78) 100 12/09/17 12:30 Room Air 12/09/17 12:00 98.1 82 16 155/73 (100) 98 12/09/17 11:30 21 I/O 12/09/17 12/09/17 12/09/17 12/10/17 12/10/17 12/10/17 07:00 15:00 23:00 07:00 15:00 23:00 Intake Total 400 ml 50 ml Output Total 2800 ml 100 ml Balance -2800 ml 300 ml 50 ml Intake Oral 0 ml IV Total 400 ml 50 ml Output Urine Total 0 ml Hemodialysis 2800 ml Estimated Blood Loss 100 ml # Voids 0 # Bowel Movements 0 0 (Rebeca Darling MD R3) Result Diagram: 12/10/17 0904 12/10/17 0904 Imaging Last Impressions Foot X-Ray 12/09/17 0000 Signed Impressions: CONCLUSION: Partial amputation of the calcaneus. Foot MRI 12/05/17 Signed Impressions: CONCLUSION: 1. Increasing cortical erosion and bone marrow edema along the posterolateral margin of the calcaneus characteristic of osteomyelitis. 2. Large soft tissue defect the posterior lateral margin of the calcaneus jennifer acteristic of a large ulceration or area of debridement. 3. Otherwise stable appearing hindfoot. Extremity Arterial Study 12/05/17 Signed Impressions: CONCLUSION: 1. Ankle-brachial index and toe brachial index are most characteristic of mild to moderate peripheral arterial disease. Objective Remarks GENERAL: Patient sitting up in bed, no distress NECK: Supple, nontender, no meningeal signs CARDIOVASCULAR: Regular rate and rhythm without murmurs, gallops, or rubs. RESPIRATORY: Clear to auscultation bilaterally. Breath sounds equal bilaterally. GASTROINTESTINAL: Abdomen soft, non-tender, nondistended, obese. MUSCULOSKELETAL: Left heel wrapped in gauze, 2+ DP pulse NEUROLOGICAL: Awake and alert. Oriented x3. (Rebeca Darling MD R3) A/P Assessment and Plan 52-year-old female who presented with nonhealing diabetic foot ulcer and admitted for osteomyelitis of left calcaneus. Discharge Planning Will need PT at rehab (Rebeca Darling MD R3) Attending Attestation Pt. examined independently and case discussed with resident physicians I have read the above note and agree with the assessment/plan as discussed with me I was involved in all medical decision making for this patient Vijay Orellana MD (Vijay Orellana MD) Problem List: (1) Osteomyelitis of left foot ICD Codes: M86.9 - Osteomyelitis, unspecified Status: Acute Plan: MRI of the right foot shows increasing cortical erosion and bone marrow edema along the posterior lateral margin of the calcaneus characteristic of osteomyelitis. Large soft tissue defect in the posterior lateral margin of the calcaneus characteristic of a large ulceration of area or debridement. -Foot x-ray shows soft tissues lucency involving the heel suggesting ulceration, no radiographic evidence to suggest osteomyelitis IV antibiotics: Continue Vancomycin, infectious disease consulted to manage dosing with dialysis Continue Zosyn 2.275 g IV every 12 hours (started 12/06) Infectious disease consult for long-term antibiotic management Blood cultures show no growth x 3 days Podiatry consulted -Partial calcanectomy left with bone biopsy on 12/[address] Wells Vascular consulted for possible angiogram -DICK characteristic of mild to moderate PAD -PVR suggest mild arterial insufficiency and would indicate the perfusion okay to heal -Would only offer angio if bleeding in OR (2) ESRD (end stage renal disease) on dialysis ICD Codes: N18.6 - End stage renal disease; Z99.2 - Dependence on renal dialysis Status: Chronic Plan: -On dialysis Wednesday, , Wednesday, will continue as scheduled -Business Process Analyst is Dr. Martinez from [place] -Continue home Renvela and Sensipar -Renally dose medications (3) Type 2 diabetes mellitus ICD Codes: E11.9 - Type 2 diabetes mellitus without complications Status: Chronic Plan: A1c 8.1 in September 2017 -Accu-Cheks with sliding scale insulin -Continue Levemir at 10 units subcu twice daily -Titrate to effect -Diabetic counseling (4) Hypertension ICD Codes: I10 - Essential (primary) hypertension Status: Chronic Plan: -Well-controlled -Continue home metoprolol and clonidine (5) HLD (hyperlipidemia) ICD Codes: E78.5 - Hyperlipidemia, unspecified Status: Chronic Plan: Continue atorvastatin 20 mg p.o. at bedtime (6) Hx of chronic congestive heart failure ICD Codes: Z86.79 - Personal history of other diseases of the circulatory system Status: Chronic Plan: -Stable -Monitor for signs of acute exacerbation (7) Hx of coronary artery disease ICD Codes: Z86.79 - Personal history of other diseases of the circulatory system Status: Chronic Plan: -Status post four-vessel CABG -Continue aspirin 81 mg p.o. daily (8) FEN/DVT PPX/GI PPX/Nursing Orders Status: Acute Plan: Fluids: Oral fluids only Electrolytes: Will monitor and replace as needed Nutrition: Renal diet as tolerated. DVT Prophylaxis: heparin 5000 units subcu every 8 hours Constipation prophylaxis: Pericolace 1 tab PO BID PRN Medications Tylenol 650 mg by mouth every 4 hours when necessary pain temperature greater than 100.4F Zofran 4 mg p.o. every 6 hours when necessary nausea vomiting Oketo 325-5 mg as needed pain, Morphine prn breakthrough pain (Rebeca Darling MD R3) Problem Qualifiers (1) Type 2 diabetes mellitus: (2) Hypertension: Qualified Codes: I10 - Essential (primary) hypertension (3) HLD (hyperlipidemia): Qualified Codes: E78.5 - Hyperlipidemia, unspecified Rebeca Darling MD R3 Dec 10, 2017 10:57 Vijay Orellana MD Dec 10, 2017 15:27
[2017-12-10 12:30] VITALS: BP 92/55; PULSE 72; RESP 18; TEMP 98.2; O2SAT 96
--- NOTE | 2017-12-10 13:23 | HHI.NPPN ---
Subjective Renal Failure: End Stage Renal Disease History of Present Illness This is a 52-year-old female known to me from before with a past medical history of hypertension, diabetes mellitus, history of cerebrovascular accident , hyperlipidemia, ischemic heart disease, congestive heart failure, chronic anemia, end-stage renal disease on hemodialysis 3 times per week who was transferred to the hospital for a left heel ulcer, which is nonhealing.Nephrology was called for the management of dialysis. The patient was on hemodialysis here in the [facility] some time ago and then she moved to [place] because her daughter lives there and she has been getting dialysis there. Her web content coordinator is Dr. Martinez over there.The patient is in a nursing facility and she has this wound on her left heel for which reason she was admitted before and it is not healing and she has been following with podiatry and she is admitted for antibiotic and debridement of the wound. The patient has some pain in the left heel area. She denies any nausea or vomiting. There is no history of fever. No shortness of breath. No chest pain. Her last hemodialysis was done on Wednesday through the left arm arteriovenous fistula. Additional Remarks Seen during hemodialysis tolerating well. NPO for planned partial calcanectomy left heel, possible wound vac. Review of Systems Respiratory Respiratory Remarks Denies shortness of breath Cardiovascular Cardiac Remarks No chest pain Gastrointestinal GI Remarks No abdominal pain Objective Data Data Vital Signs Date Time Temp Pulse Resp B/P (MAP) Pulse Ox O2 Delivery O2 Flow Rate FiO2 12/10/17 11:46 21 12/10/17 08:35 98.0 75 20 98/56 (70) 99 12/10/17 08:00 Room Air 12/10/17 04:00 98.9 75 18 110/56 (74) 99 12/10/17 03:21 Room Air 12/10/17 00:00 Room Air 12/10/17 00:00 99.4 88 18 125/59 (81) 97 12/09/17 20:00 Room Air 12/09/17 20:00 98.3 89 18 128/59 (82) 95 12/09/17 17:49 98 21 12/09/17 17:30 Room Air 12/09/17 17:15 88 16 110/51 (70) 95 Room Air 12/09/17 17:00 88 16 97/50 (66) 95 Room Air 12/09/17 16:45 88 16 112/56 (74) 98 Room Air 12/09/17 16:30 98.6 88 16 118/58 (78) 100 -: 12/10/17 0904 12/10/17 0904 Microbiology 12/09/17 Fungal Smear - Final, Resulted NO FUNGAL ELEMENTS SEEN. 12/09/17 Fungal Culture, Resulted Pending 12/09/17 Acid Fast Stain, Received Pending 12/09/17 Mycobacterial Culture, Received Pending 12/09/17 Gram Stain - Final, Resulted 12/09/17 Wound Culture, Resulted Pending Physical Exam General Appearance: Well Nourished, No Acute Distress, Comfortable Throat Throat Exam: Oral Mucosa [place] & Moist Pulmonary Resp Exam: Clear Bilaterally, Breath Sounds Equal, No Distress Cardiology CV Exam: Normal Sinus Rhythm Gastrointestinal/Abdomen GI Exam: Soft, Non-Tender, Bowel Sounds Present Genitourinary Exam: Flank Non-Tender Integumentary Skin Exam: Clear, Warm, Lesion(s) Extremeties Extremities Exam: No Edema, Moderate Edema Neurologic Neuro Exam: Alert, Awake Psychiatric Psych Exam: Appropriate Responses Assessment/Plan Discussed Condition With: Patient Problem List: (1) ESRD (end stage renal disease) on dialysis ICD Codes: N18.6 - End stage renal disease; Z99.2 - Dependence on renal dialysis Status: Chronic Plan: Hemodialysis on Wednesday, , and Wednesday. Her web content coordinator is Dr. Martinez from [place]. Left arm arteriovenous fistula with positive thrill and bruit Avoid fluid administration Renal diet. Continue Sensipar Seen during hemodialysis tolerating well Continue vancomycin with dialysis NPO for partial calcanectomy left heel, possible wound vac. Post debridement , HD will in AM. (2) Diabetic foot ulcer associated with type 2 diabetes mellitus ICD Codes: E11.621 - Type 2 diabetes mellitus with foot ulcer; L97.509 - Non- pressure chronic ulcer of other part of unspecified foot with unspecified severity Plan: Podiatry and Vascular surgery consulted OR today/ Antibiotics per ID (3) Type 2 diabetes mellitus ICD Codes: E11.9 - Type 2 diabetes mellitus without complications Status: Chronic Plan: Maintain blood sugars between 140 mg/dl to 180 mg/dl (4) Hypertension ICD Codes: I10 - Essential (primary) hypertension Status: Chronic Plan: Well controlled will monitor Problem Qualifiers (1) Diabetic foot ulcer associated with type 2 diabetes mellitus: (2) Type 2 diabetes mellitus: (3) Hypertension: Qualified Codes: I10 - Essential (primary) hypertension Ivonne Coffey MD Dec 10, 2017 13:23
[2017-12-10 16:30] VITALS: BP 125/75; PULSE 80; RESP 20; TEMP 98.2; O2SAT 98
--- NOTE | 2017-12-10 19:36 | PD ---
HPI Chief Complaint: Skin Problem Time Seen by Provider: 15:08 Travel History International Travel<30 days: No Contact w/Intl Traveler<30days: No Traveled to known affect area: No History of Present Illness HPI Patient is a 52 year old female who comes in due to a nonhealing ulcer on her left heal. She says she has had it for a while, but it is not getting better. She is following with podiatry who sent her in for management. She denies any pain to the area. She denies fever or chills. The ulcer started as a pressure ulcer. She denies injury. Severity is mild to moderate. PFSH Past Medical History Hx Anticoagulant Therapy: Yes (ASA) Arthritis: No Asthma: No Autoimmune Disease: No Blood Disorders: No Anxiety: No Depression: No Heart Rhythm Problems: Yes Cancer: No Cardiac Catheterization: Yes (2008) Cardiovascular Problems: Yes (CHF) High Cholesterol: Yes Chemotherapy: No Chest Pain: Yes Congestive Heart Failure: Yes COPD: No Cerebrovascular Accident: Yes (RIGHT SIDED WEAKNESS) Coronary Artery Disease: Yes Diabetes: Yes Patient Takes Glucophage: No Dialysis: Yes (WEDNESDAY,WEDNESDAY, WEDNESDAY) Diminished Hearing: No Endocrine: Yes Gastrointestinal Disorders: Yes (cholesctomy ) GERD: Yes Glaucoma: No Genitourinary: Yes Headaches: No Hepatitis: No Hiatal Hernia: No Heparin Induced Thrombocytopen: No Hypertension: Yes Immune Disorder: No Implanted Vascular Access Dvce: Yes Kidney Stones: No Medical other: Yes (RT SIDED WEAKNESS) Musculoskeletal: Yes Neurologic: Yes (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) Psychiatric: No Reproductive: No Respiratory: Yes (PNEUMONIA) Integumentary: Yes (FOOT ULCER ) Immunizations Current: No Migraines: No Myocardial Infarction: No Radiation Therapy: No Renal Failure: Yes Seizures: No Sickle Cell Disease: No Thyroid Disease: No Ulcer: No Tetanus Vaccination: Unknown Influenza Vaccination: Yes ?: Not Menopausal: Yes : 3 Para: 3 Tubal Ligation: Yes (1991) Past Surgical History Abdominal Surgery: Yes (UMBILICAL HERNIA SURGERY) AICD: No Appendectomy: No Arteriovenous Shunt: No Body Medical Devices: AV FISTULA - LEFT upper inner ARM Cardiac Surgery: Yes (CABG X 4, CARDIAC CATHS) Section: Yes (X 3) Cholecystectomy: No Coronary Artery Bypass Graft: Yes (2008 4 VESSEL) Ear Surgery: No Endocrine Surgery: No Eye Surgery: Yes (RIGHT EYE TEAR DUCT) Genitourinary Surgery: No Gynecologic Surgery: Yes ( SECTION X 3) Insulin Pump: No Joint Replacement: No Oral Surgery: No Pacemaker: No Thoracic Surgery: No Other Surgery: Yes (LEFT ARM AV FISTLA) Social History Alcohol Use: No Tobacco Use: No Substance Use: No Allergies-Medications (Allergen,Severity, Reaction): Coded Allergies: *MDRO Multi-Drug Resistant Organism (Verified Allergy, Unknown, 12/05/17) MRSA PCR (nares) negative - 11/19/15 & 11/21/15 Cleared per Infection Control MRSA 2013 Reported Meds & Prescriptions Reported Meds & Active Scripts Active Metoprolol Tartrate 25 Mg Tab 25 Mg PO BID Reported Vitamin D3 (Cholecalciferol) 1,000 Unit Tab 1,000 Units PO DAILY Tylenol (Acetaminophen) 325 Mg Tab 325 Mg PO Q6H PRN Sensipar (Cinacalcet) 60 Mg Tab 60 Mg PO HS Milk of Magnesia Liq (Magnesium Hydroxide) 400 Mg/5 Ml Susp 30 Ml PO DAILY PRN Gabapentin 100 Mg Cap 200 Mg PO BID Colace (Docusate Sodium) 100 Mg Capsule 100 Mg PO BID Biscolax Supp (Bisacodyl) 10 Mg Supp 10 Mg RECTAL DAILY PRN Aspirin Low Dose (Aspirin) 81 Mg Chew 81 Mg PO DAILY Renvela (Sevelamer Carbonate) 800 Mg Tab 1,600 Mg PO TID With meals and snacks Rhonda-Estefania (B-Complex W/ C & Folic Acid) 1 Tab 1 Tab PO DAILY Novolog Inj (Insulin Aspart) 1,000 Unit/10 Ml Vial 0 SQ BID Sliding Scale as directed. Levemir Inj (Insulin Detemir) 1,000 unit/ 10 ML Vial 15 Units SQ BID Do not mix with any other Insulin. Clonidine (Clonidine HCl) 0.2 Mg Tab 0.2 Mg PO BID Atorvastatin (Atorvastatin Calcium) 20 Mg Tab 20 Mg PO HS Review of Systems Except as stated in HPI: all other systems reviewed are Neg General / Constitutional: No: Fever, Chills HENT: No: Headaches, Lightheadedness Cardiovascular: No: Chest Pain or Discomfort Respiratory: No: Shortness of Breath Gastrointestinal: No: Nausea, Vomiting Skin: Positive Lesions Neurologic: No: Weakness, Dizziness Physical Exam Narrative GENERAL: Awake and alert, in no acute distress. SKIN: Focused skin assessment warm/dry. Large nonhealing wound to the left heal. Possible bone exposure. HEAD: Atraumatic. Normocephalic. EYES: Pupils equal and round. No scleral icterus. ENT: Mucous membranes pink and moist. NECK: Trachea midline. No JVD. CARDIOVASCULAR: Regular rate and rhythm. No murmur appreciated. RESPIRATORY: No accessory muscle use. Clear to auscultation. Breath sounds equal bilaterally. GASTROINTESTINAL: Abdomen soft, non-tender, nondistended. MUSCULOSKELETAL: No obvious deformities. No clubbing. No cyanosis. No edema. Pedal pulses intact. NEUROLOGICAL: Awake and alert. No obvious cranial nerve deficits. Motor grossly within normal limits. Normal speech. PSYCHIATRIC: Appropriate mood and affect; insight and judgment normal. Data Data Orders Orders Iv Access Insert/Monitor (12/05/17 15:46) Complete Blood Count With Diff (12/05/17 15:46) Comprehensive Metabolic Panel (12/05/17 15:46) Westergren Sedimentation Rate (12/05/17 15:46) C-Reactive Protein (Crp) (12/05/17 15:46) Foot, Complete ([id number]) (12/05/17 ) Piperacil-Tazo 3.375 Gm Premix (Zosyn 3. (12/05/17 16:00) Vancomycin Inj (Vancomycin Inj) (12/05/17 16:00) Vascular Access Team Consult/P PRN (12/05/17 16:25) Vascular Poc Ultrasound (12/05/17 ) Admit Order (Ed Use Only) (12/05/17 ) Mri Foot W/O Contrast (12/05/17 ) Labs Laboratory Tests Test 12/05/17 16:00 White Blood Count 14.1 TH/MM3 Red Blood Count 4.08 MIL/MM3 Hemoglobin 11.1 GM/DL Hematocrit 35.8 % Mean Corpuscular Volume 87.7 FL Mean Corpuscular Hemoglobin 27.2 PG Mean Corpuscular Hemoglobin Concent 31.0 % Red Cell Distribution Width 16.2 % Platelet Count 249 TH/MM3 Mean Platelet Volume 10.6 FL Neutrophils (%) (Auto) 63.9 % Lymphocytes (%) (Auto) 22.6 % Monocytes (%) (Auto) 10.5 % Eosinophils (%) (Auto) 2.0 % Basophils (%) (Auto) 1.0 % Neutrophils # (Auto) 9.0 TH/MM3 Lymphocytes # (Auto) 3.2 TH/MM3 Monocytes # (Auto) 1.5 TH/MM3 Eosinophils # (Auto) 0.3 TH/MM3 Basophils # (Auto) 0.1 TH/MM3 CBC Comment DIFF FINAL Differential Comment Erythrocyte Sedimentation Rate 34 mm/hr Hemoglobin A1c 7.8 % MDM Medical Decision Making Medical Screen Exam Complete: Yes Emergency Medical Condition: Yes Medical Record Reviewed: Yes Differential Diagnosis osteomyelitis vs cellulitis vs abscess Narrative Course Patient is a 52 year old female who comes in due to a nonhealing ulcer to her left foot. Exam shows large ulcer, possible exposed bone. Foot XR ordered shows no signs of osteo. MRI ordered. Labs show no acute abnormalities. Given Vancomycin and Zosyn. Admitted for further management. Diagnosis Primary Impression: Osteomyelitis of left foot Qualified Codes: M86.272 - Subacute osteomyelitis, left ankle and foot Admitting Information Admitting Physician Requests: Admit Patient Instructions: Heart Failure (DC) Lora Astorga MD Dec 10, 2017 19:36
[2017-12-10 20:00] VITALS: BP 119/68; PULSE 86; RESP 18; TEMP 98.5; O2SAT 95
[2017-12-10] MEDS: ATORVASTATIN 20 MG TAB PO SCH (21:22)
[2017-12-10] MEDS: CINACALCET HYDROCHLORIDE 30 MG TAB PO SCH (23:03)
--- NOTE | 2017-12-10 23:08 | PD.POD ---
Subjective Podiatric Problems left heel osteomyelitis, s/p left partial calcanectomy 12/09/17 Dr Wells Past Med/Surg/Social History Social History Smoking Status: Never Smoker Objective Vital Signs Vital Signs Date Time Temp Pulse Resp B/P (MAP) Pulse Ox O2 Delivery O2 Flow Rate FiO2 12/10/17 20:00 98.5 86 18 119/68 (85) 95 12/10/17 16:30 98.2 80 20 125/75 (92) 98 12/10/17 12:30 98.2 72 18 92/55 (67) 96 12/10/17 11:46 21 12/10/17 08:35 98.0 75 20 98/56 (70) 99 12/10/17 08:00 Room Air 12/10/17 04:00 98.9 75 18 110/56 (74) 99 12/10/17 03:21 Room Air 12/10/17 00:00 Room Air 12/10/17 00:00 99.4 88 18 125/59 (81) 97 Coded Allergies: *MDRO Multi-Drug Resistant Organism (Verified Allergy, Unknown, 12/05/17) MRSA PCR (nares) negative - 11/19/15 & 11/21/15 Cleared per Infection Control MRSA 2013 Assessment & Plan A/P Left heel osteomyelitis, s/p left partial calcanectomy 12/09/17 Dr Wells Continue nonweightbearing Await bone biopsy Will need d/c back to rehab Keep dressing clean, dry, intact. Elizabeth Wells DPM Dec 10, 2017 23:08
[2017-12-11] VITALS: BP 117/79; PULSE 82; RESP 18; TEMP 100.3; O2SAT 93
[2017-12-11] MEDS: PIPERACIL-TAZO 2.25 GM PREMIX 50 ML IV SCH ×4 (00:15→15:06)
[2017-12-11 04:00] VITALS: BP 98/54; PULSE 73; RESP 18; TEMP 97.7; O2SAT 93
[2017-12-11] MEDS: INSULIN ASPART SUPPLEMENTAL SCALE SQ SCH ×4 (08:00→21:00)
[2017-12-11] MEDS: HEPARIN SODIUM - SQ 10,000 UNITS/ML VIAL SQ SCH ×3 (08:25→22:41)
[2017-12-11] MEDS: SODIUM CHLORIDE 0.9% FLUSH 10 ML FLUSH IV FLUSH SCH ×2 (08:26→22:40)
[2017-12-11] MEDS: INSULIN DETEMIR 100 UNITS/ML VIAL SQ SCH ×2 (08:27→22:40)
[2017-12-11] MEDS: SEVELAMER CARBONATE 800 MG TAB PO SCH ×3 (09:00→18:24)
[2017-12-11] MEDS: METOPROLOL TARTRATE 25 MG TAB PO SCH ×3 (09:00→22:40)
[2017-12-11] MEDS: cloNIDine HCL 0.1 MG TAB PO SCH ×3 (09:00→22:39)
[2017-12-11] MEDS: DOCUSATE SODIUM 50 MG/SENNA 8.6 MG TAB PO SCH ×2 (09:00→22:39)
--- NOTE | 2017-12-11 09:30 | HHI.NPPN ---
Subjective Renal Failure: End Stage Renal Disease History of Present Illness This is a 52-year-old female known to me from before with a past medical history of hypertension, diabetes mellitus, history of cerebrovascular accident , hyperlipidemia, ischemic heart disease, congestive heart failure, chronic anemia, end-stage renal disease on hemodialysis 3 times per week who was transferred to the hospital for a left heel ulcer, which is nonhealing.Nephrology was called for the management of dialysis. The patient was on hemodialysis here in the [facility] some time ago and then she moved to [place] because her daughter lives there and she has been getting dialysis there. Her cement based materials pump tender is Dr. Martinez over there.The patient is in a nursing facility and she has this wound on her left heel for which reason she was admitted before and it is not healing and she has been following with podiatry and she is admitted for antibiotic and debridement of the wound. The patient has some pain in the left heel area. She denies any nausea or vomiting. There is no history of fever. No shortness of breath. No chest pain. Her last hemodialysis was done on Wednesday through the left arm arteriovenous fistula. Additional Remarks patient was seen during dialysis. On 2K, BFR 350 ml/min, UF goal is 3 liters. Review of Systems Respiratory Respiratory Remarks Denies shortness of breath Cardiovascular Cardiac Remarks No chest pain Gastrointestinal GI Remarks No abdominal pain Objective Data Data Vital Signs Date Time Temp Pulse Resp B/P (MAP) Pulse Ox O2 Delivery O2 Flow Rate FiO2 12/11/17 07:00 Room Air 12/11/17 04:00 97.7 73 18 98/54 (69) 93 12/11/17 00:00 100.3 82 18 117/79 (92) 93 12/10/17 20:00 98.5 86 18 119/68 (85) 95 12/10/17 16:30 98.2 80 20 125/75 (92) 98 12/10/17 12:30 98.2 72 18 92/55 (67) 96 12/10/17 11:46 21 -: 12/10/17 0904 12/10/17 0904 Physical Exam General Appearance: Well Nourished, No Acute Distress, Comfortable Throat Throat Exam: Oral Mucosa [place] & Moist Pulmonary Resp Exam: Clear Bilaterally, Breath Sounds Equal, No Distress Cardiology CV Exam: Normal Sinus Rhythm Gastrointestinal/Abdomen GI Exam: Soft, Non-Tender, Bowel Sounds Present Genitourinary Exam: Flank Non-Tender Integumentary Skin Exam: Clear, Warm, Lesion(s) Extremeties Extremities Exam: No Edema, Moderate Edema Neurologic Neuro Exam: Alert, Awake Psychiatric Psych Exam: Appropriate Responses Assessment/Plan Discussed Condition With: Patient Problem List: (1) ESRD (end stage renal disease) on dialysis ICD Codes: N18.6 - End stage renal disease; Z99.2 - Dependence on renal dialysis Status: Chronic Plan: Hemodialysis on Wednesday, , and Wednesday. Her cement based materials pump tender is Dr. Martinez from [place]. Left arm arteriovenous fistula has been cannulated. Renal diet. Continue Sensipar Seen during hemodialysis tolerating well Continue vancomycin with dialysis NPO for partial calcanectomy left heel, possible wound vac. Patient seen and examined, agree with above. For debridement today, HD done, tolerated well. (2) Diabetic foot ulcer associated with type 2 diabetes mellitus ICD Codes: E11.621 - Type 2 diabetes mellitus with foot ulcer; L97.509 - Non- pressure chronic ulcer of other part of unspecified foot with unspecified severity Plan: Podiatry and Vascular surgery consulted OR today/ Antibiotics per ID (3) Type 2 diabetes mellitus ICD Codes: E11.9 - Type 2 diabetes mellitus without complications Status: Chronic Plan: Maintain blood sugars between 140 mg/dl to 180 mg/dl (4) Hypertension ICD Codes: I10 - Essential (primary) hypertension Status: Chronic Plan: Well controlled will monitor Problem Qualifiers (1) Diabetic foot ulcer associated with type 2 diabetes mellitus: (2) Type 2 diabetes mellitus: (3) Hypertension: Qualified Codes: I10 - Essential (primary) hypertension De Mclain MD Dec 11, 2017 09:30
[2017-12-11] MEDS: EPOETIN ALFA 10,000 UNITS/ML VIAL IV PUSH PRN (12:11)
--- NOTE | 2017-12-11 13:12 | HHI.FPPN ---
Subjective Remarks Patient was in dialysis this morning, she has no complaints. She did have a fever overnight but resolved. She reports 5/10 pain in her left foot. She would like to know when the results of her wound culture and bone biopsy will be out and when she can possibly return to her [facility]. She is able to eat and drink without nausea or vomiting. (Yuridia Perez MD R2) Objective Vitals Vital Signs Date Time Temp Pulse Resp B/P (MAP) Pulse Ox O2 Delivery O2 Flow Rate FiO2 12/11/17 07:00 Room Air 12/11/17 04:00 97.7 73 18 98/54 (69) 93 12/11/17 00:00 100.3 82 18 117/79 (92) 93 12/10/17 20:00 98.5 86 18 119/68 (85) 95 12/10/17 16:30 98.2 80 20 125/75 (92) 98 I/O 12/10/17 12/10/17 12/10/17 12/11/17 12/11/17 12/11/17 07:00 15:00 23:00 07:00 15:00 23:00 Intake Total 50 ml 600 ml 680 ml Output Total 0 ml 3000 ml Balance 50 ml 600 ml 680 ml -3000 ml Intake Oral 600 ml 680 ml IV Total 50 ml Output Urine Total 0 ml Hemodialysis 3000 ml # Voids 0 # Bowel Movements 0 1 (Yuridia Perez MD R2) Result Diagram: 12/10/1790312/10/17 0904 Objective Remarks GENERAL: Patient lying in bed at dialysis center, no distress NECK: Supple, nontender, no meningeal signs CARDIOVASCULAR: Regular rate and rhythm without murmurs, gallops, or rubs. RESPIRATORY: Clear to auscultation bilaterally. Breath sounds equal bilaterally. GASTROINTESTINAL: Abdomen soft, non-tender, nondistended, obese. MUSCULOSKELETAL: Left heel wrapped in gauze, 2+ DP pulse, able to wiggle toes, pain with plantarflexion NEUROLOGICAL: Awake and alert. Oriented x3. (Yuridia Perez MD R2) A/P Assessment and Plan 52-year-old female who presented with nonhealing diabetic foot ulcer and admitted for osteomyelitis of left calcaneus. Discharge Planning Will need PT at rehab (Yuridia Perez MD R2) Attending Attestation Pt. examined independently and case discussed with resident physicians. I have read the above note and agree with the assessment and plan as discussed with me. I was involved in all medical decision making for this patient. Vijay Orellana MD (Vijay Orellana MD) Problem List: (1) Osteomyelitis of left foot ICD Codes: M86.9 - Osteomyelitis, unspecified Status: Acute Plan: POD 2 s/p Partial calcanectomy left with bone biopsy on 12/[address] wildland fire fighter [address]. Wells -Wound culture growing gram-positive cocci, speciation and sensitivities to come -Bone biopsy results pending IV antibiotics: Continue Vancomycin, infectious disease consulted to manage dosing with dialysis Continue Zosyn 2.275 g IV every 12 hours (started 12/06) Infectious disease consult for long-term antibiotic management Blood cultures show no growth x 5 days IMAGING MRI of the right foot shows increasing cortical erosion and bone marrow edema along the posterior lateral margin of the calcaneus characteristic of osteomyelitis. Large soft tissue defect in the posterior lateral margin of the calcaneus characteristic of a large ulceration of area or debridement. -Foot x-ray shows soft tissues lucency involving the heel suggesting ulceration, no radiographic evidence to suggest osteomyelitis Vascular consulted for possible angiogram -DICK characteristic of mild to moderate PAD -PVR suggest mild arterial insufficiency and would indicate the perfusion okay to heal -Would only offer angio if bleeding in OR (2) ESRD (end stage renal disease) on dialysis ICD Codes: N18.6 - End stage renal disease; Z99.2 - Dependence on renal dialysis Status: Chronic Plan: -On dialysis Wednesday, , Wednesday, will continue as scheduled -Low Voltage Electrician is Dr. Martinez from [place] -Continue home Renvela and Sensipar -Renally dose medications (3) Type 2 diabetes mellitus ICD Codes: E11.9 - Type 2 diabetes mellitus without complications Status: Chronic Plan: A1c 8.1 in September 2017 -Accu-Cheks with sliding scale insulin -Continue Levemir at 10 units subcu twice daily -Titrate to effect -Diabetic counseling (4) Hypertension ICD Codes: I10 - Essential (primary) hypertension Status: Chronic Plan: -Well-controlled -Continue home metoprolol and clonidine (5) HLD (hyperlipidemia) ICD Codes: E78.5 - Hyperlipidemia, unspecified Status: Chronic Plan: Continue atorvastatin 20 mg p.o. at bedtime (6) Hx of chronic congestive heart failure ICD Codes: Z86.79 - Personal history of other diseases of the circulatory system Status: Chronic Plan: -Stable -Monitor for signs of acute exacerbation (7) Hx of coronary artery disease ICD Codes: Z86.79 - Personal history of other diseases of the circulatory system Status: Chronic Plan: -Status post four-vessel CABG -Continue aspirin 81 mg p.o. daily (8) FEN/DVT PPX/GI PPX/Nursing Orders Status: Acute Plan: Fluids: Oral fluids only Electrolytes: Will monitor and replace as needed Nutrition: Renal diet as tolerated. DVT Prophylaxis: heparin 5000 units subcu every 8 hours Constipation prophylaxis: Pericolace 1 tab PO BID PRN Medications Tylenol 650 mg by mouth every 4 hours when necessary pain temperature greater than 100.4F Zofran 4 mg p.o. every 6 hours when necessary nausea vomiting [place] 325-5 mg as needed pain, Morphine prn breakthrough pain (Yuridia Perez MD R2) Problem Qualifiers (1) Osteomyelitis of left foot: Qualified Codes: M86.272 - Subacute osteomyelitis, left ankle and foot (2) Type 2 diabetes mellitus: (3) Hypertension: Qualified Codes: I10 - Essential (primary) hypertension (4) HLD (hyperlipidemia): Qualified Codes: E78.5 - Hyperlipidemia, unspecified Yuridia Perez MD R2 Dec 11, 2017 13:11 Vijay Orellana MD Dec 11, 2017 18:05
[2017-12-11] MEDS: ASPIRIN 81 MG CHEW TAB PO SCH (13:23)
[2017-12-11] MEDS: GABAPENTIN 100 MG CAP PO SCH ×2 (13:23→22:40)
[2017-12-11] MEDS: CHOLECALCIFEROL (VIT D3) 1000 UNIT TAB PO SCH (13:24)
[2017-12-11] MEDS: VITAMIN B CMPLX/VITC/FOLIC AC CAP PO SCH (13:24)
[2017-12-11] MEDS: ACETAMINOPHEN/HYDROcodone 325 MG/5 MG TAB PO PRN ×2 (13:25→22:39)
--- NOTE | 2017-12-11 14:55 | HHI.IDPN ---
Subjective Subjective Remarks doing OK New fever upp to 100.3 noted heel clx growing GPC Antibiotics zosyn vanco Allergies: Coded Allergies: *MDRO Multi-Drug Resistant Organism (Verified Allergy, Unknown, 12/05/17) MRSA PCR (nares) negative - 11/19/15 & 11/21/15 Cleared per Infection Control MRSA 2013 Objective . Vital Signs Date Time Temp Pulse Resp B/P (MAP) Pulse Ox O2 Delivery O2 Flow Rate FiO2 12/11/17 13:31 Room Air 12/11/17 07:00 Room Air 12/11/17 04:00 97.7 73 18 98/54 (69) 93 12/11/17 00:00 100.3 82 18 117/79 (92) 93 12/10/17 20:00 98.5 86 18 119/68 (85) 95 12/10/17 16:30 98.2 80 20 125/75 (92) 98 12/11/17 12/11/17 12/12/17 15:00 23:00 07:00 Output Total 3000 ml Balance -3000 ml Hemodialysis 3000 ml . Laboratory Tests Test 12/10/17 09:04 White Blood Count 14.3 TH/MM3 Red Blood Count 3.71 MIL/MM3 Hemoglobin 10.0 GM/DL Hematocrit 32.2 % Mean Corpuscular Volume 86.7 FL Mean Corpuscular Hemoglobin 26.9 PG Mean Corpuscular Hemoglobin Concent 31.0 % Red Cell Distribution Width 17.1 % Platelet Count 222 TH/MM3 Mean Platelet Volume 10.4 FL Laboratory Tests Test 12/10/17 09:04 Blood Urea Nitrogen 45 MG/DL Creatinine 9.02 MG/DL Random Glucose 232 MG/DL Calcium Level 8.3 MG/DL Sodium Level 138 MEQ/L Potassium Level 5.2 MEQ/L Chloride Level 94 MEQ/L Carbon Dioxide Level 28.5 MEQ/L Anion Gap 16 MEQ/L Estimat Glomerular Filtration Rate 6 ML/MIN Microbiology Date/Time Source Procedure Growth Status 12/09/17 16:25 Wound Foot Fungal Smear - Final NO FUNGAL ELEMENTS SEEN. Resulted 12/09/17 16:25 Wound Foot Fungal Culture Pending Resulted 12/09/17 16:25 Wound Foot Acid Fast Stain - Final NO ACID FAST BACILLI SEEN Resulted 12/09/17 16:25 Wound Foot Mycobacterial Culture Pending Resulted 12/09/17 16:25 Wound Foot Gram Stain - Final Resulted 12/09/17 16:25 Wound Culture - Preliminary Gram Positive Cocci Resulted Imaging Last Impressions Foot X-Ray 12/09/17 0000 Signed Impressions: CONCLUSION: Partial amputation of the calcaneus. Foot MRI 12/05/17 0000 Signed Impressions: CONCLUSION: 1. Increasing cortical erosion and bone marrow edema along the posterolateral margin of the calcaneus characteristic of osteomyelitis. 2. Large soft tissue defect the posterior lateral margin of the calcaneus jennifer acteristic of a large ulceration or area of debridement. 3. Otherwise stable appearing hindfoot. Extremity Arterial Study 12/05/17 0000 Signed Impressions: CONCLUSION: 1. Ankle-brachial index and toe brachial index are most characteristic of mild to moderate peripheral arterial disease. Physical Exam CONSTITUTIONAL/GENERAL: This is an obese d patient, in no apparent distress. TUBES/LINES/DRAINS: LUE with AV Fistula in place, good thrill, no e/o infection SKIN: No jaundice, rashes, or lesions. CARDIOVASCULAR: Regular rate and rhythm without murmurs, gallops, or rubs. RESPIRATORY/CHEST: Symmetric, unlabored respirations. Clear to auscultation. GASTROINTESTINAL: Abdomen soft, non-tender, nondistended. No hepato-splenomegaly , or palpable masses. No guarding. Bowel sounds present. MUSCULOSKELETAL: Extremities without clubbing, cyanosis, or edema. No joint tenderness or effusion noted. No calf tenderness. No mottling or clubbing. L foot with intact dressing NEUROLOGICAL: Awake and alert. Dense R sided hemiplegia Follows commands with R side . Clear speech. PSYCHIATRIC: No obvious anxiety/depression. no apparent hallucinations or other psychotic thought process. Assessment & Plan Remarks DFI L heel, L calcaneous osteo - previously culture negative - now growing GPC Poor healing Mild to mod arterial diseas [per arterial studies DM ESRD, on HD ( T-T -S) Multiple med problems New fever - ? postop PLAN: vascular w/u planned for debridement tomorrow fu op bone culture cont zosyn, cont vanco w HD will adjust abx per final clx Blood clx if will have fever again Anticipate IV abx with HD (probably vancomycin) Marzena Moreau MD Dec 11, 2017 14:55
[2017-12-11 16:00] VITALS: BP 126/77; PULSE 84; RESP 20; TEMP 98.9; O2SAT 97
[2017-12-11 20:00] VITALS: BP 117/69; PULSE 88; RESP 20; TEMP 98; O2SAT 93
--- NOTE | 2017-12-11 21:49 | PD.POD ---
Subjective Podiatric Problems left heel osteomyelitis, s/p left partial calcanectomy 12/09/17 Dr Wells Past Med/Surg/Social History Social History Smoking Status: Never Smoker Objective Vital Signs Vital Signs Date Time Temp Pulse Resp B/P (MAP) Pulse Ox O2 Delivery O2 Flow Rate FiO2 12/11/17 16:00 98.9 84 20 126/77 (93) 97 12/11/17 13:31 Room Air 12/11/17 07:00 Room Air 12/11/17 04:00 97.7 73 18 98/54 (69) 93 12/11/17 00:00 100.3 82 18 117/79 (92) 93 Coded Allergies: *MDRO Multi-Drug Resistant Organism (Verified Allergy, Unknown, 12/05/17) MRSA PCR (nares) negative - 11/19/15 & 11/21/15 Cleared per Infection Control MRSA 2013 Other Results Microbiology Date/Time Source Procedure Growth Status 12/06/17 15:55 Blood Peripheral Aerobic Blood Culture - Final NO GROWTH IN 5 DAYS Complete 12/06/17 15:55 Blood Peripheral Anaerobic Blood Culture - Final NO GROWTH IN 5 DAYS Complete 12/09/17 16:25 Wound Foot Fungal Smear - Final NO FUNGAL ELEMENTS SEEN. Resulted 12/09/17 16:25 Wound Foot Fungal Culture Pending Resulted Laboratory Tests Test 12/05/17 16:00 12/05/17 19:20 12/05/17 22:05 12/06/17 03:50 Erythrocyte Sedimentation Rate 34 mm/hr Hemoglobin A1c 7.8 % Phosphorus Level 3.7 MG/DL Magnesium Level 2.8 MG/DL C-Reactive Protein 3.90 MG/DL Triglycerides Level 118 MG/DL Cholesterol Level 106 MG/DL LDL Cholesterol 37 MG/DL HDL Cholesterol 45.5 MG/DL Cholesterol/HDL Ratio 2.32 RATIO Thyroid Stimulating Hormone 3rd Gen 0.632 uIU/ML Random Vancomycin Level 36.0 COMMENT Neutrophils (%) (Auto) 61.9 % Lymphocytes (%) (Auto) 23.4 % Monocytes (%) (Auto) 10.8 % Eosinophils (%) (Auto) 2.9 % Basophils (%) (Auto) 1.0 % Neutrophils # (Auto) 7.6 TH/MM3 Lymphocytes # (Auto) 2.9 TH/MM3 Monocytes # (Auto) 1.3 TH/MM3 Eosinophils # (Auto) 0.4 TH/MM3 Basophils # (Auto) 0.1 TH/MM3 CBC Comment DIFF FINAL Differential Comment Blood Urea Nitrogen 63 MG/DL Creatinine 10.55 MG/DL Random Glucose 163 MG/DL Total Protein 7.1 GM/DL Albumin 2.9 GM/DL Calcium Level 8.2 MG/DL Alkaline Phosphatase 146 U/L Aspartate Amino Transf (AST/SGOT) 9 U/L Alanine Aminotransferase (ALT/SGPT) 15 U/L Total Bilirubin 0.3 MG/DL Sodium Level 139 MEQ/L Potassium Level 4.9 MEQ/L Chloride Level 98 MEQ/L Carbon Dioxide Level 28.7 MEQ/L Test 12/07/17 08:03 12/10/17 09:04 Protein Corrected Calcium 8.3 MG/DL Blood Urea Nitrogen 83 MG/DL 45 MG/DL Creatinine 12.73 MG/DL 9.02 MG/DL Random Glucose 167 MG/DL 232 MG/DL Total Protein 7.2 GM/DL Calcium Level 8.3 MG/DL 8.3 MG/DL Sodium Level 137 MEQ/L 138 MEQ/L Potassium Level 5.4 MEQ/L 5.2 MEQ/L Chloride Level 96 MEQ/L 94 MEQ/L Carbon Dioxide Level 28.5 MEQ/L 28.5 MEQ/L Parathyroid Hormone (Intact) 248.8 PG/ML White Blood Count 14.3 TH/MM3 Red Blood Count 3.71 MIL/MM3 Hemoglobin 10.0 GM/DL Hematocrit 32.2 % Mean Corpuscular Volume 86.7 FL Mean Corpuscular Hemoglobin 26.9 PG Mean Corpuscular Hemoglobin Concent 31.0 % Red Cell Distribution Width 17.1 % Platelet Count 222 TH/MM3 Mean Platelet Volume 10.4 FL Anion Gap 16 MEQ/L Estimat Glomerular Filtration Rate 6 ML/MIN Assessment & Plan A/P Left heel osteomyelitis, s/p left partial calcanectomy 12/09/17 Dr Wells Continue nonweightbearing Await bone biopsy Will need d/c back to rehab Changed bandage today. Nursing to change bandage prior to discharge. Keep dressing clean, dry, intact. Does not need dressing orders for discharge. She will keep bandage she leaves with on until follow up in clinic in 1 week for further dressing changes. She will be clear for discharge from podiatry standpoint if no osteomyelitis present in bone biopsy sample when it returns. Elizabeth Wells DPM Dec 11, 2017 21:49
[2017-12-11] MEDS: CINACALCET HYDROCHLORIDE 30 MG TAB PO SCH (22:38)
[2017-12-11] MEDS: ATORVASTATIN 20 MG TAB PO SCH (22:38)
[2017-12-12] VITALS (7 sets, daily range): BP systolic 83–121; BP diastolic 47–66; PULSE 71–89; RESP 18–21; TEMP 97.1–100.3; O2SAT 93–97
[2017-12-12] MEDS: HEPARIN SODIUM - SQ 10,000 UNITS/ML VIAL SQ SCH ×3 (06:54→23:30)
[2017-12-12] MEDS: VITAMIN B CMPLX/VITC/FOLIC AC CAP PO SCH (08:53)
[2017-12-12] MEDS: SEVELAMER CARBONATE 800 MG TAB PO SCH ×3 (08:53→19:06)
[2017-12-12] MEDS: GABAPENTIN 100 MG CAP PO SCH ×2 (08:53→21:18)
[2017-12-12] MEDS: ASPIRIN 81 MG CHEW TAB PO SCH (08:53)
[2017-12-12] MEDS: cloNIDine HCL 0.1 MG TAB PO SCH ×2 (08:53→21:00)
[2017-12-12] MEDS: ACETAMINOPHEN/HYDROcodone 325 MG/5 MG TAB PO PRN ×2 (08:54→21:18)
[2017-12-12] MEDS: CHOLECALCIFEROL (VIT D3) 1000 UNIT TAB PO SCH (08:54)
[2017-12-12] MEDS: DOCUSATE SODIUM 50 MG/SENNA 8.6 MG TAB PO SCH ×2 (08:54→21:20)
[2017-12-12] MEDS: METOPROLOL TARTRATE 25 MG TAB PO SCH ×2 (08:56→21:22)
[2017-12-12] MEDS: PIPERACIL-TAZO 2.25 GM PREMIX 50 ML IV SCH ×4 (08:57→23:30)
[2017-12-12] MEDS: INSULIN ASPART SUPPLEMENTAL SCALE SQ SCH ×4 (08:57→22:14)
[2017-12-12] MEDS: SODIUM CHLORIDE 0.9% FLUSH 10 ML FLUSH IV FLUSH SCH ×2 (08:58→21:22)
[2017-12-12] MEDS: INSULIN DETEMIR 100 UNITS/ML VIAL SQ SCH ×2 (08:58→22:14)
--- NOTE | 2017-12-12 09:15 | HHI.FPPN ---
Subjective Remarks No acute events overnight. Patient did have a temp of 100.3 at midnight. Patient resting comfortably in bed. Nurse at bedside. 1 bowel movement recorded this morning. Patient states that her bowel movements are still hard. 3 attempts to draw labs this AM, patient declined after 3 attempts due to discomfort Patient states that she is not currently in pain. Patient states that she feels a bandage around her left foot is wrapped really tightly. Advised patient that she would need the bandage on until she follows up with podiatry in 1 week. She is able to wiggle her toes capillary refills are within normal limits. Sensation intact. She is able to tolerate her diet. She denies nausea/vomiting, chest pain, shortness of breath. Nurse reports that her wound culture came back enterococcus faecalis vancomycin- resistant. Will contact ID and discussed this morning. (Latonia Phelps MD R1) Objective Vitals Vital Signs Date Time Temp Pulse Resp B/P (MAP) Pulse Ox O2 Delivery O2 Flow Rate FiO2 12/12/17 08:00 98.1 74 18 121/61 (81) 97 12/12/17 04:00 Room Air 12/12/17 04:00 98.3 71 18 95/51 (66) 93 12/12/17 00:00 100.3 89 18 105/53 (70) 94 12/12/17 00:00 Room Air 12/11/17 20:00 Room Air 12/11/17 20:00 98.0 88 20 117/69 (85) 93 12/11/17 16:00 98.9 84 20 126/77 (93) 97 12/11/17 13:31 Room Air I/O 12/11/17 12/11/17 12/11/17 12/12/17 12/12/17 12/12/17 07:00 15:00 23:00 07:00 15:00 23:00 Intake Total 680 ml 340 ml 530 ml Output Total 3000 ml 0 ml Balance 680 ml -3000 ml 340 ml 530 ml Intake Oral 680 ml 240 ml 480 ml IV Total 100 ml 50 ml Output Urine Total 0 ml Hemodialysis 3000 ml # Voids 0 # Bowel Movements 0 1 (Latonia Phelps MD R1) Result Diagram: 12/10/1704 12/10/17 0904 Objective Remarks GENERAL: Resting comfortably in bed, no acute distress NECK: Supple, nontender, no meningeal signs CARDIOVASCULAR: Regular rate and rhythm without murmurs, gallops, or rubs. RESPIRATORY: Clear to auscultation bilaterally. Breath sounds equal bilaterally. GASTROINTESTINAL: Abdomen soft, non-tender, nondistended, obese. MUSCULOSKELETAL: Left heel wrapped in gauze, 2+ DP pulse, able to wiggle toes, pain with plantarflexion NEUROLOGICAL: Awake and alert. Oriented x3. (Latonia Phelps MD R1) A/P Assessment and Plan 52-year-old female who presented with nonhealing diabetic foot ulcer and admitted for osteomyelitis of left calcaneus. Discharge Planning Will need PT at rehab Pending bone biopsy (Latonia Phelps MD R1) Attending Attestation Patient examined independently and case discussed with resident physician I have read the above note and agree with the assessment/plan as discussed with me. I was involved in all medical decision making for this patient Vijay Orellana MD (Vijay Orellana MD) Problem List: (1) Osteomyelitis of left foot ICD Codes: M86.9 - Osteomyelitis, unspecified Status: Acute Plan: POD 3 s/p Partial calcanectomy left with bone biopsy on 12/[address] Wells -Wound culture growing gram-positive cocci, positive for enterococcus faecalis vancomycin-resistant -Bone biopsy results pending IV antibiotics: We will discuss with ID about antibiotic regimen, possibly patient may be switched to linezolid Discontinue Vancomycin, infectious disease consulted to manage dosing with dialysis Continue Zosyn 2.275 g IV every 12 hours (started 12/06) Infectious disease consult for long-term antibiotic management Blood cultures show no growth x 5 days IMAGING MRI of the right foot shows increasing cortical erosion and bone marrow edema along the posterior lateral margin of the calcaneus characteristic of osteomyelitis. Large soft tissue defect in the posterior lateral margin of the calcaneus characteristic of a large ulceration of area or debridement. -Foot x-ray shows soft tissues lucency involving the heel suggesting ulceration, no radiographic evidence to suggest osteomyelitis Vascular consulted for possible angiogram -DICK characteristic of mild to moderate PAD -PVR suggest mild arterial insufficiency and would indicate the perfusion okay to heal -Would only offer angio if bleeding in OR (2) ESRD (end stage renal disease) on dialysis ICD Codes: N18.6 - End stage renal disease; Z99.2 - Dependence on renal dialysis Status: Chronic Plan: -On dialysis Wednesday, , Wednesday, will continue as scheduled -Tobacco Baler is Dr. Martinez from [place] -Continue home Renvela and Sensipar -Renally dose medications (3) Type 2 diabetes mellitus ICD Codes: E11.9 - Type 2 diabetes mellitus without complications Status: Chronic Plan: A1c 8.1 in September 2017 -Accu-Cheks with sliding scale insulin -Continue Levemir at 10 units subcu twice daily -Titrate to effect -Diabetic counseling (4) Hypertension ICD Codes: I10 - Essential (primary) hypertension Status: Chronic Plan: -Well-controlled -Continue home metoprolol and clonidine (5) HLD (hyperlipidemia) ICD Codes: E78.5 - Hyperlipidemia, unspecified Status: Chronic Plan: Continue atorvastatin 20 mg p.o. at bedtime (6) Hx of chronic congestive heart failure ICD Codes: Z86.79 - Personal history of other diseases of the circulatory system Status: Chronic Plan: -Stable -Monitor for signs of acute exacerbation (7) Hx of coronary artery disease ICD Codes: Z86.79 - Personal history of other diseases of the circulatory system Status: Chronic Plan: -Status post four-vessel CABG -Continue aspirin 81 mg p.o. daily (8) FEN/DVT PPX/GI PPX/Nursing Orders Status: Acute Plan: Fluids: Oral fluids only Electrolytes: Will monitor and replace as needed Nutrition: Renal diet as tolerated. DVT Prophylaxis: heparin 5000 units subcu every 8 hours Constipation prophylaxis: Pericolace 1 tab PO BID PRN Medications Tylenol 650 mg by mouth every 4 hours when necessary pain temperature greater than 100.4F Zofran 4 mg p.o. every 6 hours when necessary nausea vomiting [place] 325-5 mg as needed pain, Morphine prn breakthrough pain (Latonia Phelps MD R1) Problem Qualifiers (1) Osteomyelitis of left foot: Qualified Codes: M86.272 - Subacute osteomyelitis, left ankle and foot (2) Type 2 diabetes mellitus: (3) Hypertension: Qualified Codes: I10 - Essential (primary) hypertension (4) HLD (hyperlipidemia): Qualified Codes: E78.5 - Hyperlipidemia, unspecified Latonia Phelps MD R1 Dec 12, 2017 09:15 Vijay Orellana MD Dec 12, 2017 11:41
--- NOTE | 2017-12-12 10:26 | HHI.NPPN ---
Subjective Renal Failure: End Stage Renal Disease History of Present Illness This is a 52-year-old female known to me from before with a past medical history of hypertension, diabetes mellitus, history of cerebrovascular accident , hyperlipidemia, ischemic heart disease, congestive heart failure, chronic anemia, end-stage renal disease on hemodialysis 3 times per week who was transferred to the hospital for a left heel ulcer, which is nonhealing.Nephrology was called for the management of dialysis. The patient was on hemodialysis here in the [facility] some time ago and then she moved to [place] because her daughter lives there and she has been getting dialysis there. Her forest fire management officer is Dr. Martinez over there.The patient is in a nursing facility and she has this wound on her left heel for which reason she was admitted before and it is not healing and she has been following with podiatry and she is admitted for antibiotic and debridement of the wound. The patient has some pain in the left heel area. She denies any nausea or vomiting. There is no history of fever. No shortness of breath. No chest pain. Her last hemodialysis was done on Wednesday through the left arm arteriovenous fistula. Additional Remarks comfortable, having breakfast. No complaints. Review of Systems Respiratory Respiratory Remarks Denies shortness of breath Cardiovascular Cardiac Remarks No chest pain Gastrointestinal GI Remarks No abdominal pain Objective Data Data Vital Signs Date Time Temp Pulse Resp B/P (MAP) Pulse Ox O2 Delivery O2 Flow Rate FiO2 12/12/17 08:00 98.1 74 18 121/61 (81) 97 12/12/17 04:00 Room Air 12/12/17 04:00 98.3 71 18 95/51 (66) 93 12/12/17 00:00 100.3 89 18 105/53 (70) 94 12/12/17 00:00 Room Air 12/11/17 20:00 Room Air 12/11/17 20:00 98.0 88 20 117/69 (85) 93 12/11/17 16:00 98.9 84 20 126/77 (93) 97 12/11/17 13:31 Room Air -: 12/10/17 0904 12/10/17 0904 Physical Exam General Appearance: Well Nourished, No Acute Distress, Comfortable Throat Throat Exam: Oral Mucosa [place] & Moist Pulmonary Resp Exam: Clear Bilaterally, Breath Sounds Equal, No Distress Cardiology CV Exam: Normal Sinus Rhythm Gastrointestinal/Abdomen GI Exam: Soft, Non-Tender, Bowel Sounds Present Genitourinary Exam: Flank Non-Tender Integumentary Skin Exam: Clear, Warm, Lesion(s) Extremeties Extremities Exam: No Edema, Moderate Edema Neurologic Neuro Exam: Alert, Awake Psychiatric Psych Exam: Appropriate Responses Assessment/Plan Discussed Condition With: Patient Problem List: (1) ESRD (end stage renal disease) on dialysis ICD Codes: N18.6 - End stage renal disease; Z99.2 - Dependence on renal dialysis Status: Chronic Plan: Hemodialysis on Wednesday, , and Wednesday. Her forest fire management officer is Dr. Martinez from [place]. Renal diet. Continue Sensipar (2) Diabetic foot ulcer associated with type 2 diabetes mellitus ICD Codes: E11.621 - Type 2 diabetes mellitus with foot ulcer; L97.509 - Non- pressure chronic ulcer of other part of unspecified foot with unspecified severity Plan: Podiatry and Vascular surgery consulted Antibiotics per ID (3) Type 2 diabetes mellitus ICD Codes: E11.9 - Type 2 diabetes mellitus without complications Status: Chronic Plan: Maintain blood sugars between 140 mg/dl to 180 mg/dl (4) Hypertension ICD Codes: I10 - Essential (primary) hypertension Status: Chronic Plan: Well controlled will monitor Problem Qualifiers (1) Diabetic foot ulcer associated with type 2 diabetes mellitus: (2) Type 2 diabetes mellitus: (3) Hypertension: Qualified Codes: I10 - Essential (primary) hypertension De Mclain MD Dec 12, 2017 10:26
[2017-12-12] MEDS ORDERED: SODIUM CHLORID 0.9% 500 ML INJ 500 ML IV ONE (11:45)
--- NOTE | 2017-12-12 12:21 | HHI.PR ---
Addendum to Inpatient Note Addendum Reason: Additional Documentation Additional Information OFF-SERVICE NOTE: 52 yr old F with DM, ESRD on dialysis (TThSa), hx of stroke with residual right hemiparesis admitted on 12/06 for left diabetic foot infection. Imaging: MRI of the right foot shows increasing cortical erosion and bone marrow edema along the posterior lateral margin of the calcaneus characteristic of osteomyelitis. Large soft tissue defect in the posterior lateral margin of the calcaneus characteristic of a large ulceration of area or debridement. Podiatry, vascular, and nephrology consulted. Vascular consulted for possible angiogram. PVR suggest mild arterial insufficiency and would indicate the perfusion okay to heel. Patient is POD3 from left partial calcanectomy on . Blood cultures NGTD. Would culture grew entercoccuss facealis, resistant to vancomycin. Bone biopsy pending to check for clearance of osteomyelitis. Spoke with Dr. Moreau, Dr. Mclain, and pharmacy, discontinued Vancomycin, will start Daptomycin 6mg/kg q48hr after dialysis and continue Zosyn 2.276g IV q12hr. Nursing to change bandage prior to discharge. Does not need dressing orders for discharge. She will keep bandage on until follow-up in clinic1 week for further dressing changes. She will be clear for discharge from podiatry standpoint if no osteomyellitis present in bone biopsy sample. ESRD: Adult Live In Caregiver is Dr. Martinez from [facility]. Will continue dialysis on Wednesday, , and Wednesday. continue home Renvela and Sensipar. Renally dose mediations. Patient will need discharge back to rehab. Patient resides at [facility]. Latonia Phelps MD R1 Dec 12, 2017 12:21
[2017-12-12] MEDS ORDERED: DAPTOmycin INJ 600 MG in SODIUM CHLORIDE 0.9% INJ 100 ML IV ONE (14:00)
--- NOTE | 2017-12-12 19:15 | MP ---
cc: Elizabeth Wells DPM DATE OF OPERATION: 12/09/2017 INDICATIONS FOR PROCEDURE: This patient presented to my clinic with foul odor and necrotic tissue to the left calcaneus, with visible and palpable bone. She was noted to have findings of the MRI consistent with osteomyelitis to the superficial lateral aspect of the calcaneus. I discussed with the patient the risks, benefits and potential complications of surgery. I discussed with her that she would require partial calcanectomy in order to remove enough bone to close the wound and not have to have a wound VAC again. She agreed to move forward with surgery. DESCRIPTION OF PROCEDURE: She was seen in preop holding by myself, nursing staff and anesthesia, where the correct patient, side and site were all confirmed to be correct and the left heel. She was then seen in preoperative holding and then taken back to the surgical suite in the supine position with a bump. She was prepped and draped in normal sterile fashion to the left foot. Following this, attention was directed to the left calcaneus. After timeouts were performed as per facility protocol, a plantar lateral ulceration was noted down to bone with fibronecrotic tissue. No active purulence was noted, but there was foul odor present, measured approximately 6 x 4 x 1.5 cm in depth. The wound was excised down to bone of all the fibronecrotic tissue. The plantar calcaneus was excised, followed by copious amounts of irrigation and primary closure with 2-0 nylon suture. The wound was able to be closed in its entirety without a wound VAC. A dressing consisting of Xeroform, 4 x 4's, ABD x 2 and cast padding with Kevin bandage was applied to the left foot. She will be nonweightbearing to the left foot and will need to be discharged back to rehabilitation. SHORT OPERATIVE SURGEON: Elizabeth Wells DPM ASSISTANT COMMUNITY DIRECTOR: Staff. PREOPERATIVE DIAGNOSIS: Osteomyelitis, left calcaneus. POSTOPERATIVE DIAGNOSIS: Osteomyelitis, left calcaneus. PROCEDURE PERFORMED: Partial calcanectomy, left with bone biopsy. PATHOLOGY: Bone of plantar calcaneus, left foot for biopsy, culture left heel. ANESTHESIA: General endotracheal anesthesia. TOURNIQUET TIME: No tourniquet utilized. CONDITION: Stable to PACU. COMPLICATIONS: None. DISPOSITION: Nonweightbearing left foot. Will need to be discharged to rehab. BÁRBARA Nino , 05:50 PM , 07:15 PM
[2017-12-12] MEDS: CINACALCET HYDROCHLORIDE 30 MG TAB PO SCH (21:18)
[2017-12-12] MEDS: ATORVASTATIN 20 MG TAB PO SCH (21:21)
[2017-12-13] VITALS (7 sets, daily range): BP systolic 92–119; BP diastolic 53–65; PULSE 72–83; RESP 16–19; TEMP 97.3–98.8; O2SAT 94–97
[2017-12-13] MEDS: HEPARIN SODIUM - SQ 10,000 UNITS/ML VIAL SQ SCH ×3 (06:29→23:15)
[2017-12-13 06:51] LABS: HEMATOCRIT 30.9 % (35.0-46.0); HEMOGLOBIN 9.5 GM/DL (11.6-15.3); MEAN CELL VOLUME 86.6 FL (80.0-100.0); MEAN CORPUSCULAR HEMOGLOBIN 26.7 PG (27.0-34.0); MEAN CORPUSCULAR HGB CONC 30.8 % (32.0-36.0); MEAN PLATELET VOLUME 10.6 FL (7.0-11.0); PLATELET COUNT 226 TH/MM3 (150-450); RED BLOOD COUNT 3.56 MIL/MM3 (4.00-5.30); RED CELL DISTRIBUTION WIDTH 16.8 % (11.6-17.2); WHITE BLOOD COUNT 14.1 TH/MM3 (4.0-11.0)
[2017-12-13 07:29] LABS: BICARBONATE 27.9 MEQ/L (21.0-32.0); CALCIUM 7.9 MG/DL (8.5-10.1)
[2017-12-13] MEDS: SODIUM CHLORIDE 0.9% FLUSH 10 ML FLUSH IV FLUSH SCH ×2 (09:00→23:16)
[2017-12-13] MEDS: cloNIDine HCL 0.1 MG TAB PO SCH ×2 (09:00→21:00)
[2017-12-13 09:07] LABS: CREATININE 10.49 MG/DL (0.50-1.00)
--- NOTE | 2017-12-13 09:33 | HHI.NPPN ---
Subjective Renal Failure: End Stage Renal Disease History of Present Illness This is a 52-year-old female known to me from before with a past medical history of hypertension, diabetes mellitus, history of cerebrovascular accident , hyperlipidemia, ischemic heart disease, congestive heart failure, chronic anemia, end-stage renal disease on hemodialysis 3 times per week who was transferred to the hospital for a left heel ulcer, which is nonhealing.Nephrology was called for the management of dialysis. The patient was on hemodialysis here in the [facility] some time ago and then she moved to [place] because her daughter lives there and she has been getting dialysis there. Her assistant professor of archaeology is Dr. Martinez over there.The patient is in a nursing facility and she has this wound on her left heel for which reason she was admitted before and it is not healing and she has been following with podiatry and she is admitted for antibiotic and debridement of the wound. The patient has some pain in the left heel area. She denies any nausea or vomiting. There is no history of fever. No shortness of breath. No chest pain. Her last hemodialysis was done on Wednesday through the left arm arteriovenous fistula. Additional Remarks Resting comfortably with no complaints. (Felicitas Galo) Review of Systems Respiratory Respiratory Remarks Denies shortness of breath (Felicitas Galo) Cardiovascular Cardiac Remarks No chest pain (Felicitas Galo) Gastrointestinal GI Remarks No abdominal pain (Felicitas Galo) Objective Data Data Vital Signs Date Time Temp Pulse Resp B/P (MAP) Pulse Ox O2 Delivery O2 Flow Rate FiO2 12/13/17 04:00 97.3 83 19 105/60 (75) 94 12/13/17 00:00 97.3 82 19 92/53 (66) 94 12/12/17 20:00 Room Air 12/12/17 20:00 97.1 86 21 112/66 (81) 93 12/12/17 16:00 98.6 75 18 83/47 (59) 94 12/12/17 12:50 112/59 (76) 12/12/17 12:00 98.3 80 21 89/54 (66) 93 (Felicitas Galo) -: 12/13/17 0624 12/13/17 0624 Microbiology 12/13/17 Aerobic Blood Culture, Received Pending 12/13/17 Anaerobic Blood Culture, Received Pending (Felicitas Galo) Physical Exam General Appearance: Well Nourished, No Acute Distress, Comfortable (Felicitas Galo) Throat Throat Exam: Oral Mucosa Miller & Moist (Felicitas Galo) Pulmonary Resp Exam: Clear Bilaterally, Breath Sounds Equal, No Distress (Felicitas Galo) Cardiology CV Exam: Normal Sinus Rhythm (Felicitas Galo) Gastrointestinal/Abdomen GI Exam: Soft, Non-Tender, Bowel Sounds Present (Felicitas Galo) Genitourinary Exam: Flank Non-Tender (Felicitas Galo) Integumentary Skin Exam: Clear, Warm, Lesion(s) Skin Remarks Left foot with dressing on (Felicitas Galo) Extremeties Extremities Exam: No Edema, Moderate Edema (Felicitas Galo) Neurologic Neuro Exam: Alert, Awake (Felicitas Galo) Psychiatric Psych Exam: Appropriate Responses (Felicitas Galo) Assessment/Plan Discussed Condition With: Patient Problem List: (1) ESRD (end stage renal disease) on dialysis ICD Codes: N18.6 - End stage renal disease; Z99.2 - Dependence on renal dialysis Status: Chronic Plan: Hemodialysis on Wednesday, , and Wednesday. Her assistant professor of archaeology is Dr. Martinez from [place] Left arm arteriovenous fistula with positive thrill and bruit Renal diet. Continue Sensipar/Renvela Dialysis tomorrow remove fluid as tolerated (2) Diabetic foot ulcer associated with type 2 diabetes mellitus ICD Codes: E11.621 - Type 2 diabetes mellitus with foot ulcer; L97.509 - Non- pressure chronic ulcer of other part of unspecified foot with unspecified severity Plan: Antibiotics per ID (3) Type 2 diabetes mellitus ICD Codes: E11.9 - Type 2 diabetes mellitus without complications Status: Chronic Plan: Maintain blood sugars between 140 mg/dl to 180 mg/dl (4) Hypertension ICD Codes: I10 - Essential (primary) hypertension Status: Chronic Plan: Blood pressure on lower side and hypertension medication on hold (Felicitas Galo) Problem List: (1) ESRD (end stage renal disease) on dialysis ICD Codes: N18.6 - End stage renal disease; Z99.2 - Dependence on renal dialysis Status: Chronic Plan: Hemodialysis on Wednesday, , and Wednesday. Her assistant professor of archaeology is Dr. Martinez from [place] Left arm arteriovenous fistula with positive thrill and bruit Renal diet. Continue Sensipar/Renvela Dialysis tomorrow remove fluid as tolerated. Patient seen and examined, agree with above. Continue antibiotics as per ID. HD will be in AM. (2) Diabetic foot ulcer associated with type 2 diabetes mellitus ICD Codes: E11.621 - Type 2 diabetes mellitus with foot ulcer; L97.509 - Non- pressure chronic ulcer of other part of unspecified foot with unspecified severity Plan: Antibiotics per ID (3) Type 2 diabetes mellitus ICD Codes: E11.9 - Type 2 diabetes mellitus without complications Status: Chronic Plan: Maintain blood sugars between 140 mg/dl to 180 mg/dl (4) Hypertension ICD Codes: I10 - Essential (primary) hypertension Status: Chronic Plan: Blood pressure on lower side and hypertension medication on hold (Ivonne Coffey MD) Problem Qualifiers (1) Diabetic foot ulcer associated with type 2 diabetes mellitus: (2) Type 2 diabetes mellitus: (3) Hypertension: Qualified Codes: I10 - Essential (primary) hypertension Felicitas Galo Dec 13, 2017 09:33 Ivonne Coffey MD Dec 14, 2017 00:37
[2017-12-13] MEDS: ASPIRIN 81 MG CHEW TAB PO SCH (09:34)
[2017-12-13] MEDS: GABAPENTIN 100 MG CAP PO SCH ×2 (09:34→23:13)
[2017-12-13] MEDS: CHOLECALCIFEROL (VIT D3) 1000 UNIT TAB PO SCH (09:34)
[2017-12-13] MEDS: DOCUSATE SODIUM 50 MG/SENNA 8.6 MG TAB PO SCH ×2 (09:34→21:00)
[2017-12-13] MEDS: SEVELAMER CARBONATE 800 MG TAB PO SCH ×3 (09:34→17:39)
[2017-12-13] MEDS: METOPROLOL TARTRATE 25 MG TAB PO SCH ×2 (09:34→21:00)
[2017-12-13] MEDS: VITAMIN B CMPLX/VITC/FOLIC AC CAP PO SCH (09:35)
--- NOTE | 2017-12-13 11:07 | HHI.FPPN ---
Subjective Remarks Patient was seen and evaluated this morning. Patient denies chest and abdominal pain, heart palpitations, shortness of breath, nausea/vomiting, diarrhea and constipation. She complains of numbness over the lateral aspect of her left ankle. She denies pain. Patient believes that bandaging is too tight. Bandaging , however, appears loose. She is able to wiggle her toes and has capitally refill wnl. All questions were answered. (Yanet Roldan MD R1) Objective Vitals Vital Signs Date Time Temp Pulse Resp B/P (MAP) Pulse Ox O2 Delivery O2 Flow Rate FiO2 12/13/17 08:00 98.1 77 16 110/65 (80) 97 12/13/17 04:00 97.3 83 19 105/60 (75) 94 12/13/17 00:00 97.3 82 19 92/53 (66) 94 12/12/17 20:00 Room Air 12/12/17 20:00 97.1 86 21 112/66 (81) 93 12/12/17 16:00 98.6 75 18 83/47 (59) 94 12/12/17 12:50 112/59 (76) 12/12/17 12:00 98.3 80 21 89/54 (66) 93 I/O 12/12/17 12/12/17 12/12/17 12/13/17 12/13/17 12/13/17 07:00 15:00 23:00 07:00 15:00 23:00 Intake Total 530 ml 390 ml 250 ml Output Total 0 ml Balance 530 ml 390 ml 250 ml Intake Oral 480 ml 240 ml IV Total 50 ml 150 ml 250 ml Output Urine Total 0 ml # Voids 0 # Bowel Movements 1 0 (Yanet Roldan MD R1) Result Diagram: 12/13/17 0624 12/13/17 0624 Imaging Last Impressions Foot X-Ray 12/09/17 0000 Signed Impressions: CONCLUSION: Partial amputation of the calcaneus. Foot MRI 12/05/17 0000 Signed Impressions: CONCLUSION: 1. Increasing cortical erosion and bone marrow edema along the posterolateral margin of the calcaneus characteristic of osteomyelitis. 2. Large soft tissue defect the posterior lateral margin of the calcaneus jennifer acteristic of a large ulceration or area of debridement. 3. Otherwise stable appearing hindfoot. Extremity Arterial Study 12/05/17 0000 Signed Impressions: CONCLUSION: 1. Ankle-brachial index and toe brachial index are most characteristic of mild to moderate peripheral arterial disease. Objective Remarks GENERAL: Patient is a resting in bed comfortably, in no acute distress. CARDIOVASCULAR: Regular rate and rhythm without murmurs, gallops, or rubs. RESPIRATORY: Clear to auscultation bilaterally. Breath sounds equal bilaterally. GASTROINTESTINAL: Abdomen soft, non-tender, nondistended, obese. MUSCULOSKELETAL: Left arm: fistula covered with dry, clean bandage. Thrill appreciated. Left heel: wrapped loosely with bandage, able to wiggle toes, capillary refill wnl. NEUROLOGICAL: Awake and alert. Oriented x3. Procedures Partial calcanectomy, left with bone biopsy on 12/09. Medications and IVs Current Medications Medications (Trade) Dose Ordered Sig/Afshan Route Start Time Stop Time Status Last Admin (Aspirin Chew) 81 mg DAILY PO 12/06/17 09:00 12/13/17 09:34 (Lipitor) 20 mg HS PO 12/05/17 21:00 12/12/17 21:21 (Vitamin D3) 1,000 units DAILY PO 12/06/17 09:00 12/13/17 09:34 (Neurontin) 200 mg BID PO 12/05/17 21:00 12/13/17 09:34 (Lopressor) 25 mg BID PO 12/05/17 21:00 12/13/17 09:34 (Renvela) 1,600 mg TID PO 12/06/17 09:00 12/13/17 09:34 (Nephrocaps) 1 cap DAILY PO 12/06/17 09:00 12/13/17 09:35 (Sensipar) 60 mg HS PO 12/05/17 21:00 12/12/17 21:18 (NS Flush) 2 ml UNSCH PRN IV FLUSH 12/05/17 19:45 (NS Flush) 2 ml BID IV FLUSH 12/05/17 21:00 12/12/17 21:22 (Tylenol) 650 mg Q4H PRN PO 12/05/17 19:45 (Narcan Inj) 0.4 mg UNSCH PRN IV PUSH 12/05/17 19:45 (Joyce-Colace) 1 tab BID PO 12/05/17 21:00 12/13/17 09:34 (Milk Of Magnesia Liq) 30 ml Q12H PRN PO 12/05/17 19:45 12/12/17 00:31 (Senokot) 17.2 mg Q12H PRN PO 12/05/17 19:45 (Dulcolax Supp) 10 mg DAILY PRN RECTAL 12/05/17 19:45 (Lactulose Liq) 30 ml DAILY PRN PO 12/05/17 19:45 (D50w (Vial) Inj) 50 ml UNSCH PRN IV PUSH 12/05/17 19:45 (Glucagon Inj) 1 mg UNSCH PRN OTHER 12/05/17 19:45 (NovoLOG SUPPLEMENTAL SCALE) 1 ACHS SLIDING SCALE SQ 12/05/17 21:00 12/12/17 22:14 (Levemir Inj) 10 units BID SQ 12/05/17 21:00 12/12/17 22:14 (Heparin Inj) 5,000 units Q8H SQ 12/05/17 23:00 12/13/17 06:29 ([place] 5-325 Mg) 1 tab Q4H PRN PO 12/05/17 21:30 12/12/17 21:18 ([place] 5-325 Mg) 2 tab Q6H PRN PO 12/05/17 21:30 12/11/17 22:39 (Morphine Inj) 2 mg Q3H PRN IV PUSH 12/05/17 21:30 (Zofran Odt) 4 mg Q6H PRN PO 12/05/17 21:30 Sodium Chloride 1,000 ml @ 0 mls/hr Q0M PRN OTHER 12/06/17 12:33 (Heparin Inj) 8,000 units UNSCH PRN IV FLUSH 12/06/17 12:45 Sodium Chloride 1,000 ml @ 200 mls/hr Q5H PRN IV 12/06/17 12:33 Sodium Chloride 1,000 ml @ 0 mls/hr Q0M PRN OTHER 12/06/17 12:33 (Mannitol Inj) 12.5 gm UNSCH PRN IV 12/06/17 12:45 Albumin Human 100 ml @ 60 mls/hr UNSCH PRN IV 12/06/17 12:45 12/07/17 10:58 (NS Flush) 5 ml UNSCH PRN IV FLUSH 12/06/17 12:45 (Heparin Inj) UNSCH PRN .XX 12/06/17 12:45 (Gentamicin Inj) 20 mg UNSCH PRN OTHER 12/06/17 12:45 (Tylenol) 650 mg UNSCH PRN PO 12/06/17 12:45 (Benadryl) 25 mg UNSCH PRN PO 12/06/17 12:45 (Nitrostat Sl) 0.4 mg UNSCH PRN SL 12/06/17 12:45 (Catapres) 0.1 mg UNSCH PRN PO 12/06/17 12:45 (Epogen Inj) 10,000 units UNSCH PRN IV PUSH 12/06/17 12:45 12/11/17 12:11 (Gelfoam 12 Mm/7 Mm Top) 1 foam UNSCH PRN TOP 12/06/17 12:45 (Zofran Odt) 4 mg UNSCH PRN PO 12/06/17 13:00 Piperacillin Sod/ Tazobactam Sod 50 ml @ 100 mls/hr Q8H IV 12/07/17 16:00 12/12/17 23:30 (Catapres) 0.1 mg BID PO 12/08/17 21:00 12/12/17 08:53 Daptomycin 600 mg/ Sodium Chloride 100 ml @ 200 mls/hr TuThSa IV 12/14/17 14:00 (Yanet Roldan MD R1) Vascular Central Line Catheter: No (Yanet Roldan MD R1) A/P Assessment and Plan Patient is a 52-year-old female who presented with a nonhealing diabetic foot ulcer. Admitted for evaluation and management of osteomyelitis of left calcaneus. Discharge Planning Pending bone biopsy. (Yanet Roldan MD R1) Attending Attestation Pt. examined independently and case discussed with resident physicians. I have read the above note and agree with the assessment and plan as discussed with me. I was involved in all medical decision making for this patient. Vijay Orellana MD (Vijay Orellana MD) Problem List: (1) Osteomyelitis of left foot ICD Codes: M86.9 - Osteomyelitis, unspecified Status: Acute Plan: S/p left partial calcanectomy with bone biopsy on 12/[address] Wells. * Wound culture growing gram-positive cocci; enterococcus faecalis vancomycin- resistant. * Bone biopsy results pending. * Blood cultures show no growth up to date. Imaging: * MRI of the right foot shows increasing cortical erosion and bone marrow edema along the posterior lateral margin of the calcaneus characteristic of osteomyelitis. Large soft tissue defect in the posterior lateral margin of the calcaneus characteristic of a large ulceration of area or debridement. * Foot x-ray shows soft tissues lucency involving the heel suggesting ulceration , no radiographic evidence to suggest osteomyelitis. Medications: * Daptomycin 600mg IV following hemodialysis , , (12/12-). * Zosyn 2.275 g IV q12hr (12/06-). * Discontinued Vancomycin 12/12. Consults: * Podiatry. * Cleared patient for discharge. * Infectious Discharge. * Awaiting discharge recommendations. * Vascular surgery. * DICK characteristic of mild to moderate PAD. * PVR suggest mild arterial insufficiency and would indicate the perfusion sufficient to heal. (2) ESRD (end stage renal disease) on dialysis ICD Codes: N18.6 - End stage renal disease; Z99.2 - Dependence on renal dialysis Status: Chronic Plan: Patient with history of ESRD. On dialysis Wednesday, , Wednesday. Patient's cop winder is Dr. Martinez from [place]. Medications: * Continue home Renvela and Sensipar. Consults: * Nephrology. * Continue dialysis schedule as above. * Renally dose medications. (3) Type 2 diabetes mellitus ICD Codes: E11.9 - Type 2 diabetes mellitus without complications Status: Chronic Plan: Patient with history of DM Type II. A1c 8.1 in September 2017 Medications: * Determir 10 units SQ BID. * NovoLOG supplemental scale. Patient has required 14 units over past 24 hrs. Orders: * Bedside glucose at 08, 12, 17, 21. (4) Hypertension ICD Codes: I10 - Essential (primary) hypertension Status: Chronic Plan: Patient with history of hypertension. * Continue home medications. (5) HLD (hyperlipidemia) ICD Codes: E78.5 - Hyperlipidemia, unspecified Status: Chronic Plan: Patient with history of hyperlipidemia. * Continue home medications. (6) Hx of chronic congestive heart failure ICD Codes: Z86.79 - Personal history of other diseases of the circulatory system Status: Chronic Plan: Patient with history of CHF. * Monitor for signs of acute exacerbation. (7) Hx of coronary artery disease ICD Codes: Z86.79 - Personal history of other diseases of the circulatory system Status: Chronic Plan: Patient with history of CAD. S/p four-vessel CABG. Medications: * Continue Aspirin 81 mg PO daily. (8) FEN/DVT PPX/GI PPX/Nursing Orders Status: Acute Plan: Fluids: * Tolerates PO. Electrolytes: * Monitor and replete as necessary. Nutrition: * Renal diet. DVT Prophylaxis: * Heparin 5000 units SQ q8hr. (Yanet Roldan MD R1) Problem Qualifiers (1) Osteomyelitis of left foot: Qualified Codes: M86.272 - Subacute osteomyelitis, left ankle and foot (2) Type 2 diabetes mellitus: (3) Hypertension: Qualified Codes: I10 - Essential (primary) hypertension (4) HLD (hyperlipidemia): Qualified Codes: E78.5 - Hyperlipidemia, unspecified Yanet Roldan MD R1 Dec 13, 2017 11:07 Vijay Orellana MD Dec 13, 2017 20:54
[2017-12-13] MEDS: INSULIN DETEMIR 100 UNITS/ML VIAL SQ SCH ×2 (11:19→23:16)
[2017-12-13] MEDS: INSULIN ASPART SUPPLEMENTAL SCALE SQ SCH ×5 (11:19→23:17)
[2017-12-13] MEDS: PIPERACIL-TAZO 2.25 GM PREMIX 50 ML IV SCH (11:41)
[2017-12-13] MEDS: AMPICILLIN-SULBACTAM INJ 3 GM in SODIUM CHLORIDE 0.9% INJ 100 ML IV SCH (14:58)
--- NOTE | 2017-12-13 17:43 | HHI.IDPN ---
Subjective Subjective Remarks fever resolved WBC creepiing up path P VRE in bone culture, but is S to ampicilin Antibiotics zosyn dapto Past Medical History DM ESRD/HD Allergies: Coded Allergies: *MDRO Multi-Drug Resistant Organism (Verified Allergy, Unknown, 12/05/17) MRSA PCR (nares) negative - 11/19/15 & 11/21/15 Cleared per Infection Control MRSA 2013 Objective . Vital Signs Date Time Temp Pulse Resp B/P (MAP) Pulse Ox O2 Delivery O2 Flow Rate FiO2 12/13/17 17:35 96 21 12/13/17 16:00 98.8 83 16 119/63 (81) 96 12/13/17 12:00 98.0 72 16 102/55 (71) 96 12/13/17 08:00 98.1 77 16 110/65 (80) 97 12/13/17 07:00 Room Air 12/13/17 04:00 97.3 83 19 105/60 (75) 94 12/13/17 00:00 97.3 82 19 92/53 (66) 94 12/12/17 20:00 Room Air 12/12/17 20:00 97.1 86 21 112/66 (81) 93 . Laboratory Tests Test 12/13/17 06:24 White Blood Count 14.1 TH/MM3 Red Blood Count 3.56 MIL/MM3 Hemoglobin 9.5 GM/DL Hematocrit 30.9 % Mean Corpuscular Volume 86.6 FL Mean Corpuscular Hemoglobin 26.7 PG Mean Corpuscular Hemoglobin Concent 30.8 % Red Cell Distribution Width 16.8 % Platelet Count 226 TH/MM3 Mean Platelet Volume 10.6 FL Laboratory Tests Test 12/13/17 06:24 Blood Urea Nitrogen 59 MG/DL Creatinine 10.49 MG/DL Random Glucose 191 MG/DL Calcium Level 7.9 MG/DL Sodium Level 134 MEQ/L Potassium Level 4.8 MEQ/L Chloride Level 91 MEQ/L Carbon Dioxide Level 27.9 MEQ/L Anion Gap 15 MEQ/L Estimat Glomerular Filtration Rate 5 ML/MIN Microbiology Date/Time Source Procedure Growth Status 12/13/17 06:24 Blood Peripheral Aerobic Blood Culture Pending Received 12/13/17 06:24 Blood Peripheral Anaerobic Blood Culture Pending Received Imaging Last Impressions Foot X-Ray 12/09/17 0000 Signed Impressions: CONCLUSION: Partial amputation of the calcaneus. Foot MRI 12/05/17 0000 Signed Impressions: CONCLUSION: 1. Increasing cortical erosion and bone marrow edema along the posterolateral margin of the calcaneus characteristic of osteomyelitis. 2. Large soft tissue defect the posterior lateral margin of the calcaneus jennifer acteristic of a large ulceration or area of debridement. 3. Otherwise stable appearing hindfoot. Extremity Arterial Study 12/05/17 0000 Signed Impressions: CONCLUSION: 1. Ankle-brachial index and toe brachial index are most characteristic of mild to moderate peripheral arterial disease. Physical Exam CONSTITUTIONAL/GENERAL: This is an obese d patient, in no apparent distress. TUBES/LINES/DRAINS: LUE with AV Fistula in place, good thrill, no e/o infection SKIN: No jaundice, rashes, or lesions. CARDIOVASCULAR: Regular rate and rhythm without murmurs, gallops, or rubs. RESPIRATORY/CHEST: Symmetric, unlabored respirations. Clear to auscultation. GASTROINTESTINAL: Abdomen soft, non-tender, nondistended. No hepato-splenomegaly , or palpable masses. No guarding. Bowel sounds present. MUSCULOSKELETAL: Extremities without clubbing, cyanosis, or edema. No joint tenderness or effusion noted. No calf tenderness. No mottling or clubbing. L foot with intact dressing NEUROLOGICAL: Awake and alert. Dense R sided hemiplegia Follows commands with R side . Clear speech. PSYCHIATRIC: No obvious anxiety/depression. no apparent hallucinations or other psychotic thought process. Assessment & Plan Remarks DFI L heel, L calcaneous osteo - previously culture negative - VRE amp S - clinically also anaerobs, though not isolated Poor healing Mild to mod arterial diseas [per arterial studies DM ESRD, on HD ( T-T -S) Multiple med problems New fever - ? postop: resolved Worxzening leukocytosis PLAN: fu WBC and fever will change abx to Unasyn: it will cover the VRE along with anaerob fu path anticipate 6 weeks Access approved by nephrology ? R PEDRO Malcolm?? Anticipate IV abx with HD (probably vancomycin) Marzena Jacome Dr, MD Dec 13, 2017 17:43
--- NOTE | 2017-12-13 17:44 | HHI.FF ---
Infusion Therapy Location of Infusion Therapy: [facility] Infusion Therapy Order Patient Information Patient Weight 101.5 kg Diagnosis: Coded Allergies: *MDRO Multi-Drug Resistant Organism (Verified Allergy, Unknown, 12/05/17) MRSA PCR (nares) negative - 11/19/15 & 11/21/15 Cleared per Infection Control MRSA 2013 Administer Medication Unasyn 1 gram IV daily Start Treatment: Dec 13, 2017 Stop Treatment: Jan 23, 2018 Additional Information Venous access: Tunneled Catheter Additional Instructions [x] Peripheral flush and dressing changes per protocol [x] Implanted port and central online media buyer: * Implanted port: 10 ml Normal Saline followed by 5 ml Heparin 100 units/ml Heparin flush after each use and monthly to maintain. [] May leave port accessed during therapy. [] May leave peripheral site accessed for duration of therapy. [x] If patient has SOB or respiratory distress, check oxygen saturation. If less than 90% or clinical signs of respiratory distress, administer oxygen at 2 L/min. via nasal cannula and notify physician. [x] Anaphylaxis/Reaction orders: * Stop infusion. * Keep IV line open with saline flush. * Notify physician. * Monitor vital signs every 15 minutes until symptoms resolve. * Check Oxygen saturation; Oxygen at 2 L/min. via nasal cannula if less than 90% or clinical signs of respiratory distress. * Administer diphenhydramine (Benadryl) 25 mg IV STAT, (unless patient has received as pre-med). May repeat once, if necessary. * Solu-Cortef 250 mg IVP over 30-60 seconds, use 100 mg vials for each dissolution. * Epinephrine (1mg/1 ml) 0.3 mg subcutaneously or IVP now with any signs of respiratory distress. * Check with physician for new additional pre-med orders if patient is re- challenged or re-treated. [x] May remove PICC line when treatment complete, after confirming with Physician. [x] If the patient is admitted to the hospital, the ED, or transferred via EVAC , complete transfer form including medication reconciliation order sheet. Laboratory Tests Weekly Labs: CBC w/diff, CRP, LFT's (Hepatic function test), SED Rate Marzena Moreau MD Dec 13, 2017 17:44
[2017-12-13] MEDS: CINACALCET HYDROCHLORIDE 30 MG TAB PO SCH (23:14)
[2017-12-13] MEDS: ATORVASTATIN 20 MG TAB PO SCH (23:15)
[2017-12-14] VITALS: BP 129/63; PULSE 92; RESP 18; TEMP 98.4; O2SAT 95
[2017-12-14 04:00] VITALS: BP 141/76; PULSE 81; RESP 18; TEMP 99.4; O2SAT 98
[2017-12-14] MEDS: HEPARIN SODIUM - SQ 10,000 UNITS/ML VIAL SQ SCH ×4 (06:38→21:09)
[2017-12-14 08:09] VITALS: BP 131/75; PULSE 80; RESP 18; TEMP 98.1; O2SAT 98
[2017-12-14] MEDS: ASPIRIN 81 MG CHEW TAB PO SCH (08:18)
[2017-12-14] MEDS: DOCUSATE SODIUM 50 MG/SENNA 8.6 MG TAB PO SCH ×2 (08:19→21:00)
[2017-12-14] MEDS: GABAPENTIN 100 MG CAP PO SCH ×2 (08:19→21:06)
[2017-12-14] MEDS: SEVELAMER CARBONATE 800 MG TAB PO SCH ×3 (08:19→19:12)
[2017-12-14] MEDS: ACETAMINOPHEN/HYDROcodone 325 MG/5 MG TAB PO PRN (08:21)
[2017-12-14] MEDS: INSULIN DETEMIR 100 UNITS/ML VIAL SQ SCH ×2 (08:23→21:09)
[2017-12-14] MEDS: INSULIN ASPART SUPPLEMENTAL SCALE SQ SCH ×5 (08:23→21:08)
[2017-12-14] MEDS: SODIUM CHLORIDE 0.9% FLUSH 10 ML FLUSH IV FLUSH SCH ×2 (08:23→21:09)
--- NOTE | 2017-12-14 10:28 | HHI.NPPN ---
Subjective Renal Failure: End Stage Renal Disease History of Present Illness This is a 52-year-old female known to me from before with a past medical history of hypertension, diabetes mellitus, history of cerebrovascular accident , hyperlipidemia, ischemic heart disease, congestive heart failure, chronic anemia, end-stage renal disease on hemodialysis 3 times per week who was transferred to the hospital for a left heel ulcer, which is nonhealing.Nephrology was called for the management of dialysis. The patient was on hemodialysis here in the [facility] some time ago and then she moved to [place] because her daughter lives there and she has been getting dialysis there. Her soldering machine operator automatic is Dr. Martinez over there.The patient is in a nursing facility and she has this wound on her left heel for which reason she was admitted before and it is not healing and she has been following with podiatry and she is admitted for antibiotic and debridement of the wound. The patient has some pain in the left heel area. She denies any nausea or vomiting. There is no history of fever. No shortness of breath. No chest pain. Her last hemodialysis was done on Wednesday through the left arm arteriovenous fistula. Additional Remarks Seen during hemodialysis. Patient resting comfortably with no complaints. Pain is well controlled. (Felicitas Galo) Review of Systems Respiratory Respiratory Remarks Denies shortness of breath (Felicitas Galo) Cardiovascular Cardiac Remarks No chest pain (Felicitas Galo) Gastrointestinal GI Remarks No abdominal pain (Felicitas Galo) Objective Data Data Vital Signs Date Time Temp Pulse Resp B/P (MAP) Pulse Ox O2 Delivery O2 Flow Rate FiO2 12/14/17 08:09 98.1 80 18 131/75 (93) 98 12/14/17 04:00 99.4 81 18 141/76 (97) 98 12/14/17 00:00 98.4 92 18 129/63 (85) 95 12/13/17 20:00 Room Air 12/13/17 20:00 98.3 83 16 113/59 (77) 96 12/13/17 17:35 96 21 12/13/17 16:00 98.8 83 16 119/63 (81) 96 12/13/17 12:00 98.0 72 16 102/55 (71) 96 (Felicitas Galo) -: 12/13/1762312/13/17 06 Physical Exam General Appearance: Well Nourished, No Acute Distress, Comfortable (Felicitas Galo) Throat Throat Exam: Oral Mucosa [place] & Moist (Felicitas Galo) Pulmonary Resp Exam: Clear Bilaterally, Breath Sounds Equal, No Distress (Felicitas Galo) Cardiology CV Exam: Normal Sinus Rhythm (Felicitas Galo) Gastrointestinal/Abdomen GI Exam: Soft, Non-Tender, Bowel Sounds Present (Felicitas Galo) Genitourinary Exam: Flank Non-Tender (Felicitas Galo) Integumentary Skin Exam: Clear, Warm, Lesion(s) Skin Remarks Left foot with dressing on (Felicitas Galo) Extremeties Extremities Exam: No Edema, Moderate Edema (Felicitas Galo) Neurologic Neuro Exam: Alert, Awake (Felicitas Galo) Psychiatric Psych Exam: Appropriate Responses (Felicitas Galo) Assessment/Plan Discussed Condition With: Patient Problem List: (1) ESRD (end stage renal disease) on dialysis ICD Codes: N18.6 - End stage renal disease; Z99.2 - Dependence on renal dialysis Status: Chronic Plan: Hemodialysis on Wednesday, , and Wednesday. Her soldering machine operator automatic is Dr. Martinez from [place] Left arm arteriovenous fistula with positive thrill and bruit Renal diet. Continue Sensipar/Renvela Continue antibiotics as per ID. Seen during hemodialysis tolerating well remove fluid as tolerated. (2) Diabetic foot ulcer associated with type 2 diabetes mellitus ICD Codes: E11.621 - Type 2 diabetes mellitus with foot ulcer; L97.509 - Non- pressure chronic ulcer of other part of unspecified foot with unspecified severity Plan: Antibiotics per ID (3) Type 2 diabetes mellitus ICD Codes: E11.9 - Type 2 diabetes mellitus without complications Status: Chronic Plan: Maintain blood sugars between 140 mg/dl to 180 mg/dl (4) Hypertension ICD Codes: I10 - Essential (primary) hypertension Status: Chronic Plan: Well controlled. (Felicitas Galo) Problem List: (1) ESRD (end stage renal disease) on dialysis ICD Codes: N18.6 - End stage renal disease; Z99.2 - Dependence on renal dialysis Status: Chronic Plan: Hemodialysis on Wednesday, , and Wednesday. Her soldering machine operator automatic is Dr. Martinez from [place] Left arm arteriovenous fistula with positive thrill and bruit Renal diet. Continue Sensipar/Renvela Continue antibiotics as per ID. Seen during hemodialysis tolerating well remove fluid as tolerated. Patient seen and examined, agree with above. HD done, continue antibiotics. (2) Diabetic foot ulcer associated with type 2 diabetes mellitus ICD Codes: E11.621 - Type 2 diabetes mellitus with foot ulcer; L97.509 - Non- pressure chronic ulcer of other part of unspecified foot with unspecified severity Plan: Antibiotics per ID (3) Type 2 diabetes mellitus ICD Codes: E11.9 - Type 2 diabetes mellitus without complications Status: Chronic Plan: Maintain blood sugars between 140 mg/dl to 180 mg/dl (4) Hypertension ICD Codes: I10 - Essential (primary) hypertension Status: Chronic Plan: Well controlled. (Ivonne Coffey MD) Problem Qualifiers (1) Diabetic foot ulcer associated with type 2 diabetes mellitus: (2) Type 2 diabetes mellitus: (3) Hypertension: Qualified Codes: I10 - Essential (primary) hypertension Felicitas Galo Dec 14, 2017 10:28 Ivonne Coffey MD Dec 14, 2017 23:54
[2017-12-14 12:39] LABS: AUTOMATED NEUTROPHIL # 8.7 TH/MM3 (1.8-7.7); BASOPHIL # 0.1 TH/MM3 (0-0.2); BASOPHIL % 0.6 % (0.0-2.0); EOSINOPHIL # 0.2 TH/MM3 (0-0.4); EOSINOPHIL % 1.8 % (0.0-4.0); HEMATOCRIT 28.8 % (35.0-46.0); HEMOGLOBIN 8.9 GM/DL (11.6-15.3); LYMPH % 18.8 % (9.0-44.0); LYMPHOCYTE # 2.4 TH/MM3 (1.0-4.8); MEAN CELL VOLUME 85.5 FL (80.0-100.0); MEAN CORPUSCULAR HEMOGLOBIN 26.3 PG (27.0-34.0); MEAN CORPUSCULAR HGB CONC 30.8 % (32.0-36.0); MEAN PLATELET VOLUME 10.9 FL (7.0-11.0); MONO % 10.5 % (0.0-8.0); MONOCYTE # 1.3 TH/MM3 (0-0.9); NEUT % 68.3 % (16.0-70.0); PLATELET COUNT 217 TH/MM3 (150-450); RED BLOOD COUNT 3.37 MIL/MM3 (4.00-5.30); RED CELL DISTRIBUTION WIDTH 16.4 % (11.6-17.2); WHITE BLOOD COUNT 12.8 TH/MM3 (4.0-11.0)
[2017-12-14 13:07] LABS: CALCIUM 7.6 MG/DL (8.5-10.1)
[2017-12-14] MEDS: EPOETIN ALFA 10,000 UNITS/ML VIAL IV PUSH PRN (13:18)
[2017-12-14 13:24] LABS: CREATININE 12.81 MG/DL (0.50-1.00)
[2017-12-14] MEDS ORDERED: DAPTOmycin INJ 600 MG in SODIUM CHLORIDE 0.9% INJ 100 ML IV SCH (14:00)
[2017-12-14] MEDS: CHOLECALCIFEROL (VIT D3) 1000 UNIT TAB PO SCH (14:53)
[2017-12-14] MEDS: cloNIDine HCL 0.1 MG TAB PO SCH ×2 (14:53→21:07)
[2017-12-14] MEDS: METOPROLOL TARTRATE 25 MG TAB PO SCH ×2 (14:53→21:07)
[2017-12-14] MEDS: VITAMIN B CMPLX/VITC/FOLIC AC CAP PO SCH (14:54)
--- NOTE | 2017-12-14 14:55 | HHI.DCPOC ---
Discharge Care Plan Diagnosis: (1) Type 2 diabetes mellitus (2) ESRD (end stage renal disease) on dialysis (3) Osteomyelitis of left foot (4) Hypertension (5) HLD (hyperlipidemia) (6) Hx of coronary artery disease Goals to Promote Your Health * To prevent worsening of your condition and complications * To maintain your health at the optimal level Directions to Meet Your Goals Take your medications as prescribed Follow your dietary instruction Follow activity as directed Keep your appointments as scheduled Take your immunizations and boosters as scheduled If your symptoms worsen call your PCP, if no PCP go to Urgent Care Center or Emergency Room Smoking is Dangerous to Your Health. Avoid second hand smoke Call the 24-hour hour crisis hotline for domestic abuse at Yanet Roldan MD R1 Dec 14, 2017 14:55
[2017-12-14] MEDS: AMPICILLIN-SULBACTAM INJ 3 GM in SODIUM CHLORIDE 0.9% INJ 100 ML IV SCH (15:03)
--- NOTE | 2017-12-14 15:55 | HHI.FPPN ---
Subjective Remarks Patient was seen and evaluated this morning. Patient denies chest pain, heart palpitations, shortness of breath, nausea/vomiting, diarrhea and constipation. She is excited to return to her living facility. All questions were answered. (Yanet Roldan MD R1) Objective Vitals Vital Signs Date Time Temp Pulse Resp B/P (MAP) Pulse Ox O2 Delivery O2 Flow Rate FiO2 12/14/17 08:09 98.1 80 18 131/75 (93) 98 12/14/17 07:00 Room Air 12/14/17 04:00 99.4 81 18 141/76 (97) 98 12/14/17 00:00 98.4 92 18 129/63 (85) 95 12/13/17 20:00 Room Air 12/13/17 20:00 98.3 83 16 113/59 (77) 96 12/13/17 17:35 96 21 12/13/17 16:00 98.8 83 16 119/63 (81) 96 I/O 12/13/17 12/13/17 12/13/17 12/14/17 12/14/17 12/14/17 07:00 15:00 23:00 07:00 15:00 23:00 Intake Total 100 ml 240 ml Output Total 3000 ml Balance 100 ml 240 ml -3000 ml Intake Oral 240 ml IV Total 100 ml Hemodialysis 3000 ml (Yanet Roldan MD R1) Result Diagram: 12/14/17 1018 12/14/17 1018 Imaging Last Impressions Foot X-Ray 12/09/17 0000 Signed Impressions: CONCLUSION: Partial amputation of the calcaneus. Foot MRI 12/05/17 0000 Signed Impressions: CONCLUSION: 1. Increasing cortical erosion and bone marrow edema along the posterolateral margin of the calcaneus characteristic of osteomyelitis. 2. Large soft tissue defect the posterior lateral margin of the calcaneus jennifer acteristic of a large ulceration or area of debridement. 3. Otherwise stable appearing hindfoot. Extremity Arterial Study 12/05/17 0000 Signed Impressions: CONCLUSION: 1. Ankle-brachial index and toe brachial index are most characteristic of mild to moderate peripheral arterial disease. Objective Remarks GENERAL: Patient is a resting in bed comfortably, in no acute distress. Undergoing dialysis at time of encounter. CARDIOVASCULAR: Regular rate and rhythm without murmurs, gallops, or rubs. RESPIRATORY: Clear to auscultation bilaterally. Breath sounds equal bilaterally. GASTROINTESTINAL: Abdomen soft, non-tender, nondistended, obese. MUSCULOSKELETAL: Left heel: wrapped loosely with bandage, able to wiggle toes, capillary refill wnl. NEUROLOGICAL: Awake and alert. Oriented x3. Procedures Partial calcanectomy, left with bone biopsy on 12/09. (Yanet Roldan MD R1) Urinary Catheter: No (Yanet Roldan MD R1) Vascular Central Line Catheter: No (Yanet Roldan MD R1) A/P Assessment and Plan Patient is a 52-year-old female who presented with a nonhealing diabetic foot ulcer. Admitted for evaluation and management of osteomyelitis of left calcaneus. Discharge Planning Today pending placement. (Yanet Roldan MD R1) Attending Attestation Patient examined independently and case discussed with resident physician I have read the above note and agree with the assessment/plan as discussed with me I was involved in all medical decision making for this patient Vijay Orellana MD (Vijay Orellana MD) Problem List: (1) Osteomyelitis of left foot ICD Codes: M86.9 - Osteomyelitis, unspecified Status: Acute Plan: S/p left partial calcanectomy with bone biopsy on 12/09 by furniture removalist's assistant Dr. Wells. * Wound culture growing gram-positive cocci; enterococcus faecalis vancomycin- resistant, amp sensitive. * Bone biopsy: bone with acute osteomyelitis on at least one surface of the bone. * Blood cultures show no growth up to date. Imaging: * MRI of the right foot shows increasing cortical erosion and bone marrow edema along the posterior lateral margin of the calcaneus characteristic of osteomyelitis. Large soft tissue defect in the posterior lateral margin of the calcaneus characteristic of a large ulceration of area or debridement. * Foot x-ray shows soft tissues lucency involving the heel suggesting ulceration , no radiographic evidence to suggest osteomyelitis. Medications: * Daptomycin 600mg IV TuThSa changed to Unasyn 3g IV q24hr on 12/13. * To be discharged on Unasyn x6 weeks. Consults: * Podiatry. * Cleared patient for discharge. * Infectious Discharge. * See Medications above. * Vascular surgery. * DICK characteristic of mild to moderate PAD. * PVR suggest mild arterial insufficiency and would indicate the perfusion sufficient to heal. (2) ESRD (end stage renal disease) on dialysis ICD Codes: N18.6 - End stage renal disease; Z99.2 - Dependence on renal dialysis Status: Chronic Plan: Patient with history of ESRD. On dialysis Wednesday, , Wednesday. Patient's divider operator is Dr. Martinez from [place]. Medications: * Continue home Renvela and Sensipar. Consults: * Nephrology. * Continue dialysis schedule as above. * Renally dose medications. (3) Type 2 diabetes mellitus ICD Codes: E11.9 - Type 2 diabetes mellitus without complications Status: Chronic Plan: Patient with history of DM Type II. A1c 8.1 in September 2017 Medications: * Determir 10 units SQ BID. * NovoLOG supplemental scale. Patient has required 14 units over past 24 hrs. Orders: * Bedside glucose at 08, 12, 17, 21. (4) Hypertension ICD Codes: I10 - Essential (primary) hypertension Status: Chronic Plan: Patient with history of hypertension. * Continue home medications. (5) HLD (hyperlipidemia) ICD Codes: E78.5 - Hyperlipidemia, unspecified Status: Chronic Plan: Patient with history of hyperlipidemia. * Continue home medications. (6) Hx of chronic congestive heart failure ICD Codes: Z86.79 - Personal history of other diseases of the circulatory system Status: Chronic Plan: Patient with history of CHF. * Monitor for signs of acute exacerbation. (7) Hx of coronary artery disease ICD Codes: Z86.79 - Personal history of other diseases of the circulatory system Status: Chronic Plan: Patient with history of CAD. S/p four-vessel CABG. Medications: * Continue Aspirin 81 mg PO daily. (8) FEN/DVT PPX/GI PPX/Nursing Orders Status: Acute Plan: Fluids: * Tolerates PO. Electrolytes: * Monitor and replete as necessary. Nutrition: * Renal diet. DVT Prophylaxis: * Heparin 5000 units SQ q8hr. (Yanet Roldan MD R1) Problem Qualifiers (1) Osteomyelitis of left foot: Qualified Codes: M86.272 - Subacute osteomyelitis, left ankle and foot (2) Type 2 diabetes mellitus: (3) Hypertension: Qualified Codes: I10 - Essential (primary) hypertension (4) HLD (hyperlipidemia): Qualified Codes: E78.5 - Hyperlipidemia, unspecified Yanet oRldan MD R1 Dec 14, 2017 15:54 Vijay Orellana MD Dec 14, 2017 16:16
[2017-12-14] MEDS ORDERED: EPIN1INJ21 SQ (16:15)
[2017-12-14] MEDS ORDERED: EPIN1INJ21 IV PUSH (16:15)
[2017-12-14] MEDS ORDERED: SOLU250I IV PUSH (16:15)
[2017-12-14] MEDS ORDERED: UNAS3INJ IV (16:17)
[2017-12-14 17:37] VITALS: O2SAT 98
[2017-12-14 18:09] VITALS: BP 127/78; PULSE 82; RESP 18; TEMP 98.1; O2SAT 99
[2017-12-14] MEDS: ATORVASTATIN 20 MG TAB PO SCH (21:06)
[2017-12-14] MEDS: CINACALCET HYDROCHLORIDE 30 MG TAB PO SCH (21:07)
[2017-12-14 23:45] VITALS: BP 98/52; PULSE 80; RESP 16; TEMP 98.5; O2SAT 94
[2017-12-15] VITALS (7 sets, daily range): BP systolic 90–142; BP diastolic 51–59; PULSE 69–78; RESP 16–17; TEMP 97.9–98.5; O2SAT 54–100
[2017-12-15] MEDS: HEPARIN SODIUM - SQ 10,000 UNITS/ML VIAL SQ SCH (06:28)
[2017-12-15] MEDS: INSULIN ASPART SUPPLEMENTAL SCALE SQ SCH ×2 (08:00→12:00)
[2017-12-15] MEDS: SEVELAMER CARBONATE 800 MG TAB PO SCH (09:00)
[2017-12-15] MEDS: ASPIRIN 81 MG CHEW TAB PO SCH (09:00)
[2017-12-15] MEDS: cloNIDine HCL 0.1 MG TAB PO SCH (09:00)
[2017-12-15] MEDS: INSULIN DETEMIR 100 UNITS/ML VIAL SQ SCH (09:00)
[2017-12-15] MEDS: GABAPENTIN 100 MG CAP PO SCH (09:00)
[2017-12-15] MEDS: SODIUM CHLORIDE 0.9% FLUSH 10 ML FLUSH IV FLUSH SCH (09:00)
[2017-12-15] MEDS: METOPROLOL TARTRATE 25 MG TAB PO SCH (09:00)
[2017-12-15] MEDS: CHOLECALCIFEROL (VIT D3) 1000 UNIT TAB PO SCH (09:00)
[2017-12-15] MEDS: DOCUSATE SODIUM 50 MG/SENNA 8.6 MG TAB PO SCH (09:00)
[2017-12-15] MEDS: VITAMIN B CMPLX/VITC/FOLIC AC CAP PO SCH (09:00)
[2017-12-15] MEDS ORDERED: HYDR-3516 PO (09:17)
[2017-12-15 11:20] LABS: HEMATOCRIT 31.3 % (35.0-46.0); HEMOGLOBIN 9.7 GM/DL (11.6-15.3); MEAN CORPUSCULAR HEMOGLOBIN 26.8 PG (27.0-34.0); MEAN CORPUSCULAR HGB CONC 31.2 % (32.0-36.0); MEAN PLATELET VOLUME 10.1 FL (7.0-11.0); PLATELET COUNT 207 TH/MM3 (150-450); RED BLOOD COUNT 3.64 MIL/MM3 (4.00-5.30); RED CELL DISTRIBUTION WIDTH 16.8 % (11.6-17.2); WHITE BLOOD COUNT 12.3 TH/MM3 (4.0-11.0)
[2017-12-15 11:21] LABS: INTERNATIONAL NORMALIZED RATIO 1.2 RATIO; PROTHROMBIN TIME - PATIENT 11.7 SEC (9.8-11.6)
--- NOTE | 2017-12-15 11:28 | HHI.FPPN ---
Subjective Remarks Patient was seen and evaluated this morning. She is frustrated about hold ups with regard to discharge planning. She understands that a Adams line needs to be placed prior to discharge today. She has been NPO since midnight. Patient denies chest pain, heart palpitations, shortness of breath, nausea/vomiting, diarrhea and constipation. She denies pain in her left heel/foot. When bleeding heel discovered on exam, patient states that she doesn't feel pain but thought "something was there." Patient then also mentions bleeding at insulin and heparin injection sites yesterday afternoon. Bleeding stopped promptly. All questions were answered. (Yanet Roldan MD R1) Objective Vitals Vital Signs Date Time Temp Pulse Resp B/P (MAP) Pulse Ox O2 Delivery O2 Flow Rate FiO2 12/15/17 08:03 98.5 69 17 90/51 (64) 100 12/15/17 04:44 98.0 69 16 115/53 (73) 99 12/14/17 23:45 98.5 80 16 98/52 (67) 94 12/14/17 20:00 Room Air 12/14/17 18:09 98.1 82 18 127/78 (94) 99 12/14/17 17:37 98 21 I/O 12/14/17 12/14/17 12/14/17 12/15/17 12/15/17 12/15/17 07:00 15:00 23:00 07:00 15:00 23:00 Intake Total 380 ml 240 ml Output Total 3000 ml 0 ml Balance -3000 ml 380 ml 240 ml Intake Oral 380 ml 240 ml Output Urine Total 0 ml Hemodialysis 3000 ml # Voids 0 # Bowel Movements 0 0 (Yanet Roldan MD R1) Result Diagram: 12/14/17 1018 12/14/17 1018 Imaging Last Impressions Foot X-Ray 12/09/17 0000 Signed Impressions: CONCLUSION: Partial amputation of the calcaneus. Foot MRI 12/05/17 0000 Signed Impressions: CONCLUSION: 1. Increasing cortical erosion and bone marrow edema along the posterolateral margin of the calcaneus characteristic of osteomyelitis. 2. Large soft tissue defect the posterior lateral margin of the calcaneus jennifer acteristic of a large ulceration or area of debridement. 3. Otherwise stable appearing hindfoot. Extremity Arterial Study 5/27/18 0000 Signed Impressions: CONCLUSION: 1. Ankle-brachial index and toe brachial index are most characteristic of mild to moderate peripheral arterial disease. Objective Remarks GENERAL: Patient is resting in bed comfortably, in no acute distress. Visibly frustrated. CARDIOVASCULAR: Regular rate and rhythm without murmurs, gallops, or rubs. RESPIRATORY: Clear to auscultation bilaterally. Breath sounds equal bilaterally. GASTROINTESTINAL: Abdomen soft, non-tender, nondistended, obese. 2x2cm gauze covering injection site, dried blood noted. MUSCULOSKELETAL: Left heel: Bandage at heel blood-soaked. Upon unwrapping of the bandage, fresh red blood noted on gauze covering surgical site. Able to wiggle toes, capillary refill wnl. NEUROLOGICAL: Awake and alert. Oriented x3. Procedures Partial calcanectomy, left with bone biopsy on 12/09. Medications and IVs Current Medications Medications (Trade) Dose Ordered Sig/Afshan Route Start Time Stop Time Status Last Admin (Aspirin Chew) 81 mg DAILY PO 12/06/17 09:00 12/14/17 08:18 (Lipitor) 20 mg HS PO 12/05/17 21:00 12/14/17 21:06 (Vitamin D3) 1,000 units DAILY PO 12/06/17 09:00 12/14/17 14:53 (Neurontin) 200 mg BID PO 12/05/17 21:00 12/14/17 21:06 (Lopressor) 25 mg BID PO 12/05/17 21:00 12/14/17 21:07 (Renvela) 1,600 mg TID PO 12/06/17 09:00 12/14/17 19:12 (Nephrocaps) 1 cap DAILY PO 12/06/17 09:00 12/14/17 14:54 (Sensipar) 60 mg HS PO 12/05/17 21:00 12/14/17 21:07 (NS Flush) 2 ml UNSCH PRN IV FLUSH 12/05/17 19:45 (NS Flush) 2 ml BID IV FLUSH 12/05/17 21:00 12/14/17 21:09 (Tylenol) 650 mg Q4H PRN PO 12/05/17 19:45 (Narcan Inj) 0.4 mg UNSCH PRN IV PUSH 5/27/18 19:45 (Joyce-Colace) 1 tab BID PO 12/05/17 21:00 12/14/17 08:19 (Milk Of Magnesia Liq) 30 ml Q12H PRN PO 12/05/17 19:45 12/12/17 00:31 (Senokot) 17.2 mg Q12H PRN PO 12/05/17 19:45 (Dulcolax Supp) 10 mg DAILY PRN RECTAL 12/05/17 19:45 (Lactulose Liq) 30 ml DAILY PRN PO 12/05/17 19:45 (D50w (Vial) Inj) 50 ml UNSCH PRN IV PUSH 12/05/17 19:45 (Glucagon Inj) 1 mg UNSCH PRN OTHER 12/05/17 19:45 (NovoLOG SUPPLEMENTAL SCALE) 1 ACHS SLIDING SCALE SQ 12/05/17 21:00 12/14/17 21:08 (Levemir Inj) 10 units BID SQ 12/05/17 21:00 12/14/17 21:09 (Heparin Inj) 5,000 units Q8H SQ 12/05/17 23:00 12/14/17 15:04 ([place] 5-325 Mg) 1 tab Q4H PRN PO 12/05/17 21:30 12/14/17 08:21 ([place] 5-325 Mg) 2 tab Q6H PRN PO 12/05/17 21:30 12/11/17 22:39 (Morphine Inj) 2 mg Q3H PRN IV PUSH 12/05/17 21:30 (Zofran Odt) 4 mg Q6H PRN PO 12/05/17 21:30 Sodium Chloride 1,000 ml @ 0 mls/hr Q0M PRN OTHER 12/06/17 12:33 (Heparin Inj) 8,000 units UNSCH PRN IV FLUSH 12/06/17 12:45 Sodium Chloride 1,000 ml @ 200 mls/hr Q5H PRN IV 12/06/17 12:33 Sodium Chloride 1,000 ml @ 0 mls/hr Q0M PRN OTHER 12/06/17 12:33 (Mannitol Inj) 12.5 gm UNSCH PRN IV 12/06/17 12:45 Albumin Human 100 ml @ 60 mls/hr UNSCH PRN IV 5/28/18 12:45 12/07/17 10:58 (NS Flush) 5 ml UNSCH PRN IV FLUSH 12/06/17 12:45 (Heparin Inj) UNSCH PRN .XX 12/06/17 12:45 (Gentamicin Inj) 20 mg UNSCH PRN OTHER 12/06/17 12:45 (Tylenol) 650 mg UNSCH PRN PO 12/06/17 12:45 (Benadryl) 25 mg UNSCH PRN PO 12/06/17 12:45 (Nitrostat Sl) 0.4 mg UNSCH PRN SL 12/06/17 12:45 (Catapres) 0.1 mg UNSCH PRN PO 12/06/17 12:45 (Epogen Inj) 10,000 units UNSCH PRN IV PUSH 12/06/17 12:45 12/14/17 13:18 (Gelfoam 12 Mm/7 Mm Top) 1 foam UNSCH PRN TOP 12/06/17 12:45 (Zofran Odt) 4 mg UNSCH PRN PO 12/06/17 13:00 (Catapres) 0.1 mg BID PO 12/08/17 21:00 12/14/17 21:07 Ampicillin Sodium/ Sulbactam Sodium 3 gm/Sodium Chloride 100 ml @ 200 mls/hr Q24H IV 12/13/17 14:00 12/14/17 15:03 (Yanet Roldan MD R1) Urinary Catheter: No (Yanet Roldan MD R1) Vascular Central Line Catheter: No (Yanet Roldan MD R1) A/P Assessment and Plan Patient is a 52-year-old female who presented with a nonhealing diabetic foot ulcer. Admitted for evaluation and management of osteomyelitis of left calcaneus. Discharge Planning Today pending placement. (Yanet Roldan MD R1) Attending Attestation Patient independently examined and case discussed with resident physician I have read the above note and agree with the assessment/plan as discussed with me I was involved in all medical decision making for this patient Vijay Orellana MD (Vijay Orellana MD) Problem List: (1) Osteomyelitis of left foot ICD Codes: M86.9 - Osteomyelitis, unspecified Status: Acute Plan: S/p left partial calcanectomy with bone biopsy on 12/[address] Wells. Fresh red blood noted on gauze, covering surgical site, when bandage unwrapped. * Wound culture growing gram-positive cocci; enterococcus faecalis vancomycin- resistant, amp sensitive. * Bone biopsy: bone with acute osteomyelitis on at least one surface of the bone. * Blood cultures show no growth up to date. Imaging: * MRI of the right foot shows increasing cortical erosion and bone marrow edema along the posterior lateral margin of the calcaneus characteristic of osteomyelitis. Large soft tissue defect in the posterior lateral margin of the calcaneus characteristic of a large ulceration of area or debridement. * Foot x-ray shows soft tissues lucency involving the heel suggesting ulceration , no radiographic evidence to suggest osteomyelitis. Medications: * Unasyn 3g IV q24hr (12/13-). * To be discharged on Unasyn x6 weeks. Consults: * Podiatry. * Podiatry contacted concerning bleeding at heel. Awaiting recommendations. * Infectious Discharge. * See Medications above. * Vascular surgery. * DICK characteristic of mild to moderate PAD. * PVR suggest mild arterial insufficiency and would indicate the perfusion sufficient to heal. (2) ESRD (end stage renal disease) on dialysis ICD Codes: N18.6 - End stage renal disease; Z99.2 - Dependence on renal dialysis Status: Chronic Plan: Patient with history of ESRD. On dialysis Wednesday, , Wednesday. Patient's construction worker is Dr. Martinez from [place]. Medications: * Continue home Renvela and Sensipar. Consults: * Nephrology. * Continue dialysis schedule as above. * Renally dose medications. (3) Type 2 diabetes mellitus ICD Codes: E11.9 - Type 2 diabetes mellitus without complications Status: Chronic Plan: Patient with history of DM Type II. A1c 8.1 in September 2017 Medications: * Determir 10 units SQ BID. * NovoLOG supplemental scale. Patient has required 13 units over past 24 hrs. Orders: * Bedside glucose at 08, 12, 17, 21. (4) Hypertension ICD Codes: I10 - Essential (primary) hypertension Status: Chronic Plan: Patient with history of hypertension. * Continue home medications. (5) HLD (hyperlipidemia) ICD Codes: E78.5 - Hyperlipidemia, unspecified Status: Chronic Plan: Patient with history of hyperlipidemia. * Continue home medications. (6) Hx of chronic congestive heart failure ICD Codes: Z86.79 - Personal history of other diseases of the circulatory system Status: Chronic Plan: Patient with history of CHF. * Monitor for signs of acute exacerbation. (7) Hx of coronary artery disease ICD Codes: Z86.79 - Personal history of other diseases of the circulatory system Status: Chronic Plan: Patient with history of CAD. S/p four-vessel CABG. Medications: * Continue Aspirin 81 mg PO daily. (8) FEN/DVT PPX/GI PPX/Nursing Orders Status: Acute Plan: Fluids: * Tolerates PO. Electrolytes: * Monitor and replete as necessary. Nutrition: * Renal diet. DVT Prophylaxis: * Heparin 5000 units SQ q8hr. (Yanet Roldan MD R1) Problem Qualifiers (1) Osteomyelitis of left foot: Qualified Codes: M86.272 - Subacute osteomyelitis, left ankle and foot (2) Type 2 diabetes mellitus: (3) Hypertension: Qualified Codes: I10 - Essential (primary) hypertension (4) HLD (hyperlipidemia): Qualified Codes: E78.5 - Hyperlipidemia, unspecified Yanet Roldan MD R1 Dec 15, 2017 11:28 Vijay Orellana MD Dec 15, 2017 17:01
[2017-12-15 11:48] LABS: BICARBONATE 26.3 MEQ/L (21.0-32.0); CALCIUM 8.4 MG/DL (8.5-10.1)
[2017-12-15 11:52] LABS: CREATININE 10.08 MG/DL (0.50-1.00)
--- NOTE | 2017-12-15 13:23 | HHI.NPPN ---
Subjective Renal Failure: End Stage Renal Disease History of Present Illness This is a 52-year-old female known to me from before with a past medical history of hypertension, diabetes mellitus, history of cerebrovascular accident , hyperlipidemia, ischemic heart disease, congestive heart failure, chronic anemia, end-stage renal disease on hemodialysis 3 times per week who was transferred to the hospital for a left heel ulcer, which is nonhealing.Nephrology was called for the management of dialysis. The patient was on hemodialysis here in the [facility] some time ago and then she moved to [place] because her daughter lives there and she has been getting dialysis there. Her civil engineering director is Dr. Martinez over there.The patient is in a nursing facility and she has this wound on her left heel for which reason she was admitted before and it is not healing and she has been following with podiatry and she is admitted for antibiotic and debridement of the wound. The patient has some pain in the left heel area. She denies any nausea or vomiting. There is no history of fever. No shortness of breath. No chest pain. Her last hemodialysis was done on Wednesday through the left arm arteriovenous fistula. Additional Remarks Patient is frustrated this morning. Reports that left foot is bleeding. Plan for Adams catheter today. (Felicitas Galo) Review of Systems Respiratory Respiratory Remarks Denies shortness of breath (Felicitas Galo) Cardiovascular Cardiac Remarks No chest pain (Felicitas Gaol) Gastrointestinal GI Remarks No abdominal pain (Felicitas Galo) Psych Psych: Anxiety (Felicitas Galo) Objective Data Data Vital Signs Date Time Temp Pulse Resp B/P (MAP) Pulse Ox O2 Delivery O2 Flow Rate FiO2 12/15/17 12:03 98.3 73 17 121/51 (74) 97 12/15/17 08:03 98.5 69 17 90/51 (64) 100 12/15/17 08:00 Room Air 12/15/17 04:44 98.0 69 16 115/53 (73) 99 12/14/17 23:45 98.5 80 16 98/52 (67) 94 12/14/17 20:00 Room Air 12/14/17 18:09 98.1 82 18 127/78 (94) 99 12/14/17 17:37 98 21 (Felicitas Galo) -: 12/15/17 1015 12/15/17 1015 Imaging Last Impressions Foot X-Ray 12/09/17 0000 Signed Impressions: CONCLUSION: Partial amputation of the calcaneus. Foot MRI 12/05/17 0000 Signed Impressions: CONCLUSION: 1. Increasing cortical erosion and bone marrow edema along the posterolateral margin of the calcaneus characteristic of osteomyelitis. 2. Large soft tissue defect the posterior lateral margin of the calcaneus jennifer acteristic of a large ulceration or area of debridement. 3. Otherwise stable appearing hindfoot. Extremity Arterial Study 12/05/17 0000 Signed Impressions: CONCLUSION: 1. Ankle-brachial index and toe brachial index are most characteristic of mild to moderate peripheral arterial disease. (Felicitas Galo) Physical Exam General Appearance: Well Nourished, No Acute Distress, Comfortable (Felicitas Galo) Throat Throat Exam: Oral Mucosa [place] & Moist (Felicitas Galo) Pulmonary Resp Exam: Clear Bilaterally, Breath Sounds Equal, No Distress (Felicitas Galo) Cardiology CV Exam: Normal Sinus Rhythm (Felicitas Galo) Gastrointestinal/Abdomen GI Exam: Soft, Non-Tender, Bowel Sounds Present (Felicitas Galo) Genitourinary Exam: Flank Non-Tender (Felicitas Galo) Integumentary Skin Exam: Clear, Warm, Lesion(s) Skin Remarks Left foot with dressing on (Felicitas Galo) Extremeties Extremities Exam: No Edema, Moderate Edema (Felicitas Galo) Neurologic Neuro Exam: Alert, Awake (Felicitas Galo) Psychiatric Psych Exam: Appropriate Responses (Felicitas Galo) Assessment/Plan Discussed Condition With: Patient Problem List: (1) ESRD (end stage renal disease) on dialysis ICD Codes: N18.6 - End stage renal disease; Z99.2 - Dependence on renal dialysis Status: Chronic Plan: Hemodialysis on Wednesday, , and Wednesday. Her civil engineering director is Dr. Martinez from [place] Left arm arteriovenous fistula with positive thrill and bruit Renal diet. Continue Sensipar/Renvela Continue antibiotics as per ID. Hemodialysis yesterday with a UF of 3 liters Plan for Adams catheter today. (2) Diabetic foot ulcer associated with type 2 diabetes mellitus ICD Codes: E11.621 - Type 2 diabetes mellitus with foot ulcer; L97.509 - Non- pressure chronic ulcer of other part of unspecified foot with unspecified severity Plan: Antibiotics per ID (3) Type 2 diabetes mellitus ICD Codes: E11.9 - Type 2 diabetes mellitus without complications Status: Chronic Plan: Maintain blood sugars between 140 mg/dl to 180 mg/dl (4) Hypertension ICD Codes: I10 - Essential (primary) hypertension Status: Chronic Plan: Well controlled. (Felicitas Galo) Problem List: (1) ESRD (end stage renal disease) on dialysis ICD Codes: N18.6 - End stage renal disease; Z99.2 - Dependence on renal dialysis Status: Chronic Plan: Hemodialysis on Wednesday, , and Wednesday. Her civil engineering director is Dr. Martinez from [place] Left arm arteriovenous fistula with positive thrill and bruit Renal diet. Continue Sensipar/Renvela Continue antibiotics as per ID. Hemodialysis yesterday with a UF of 3 liters Plan for Adams catheter today. Patient seen and examined, agree with above. For possible discharge after out patient HD arranged. To follow with her College President. (2) Diabetic foot ulcer associated with type 2 diabetes mellitus ICD Codes: E11.621 - Type 2 diabetes mellitus with foot ulcer; L97.509 - Non- pressure chronic ulcer of other part of unspecified foot with unspecified severity Plan: Antibiotics per ID (3) Type 2 diabetes mellitus ICD Codes: E11.9 - Type 2 diabetes mellitus without complications Status: Chronic Plan: Maintain blood sugars between 140 mg/dl to 180 mg/dl (4) Hypertension ICD Codes: I10 - Essential (primary) hypertension Status: Chronic Plan: Well controlled. (Ivonne Coffey MD) Problem Qualifiers (1) Diabetic foot ulcer associated with type 2 diabetes mellitus: (2) Type 2 diabetes mellitus: (3) Hypertension: Qualified Codes: I10 - Essential (primary) hypertension Felicitas Galo Dec 15, 2017 13:23 Ivonne Coffey MD Dec 16, 2017 13:46
[2017-12-15] MEDS ORDERED: MIDAZOLAM HCL 2 MG/2 ML VIAL ONE ×2 (14:14)
[2017-12-15] MEDS ORDERED: LIDOCAINE 1%/EPINEPHrine 1:100,000 SOLN 20 ML VIAL ONE (14:40)
[2017-12-15] MEDS ORDERED: SODIUM CHLORIDE 0.9% FLUSH 10 ML FLUSH IVF PRN (15:30)
--- NOTE | 2017-12-15 15:33 | PD.RAD ---
Post Procedure Progress Note Pre Procedure Diagnosis: (1) Osteomyelitis of left foot (2) ESRD (end stage renal disease) on dialysis Post Procedure Diagnosis: (1) Osteomyelitis of left foot (2) ESRD (end stage renal disease) on dialysis Procedure Date: Dec 15, 2017 Supervising Radiologist: Aditya Jean JR Proceduralist/Assist: Shawn Carrion RT(R), Other Anesthesia: Conscious Sedation Plan of Activity Patient to Unit: ROPU Patient Condition: Good See PACS Report for procedural detail/treatment Central Venous Access Device Procedure 1 Left Internal Jugular Tunneled Central Line Placement single lumen Hebrew: 7 Findings: Pt has occluded RIJ. Placed LIJ Adams. In good position and functions well. OK to use. Plan Can remove suture holding Adams in place in 3 weeks. Jr Ted.,Aditya Licea MD Dec 15, 2017 15:33
--- NOTE | 2017-12-15 16:50 | RADRPT ---
EXAM DATE: 12/15/2017 3:58 PM EDT AGE/SEX: 52 years / Female INDICATIONS: Patient presents with end-stage renal disease in need of Adams catheter insertion. CLINICAL DATA: This is the patient's initial encounter. Patient reports that signs and symptoms have been present for 1 week and indicates a pain score of 0/10. MEDICAL/SURGICAL HISTORY: . Type 2 diabetes Hypertension ESRD on Wednesday, , and y Hyperlipidemia CHF status post stents and four-vessel bypass surgery in 2008CVA in 2011 with right- sided hemiparesis . Four-vessel CABG Left arm AV fistula section ?3Cholecystectomy in 2014K nee surgery in 1989Umbilical surgery as a child COMPARISON: No prior exams available for comparison. FLUORO TIME (min): 0.6 IMAGE SERIES: 2 SEDATION TIME (min): 15 MEDICATION(S): 2 mg midazolam (Versed) IV 100 mcg fentanyl (Sublimaze) IV DEVICE(S): Left 6.6fr single lumen Broviac(Adams) . . PROCEDURE: 1. Ultrasound-guided puncture of the prescribed vein. 2. Fluoroscopic guidance. 3. Adams catheter placement 4. Conscious sedation with continuous EKG and oximetry monitoring. The risks, benefits and alternatives to the procedure were explained and verbal and written consent w as obtained. The site was prepped in sterile fashion. Full sterile technique was used, including ca p, mask, sterile gloves and gown and a large sterile sheet. Hand hygiene and 2% chlorhexidine Betadi ne was utilized per protocol for cutaneous antisepsis with appropriate dry time for site. Sterile ge l and sterile probe cover were utilized for ultrasound guidance. The skin and subcutaneous tissues w ere infiltrated with local anesthetic solution. With ultrasound and fluoroscopic guidance a dermatotomy was created in the supraclavicular region. A micropuncture set was used to access to the prescribed vein and serial dilatation was performed to a ccept a Adams catheter. A subcutaneous tunnel was created and in antegrade fashion the catheter wa s pulled through the tunnel, cut to the appropriate length and place through the sheath. The cathete r was locked with heparin and sutured in place. Conscious sedation was performed with the prescribed dosages and duration as above in the presence of an independent trained radiology nurse to assist in the monitoring of the patient. EKG and oximetry remained stable throughout the procedure. The patient tolerated the procedure well and there were no complications. The patient was sent to post anesthesia recovery in stable condition. CONCLUSION: 1. Uncomplicated Adams catheter placement in the left IJ as above. 2. Patient has occluded right IJ near its confluence with the subclavian vein. Electronically signed by: Aditya Jean MD 12/15/2017 4:48 PM EDT
[2017-12-16] MEDS ORDERED: SODIUM CHLORIDE 0.9% FLUSH 10 ML FLUSH IVF SCH (09:00)
== END 2017-12-15 17:09 | DRG 629 ==
LOC: NEPC 14:05 → NEDA 18:51 → N04B 23:57
PROVIDERS: ADMIT Family Medicine; ATTEND Family Medicine
PROC: 5A1D70Z Performance of Urinary Filtration, Intermittent, Less than 6 Hours Per Day (ICD-10-PCS; 2017-12-07)
PROC: 0QBM0ZX Excision of Left Tarsal, Open Approach, Diagnostic (ICD-10-PCS; 2017-12-09)
PROC: 0QBM0ZZ Excision of Left Tarsal, Open Approach (ICD-10-PCS; principal; 2017-12-09 14:52)
PROC: 02HV33Z Insertion of Infusion Device into Superior Vena Cava, Percutaneous Approach (ICD-10-PCS; 2017-12-15)
DX: E11.69 Type 2 diabetes mellitus with other specified complication (principal); I69.351 Hemiplegia and hemiparesis following cerebral infarction affecting right dominant side; M86.172 Other acute osteomyelitis, left ankle and foot; I13.2 Hypertensive heart and chronic kidney disease with heart failure and with stage 5 chronic kidney disease, or end stage renal disease; N18.6 End stage renal disease; E11.22 Type 2 diabetes mellitus with diabetic chronic kidney disease; E11.621 Type 2 diabetes mellitus with foot ulcer; L97.423 Non-pressure chronic ulcer of left heel and midfoot with necrosis of muscle; I50.9 Heart failure, unspecified; E11.51 Type 2 diabetes mellitus with diabetic peripheral angiopathy without gangrene; I25.10 Atherosclerotic heart disease of native coronary artery without angina pectoris; E78.5 Hyperlipidemia, unspecified; H54.8 Legal blindness, as defined in USA; D64.9 Anemia, unspecified; K21.9 Gastro-esophageal reflux disease without esophagitis; K59.09 Other constipation; R50.9 Fever, unspecified; B95.2 Enterococcus as the cause of diseases classified elsewhere; Z95.1 Presence of aortocoronary bypass graft; Z99.2 Dependence on renal dialysis; Z79.4 Long term (current) use of insulin; Z83.3 Family history of diabetes mellitus; Z79.82 Long term (current) use of aspirin
CPT/HCPCS: 36558; 36591; 73630; 73718; 76937; 77001; 80048; 80053; 80061; 80202; 82948; 83036; 83735; 83970; 84100; 84155; 84443; 85025; 85027; 85610; 85652; 85730; 86140; 87015; 87040; 87070; 87077; 87102; 87116; 87205; 87206; 88305; 88307; 88311; 90935; 93005; 93922; 94150; 96365; 96374; 96375; 99152; 99211; C1751; C1769; G0463; J0131; J0295; J0878; J1642; J1644; J1815; J2250; J2370; J2405; J2543; J3010; J3370; J7040; J7050; L3260; P9047; Q4081

== ENCOUNTER 2017-12-20 14:18 | Emergency (ER) | payer MEDICARE, MEDICAID ==
[~2017-12-20] VITALS: Ht 167.6 cm; Wt 100.0 kg
[~2017-12-20 14:18] MED LIST changes: -AMOX500T2 PO; -CIPR250T2 PO; -CLON.1 PO; -CLON0.1T PO; +EPIN1INJ21 IV PUSH; +EPIN1INJ21 SQ; +HYDR-3516 PO; -Heparin Inj SQ; -LACT PO; +SOLU250I IV PUSH; +UNAS3INJ IV
[2017-12-20 15:09] VITALS: BP 175/81; PULSE 77; RESP 16; TEMP 97.9; O2SAT 99
--- NOTE | 2017-12-20 16:23 | PD ---
HPI Chief Complaint: Wound/Suture/Staple Re-Check Time Seen by Provider: 15:06 Travel History International Travel<30 days: No Contact w/Intl Traveler<30days: No Traveled to known affect area: No History of Present Illness HPI 52-year-old female with PMH of osteomyelitis status post calcanectomy left foot presents to the ED via EMS for evaluation of left foot wound. Patient states that she was scheduled to see her houseman today, but was unable to due to transportation issues. Patient states that she has had weeping a little bit of blood from the wound every morning. She denies fever, chills, nausea, vomiting , increased pain in the area. She would not allow the nurses to unwrap the foot , states that Dr. Wells told her " no dressing changes." PFSH Past Medical History Hx Anticoagulant Therapy: Yes (ASA) Arthritis: No Asthma: No Autoimmune Disease: No Blood Disorders: No Anxiety: No Depression: No Heart Rhythm Problems: Yes Cancer: No Cardiac Catheterization: Yes (2008) Cardiovascular Problems: Yes (CHF) High Cholesterol: Yes Chemotherapy: No Chest Pain: Yes Congestive Heart Failure: Yes COPD: No Cerebrovascular Accident: Yes (RIGHT SIDED WEAKNESS) Coronary Artery Disease: Yes Diabetes: Yes Patient Takes Glucophage: No Dialysis: Yes (WEDNESDAY,WEDNESDAY, WEDNESDAY) Diminished Hearing: No Endocrine: Yes Gastrointestinal Disorders: Yes (cholesctomy ) GERD: Yes Glaucoma: No Genitourinary: Yes Headaches: No Hepatitis: No Hiatal Hernia: No Heparin Induced Thrombocytopen: No Hypertension: Yes Immune Disorder: No Implanted Vascular Access Dvce: Yes Kidney Stones: No Medical other: Yes (RT SIDED WEAKNESS) Musculoskeletal: Yes Neurologic: Yes (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) Psychiatric: No Reproductive: No Respiratory: Yes (PNEUMONIA) Integumentary: Yes (FOOT ULCER ) Immunizations Current: No Migraines: No Myocardial Infarction: No Radiation Therapy: No Renal Failure: Yes Seizures: No Sickle Cell Disease: No Thyroid Disease: No Ulcer: No ?: Not Menopausal: Yes : 3 Para: 3 Tubal Ligation: Yes (1991) Past Surgical History Abdominal Surgery: Yes (UMBILICAL HERNIA SURGERY) AICD: No Appendectomy: No Arteriovenous Shunt: No Body Medical Devices: AV FISTULA - LEFT upper inner ARM Cardiac Surgery: Yes (CABG X 4, CARDIAC CATHS) Section: Yes (X 3) Cholecystectomy: No Coronary Artery Bypass Graft: Yes (2009 4 VESSEL) Ear Surgery: No Endocrine Surgery: No Eye Surgery: Yes (RIGHT EYE TEAR DUCT) Genitourinary Surgery: No Gynecologic Surgery: Yes ( SECTION X 3) Insulin Pump: No Joint Replacement: No Oral Surgery: No Pacemaker: No Thoracic Surgery: No Other Surgery: Yes (LEFT ARM AV FISTLA) Social History Alcohol Use: No Tobacco Use: No Substance Use: No Allergies-Medications (Allergen,Severity, Reaction): Coded Allergies: *MDRO Multi-Drug Resistant Organism (Verified Allergy, Unknown, 12/20/17) MRSA PCR (nares) negative - 11/19/15 & 11/21/15 Cleared per Infection Control MRSA 2013 Reported Meds & Prescriptions Reported Meds & Active Scripts Active Hydrocodone-Acetamin 5-325 mg (Hydrocodone/Acetaminophen) 5 Mg-325 Mg Tablet 1 Tab PO Q4H PRN Hydrocodone 5mg Q4H as needed for ACUTE PAIN Metoprolol Tartrate 25 Mg Tab 25 Mg PO BID Reported Vitamin D3 (Cholecalciferol) 1,000 Unit Tab 1,000 Units PO DAILY Tylenol (Acetaminophen) 325 Mg Tab 325 Mg PO Q6H PRN Sensipar (Cinacalcet) 60 Mg Tab 60 Mg PO HS Milk of Magnesia Liq (Magnesium Hydroxide) 400 Mg/5 Ml Susp 30 Ml PO DAILY PRN Gabapentin 100 Mg Cap 200 Mg PO BID Colace (Docusate Sodium) 100 Mg Capsule 100 Mg PO BID Biscolax Supp (Bisacodyl) 10 Mg Supp 10 Mg RECTAL DAILY PRN Aspirin Low Dose (Aspirin) 81 Mg Chew 81 Mg PO DAILY Renvela (Sevelamer Carbonate) 800 Mg Tab 1,600 Mg PO TID With meals and snacks Rhonda-Estefania (B-Complex W/ C & Folic Acid) 1 Tab 1 Tab PO DAILY Novolog Inj (Insulin Aspart) 1,000 Unit/10 Ml Vial 0 SQ BID Sliding Scale as directed. Levemir Inj (Insulin Detemir) 1,000 unit/ 10 ML Vial 15 Units SQ BID Do not mix with any other Insulin. Clonidine (Clonidine HCl) 0.2 Mg Tab 0.2 Mg PO BID Atorvastatin (Atorvastatin Calcium) 20 Mg Tab 20 Mg PO HS Review of Systems Except as stated in HPI: all other systems reviewed are Neg Physical Exam Narrative GENERAL: Pleasant -[place] female no acute distress. SKIN: Focused skin assessment warm/dry. HEAD: Atraumatic. Normocephalic. EYES: Pupils equal and round. No scleral icterus. No injection or drainage. ENT: No nasal bleeding or discharge. Mucous membranes pink and moist. NECK: Trachea midline. No JVD. CARDIOVASCULAR: Regular rate and rhythm. No murmur appreciated. RESPIRATORY: No accessory muscle use. Clear to auscultation. Breath sounds equal bilaterally. GASTROINTESTINAL: Abdomen soft, non-tender, nondistended. Hepatic and splenic margins not palpable. MUSCULOSKELETAL: No obvious deformities. No clubbing. No cyanosis. No edema. FOCUSED LEFT LOWER EXTREMITY EXAM: 2+ DP pulse. Homans sign negative. Well- healing surgical wound without signs of infection. Sutures in place. Mild to moderate serosanguineous drainage noted. NEUROLOGICAL: Awake and alert. No obvious cranial nerve deficits. Motor grossly within normal limits. Normal speech. PSYCHIATRIC: Appropriate mood and affect; insight and judgment normal. Data Data Last Documented VS Vital Signs Date Time Temp Pulse Resp B/P (MAP) Pulse Ox O2 Delivery O2 Flow Rate FiO2 12/20/17 15:09 97.9 77 16 175/81 (112) 99 MDM Medical Decision Making Medical Screen Exam Complete: Yes Emergency Medical Condition: Yes Differential Diagnosis Wound recheck versus osteomyelitis versus chronic foot wound versus other Narrative Course 52-year-old female with PMH of osteomyelitis status post calcanectomy left foot presents to the ED via EMS for evaluation of left foot wound. Patient states that she was scheduled to see her houseman today, but was unable to due to transportation issues. Patient states that she has had weeping a little bit of blood from the wound every morning. She denies fever, chills, nausea, vomiting , increased pain in the area. Vitals reviewed. On exam the wound is well healing without signs of infection. There is a palpable DP pulse. Homans sign is negative. I spoke with Dr. Wells. She recommends dressing change and follow-up in the office. I discussed this with the patient who is agreeable to the plan. Dressing was changed by the nurse. Patient's instructed to keep this dressing until seen by Dr. Wells next week. She indicated understanding of the instructions. The patient is stable and discharged home. Diagnosis Primary Impression: Encounter for wound re-check Additional Impression: Change of dressing Referrals: Elizabeth Wells DPM Additional Instructions: Keep the dressing clean and dry. No dressing changes until seen in the houseman office. Call Dr. Wells's office today for an appointment next week. Follow-up with Dr. Wells's office next week as discussed. Return to the ED for any urgent or emergent medical condition. Disposition: 01 DISCHARGE HOME Condition: Stable Karyn Gonzales Dec 20, 2017 16:23
== END 2017-12-20 18:33 | disposition home or self-care (01) ==
LOC: NEPE 14:18
DX: M86.9 Osteomyelitis, unspecified (principal); Z48.01 Encounter for change or removal of surgical wound dressing
CPT/HCPCS: 99281